=== PATIENT | female | born 1965 | race Caucasian/White ===

== ENCOUNTER → 2017-11-13 12:08 | Outpatient (CLI) | payer OTHER, SELFPAY ==
[2017-11-13 14:41] LABS: Absolute Lymphocyte Count 2.98 X10^3/ul (0.83-4.51); Absolute Neutrophil Count 5.4 X10^3/uL (2.0-7.7); Basophil# 0.02 X10^3/uL; Basophil% 0.2 % (0-1); Eosinophil# 0.13 X10^3/uL; Eosinophils% 1.4 % (0-5); Hematocrit 43.1 % (37-47); Hemoglobin 14.2 g/dl (12.0-15.0); Lymphocyte # 2.98 X10^3/ul (4.0); Lymphocyte % 32.5 % (19-41); Mean Corp Hgb Conc 32.9 g/gl (32-36); Mean Corpuscular Hgb 31.2 pg (27.0-32.0); Mean Corpuscular Volume 94.7 fL (81-99); Mean Platelet Vol. 11.5 fl (6.2-12.0); Monocyte# 0.61 X10^3/uL; Monocyte% 6.7 % (0-10); POSITIVE COUNT NO; POSITIVE DIFFERENTIAL NO; POSITIVE MORPHOLOGY NO; Platelet Count 377 K/mm3 (150-450); RBC Distribution Width CV 14.5 % (11.6-14.6); RBC Distribution Width SD 49.1 fl (35.1-43.9); Red Blood Count 4.55 M/mm3 (4.2-5.4); White Blood Count 9.2 K/mm3 (4.4-11.0)
[2017-11-13 15:06] LABS: ALB/GLOB Ratio 1.2 RATIO (0.9-2.4); AST(SGOT) 18 U/L (15-37); Alanine Aminotransfer ALT/SGPT 23 U/L (13-56); Albumin, Serum 4.3 g/dL (3.2-5.0); Alkaline Phosphatase 81 U/L (45-117); Anion Gap 7 (5-15); BUN 19 mg/dL (7-18); BUN/Creat Ratio 20.7 RATIO (10-20); Calcium,Total 9.4 mg/dL (8.5-10.1); Chloride 102 mmol/L (98-107); Creatinine, Serum 0.92 mg/dL (0.55-1.02); EST Glomerular Filtration Rate 68 mL/min (>60); Est Glom Filt Rate - Afr Amer 82 mL/min (>60); Ferritin 41 ng/mL (8-252); Globulin 3.5 g/dL (2.2-4.2); Glucose 90 mg/dL (74-106); Iron 61 ug/dL (50-170); Iron Binding Capacity,Total 389 ug/dL (250-450); PERCENT IRON SATURATION 15.7 % (15.0-55.0); Potassium 4.3 mmol/L (3.5-5.1); Protein, Total 7.8 g/dL (6.4-8.2); Sodium Level 137 mmol/L (136-145); Thyroid Stim Hormone (TSH) 2.88 uIU/mL (0.358-3.74)
== END ==
PROVIDERS: Family Provider Family Medicine; PCP Family Medicine; Visit Provider Family Medicine
DX: R20.2 Paresthesia of skin (principal)
CPT/HCPCS: 36415; 80053; 82728; 83540; 83550; 84443; 85025

== ENCOUNTER → 2017-11-21 14:27 | Outpatient (CLI) | payer OTHER, SELFPAY ==
[2017-11-21 15:12] LABS: Absolute Lymphocyte Count 3.32 X10^3/ul (0.83-4.51); Absolute Neutrophil Count 9.2 X10^3/uL (2.0-7.7); Basophil# 0.02 X10^3/uL; Basophil% 0.1 % (0-1); Eosinophil# 0.17 X10^3/uL; Eosinophils% 1.2 % (0-5); Hematocrit 39.2 % (37-47); Hemoglobin 12.8 g/dl (12.0-15.0); Lymphocyte # 3.32 X10^3/ul (4.0); Lymphocyte % 23.7 % (19-41); Mean Corp Hgb Conc 32.7 g/gl (32-36); Mean Corpuscular Hgb 31.1 pg (27.0-32.0); Mean Corpuscular Volume 95.4 fL (81-99); Mean Platelet Vol. 11.3 fl (6.2-12.0); Monocyte# 1.22 X10^3/uL; Monocyte% 8.7 % (0-10); Neutrophil # 9.22 X10^3/uL (2.7-7.7); Neutrophil % 66.1 % (47-70); Platelet Count 362 K/mm3 (150-450); RBC Distribution Width CV 14.7 % (11.6-14.6); RBC Distribution Width SD 49.3 fl (35.1-43.9); Red Blood Count 4.11 M/mm3 (4.2-5.4)
[2017-11-21 15:13] LABS: POSITIVE COUNT NO; POSITIVE DIFFERENTIAL NO; POSITIVE MORPHOLOGY NO
[2017-11-21 15:37] LABS: Erythrocyte Sedimentation Rate 11 mm/hr (0-30)
== END ==
PROVIDERS: Family Provider Family Medicine; PCP Family Medicine; Visit Provider Physician Assistant
DX: Z96.652 Presence of left artificial knee joint (principal)
CPT/HCPCS: 36415; 85025; 85652; 86140

== ENCOUNTER → 2017-11-22 14:19 | Outpatient (CLI) | payer OTHER, SELFPAY ==
[2017-11-22 15:11] LABS: AUTO B FLUID DILUENT BKGD CT WBC <0.1 RBC <0.01 (W<.1,R<.01); Source / Synovial Fluid LEFT KNEE
[2017-11-22 15:12] LABS: Appearance /Synovial Fluid Cloudy (CLEAR); Color / Synovial Fluid Red (Pale Yellow); RBC /Synovial Fluid 0.107 10^6/uL (0); Synovial Fld Mononuclear WBC # 3.254 10^3/ul; Synovial Fld Mononuclear WBC % 10.1 %; Synovial Fld Polynuclear WBC # 29.104 10^3/ul; Synovial Fld Polynuclear WBC % 89.9 %; Viscosity / Synovial Fluid Sl. Viscous (HIGH)
[2017-11-22 18:54] LABS: Body Fluid QC Type(s) BF2Q,BF3Q; Lymph 5 %; Monocyte /Synovial Fluid 14 %; Neutrophil 81 % (0-25)
[2017-11-25 10:19] LABS: Pathologist Comment Reviewed
== END ==
PROVIDERS: Family Provider Family Medicine; PCP Family Medicine; Visit Provider Physician Assistant
DX: Z96.652 Presence of left artificial knee joint (principal)
CPT/HCPCS: 87015; 87070; 87075; 87101; 87116; 87205; 87206; 89050; 89051

== ENCOUNTER 2017-11-22 20:56 | Inpatient (IN) | payer OTHER, SELFPAY ==
[2017-11-22 18:40] VITALS: BMI 25.2
[2017-11-22 18:54] VITALS: BP 138/86; PULSE 108; RESP 16; TEMP 37.1; O2SAT 97
--- NOTE | 2017-11-22 19:13 | PCM.CONS.B ---
- Consult Date of Consult: 11/22/17 - Reason for Consult CC: Left knee pain s/p TKR 07/25/15 HxCC:This 51y/o female underwent a tkr approximately two years ago. Was doing well until Saturday when she was exercising and developed acute pain and swelling in her knee. She denies F/C/N or V. She was seen in the office on 11/21 and lab was drawn. Her ESR was wnl at 11 but ESR was elevated and she had a slight elevation in her WBC count. She was afebrile. She was seen in clinic today and the knee was aspirated of about 30 cc of straw colored fluid which was sent for Gram stain, C&S which are still pending. After discussion with Dr. Portillo who is our total joint specialist at [facility], the patient was admitted for an I&D with poly exchange tomorrow. At the time of my evaluation, the patient is comfortable and non-toxic appearing. She reports left knee pain. Denies fevers or chills. ROS, Past Surgical and Medical history as well as her family history, medications and allergies were all reviewed. PHYSICAL EXAM A&o x 3 in NAD. She appears comfortable and non-toxic. Left knee reveals a well healed incision without erythema. She has a 2+ effusion with mild warmth. ROM is 0 - 100 with moderate pain throughout. No instability was appreciated. X- Rays from the office reveal a well seated, cemented TKR with no evidence of loosening or free air in the joint. Neurovascularly she is intact. Impression: Painful and swollen TKR > 2 years post surgery Plan: To OR tomorrow for I&D and polyethylene exchange. Will do tissue cultures x 3 to further assess for infection. Consult infectious disease for further instructions regarding antibiotics.
--- NOTE | 2017-11-22 21:51 | PCM.HP.STD ---
Problem List (1) Pain and swelling of left knee Status: Acute History of Present Illness Date of Admission: 11/22/17 Chief Complaint: Left knee pain and swelling The patient is a 51 year old F who was directly admitted to [place] [id number] at the request of orthopedic surgery who saw the patient in their office on Saturday of this week with complaints of left knee pain and swelling. At that time, labs were obtained, patient's white blood cell count was elevated at 14,000, her sed rate was 11. Patient return to the office yesterday and had an arthrocentesis performed on her left knee, the results today showed large numbers of white blood cells and the patient was directly admitted for further treatment. Patient will undergo surgery tomorrow on the left knee with I&D and polyethylene exchange. At the request of orthopedic surgery, patient will not be placed on antibiotics for now, labs have been ordered and are pending tonight. Past Medical History Past Medical History (Chronic Problems): Chronic Problems Hypertension (Chronic) Atypical depressive disorder (Chronic) Tobacco dependence (Chronic) Allergies chlorhexidine Allergy (Verified 01/25/17 11:05) Itching venom-honey bee [bee venom (honey bee)] Allergy (Verified 01/25/17 11:05) Anaphylaxis Home Medications: Ambulatory Orders Medication Instructions Recorded Nebivolol HCl [Bystolic (Beta 20 mg PO DAILY 06/01/14 Braxton)] Vilazodone Hydrochloride [Viibryd] 20 mg PO DAILY 06/01/14 Ergocalciferol [Vitamin D] 2,000 units PO DAILY 06/23/15 Magnesium Oxide [Mag-Ox 400] 350 mg PO DAILY 06/23/15 Acetaminophen [Tylenol Extra 2 tab PO BID PRN 11/22/17 Strength] Celecoxib [Celebrex] 200 mg PO BID 11/22/17 Lorazepam [Ativan] 1 mg PO DAILY PRN PRN 11/22/17 Surgical History: - - Multiple left knee arthroscopic surgeries due to an injury as a teenager, total left knee replacement Psychiatric History: Anxiety 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 Lives: Spouse/ Significant Other Smoking Status: Current every day smoker Tobacco Use: Cigarettes Alcohol: None Drugs: None - *Family History Sibling History Items: - - due to cardiomyopathy Maternal History Items: Heart Disease, - - CAD; PCI Paternal History Items: Dementia Review of Systems Constitutional: Denies: Anorexia, Chills, Fever, Night Sweats, Malaise, Weakness, Weight Change, Fatigue Eyes: Denies: Blurred vision, Cataracts, Conjunctivae Inflammation, Double vision, Drainage HEENT: Denies: Difficulty Hearing, Difficulty Swallowing, Dysphasia, Ear Pain, Eye Pain, Head Aches, Hearing Changes, Nasal bleeding, Nasal Congestion Cardiovascular: Denies: Chest Pain, Claudication, Chest Pressure, Chest Tightness, Edema, Heaviness, Orthopnea, Palpitations Respiratory: Denies: Cough, Hemoptysis, Pleuritic Pain, Shortness of Breath, Shortness of breath at rest, Shortness of breath upon exertion, Sputum production Gastrointestinal: Denies: Abdominal Pain, Constipation, Diarrhea, Hematemesis, Hematochezia, Nausea, Melena, Vomiting Genitourinary: Denies: Dysuria, Frequency, Hematuria, Hesitancy, Incontinence, Nocturia, Urgency Gynecological: Denies: Breast symptoms Musculoskeletal: Reports: Joint Pain - Left knee, Joint swelling - Left knee. Denies: Joint stiffness Skin: Denies: Dryness, Jaundice, Pruritis, Rash, Wounds Neurological: Denies: Blurred vision, Double vision, Change in Speech, Slurred speech, Difficulty swallowing, Focal weakness, Headaches, Incoordination, Numbness, Tingling Psychiatric: Reports: Anxiety. Denies: Depression, Homicidal Ideations, Suicidal Ideations Endocrine: Denies: Change in Body Habitus, Heat/ Cold Intolerance, Polydipsia, Polyuria Hematologic/ Lymphatic: Denies: Adenopathy, Anemia, Easy Bruising, Easy Bleeding, Petechiae, Purpura VTE Information - Inpt Only VTE Present on Admission: No VTE Mechan Device Prophylaxis: SCD's VTE Pharm Prophylaxis ordered?: No Reason prophylaxis not ordered:: Treatment Not Indicated - SCD's are used Patient Problems: Active and Suspected Problems Pain and swelling of left knee (Acute) - Physical Exam General: Alert, Oriented x3, Cooperative, No apparent distress, Well developed, Well nourished HEENT: Atraumatic, PERRLA, EOMI, Normocephalic Neck: Supple, No JVD, Negative Carotid Bruits, No Nuchal Rigidity, Trachea Midline, Thyroid Normal Size and Texture Lungs: Clear to auscultation, Normal air movement, No rhonchi, No wheeze, No rales Cardiovascular: Regular rate, Regular Rhythm, Normal S1, Normal S2, No murmurs, No Ectopic Activity, PMI Normal, No rub noted, No Gallop Abdomen: Bowel Sounds Present, Soft, Non Tender, Non-Distended, No hernias noted Extremities: No clubbing, No cyanosis, Capillary Refill Less than 3 Seconds, Edema - There is mild edema noted around the left knee area Skin: No rashes, No breakdown Musculoskeletal: Tenderness - Left knee is tender to palpation Neurological: Cranial nerves II-XII grossly intact, Neuro grossly intact, Sensory exam intact to light touch and pain, Coordination normal Psych/Mental Status: Normal Affect, Appropriate, Alert and oriented to time, place, person, mood and affect Vital Signs Temp Pulse Resp BP Pulse Ox 98.7 F 108 H 16 138/86 H 97 11/22/17 18:54 11/22/17 18:54 11/22/17 18:54 11/22/17 18:54 11/22/17 18:54 Oxygen Delivery Method Room Air Weight: 73 kg Body Mass Index (BMI) 25.2 Assessment/Plan Active and Suspected Problems Pain and swelling of left knee (Acute) #1 suspected left knee joint infection-again patient was admitted, she will undergo surgery tomorrow, antibiotic coverage per infectious diseases based on culture results #2 anxiety-patient will remain on her home medications #3 hypertension-patient will remain on her home medication Patient appears stable for surgery at this time, I feel she is at a low risk for complications, labs were ordered Code Visit Inpatient E&M: 05716 Init Hosp L3
--- NOTE | 2017-11-22 22:01 | HP.PCM_ITS ---
Problem List (1) Pain and swelling of left knee Status: Acute History of Present Illness Date of Admission: 11/22/17 Chief Complaint: Left knee pain and swelling The patient is a 51 year old F who was directly admitted to [place] [id number] at the request of orthopedic surgery who saw the patient in their office on Saturday of this week with complaints of left knee pain and swelling. At that time, labs were obtained, patient's white blood cell count was elevated at 14,000, her sed rate was 11. Patient return to the office yesterday and had an arthrocentesis performed on her left knee, the results today showed large numbers of white blood cells and the patient was directly admitted for further treatment. Patient will undergo surgery tomorrow on the left knee with I&D and polyethylene exchange. At the request of orthopedic surgery, patient will not be placed on antibiotics for now, labs have been ordered and are pending tonight. Past Medical History Past Medical History (Chronic Problems): Chronic Problems Hypertension (Chronic) Atypical depressive disorder (Chronic) Tobacco dependence (Chronic) Allergies chlorhexidine Allergy (Verified 01/25/17 11:05) Itching venom-honey bee [bee venom (honey bee)] Allergy (Verified 01/25/17 11:05) Anaphylaxis Home Medications: Ambulatory Orders Medication Instructions Recorded Nebivolol HCl [Bystolic (Beta 20 mg PO DAILY 06/01/14 Braxton)] Vilazodone Hydrochloride [Viibryd] 20 mg PO DAILY 06/01/14 Ergocalciferol [Vitamin D] 2,000 units PO DAILY 06/23/15 Magnesium Oxide [Mag-Ox 400] 350 mg PO DAILY 06/23/15 Acetaminophen [Tylenol Extra 2 tab PO BID PRN 11/22/17 Strength] Celecoxib [Celebrex] 200 mg PO BID 11/22/17 Lorazepam [Ativan] 1 mg PO DAILY PRN PRN 11/22/17 Surgical History: - - Multiple left knee arthroscopic surgeries due to an injury as a teenager, total left knee replacement Psychiatric History: Anxiety 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 Lives: Spouse/ Significant Other Smoking Status: Current every day smoker Tobacco Use: Cigarettes Alcohol: None Drugs: None - *Family History Sibling History Items: - - due to cardiomyopathy Maternal History Items: Heart Disease, - - CAD; PCI Paternal History Items: Dementia Review of Systems Constitutional: Denies: Anorexia, Chills, Fever, Night Sweats, Malaise, Weakness , Weight Change, Fatigue Eyes: Denies: Blurred vision, Cataracts, Conjunctivae Inflammation, Double vision, Drainage HEENT: Denies: Difficulty Hearing, Difficulty Swallowing, Dysphasia, Ear Pain, Eye Pain, Head Aches, Hearing Changes, Nasal bleeding, Nasal Congestion Cardiovascular: Denies: Chest Pain, Claudication, Chest Pressure, Chest Tightness, Edema, Heaviness, Orthopnea, Palpitations Respiratory: Denies: Cough, Hemoptysis, Pleuritic Pain, Shortness of Breath, Shortness of breath at rest, Shortness of breath upon exertion, Sputum production Gastrointestinal: Denies: Abdominal Pain, Constipation, Diarrhea, Hematemesis, Hematochezia, Nausea, Melena, Vomiting Genitourinary: Denies: Dysuria, Frequency, Hematuria, Hesitancy, Incontinence, Nocturia, Urgency Gynecological: Denies: Breast symptoms Musculoskeletal: Reports: Joint Pain - Left knee, Joint swelling - Left knee. Denies: Joint stiffness Skin: Denies: Dryness, Jaundice, Pruritis, Rash, Wounds Neurological: Denies: Blurred vision, Double vision, Change in Speech, Slurred speech, Difficulty swallowing, Focal weakness, Headaches, Incoordination, Numbness, Tingling Psychiatric: Reports: Anxiety. Denies: Depression, Homicidal Ideations, Suicidal Ideations Endocrine: Denies: Change in Body Habitus, Heat/ Cold Intolerance, Polydipsia, Polyuria Hematologic/ Lymphatic: Denies: Adenopathy, Anemia, Easy Bruising, Easy Bleeding , Petechiae, Purpura VTE Information - Inpt Only VTE Present on Admission: No VTE Mechan Device Prophylaxis: SCD's VTE Pharm Prophylaxis ordered?: No Reason prophylaxis not ordered:: Treatment Not Indicated - SCD's are used Patient Problems: Active and Suspected Problems Pain and swelling of left knee (Acute) - Physical Exam General: Alert, Oriented x3, Cooperative, No apparent distress, Well developed, Well nourished HEENT: Atraumatic, PERRLA, EOMI, Normocephalic Neck: Supple, No JVD, Negative Carotid Bruits, No Nuchal Rigidity, Trachea Midline, Thyroid Normal Size and Texture Lungs: Clear to auscultation, Normal air movement, No rhonchi, No wheeze, No rales Cardiovascular: Regular rate, Regular Rhythm, Normal S1, Normal S2, No murmurs, No Ectopic Activity, PMI Normal, No rub noted, No Gallop Abdomen: Bowel Sounds Present, Soft, Non Tender, Non-Distended, No hernias noted Extremities: No clubbing, No cyanosis, Capillary Refill Less than 3 Seconds, Edema - There is mild edema noted around the left knee area Skin: No rashes, No breakdown Musculoskeletal: Tenderness - Left knee is tender to palpation Neurological: Cranial nerves II-XII grossly intact, Neuro grossly intact, Sensory exam intact to light touch and pain, Coordination normal Psych/Mental Status: Normal Affect, Appropriate, Alert and oriented to time, place, person, mood and affect Vital Signs Temp Pulse Resp BP Pulse Ox 98.7 F 108 H 16 138/86 H 97 11/22/17 18:54 11/22/17 18:54 11/22/17 18:54 11/22/17 18:54 11/22/17 18:54 Oxygen Delivery Method Room Air Weight: 73 kg Body Mass Index (BMI) 25.2 Assessment/Plan Active and Suspected Problems Pain and swelling of left knee (Acute) #1 suspected left knee joint infection-again patient was admitted, she will undergo surgery tomorrow, antibiotic coverage per infectious diseases based on culture results #2 anxiety-patient will remain on her home medications #3 hypertension-patient will remain on her home medication Patient appears stable for surgery at this time, I feel she is at a low risk for complications, labs were ordered Code Visit Inpatient E&M: 27321 Init Hosp L3
[2017-11-22 22:46] LABS: ALB/GLOB Ratio 1.1 RATIO (0.9-2.4); AST(SGOT) 22 U/L (15-37); Alanine Aminotransfer ALT/SGPT 27 U/L (13-56); Albumin, Serum 3.7 g/dL (3.2-5.0); Alkaline Phosphatase 74 U/L (45-117); Anion Gap 6 (5-15); BUN 17 mg/dL (7-18); BUN/Creat Ratio 16.7 RATIO (10-20); Calcium,Total 8.6 mg/dL (8.5-10.1); Chloride 109 mmol/L (98-107); Creatinine, Serum 1.02 mg/dL (0.55-1.02); EST Glomerular Filtration Rate 60 mL/min (>60); Est Glom Filt Rate - Afr Amer 73 mL/min (>60); Estimated Creatinine Clearance 62.03 ml/min; Globulin 3.4 g/dL (2.2-4.2); Glucose 96 mg/dL (74-106); Potassium 4.2 mmol/L (3.5-5.1); Protein, Total 7.1 g/dL (6.4-8.2); Sodium Level 142 mmol/L (136-145)
[2017-11-22] MEDS: LORazepam 1 MG Tablet PO (22:48)
[2017-11-22] MEDS: Celecoxib 200 MG Capsule PO (22:48)
--- NOTE | 2017-11-22 22:50 | NURSING ---
pt oringial requested blood pressure medication. medication just came to floor. pt no longer wants to take it due to late hour.
[2017-11-22 22:51] VITALS: BP 146/97; PULSE 102; RESP 20; TEMP 36.8; O2SAT 100
--- NOTE | 2017-11-22 22:52 | NURSING ---
pt very anxious about surgery scheduled for tomorrow. This RN answered questions and attempted to help ease stress. pt requested only 1mg of Ativan at this time. will continue to monitor.
[2017-11-22 22:53] LABS: Absolute Lymphocyte Count 3.18 X10^3/ul (0.83-4.51); Absolute Neutrophil Count 9.9 X10^3/uL (2.0-7.7); Basophil# 0.02 X10^3/uL; Basophil% 0.1 % (0-1); Eosinophil# 0.24 X10^3/uL; Eosinophils% 1.7 % (0-5); Hematocrit 39.3 % (37-47); Hemoglobin 12.8 g/dl (12.0-15.0); Lymphocyte # 3.18 X10^3/ul (4.0); Lymphocyte % 22.1 % (19-41); Mean Corp Hgb Conc 32.6 g/gl (32-36); Mean Corpuscular Hgb 31.1 pg (27.0-32.0); Mean Corpuscular Volume 95.4 fL (81-99); Mean Platelet Vol. 11.1 fl (6.2-12.0); Monocyte# 1.01 X10^3/uL; Neutrophil # 9.93 X10^3/uL (2.7-7.7); Neutrophil % 68.9 % (47-70); POSITIVE COUNT NO; POSITIVE DIFFERENTIAL NO; POSITIVE MORPHOLOGY NO; Platelet Count 337 K/mm3 (150-450); RBC Distribution Width CV 14.5 % (11.6-14.6); RBC Distribution Width SD 48.4 fl (35.1-43.9); Red Blood Count 4.12 M/mm3 (4.2-5.4); White Blood Count 14.4 K/mm3 (4.4-11.0)
[2017-11-23] VITALS (12 sets, daily range): BP systolic 98–129; BP diastolic 62–100; PULSE 82–105; RESP 16–18; TEMP 36.7–37; O2SAT 93–98; BMI 25.2
--- NOTE | 2017-11-23 05:00 | EKG12_ITS ---
Test Reason : AM EKG Blood Pressure : / mmHG Vent. Rate : 091 BPM Atrial Rate : 091 BPM P-R Int : 128 ms QRS Dur : 084 ms QT Int : 362 ms P-R-T Axes : 050 043 -04 degrees QTc Int : 445 ms Normal sinus rhythm Nonspecific T wave abnormality Abnormal ECG Confirmed by ROSA CADENA, SHELIA ([id number]), managing editor PEPE JOYCE ([id number] on 12/05/2017 1:59:09 PM Referred By: KRISTY Confirmed By:SHELIA LEE MD
[2017-11-23] MEDS: 0.9% NaCl Peripheral Flush Adult/Peds IV (06:45)
[2017-11-23] MEDS: LORazepam 2 MG/ML Syringe 0.5 MG IV (06:45)
--- NOTE | 2017-11-23 07:09 | NURSING ---
gave report to Lauren in OR. pt being transported to surgery.
--- NOTE | 2017-11-23 08:48 | PCM.IMDPSTOP ---
Immediate Post-Op Note Date of Procedure: 11/23/17 Primary Surgeon/Physician: Rudy Beard facs teacher: Ankit Riuz facs teacher: Rosie Hoffmann Pre-Operative Diagnosis: Painful left TKR possible infection Post-Operative Diagnosis: same Surgery/Procedure Performed:: I&D with poly exchange left Description of Surgical Findings:: see op note Estimated Blood Loss: 25cc Specimen's removed: cultures ASA Class: ASA2 Mod Systematic Disease - Admit VTE Documentation VTE Present on Admission: No VTE Mechan Device Prophylaxis: SCD's, Thigh High DAX Hose VTE Pharm Prophylaxis ordered?: Yes
--- NOTE | 2017-11-23 08:53 | OP.PN_ITS ---
Immediate Post-Op Note Date of Procedure: 11/23/17 Primary Surgeon/Physician: Rudy Beard flexo press operator: Ankit Ruiz flexo press operator: Rosie Hoffmann Pre-Operative Diagnosis: Painful left TKR possible infection Post-Operative Diagnosis: same Surgery/Procedure Performed:: I&D with poly exchange left Description of Surgical Findings:: see op note Estimated Blood Loss: 25cc Specimen's removed: cultures ASA Class: ASA2 Mod Systematic Disease - Admit VTE Documentation VTE Present on Admission: No VTE Mechan Device Prophylaxis: SCD's, Thigh High DAX Hose VTE Pharm Prophylaxis ordered?: Yes
--- NOTE | 2017-11-23 09:24 | CASEMGMT ---
CHART REVIEW: JAQUELIN Strata: 1 ADM Dx: Knee Infection Last [facility] ADM: 07/25/15 METLAKATLA: The patient is a 51 year old F who was directly admitted to [place] [address] at the request of orthopedic surgery who saw the patient in their office on Saturday of this week with complaints of left knee pain and swelling. At that time, labs were obtained, patient's white blood cell count was elevated at 14,000, her sed rate was 11. Patient returned to the office yesterday and had an arthrocentesis performed on her left knee, the results today showed large numbers of white blood cells and the patient was directly admitted for further treatment. Patient underwent sx 11/23/17, on the left knee with I&D and polyethylene exchange. Transition Planning/Care Coordination: TBD by hospital course. KRYSTAL CM will continue to follow for any anticipated home-going needs. Disposition Plan: Anticipate home; needs TBD TCARLA Budny, RN-BC, CCM
[2017-11-23] MEDS: Ketorolac 15 MG/ML Vial IV (09:42)
[2017-11-23] MEDS: Scopolamine 1mg/72hr Patch 1 PATCH TD (09:46)
[2017-11-23 09:54] LABS: Hematocrit 39.7 % (37-47); Hemoglobin 12.6 g/dl (12.0-15.0); Mean Corp Hgb Conc 31.7 g/gl (32-36); Mean Corpuscular Hgb 30.7 pg (27.0-32.0); Mean Corpuscular Volume 96.8 fL (81-99); Mean Platelet Vol. 10.6 fl (6.2-12.0); Platelet Count 276 K/mm3 (150-450); RBC Distribution Width CV 14.6 % (11.6-14.6); RBC Distribution Width SD 51.8 fl (35.1-43.9); Scan Indicated on CBC? Y/N NO; White Blood Count 10.7 K/mm3 (4.4-11.0)
[2017-11-23 10:08] LABS: Anion Gap 6 (5-15); BUN 13 mg/dL (7-18); BUN/Creat Ratio 16.1 RATIO (10-20); Chloride 113 mmol/L (98-107); Creatinine, Serum 0.81 mg/dL (0.55-1.02); EST Glomerular Filtration Rate 78 mL/min (>60); Est Glom Filt Rate - Afr Amer 95 mL/min (>60); Estimated Creatinine Clearance 78.11 ml/min; Glucose 92 mg/dL (74-106); Potassium 4.8 mmol/L (3.5-5.1); Sodium Level 144 mmol/L (136-145)
[2017-11-23] MEDS: Nebivolol HCl 10 MG Tablet 20 MG PO (11:10)
[2017-11-23] MEDS: Celecoxib 200 MG Capsule PO ×2 (11:10→21:02)
[2017-11-23] MEDS: VILAZODONE HYDROCHLORIDE 20 MG TABLET PO (11:11)
[2017-11-23] MEDS: Acetaminophen 500 MG Tablet 1000 MG PO ×2 (11:11→21:01)
--- NOTE | 2017-11-23 11:18 | PCM.RX.CS ---
Consult Pharmacy has been consulted to manage selected antiobiotic: Vancomycin Type of Consult: New start Suspected Infection: Skin/Soft tissue Labs: Sodium 144 mmol/L (136-145) 11/23/17 09:47 Potassium 4.8 mmol/L (3.5-5.1) 11/23/17 09:47 Chloride 113 mmol/L (98-107) H 11/23/17 09:47 Carbon Dioxide 25.0 mmol/L (21.0-32.0) 11/23/17 09:47 Anion Gap 6 (5-15) 11/23/17 09:47 BUN 13 mg/dL (7-18) 11/23/17 09:47 Creatinine 0.81 mg/dL (0.55-1.02) 11/23/17 09:47 Est GFR (MDRD) Af Amer 95 mL/min (>60) 11/23/17 09:47 Est GFR (MDRD) Non-Af 78 mL/min (>60) 11/23/17 09:47 BUN/Creatinine Ratio 16.1 RATIO (10-20) 11/23/17 09:47 Glucose 92 mg/dL (74-106) 11/23/17 09:47 Weight used for dosin kg Estimated Creatinine Clearance: 78 mL/min Goal Trough: 10-15 mcg/mL Pharmacy Plan for Drug Dosing: Patient received vancomycin 1000mg IV x1 initially prior to surgery, recommend to continue 1000mg IV q12h hr. Check trough prior to 4th dose. Pharmacy Service will continue to monitor and adjust dosing as required. Follow-Up Labs: Trough Vancomycin - 11/25/17 @ 1000
[2017-11-23] MEDS: Gabapentin 300 MG Capsule PO ×2 (12:27→18:07)
[2017-11-23] MEDS: Cefazolin 1 GM/50 ML BAG IV ×2 (13:25→21:02)
[2017-11-23] MEDS: oxyCODONE 5 MG Tablet PO ×3 (13:25→22:14)
--- NOTE | 2017-11-23 17:08 | PN_ITS ---
Patient Problems: Active and Suspected Problems Pain and swelling of left knee (Acute) Subjective: Patient was seen and examined today, she went to surgery today for an I&D of her left knee with polyethylene exchange. Patient has no specific complaints at this time - Physical Exam General: Alert, Oriented x3, Cooperative, No apparent distress, Well developed, Well nourished HEENT: Atraumatic, PERRLA, EOMI, Normocephalic Oral: Moist Mucosa Neck: Supple, No JVD, Trachea Midline, Thyroid Normal Size and Texture Lungs: Clear to auscultation, Normal air movement, No rhonchi, No wheeze, No rales Cardiovascular: Regular rate, Regular Rhythm, Normal S1, Normal S2, No murmurs, No Ectopic Activity, PMI Normal, No rub noted, No Gallop Abdomen: Bowel Sounds Present, Soft, Non Tender, Non-Distended, No hernias noted Extremities: No cyanosis, Capillary Refill Less than 3 Seconds Skin: No rashes, No breakdown Neurological: Cranial nerves II-XII grossly intact, Neuro grossly intact, Muscle tone normal, Sensory exam intact to light touch and pain Psych/Mental Status: Normal Affect, Appropriate, Alert and oriented to time, place, person, mood and affect Vital Signs Temp Pulse Resp BP Pulse Ox 98.5 F 90 18 116/70 95 11/23/17 14:45 11/23/17 14:45 11/23/17 14:45 11/23/17 14:45 11/23/17 14:45 Oxygen Delivery Method Room Air Weight: 73 kg Body Mass Index (BMI) 25.2 Intake and Output for Last 24 Hours 11/21/17 11/22/17 11/23/17 23:59 23:59 23:59 Intake Total 1999 Balance 1999 Microbiology Past 72 Hours 11/23/17 Unknown Gram Stain - Final Tissue - Knee 11/23/17 Unknown Gram Stain - Final Tissue - Knee 11/23/17 Unknown Gram Stain - Final Incision/Surgical Site Laboratory Tests Past 24 Hrs 11/22/17 11/22/17 11/23/17 22:12 22:12 09:47 WBC 14.4 H 10.7 RBC 4.12 L 4.10 L Hgb 12.8 12.6 Hct 39.3 39.7 MCV 95.4 96.8 MCH 31.1 30.7 MCHC 32.6 31.7 L RDW 14.5 14.6 RDW Differential 48.4 H 51.8 H Plt Count 337 276 MPV 11.1 10.6 Immature Gran % (Auto) 0.200 Neut % (Auto) 68.9 Lymph % (Auto) 22.1 [place] % (Auto) 7.0 Eos % (Auto) 1.7 Baso % (Auto) 0.1 Absolute Neuts (auto) 9.9 H Absolute Lymphs (auto) 3.18 Total Counted Not Reportable Sodium 142 Potassium 4.2 Chloride 109 H Carbon Dioxide 27.0 Anion Gap 6 BUN 17 Creatinine 1.02 Estim Creat Clear Calc 62.03 Est GFR (MDRD) Af Amer 73 Est GFR (MDRD) Non-Af 60 BUN/Creatinine Ratio 16.7 Glucose 96 Calcium 8.6 Total Bilirubin 0.20 AST 22 ALT 27 Alkaline Phosphatase 74 Total Protein 7.1 Albumin 3.7 Globulin 3.4 Albumin/Globulin Ratio 1.1 11/23/17 09:47 WBC RBC Hgb Hct MCV MCH MCHC RDW RDW Differential Plt Count MPV Immature Gran % (Auto) Neut % (Auto) Lymph % (Auto) [place] % (Auto) Eos % (Auto) Baso % (Auto) Absolute Neuts (auto) Absolute Lymphs (auto) Total Counted Sodium 144 Potassium 4.8 Chloride 113 H Carbon Dioxide 25.0 Anion Gap 6 BUN 13 Creatinine 0.81 Estim Creat Clear Calc 78.11 Est GFR (MDRD) Af Amer 95 Est GFR (MDRD) Non-Af 78 BUN/Creatinine Ratio 16.1 Glucose 92 Calcium 8.0 L Total Bilirubin AST ALT Alkaline Phosphatase Total Protein Albumin Globulin Albumin/Globulin Ratio Medical Necessity - Tobacco Use Smoking Status: Current every day smoker Tobacco Use: Cigarettes Assessment/Plan Active and Suspected Problems Pain and swelling of left knee (Acute) #1 suspected left knee joint infection-day #1 vancomycin and Ancef, await culture results, preliminary synovial fluid culture shows no growth so far, Gram stain on her left knee tibial membrane showed no white blood cells or organisms. #2 anxiety-patient will remain on her home medications #3 hypertension-patient will remain on her home medication Code Visit Inpatient E&M: 18094 Subs Hosp L2
[2017-11-24] VITALS (7 sets, daily range): BP systolic 84–109; BP diastolic 52–67; PULSE 64–84; RESP 16–18; TEMP 36.4–37.2; O2SAT 94–97
[2017-11-24] MEDS: 0.9% NaCl Peripheral Flush Adult/Peds IV (05:17)
[2017-11-24] MEDS: Enoxaparin 40 MG/0.4 ML Syringe SC (05:17)
[2017-11-24] MEDS: Acetaminophen 500 MG Tablet 1000 MG PO ×3 (05:17→21:09)
[2017-11-24] MEDS: Cefazolin 1 GM/50 ML BAG IV ×3 (05:17→21:09)
[2017-11-24] MEDS: oxyCODONE 5 MG Tablet PO ×5 (05:18→19:44)
[2017-11-24 06:50] LABS: Hemoglobin 10.9 g/dl (12.0-15.0); Mean Corp Hgb Conc 32.1 g/gl (32-36); Mean Corpuscular Hgb 31.4 pg (27.0-32.0); Platelet Count 302 K/mm3 (150-450); RBC Distribution Width CV 14.5 % (11.6-14.6); RBC Distribution Width SD 50.5 fl (35.1-43.9); Red Blood Count 3.47 M/mm3 (4.2-5.4); White Blood Count 7.2 K/mm3 (4.4-11.0)
[2017-11-24 06:51] LABS: Scan Indicated on CBC? Y/N NO
[2017-11-24 07:11] LABS: Anion Gap 6 (5-15); BUN 11 mg/dL (7-18); BUN/Creat Ratio 10.7 RATIO (10-20); Calcium,Total 8.2 mg/dL (8.5-10.1); Chloride 109 mmol/L (98-107); Creatinine, Serum 1.03 mg/dL (0.55-1.02); EST Glomerular Filtration Rate 59 mL/min (>60); Est Glom Filt Rate - Afr Amer 72 mL/min (>60); Estimated Creatinine Clearance 61.43 ml/min; Glucose 97 mg/dL (74-106); Potassium 4.1 mmol/L (3.5-5.1); Sodium Level 143 mmol/L (136-145)
--- NOTE | 2017-11-24 07:22 | PCM.PROGNOTE ---
Patient Problems: Active and Suspected Problems Pain and swelling of left knee (Acute) Subjective: Patient seen and examined today, other than left knee pain, she has no complaints. Patient remains afebrile, white blood cell count remains normal at 7.2, hemoglobin slightly lower at 10.9, creatinine slightly higher at 1.03. Ancef and vancomycin continues day #2 - Physical Exam General: Alert, Oriented x3, Cooperative, No apparent distress, Well developed HEENT: Atraumatic, PERRLA, EOMI, Normocephalic Oral: Moist Mucosa Neck: Supple, No Nuchal Rigidity, Trachea Midline Lungs: Clear to auscultation, Normal air movement, No rhonchi, No wheeze, No rales Cardiovascular: Regular rate, Regular Rhythm, Normal S1, Normal S2, No murmurs, No Ectopic Activity Abdomen: Bowel Sounds Present, Soft, Non Tender, Non-Distended, No hernias noted Extremities: No clubbing, No cyanosis, Capillary Refill Less than 3 Seconds Skin: No rashes Neurological: Cranial nerves II-XII grossly intact, Neuro grossly intact, Muscle tone normal, Sensory exam intact to light touch and pain, Coordination normal Psych/Mental Status: Normal Affect, Appropriate, Alert and oriented to time, place, person, mood and affect Vital Signs Temp Pulse Resp BP Pulse Ox 97.6 F L 76 16 104/62 97 11/24/17 05:15 11/24/17 05:15 11/24/17 05:15 11/24/17 05:15 11/24/17 05:15 Oxygen Delivery Method Room Air Weight: 73 kg Body Mass Index (BMI) 25.2 Intake and Output for Last 24 Hours 11/22/17 11/23/17 11/24/17 23:59 23:59 23:59 Intake Total 2974 / 2974 1039 / 1039 Output Total 1300 / 1300 700 / 700 Balance 1674 / 1674 339 / 339 Microbiology Past 72 Hours 11/23/17 Unknown Gram Stain - Final Tissue - Knee 11/23/17 Unknown Gram Stain - Final Tissue - Knee 11/23/17 Unknown Gram Stain - Final Incision/Surgical Site Laboratory Tests Past 24 Hrs 11/23/17 11/23/17 11/24/17 09:47 09:47 06:24 WBC 10.7 7.2 RBC 4.10 L 3.47 L Hgb 12.6 10.9 L Hct 39.7 34.0 L MCV 96.8 98.0 MCH 30.7 31.4 MCHC 31.7 L 32.1 RDW 14.6 14.5 RDW Differential 51.8 H 50.5 H Plt Count 276 302 MPV 10.6 11.0 Sodium 144 Potassium 4.8 Chloride 113 H Carbon Dioxide 25.0 Anion Gap 6 BUN 13 Creatinine 0.81 Estim Creat Clear Calc 78.11 Est GFR (MDRD) Af Amer 95 Est GFR (MDRD) Non-Af 78 BUN/Creatinine Ratio 16.1 Glucose 92 Calcium 8.0 L //18 06:24 WBC RBC Hgb Hct MCV MCH MCHC RDW RDW Differential Plt Count MPV Sodium 143 Potassium 4.1 Chloride 109 H Carbon Dioxide 28.0 Anion Gap 6 BUN 11 Creatinine 1.03 H Estim Creat Clear Calc 61.43 Est GFR (MDRD) Af Amer 72 Est GFR (MDRD) Non-Af 59 L BUN/Creatinine Ratio 10.7 Glucose 97 Calcium 8.2 L Medical Necessity - Tobacco Use Smoking Status: Current every day smoker Tobacco Use: Cigarettes Assessment/Plan Active and Suspected Problems Pain and swelling of left knee (Acute) #1 suspected left knee joint infection-day #2 vancomycin and Ancef, await culture results, preliminary synovial fluid culture shows no growth so far, Gram stain on her left knee tibial membrane showed no white blood cells or organisms. Infectious diseases will see the patient tomorrow #2 anxiety-patient will remain on her home medications #3 hypertension-patient will remain on her home medication #4 postop day #2 incision and drainage left knee with polyethylene exchange-PT and OT will continue, patient will be going home rather than to rehab facility most likely Code Visit Inpatient E&M: 45930 Subs Hosp L2
[2017-11-24] MEDS: Celecoxib 200 MG Capsule PO ×2 (08:08→21:09)
[2017-11-24] MEDS: Gabapentin 300 MG Capsule PO ×3 (08:08→17:00)
--- NOTE | 2017-11-24 10:55 | OP.PCM_ITS ---
Operative Report Date of Procedure: 11/23/17 Surgeon: Kisha Web Methods Developer: Dr. Ruiz Second Chemical Detection Expert: GILBERT Hoskins Anestesia: General/LMA Dr. Rios EBL: 25cc Specimen: Cultures OPERATION: Irrigation and Debridement with Polyethylene exchange Left Knee PROCEDURE: With appropriate informed consent, the patient was taken to the operating suite. General/LMA anesthesia was administered. The well leg was well padded and the operative extremity was fit with a tourniguet and prepped and draped sterilely. Timeout was taken and the left leg was elevated for two minutes then the tourniguet was applied at 250 mm of mercury. The patients previous TKR incision was then utilized to gain access to the knee via a medial capsulotomy. Approximately 40cc of serosanguinous fluid was encountered and cultured. Subsequently debridement of the joint was undertaken with ronguers and sharp dissection. Deep tissue cultures were sent x 3. The poly was then removed and further debridement was carried out. Subsequently the joint was irrigated under low pressure with a total of 9000cc of sterile fluid. Thereafter a new 9mm size 3 polyethylene was snapped [address] and the wound was closed with #1 Vicryl on the capsule,#0 Vicryl subq and #0 Prolene in a vertical mattress fashion on the skin. A sterile, silver impregnated dressing was then placed. Dr. Ruiz provided a vital role in the procedure including positioning, retraction of soft tissues and input throughout the entire case. The patient was then extubated and sent to the PACU in stable and satisfactory condition.
--- NOTE | 2017-11-24 10:55 | PCM.PN.ORT ---
Patient Problems: Active and Suspected Problems Pain and swelling of left knee (Acute) Subjective: Pt. doing well. Pain controlled. - Physical Exam General: Alert, Oriented x3, No apparent distress HEENT: PERRLA, EOMI Oral: Moist Mucosa Neck: Supple Abdomen: Bowel Sounds Present, Soft Extremities: No clubbing, No cyanosis, No Calf Tenderness Skin: Incision - stable Neurological: Motor Exam 5/5 strength throughout Vital Signs Temp Pulse Resp BP Pulse Ox 98.1 F 84 18 84/52 L 94 11/24/17 08:27 11/24/17 08:27 11/24/17 08:27 11/24/17 08:27 11/24/17 08:27 Oxygen Delivery Method Room Air Weight: 160 lb 14.999 oz Body Mass Index (BMI) 25.2 Intake and Output for Last 24 Hours 11/22/17 11/23/17 11/24/17 23:59 23:59 23:59 Intake Total 2974 / 2974 1039 / 1039 Output Total 1300 / 1300 700 / 700 Balance 1674 / 1674 339 / 339 Microbiology Past 72 Hours 11/23/17 Unknown Gram Stain - Final Tissue - Knee 11/23/17 Unknown Gram Stain - Final Tissue - Knee 11/23/17 Unknown Gram Stain - Final Incision/Surgical Site Laboratory Tests Past 24 Hrs 11/24/17 11/24/17 06:24 06:24 WBC 7.2 RBC 3.47 L Hgb 10.9 L Hct 34.0 L MCV 98.0 MCH 31.4 MCHC 32.1 RDW 14.5 RDW Differential 50.5 H Plt Count 302 MPV 11.0 Sodium 143 Potassium 4.1 Chloride 109 H Carbon Dioxide 28.0 Anion Gap 6 BUN 11 Creatinine 1.03 H Estim Creat Clear Calc 61.43 Est GFR (MDRD) Af Amer 72 Est GFR (MDRD) Non-Af 59 L BUN/Creatinine Ratio 10.7 Glucose 97 Calcium 8.2 L Medical Necessity - Tobacco Use Smoking Status: Current every day smoker Tobacco Use: Cigarettes Assessment/Plan Active and Suspected Problems Pain and swelling of left knee (Acute) s/p I&D with poly exchange left knee Infectious disease consult pending, anticipate discharge tomorrow after ID consult. Patient may need PICC line depending on duration of antibiotic reccomended by ID.
[2017-11-24] MEDS: VILAZODONE HYDROCHLORIDE 20 MG TABLET PO (12:58)
[2017-11-24] MEDS: LORazepam 1 MG Tablet PO (22:03)
[2017-11-25 03:59] VITALS: BP 114/73; PULSE 72; RESP 16; TEMP 36.9; O2SAT 96
[2017-11-25] MEDS: oxyCODONE 5 MG Tablet PO ×4 (04:00→22:06)
[2017-11-25] MEDS: Cefazolin 1 GM/50 ML BAG IV (05:33)
[2017-11-25] MEDS: Enoxaparin 40 MG/0.4 ML Syringe SC (05:33)
[2017-11-25] MEDS: Acetaminophen 500 MG Tablet 1000 MG PO ×4 (05:34→22:08)
[2017-11-25 07:41] VITALS: BP 107/64; PULSE 60; RESP 18; TEMP 37; O2SAT 93
[2017-11-25] MEDS: Gabapentin 300 MG Capsule PO ×3 (07:44→17:34)
[2017-11-25 09:52] VITALS: BP 105/64; PULSE 74
[2017-11-25] MEDS: Nebivolol HCl 10 MG Tablet 20 MG PO (09:53)
[2017-11-25] MEDS: VILAZODONE HYDROCHLORIDE 20 MG TABLET PO (09:54)
[2017-11-25] MEDS: Celecoxib 200 MG Capsule PO (09:54)
--- NOTE | 2017-11-25 10:35 | NURSING ---
called Sheryl from [facility]. provided information requested for PICC line placement.
--- NOTE | 2017-11-25 11:41 | PCM.HP.ID ---
Problem List (1) Pain and swelling of left knee Status: Acute Reason for Consult: PJI Consulted by: Dr. Beard History of Present Illness: The patient is a 51 year old F with L TKA about 1.5-2 years ago, no complications post-op, no h/o MRSA infection who presented 11/22 with 3 days of progressive L knee pain, swelling, redness. Sx started after exercising at home 11/19. Had felt more tired for the past week or two. No trauma to knee. Became severely painful, worse with movement. Had some chills. Got aspiration done 11/22 which showed heavy wbc. No abx given, taken to OR 11/23 for debridement and poly exchanged. Started on vanc/cefazolin. Knee still sore but overall better. Full ROS performed and neg except as noted above. - Medical History Past Medical History (Chronic Problems): Chronic Problems Hypertension (Chronic) Atypical depressive disorder (Chronic) Tobacco dependence (Chronic) Allergies/Adverse Reactions: Allergies chlorhexidine Allergy (Verified 01/25/17 11:05) Itching venom-honey bee [bee venom (honey bee)] Allergy (Verified 01/25/17 11:05) Anaphylaxis Home Medications: Ambulatory Orders Medication Instructions Recorded Nebivolol HCl [Bystolic (Beta 20 mg PO DAILY 06/01/14 Braxton)] Vilazodone Hydrochloride [Viibryd] 20 mg PO DAILY 06/01/14 Ergocalciferol [Vitamin D] 2,000 units PO DAILY 06/23/15 Magnesium Oxide [Mag-Ox 400] 350 mg PO DAILY 06/23/15 Acetaminophen [Tylenol Extra 2 tab PO BID PRN 11/22/17 Strength] Celecoxib [Celebrex] 200 mg PO BID 11/22/17 Lorazepam [Ativan] 1 mg PO DAILY PRN PRN 11/22/17 - Social History Tobacco Use: cigarettes Vital Signs Temp Pulse Resp BP Pulse Ox 98.6 F 74 18 105/64 93 11/25/17 07:41 11/25/17 09:52 11/25/17 07:41 11/25/17 09:52 11/25/17 07:41 Oxygen Delivery Method Room Air Weight: 73 kg Body Mass Index (BMI) 25.2 Microbiology Past 72 Hours 11/23/17 Unknown Gram Stain - Final Tissue - Knee Wound Culture - Preliminary Anaerobic Culture - Preliminary No growth in 48 hours. 04/14/18 Unknown Gram Stain - Final Tissue - Knee Wound Culture - Preliminary Anaerobic Culture - Preliminary No growth in 48 hours. 11/23/17 Unknown Gram Stain - Final Incision/Surgical Site Wound Culture - Preliminary Anaerobic Culture - Preliminary No growth in 48 hours. Laboratory Tests Past 24 Hrs 11/25/17 09:25 Vancomycin Trough 14.0 - Other Studies Radiology: [] reviewed Other Studies: [] Route of nutrition/ use of supplements: [] Nutritional Intake: [] IV Site: [] Nolan Catheter: [] - Physical Exam General: Alert, Oriented x3, Cooperative, No apparent distress HEENT: Atraumatic, PERRLA, EOMI Neck: Supple, No Nodes Lungs: Clear to auscultation, Normal air movement Cardiovascular: Regular rate, Regular Rhythm, No murmurs Abdomen: Bowel Sounds Present, Soft, Non Tender, Non-Distended Extremities: No edema Skin: Incision - L knee wrapped IV Site: Peripheral, without redness Neurological: Cranial nerves II-XII grossly intact - Assessment/Plan Antibiotics: [] Assessment/Plan: [] Active and Suspected Problems Pain and swelling of left knee (Acute) L knee PJI s/p I&D and poly exchange 11/23/[address] Beard - cxs neg so far. Spoke with micro lab and requested aspirate and surg cxs be held for 14 days. Will order picc and plan on 6 week course of iv vanc/ceftriaxone for empiric coverage. If cxs come back with something, will adjust therapy. Stop date planned for 01/04/18 and then long course of po abx. Weekly bmp, cbc, vanc trough, and ESR while on iv abx. ID follow-up with me in 2-3 weeks. Thank you, will follow, d/w primary team and counseling case manager. Rx written for labs and abx.
--- NOTE | 2017-11-25 12:29 | CASEMGMT ---
Intro role of CM to patient and her family (,sister). No preference re: infusion company and home health provider as long as they are [facility]. Sister is RN and is willing and able to learn/give IV antibiotics @ home. -2 IV antibiotics for Home: IV Vancomycin 1000/2200 and Ceftriaxone 2 gm IV Q 24 hours- to start today. -per MMO website, [facility] is [facility]. Referral faxed w/clinical informatin and request for Home Health to be set up. Bhargavi SCHOFIELDN RN ACM
--- NOTE | 2017-11-25 13:07 | PCM.RX.CS ---
Consult Pharmacy has been consulted to manage selected antiobiotic: Vancomycin Type of Consult: Follow-up Suspected Infection: Skin/Soft tissue Prior Doses of Antibiotics Received/Current Regimen: VANCOMYCIN 1000MG Q12HRS: 11/24/17 @1029, 2203 AND 11/25/17 @0954 Labs: Sodium 143 mmol/L (136-145) 11/24/17 06:24 Potassium 4.1 mmol/L (3.5-5.1) 11/24/17 06:24 Chloride 109 mmol/L (98-107) H 11/24/17 06:24 Carbon Dioxide 28.0 mmol/L (21.0-32.0) 11/24/17 06:24 Anion Gap 6 (5-15) 11/24/17 06:24 BUN 11 mg/dL (7-18) 11/24/17 06:24 Creatinine 1.03 mg/dL (0.55-1.02) H 11/24/17 06:24 Est GFR (MDRD) Af Amer 72 mL/min (>60) 11/24/17 06:24 Est GFR (MDRD) Non-Af 59 mL/min (>60) L 11/24/17 06:24 BUN/Creatinine Ratio 10.7 RATIO (10-20) 11/24/17 06:24 Glucose 97 mg/dL (74-106) 11/24/17 06:24 Vancomycin Trough 14.0 ug/mL (5.0-15.0) 11/25/17 09:25 Microbiology: Microbiology 11/23/17 Unknown Tissue - Knee Gram Stain - Final 11/23/17 Unknown Tissue - Knee Wound Culture - Preliminary 11/23/17 Unknown Tissue - Knee Anaerobic Culture - Preliminary No growth in 48 hours. 11/23/17 Unknown Tissue - Knee Gram Stain - Final 11/23/17 Unknown Tissue - Knee Wound Culture - Preliminary 11/23/17 Unknown Tissue - Knee Anaerobic Culture - Preliminary No growth in 48 hours. 11/23/17 Unknown Incision/Surgical Site Gram Stain - Final 11/23/17 Unknown Incision/Surgical Site Wound Culture - Preliminary 11/23/17 Unknown Incision/Surgical Site Anaerobic Culture - Preliminary No growth in 48 hours. Weight used for dosin kg Estimated Creatinine Clearance: 61ML/MIN Goal Trough: 10-15 mcg/mL Pharmacy Plan for Drug Dosing: Pharmacy Service will continue to monitor and adjust dosing as required. The patient had a trough drawn which resulted in a value of 14 (drawn ~11.5hrs from last dose given). This is adequate based on a target trough of 10-15. Per ID, the patient is to get 6 weeks of antibiotics for empiric treatment. Will continue current dose of vancomycin, no additional trough to be drawn at this time. Pharmacy will re-draw a trough when appropriate, or if a significant change in renal function occurs. Will continue to monitor daily. PLAN/ RECOMMENDATION 1. Continue vancomycin 1g IV Q12hrs 2. No additional trough ordered at this time 3. Pharmacy will continue to monitor patient
--- NOTE | 2017-11-25 13:34 | PN_ITS ---
Patient Problems: Active and Suspected Problems Pain and swelling of left knee (Acute) Subjective: Patient was seen and examined. No new complaints. Feels improved. She has been exercising with therapy, knee swelling and pain has gone down with the cooling mat. Objective: Physical Exam General: Alert, Oriented x3, Cooperative, No apparent distress, Well developed HEENT: Atraumatic, PERRLA, EOMI, Normocephalic Oral: Moist Mucosa Neck: Supple, No Nuchal Rigidity, Trachea Midline Lungs: Clear to auscultation, Normal air movement, No rhonchi, No wheeze, No rales Cardiovascular: Regular rate, Regular Rhythm, Normal S1, Normal S2, No murmurs, No Ectopic Activity Abdomen: Bowel Sounds Present, Soft, Non Tender, Non-Distended, No hernias noted Extremities: No bilateral leg edema, left anterior knee dressing intact, slight swelling of the left knee, with slight differential warmth but no erythema. Skin: No rashes Neurological: Cranial nerves II-XII grossly intact, Neuro grossly intact, Muscle tone normal, Sensory exam intact to light touch and pain, Coordination normal Psych/Mental Status: Normal Affect, Appropriate, Alert and oriented to time, place, person, mood and affect Vitals/I&O's: Vital Signs Temp Pulse Resp BP Pulse Ox 98.6 F 74 18 105/64 93 11/25/17 07:41 11/25/17 09:52 11/25/17 07:41 11/25/17 09:52 11/25/17 07:41 Oxygen Delivery Method Room Air Weight: 73 kg Body Mass Index (BMI) 25.2 Intake and Output for Last 24 Hours 11/23/17 11/24/17 11/25/17 23:59 23:59 23:59 Intake Total 2974 / 2974 4436 / 4436 1973 / 1973 Output Total 1300 / 1300 2600 / 2600 1000 / 1000 Balance 1674 / 1674 1836 / 1836 974 / 974 Microbiology Past 72 Hours 11/23/17 Unknown Tissue - Knee Gram Stain - Final 11/23/17 Unknown Tissue - Knee Wound Culture - Preliminary 11/23/17 Unknown Tissue - Knee Anaerobic Culture - Preliminary No growth in 48 hours. 11/23/17 Unknown Tissue - Knee Gram Stain - Final 11/23/17 Unknown Tissue - Knee Wound Culture - Preliminary 11/23/17 Unknown Tissue - Knee Anaerobic Culture - Preliminary No growth in 48 hours. 11/23/17 Unknown Incision/Surgical Site Gram Stain - Final 11/23/17 Unknown Incision/Surgical Site Wound Culture - Preliminary 11/23/17 Unknown Incision/Surgical Site Anaerobic Culture - Preliminary No growth in 48 hours. Laboratory Results 11/25/17 09:25: Vancomycin Trough 14.0 Current Medications Acetaminophen (Tylenol) 1,000 mg PO Q8H PRN PRN PRN Reason: PAIN Last Admin: 11/25/17 07:44 Dose: 1,000 mg Acetaminophen (Tylenol) 1,000 mg PO Q8 [facility] Last Admin: 11/25/17 13:29 Dose: 1,000 mg Celecoxib (Celebrex) 200 mg PO BID [facility] Last Admin: 11/25/17 09:54 Dose: 200 mg Enoxaparin Sodium (Lovenox) 40 mg SC DAILY@0600 [facility] Last Admin: 11/25/17 05:33 Dose: 40 mg Gabapentin (Neurontin) 300 mg PO TIDCM [facility] Last Admin: 11/25/17 12:26 Dose: 300 mg Hydromorphone HCl (Dilaudid Iv) 1 mg IV Q2H PRN PRN PRN Reason: SEVERE PAIN (6-10/10) Vancomycin HCl (Vancomycin) 1,000 mg in 200 mls @ 200 mls/hr IV Q12H [facility] Last Admin: 11/25/17 09:54 Dose: 200 mls/hr Ceftriaxone Sodium 2 gm/ (Sodium Chloride) 50 mls @ 100 mls/hr IV Q24 [facility] Last Admin: 11/25/17 13:29 Dose: 100 mls/hr Ketorolac Tromethamine (Toradol) 15 mg IV Q6H PRN PRN PRN Reason: MILD-MOD PAIN (1-5/10) Last Admin: 11/23/17 09:42 Dose: 15 mg Lorazepam (Ativan) 1 - 2 mg PO QHS PRN PRN PRN Reason: SLEEP Last Admin: 11/24/17 22:03 Dose: 1 mg Nebivolol (Bystolic) 20 mg PO DAILY [facility] Last Admin: 11/25/17 09:53 Dose: 20 mg Ondansetron HCl (Zofran) 4 mg IV Q8H PRN PRN PRN Reason: NAUSEA Oxycodone HCl (Oxyir) 5 - 10 mg PO Q4H PRN PRN PRN Reason: MOD-SEVERE PAIN (4-1010) Last Admin: 11/25/17 09:53 Dose: 10 mg Promethazine HCl (Phenergan) 12.5 mg IM Q6H PRN PRN; Protocol PRN Reason: NAUSEA/VOMITING Sodium Chloride () 5 - 30 ml IV UD PRN PRN Reason: SALINE FLUSH Last Admin: 11/24/17 05:17 Dose: 10 ml Vilazodone HCl (Viibryd) 20 mg PO DAILY [facility] Last Admin: 11/25/17 09:54 Dose: 20 mg Medical Necessity - Tobacco Use Smoking Status: Current every day smoker Tobacco Use: Cigarettes Assessment/Plan Active and Suspected Problems Pain and swelling of left knee (Acute) 51-year-old female with past medical history of left total knee replacement, comes in with left knee pain and diagnosed with suspected left knee joint infection, status post surgery for I&D and polyethylene exchange. 1. Postop day 3, status post left knee irrigation and debridement with polyethylene exchange, for suspected left knee septic arthritis, pain is controlled, on IV vancomycin tries him, ID consulted, recommended continuation of antibiotics, patient is getting a PICC line and discharged with IV antibiotics. No fevers are seen, leukocytosis resolved. Pain control by orthopedic team, on celecoxib, would not recommend use of celecoxib with enoxaparin as patient is at risk for bleeding. 2. Anemia, likely postop, likely also related to IV fluids, stable vitals, will DC IV fluids, labs in a.m. 3. Elevation in creatinine related to dehydration versus medication side effect , (vancomycin), been on IV fluids, repeat labs in a.m. 4. Anxiety, on Vilazodone 5. Hypertension, controlled, on nebivolol 6. DVT PPx-Lovenox SC Code Visit Inpatient E&M: 10749 Subs Hosp L2
--- NOTE | 2017-11-25 14:32 | PCM.PN.ORT ---
Patient Problems: Active and Suspected Problems Pain and swelling of left knee (Acute) Subjective: Patient reports knee is much better today. - Physical Exam General: Alert, Oriented x3, No apparent distress Extremities: No clubbing, No cyanosis, Capillary Refill Less than 3 Seconds, No Calf Tenderness Skin: Incision - stable without erythema Neurological: Motor Exam 5/5 strength throughout, Sensory exam intact to light touch and pain Vital Signs Temp Pulse Resp BP Pulse Ox 98.6 F 74 18 105/64 93 11/25/17 07:41 11/25/17 09:52 11/25/17 07:41 11/25/17 09:52 11/25/17 07:41 Oxygen Delivery Method Room Air Weight: 160 lb 14.999 oz Body Mass Index (BMI) 25.2 Intake and Output for Last 24 Hours 11/23/17 11/24/17 11/25/17 23:59 23:59 23:59 Intake Total 2974 / 2974 4436 / 4436 1974 / 1974 Output Total 1300 / 1300 2600 / 2600 1000 / 1000 Balance 1674 / 1674 1836 / 1836 974 / 974 Microbiology Past 72 Hours 11/23/17 Unknown Gram Stain - Final Tissue - Knee Wound Culture - Preliminary Anaerobic Culture - Preliminary No growth in 48 hours. 11/23/17 Unknown Gram Stain - Final Tissue - Knee Wound Culture - Preliminary Anaerobic Culture - Preliminary No growth in 48 hours. 11/23/17 Unknown Gram Stain - Final Incision/Surgical Site Wound Culture - Preliminary Anaerobic Culture - Preliminary No growth in 48 hours. Laboratory Tests Past 24 Hrs 11/25/17 09:25 Vancomycin Trough 14.0 Medical Necessity - Tobacco Use Smoking Status: Current every day smoker Tobacco Use: Cigarettes Assessment/Plan Active and Suspected Problems Pain and swelling of left knee (Acute) s/ I&D with poly exchange left knee Appreciate ID input PICC line and IV atbx for 6 weeks Will d/c tomorrow with close follow up in clinic
[2017-11-25 15:17] VITALS: BP 102/65; PULSE 66; RESP 18; TEMP 36.4; O2SAT 94
--- NOTE | 2017-11-25 16:12 | CASEMGMT ---
Call received from Jeanette @ [facility] ph: [phone]. Per pt's insurance, she has $80 to meet deductible for year and $395 to meet out of pocket expenses. Cost of IV antibiotics and supplies will be paid @ 95% until OOP is met. Home care is being arranged for start of care tomorrow evening for pm IV Vanc dose. Sister will be available to learn. (Pt will need to receive am IV Vanc and Ceftriaxone dose tomorrow @ [facility] prior to dc). 's cell # (correct on demographic) given to I to contact re: delivery tomorrow. -Above update given to pt and her . update to [facility] nurse given. Bhargavi SCHOFIELDN RN ACM
[2017-11-25 22:00] VITALS: BP 111/68; PULSE 70; RESP 16; TEMP 37; O2SAT 96
[2017-11-26 02:00] VITALS: BP 116/64; PULSE 64; RESP 18; TEMP 36.9; O2SAT 97
[2017-11-26] MEDS: oxyCODONE 5 MG Tablet PO ×2 (06:44→11:49)
[2017-11-26] MEDS: Enoxaparin 40 MG/0.4 ML Syringe SC (06:45)
[2017-11-26] MEDS: Acetaminophen 500 MG Tablet 1000 MG PO (06:45)
--- NOTE | 2017-11-26 07:21 | PCM.PN.ORT ---
Patient Problems: Active and Suspected Problems Pain and swelling of left knee (Acute) Subjective: Patient sitting up in bed, pain well-managed. Patient states she is ready to be discharged home. Denies chest pain, shortness of breath, calf pain, or nausea vomiting. No complaints. Objective: Upon entering the room I found a pleasant healthy, nontoxic-appearing patient. Patient was no obvious respiratory distress alert oriented answering questions appropriately. Dressing was clean dry intact. Vital signs labs within normal limits. Patient is afebrile neurovascular is intact. Negative signs of symptoms of DVT. - Physical Exam General: Alert, Oriented x3, Cooperative HEENT: PERRLA Oral: Moist Mucosa Neurological: Cranial nerves II-XII grossly intact Psych/Mental Status: Normal Affect, Alert and oriented to time, place, person, mood and affect Vital Signs Temp Pulse Resp BP Pulse Ox 98.4 F 64 18 116/64 97 11/26/17 02:00 11/26/17 02:00 11/26/17 02:00 11/26/17 02:00 11/26/17 02:00 Oxygen Delivery Method Room Air Weight: 73 kg Body Mass Index (BMI) 25.2 Intake and Output for Last 24 Hours 11/24/17 11/25/17 11/26/17 23:59 23:59 23:59 Intake Total 4436 / 4436 2663 / 2663 1458 / 1458 Output Total 2600 / 2600 1800 / 1800 Balance 1836 / 1836 863 / 863 1458 / 1458 Microbiology Past 72 Hours 11/23/17 Unknown Gram Stain - Final Tissue - Knee Wound Culture - Preliminary Anaerobic Culture - Preliminary No growth in 48 hours. 11/23/17 Unknown Gram Stain - Final Tissue - Knee Wound Culture - Preliminary Anaerobic Culture - Preliminary No growth in 48 hours. 11/23/17 Unknown Gram Stain - Final Incision/Surgical Site Wound Culture - Preliminary Anaerobic Culture - Preliminary No growth in 48 hours. Laboratory Tests Past 24 Hrs 11/25/17 09:25 Vancomycin Trough 14.0 Medical Necessity - Tobacco Use Smoking Status: Current every day smoker Tobacco Use: Cigarettes Assessment/Plan Active and Suspected Problems Pain and swelling of left knee (Acute)
--- NOTE | 2017-11-26 07:30 | PCM.DC.TKR ---
Discharge Diet: No Restrictions Discharge Activity: May Not Drive, May Shower, Use Walker May shower in (days): 2 Ice area for (Minutes): 20 - each hour while awake. Weight Bearing Status: Weight bearing as tolerated Elevate: Operative Extremity Additional Activity Instructions:: Wear elastic stockings for 2 weeks after your surgery. Call your doctor if your incision/area has: Continuous Slow Oozing, Sudden Increased Bleeding, Increased Pain/ Swelling, Increased Redness, Foul Smelling Discharge Call your doctor if you observe: Fever of 101 or Higher, Coldness, Increased Pain - in extremity, Numbness or Tingling, Change in Color, Calf discomfort, Uncontrolled pain Change Dressing in (Days):: 0 - and daily as needed. Remove Dressing in (days):: 9 Cleanse incision/area with: Soap & Water Allergies/Adverse Reactions: Allergies chlorhexidine Allergy (Verified 01/25/17 11:05) Itching venom-honey bee [bee venom (honey bee)] Allergy (Verified 01/25/17 11:05) Anaphylaxis Medications to take at Discharge Nebivolol HCl [Bystolic (Beta Braxton)] 20 mg PO DAILY 06/01/14 Vilazodone Hydrochloride [Viibryd] 20 mg PO DAILY 06/01/14 Ergocalciferol [Vitamin D] 2,000 units PO DAILY 06/23/15 Magnesium Oxide [Mag-Ox 400] 350 mg PO DAILY 06/23/15 Acetaminophen [Tylenol Extra Strength] 2 tab PO BID PRN 11/22/17 Celecoxib [Celebrex] 200 mg PO BID 11/22/17 Lorazepam [Ativan] 1 mg PO DAILY PRN PRN 11/22/17 Acetaminophen [Tylenol] 1,000 mg PO Q8 #90 tab 11/26/17 Oxycodone [Oxyir] 5 - 10 mg PO Q6H PRN PRN 7 Days #60 tab 11/26/17 The following prescriptions were given: Oxycodone [Oxyir] 5 - 10 mg PO Q6H PRN PRN 7 Days #60 tab PRN Reason: Mod-Severe Pain (4-10/10) Acetaminophen [Tylenol] 1,000 mg PO Q8 #90 tab Primary Care Physician: Christiano Rhoades MD [Primary Care Provider] - Please Follow Up With: Rudy Beard DO When: as scheduled
[2017-11-26 09:03] VITALS: BP 114/68; PULSE 69; RESP 18; TEMP 37.1; O2SAT 96
[2017-11-26] MEDS: Gabapentin 300 MG Capsule PO ×2 (09:13→11:50)
[2017-11-26] MEDS: VILAZODONE HYDROCHLORIDE 20 MG TABLET PO (09:13)
[2017-11-26] MEDS: Nebivolol HCl 10 MG Tablet 20 MG PO (09:14)
--- NOTE | 2017-11-26 09:23 | PCM.PN.HOSP ---
Subjective: Patient was seen and examined. No new complaints. No fever or chills. Ambulating well. Left knee is much better. Objective: Physical Exam General: Alert, Oriented x3, Cooperative, No apparent distress, Well developed HEENT: Atraumatic, PERRLA, EOMI, Normocephalic Oral: Moist Mucosa Neck: Supple, No Nuchal Rigidity, Trachea Midline Lungs: Clear to auscultation, Normal air movement, No rhonchi, No wheeze, No rales Cardiovascular: Regular rate, Regular Rhythm, Normal S1, Normal S2, No murmurs, No Ectopic Activity Abdomen: Bowel Sounds Present, Soft, Non Tender, Non-Distended, No hernias noted Extremities: No bilateral leg edema, left anterior knee dressing intact, slight swelling of the left knee, with slight differential warmth but no erythema. Skin: No rashes Neurological: Cranial nerves II-XII grossly intact, Neuro grossly intact, Muscle tone normal, Sensory exam intact to light touch and pain, Coordination normal Psych/Mental Status: Normal Affect, Appropriate, Alert and oriented to time, place, person, mood and affect Vitals/I&O's: Vital Signs Temp Pulse Resp BP Pulse Ox 98.8 F 69 18 114/68 96 11/26/17 09:03 11/26/17 09:03 11/26/17 09:03 11/26/17 09:03 11/26/17 09:03 Oxygen Delivery Method Room Air Weight: 73 kg Body Mass Index (BMI) 25.2 Intake and Output for Last 24 Hours 11/24/17 11/25/17 11/26/17 23:59 23:59 23:59 Intake Total 4436 / 4436 2663 / 2663 1458 / 1458 Output Total 2600 / 2600 1800 / 1800 Balance 1836 / 1836 863 / 863 1458 / 1458 Microbiology Past 72 Hours 11/23/17 Unknown Tissue - Knee Gram Stain - Final 11/23/17 Unknown Tissue - Knee Wound Culture - Preliminary 11/23/17 Unknown Tissue - Knee Anaerobic Culture - Preliminary No growth in 48 hours. 11/23/17 Unknown Tissue - Knee Gram Stain - Final 11/23/17 Unknown Tissue - Knee Wound Culture - Preliminary 11/23/17 Unknown Tissue - Knee Anaerobic Culture - Preliminary No growth in 48 hours. 11/23/17 Unknown Incision/Surgical Site Gram Stain - Final 11/23/17 Unknown Incision/Surgical Site Wound Culture - Preliminary 11/23/17 Unknown Incision/Surgical Site Anaerobic Culture - Preliminary No growth in 48 hours. Laboratory Results 11/25/17 09:25: Vancomycin Trough 14.0 Current Medications Acetaminophen (Tylenol) 1,000 mg PO Q8 [facility] Last Admin: 11/26/17 06:45 Dose: 1,000 mg Enoxaparin Sodium (Lovenox) 40 mg SC DAILY@0600 [facility] Last Admin: 11/26/17 06:45 Dose: 40 mg Gabapentin (Neurontin) 300 mg PO TIDCM [facility] Last Admin: 11/26/17 09:13 Dose: 300 mg Hydromorphone HCl (Dilaudid Iv) 1 mg IV Q2H PRN PRN PRN Reason: SEVERE PAIN (6-1010) Vancomycin HCl (Vancomycin) 1,000 mg in 200 mls @ 200 mls/hr IV Q12H [facility] Last Admin: 11/25/17 21:56 Dose: 200 mls/hr Ceftriaxone Sodium 2 gm/ (Sodium Chloride) 50 mls @ 100 mls/hr IV Q24 [facility] Last Admin: 11/26/17 09:14 Dose: 100 mls/hr Ketorolac Tromethamine (Toradol) 15 mg IV Q6H PRN PRN PRN Reason: MILD-MOD PAIN (1-510) Last Admin: 11/23/17 09:42 Dose: 15 mg Nebivolol (Bystolic) 20 mg PO DAILY [facility] Last Admin: 11/26/17 09:14 Dose: 20 mg Ondansetron HCl (Zofran) 4 mg IV Q8H PRN PRN PRN Reason: NAUSEA Oxycodone HCl (Oxyir) 5 - 10 mg PO Q4H PRN PRN PRN Reason: MOD-SEVERE PAIN (4-10/10) Last Admin: 11/26/17 06:44 Dose: 5 mg Promethazine HCl (Phenergan) 12.5 mg IM Q6H PRN PRN; Protocol PRN Reason: NAUSEA/VOMITING Sodium Chloride () 5 - 30 ml IV UD PRN PRN Reason: SALINE FLUSH Last Admin: 11/24/17 05:17 Dose: 10 ml Vilazodone HCl (Viibryd) 20 mg PO DAILY [facility] Last Admin: 11/26/17 09:13 Dose: 20 mg Medical Necessity - Tobacco Use Smoking Status: Current every day smoker Tobacco Use: Cigarettes Assessment/Plan 51-year-old female with past medical history of left total knee replacement, comes in with left knee pain and diagnosed with suspected left knee joint infection, status post surgery for I&D and polyethylene exchange. 1. Postop day 4, status post left knee irrigation and debridement with polyethylene exchange, for suspected left knee septic arthritis, pain is controlled, on IV vancomycin and ceftriaxone, ID consulted, s/p PICC line. 2. Anemia, likely postop, stable 3. Elevation in creatinine related to dehydration versus medication side effect, (vancomycin), creatinine is back to normal 4. Anxiety, on Vilazodone 5. Hypertension, controlled, on nebivolol 6. Chronic nicotine smoker, advised to quit 7. DVT PPx-Lovenox SC
--- NOTE | 2017-11-26 10:59 | CASEMGMT ---
KRYSTAL MITCHELL called to [facility]- Home Health is set up through [facility]. Start of care will be this evening for Vancomycin. Nurse to arrive between 7-8 pm. Notified that todays dose of Ceftriaxone and am dose of Vancomycin are completed. PICC line information, DC instructions and DC summary faxed to Carolny @ . -Pt//sister updated on above. Plan is for dc today and they will be home for delivery and start of care this evening. Bhargavi AGUIRRE RN ACM
--- NOTE | 2017-11-26 11:03 | PCM.DC ---
- Discharge Diagnoses Current Active Problems: Current Active and Chronic Problems Pain and swelling of left knee (Acute) Reason(s) for Visit for Discharge Instructions: Left knee pain You will use the following diet at home:: Regular Your food should be the consistency of: Regular Your liquids should be the consistency of: Regular/Thin Discharge Activity: May Not Drive, May Shower, Use Walker May shower in (days): 2 Ice area for (Minutes): 20 - each hour while awake. Weight Bearing Status: Weight bearing as tolerated Keep extremity elevated above heart level: Operative Extremity Additional Activity Instructions:: Wear elastic stockings for 2 weeks after your surgery. Call your doctor if your incision/area has: Continuous Slow Oozing, Sudden Increased Bleeding, Increased Pain/ Swelling, Increased Redness, Foul Smelling Discharge Call your doctor if you observe: Fever of 101 or Higher, Coldness, Increased Pain - in extremity, Numbness or Tingling, Change in Color, Calf discomfort, Uncontrolled pain Change Dressing in (Days):: 0 - and daily as needed. Remove Dressing in (days):: 9 Cleanse incision/area with: Soap & Water Allergies/Adverse Reactions: Allergies chlorhexidine Allergy (Verified 01/25/17 11:05) Itching venom-honey bee [bee venom (honey bee)] Allergy (Verified 01/25/17 11:05) Anaphylaxis Medications to take at Discharge Nebivolol HCl [Bystolic (Beta Braxton)] 20 mg PO DAILY 06/01/14 Vilazodone Hydrochloride [Viibryd] 20 mg PO DAILY 06/01/14 Ergocalciferol [Vitamin D] 2,000 units PO DAILY 06/23/15 Magnesium Oxide [Mag-Ox 400] 350 mg PO DAILY 06/23/15 Acetaminophen [Tylenol Extra Strength] 2 tab PO BID PRN 11/22/17 Celecoxib [Celebrex] 200 mg PO BID 11/22/17 Lorazepam [Ativan] 1 mg PO DAILY PRN PRN 11/22/17 Acetaminophen [Tylenol] 1,000 mg PO Q8 #90 tab 11/26/17 Lactobacillus Acidophilus [Acidophilus] 1 ea PO TID #90 cap 11/26/17 Oxycodone [Oxyir] 5 - 10 mg PO Q6H PRN PRN 7 Days #60 tab 11/26/17 The following prescriptions were given: Oxycodone [Oxyir] 5 - 10 mg PO Q6H PRN PRN 7 Days #60 tab PRN Reason: Mod-Severe Pain (4-05/21) Acetaminophen [Tylenol] 1,000 mg PO Q8 #90 tab Lactobacillus Acidophilus [Acidophilus] 1 ea PO TID #90 cap Primary Care Physician: Christiano Rhoades MD [Primary Care Provider] - Please follow up with your Primary Care Physician in: within 2 weeks Please Follow Up With: Rudy Beard DO When: as scheduled Please Follow Up With: Richard Tavares MD When: within 2 weeks and lab work as prescribed Proposed Discharge Date: 11/26/17
--- NOTE | 2017-11-26 11:06 | DS.PCM_ITS ---
Discharge Date and Diagnosis Date of Admission: 11/22/17 Date of Discharge: 11/26/17 - Primary Discharge Diagnosis Active and Suspected Problems Pain and swelling of left knee (Acute) - Secondary Discharge Diagnosis Chronic Problems Hypertension (Chronic) Atypical depressive disorder (Chronic) Tobacco dependence (Chronic) Hospital Course and Treatment Orthopedic surgery ID Operations: - - left knee incision, drainage and irrigation with polyethylene exchange. Procedures: None Summary of Care Provided: 51-year-old female with past medical history of left total knee replacement, comes in with left knee pain and diagnosed with suspected left knee joint infection. She underwent a left knee I & D with a polyethylene exchange. Preliminary knee aspirate cultures were negative. She was continued on IV vancomycin and ceftriaxone. Infectious disease was consulted, recommended IV antibiotics for 6 weeks - until 12/25/17 and subsequent oral antibiotics. Patient received a PICC line and was discharged with [facility]. Discharge Diet: No Restrictions Discharge Activity: May Not Drive, May Shower, Use Walker May shower in (days): 2 Ice area for (Minutes): 20 - each hour while awake. Weight Bearing Status: Weight bearing as tolerated Keep extremity elevated above heart level: Operative Extremity Additional Activity Instructions:: Wear elastic stockings for 2 weeks after your surgery. Call your doctor if your incision/area has: Continuous Slow Oozing, Sudden Increased Bleeding, Increased Pain/ Swelling, Increased Redness, Foul Smelling Discharge Call your doctor if you observe: Fever of 101 or Higher, Coldness, Increased Pain - in extremity, Numbness or Tingling, Change in Color, Calf discomfort, Uncontrolled pain Change Dressing in (Days):: 0 - and daily as needed. Remove Dressing in (days):: 9 Cleanse incision/area with: Soap & Water Home Medications: Medications to take at Discharge Nebivolol HCl [Bystolic (Beta Braxton)] 20 mg PO DAILY 06/01/14 Vilazodone Hydrochloride [Viibryd] 20 mg PO DAILY 06/01/14 Ergocalciferol [Vitamin D] 2,000 units PO DAILY 06/23/15 Magnesium Oxide [Mag-Ox 400] 350 mg PO DAILY 06/23/15 Acetaminophen [Tylenol Extra Strength] 2 tab PO BID PRN 11/22/17 Celecoxib [Celebrex] 200 mg PO BID 11/22/17 Lorazepam [Ativan] 1 mg PO DAILY PRN PRN 11/22/17 Acetaminophen [Tylenol] 1,000 mg PO Q8 #90 tab 11/26/17 Ceftriaxone 2 gm IV Q24 vial 11/26/17 Lactobacillus Acidophilus [Acidophilus] 1 ea PO TID #90 cap 11/26/17 Oxycodone [Oxyir] 5 - 10 mg PO Q6H PRN PRN 7 Days #60 tab 11/26/17 Vancomycin 1,000 mg IV Q12H bag 11/26/17 Following Prescrptions Were Given to Patient: Oxycodone [Oxyir] 5 - 10 mg PO Q6H PRN PRN 7 Days #60 tab PRN Reason: Mod-Severe Pain (-05/21) Acetaminophen [Tylenol] 1,000 mg PO Q8 #90 tab Lactobacillus Acidophilus [Acidophilus] 1 ea PO TID #90 cap Primary Care Physician: Christiano Rhoades MD [Primary Care Provider] - Please follow up with your Primary Care Physician in: within 2 weeks Please Follow Up With: Rudy Beard DO When: as scheduled Please Follow Up With: Richard Tavares MD When: within 2 weeks and lab work as prescribed Disposition: Home with Home Health Minutes spent on discharge:: 25 Patient Condition:: Stable Medical Necessity - Tobacco Use Smoking Status: Current every day smoker Tobacco Use: Cigarettes Meaningful Use Info Meaningful Use Diagnoses (Choose all that apply): None applicable Code Visit Inpatient E&M: 67444 Disch Hosp
[2017-11-26 11:11] LABS: Anion Gap 7 (5-15); BUN 10 mg/dL (7-18); BUN/Creat Ratio 11.6 RATIO (10-20); Calcium,Total 8.5 mg/dL (8.5-10.1); Chloride 106 mmol/L (98-107); Creatinine, Serum 0.86 mg/dL (0.55-1.02); EST Glomerular Filtration Rate 73 mL/min (>60); Est Glom Filt Rate - Afr Amer 88 mL/min (>60); Estimated Creatinine Clearance 73.57 ml/min; Glucose 115 mg/dL (74-106); Potassium 4.3 mmol/L (3.5-5.1); Sodium Level 143 mmol/L (136-145)
--- NOTE | 2017-11-26 11:13 | PCM.PN.ID ---
Patient Problems: Active and Suspected Problems Pain and swelling of left knee (Acute) Subjective: Tolerating abx well, no issues with picc. No fever, knee feeling better. - Physical Exam General: Alert, Cooperative, No apparent distress Lungs: Clear to auscultation, Normal air movement Cardiovascular: Regular rate, Regular Rhythm Abdomen: Soft, Non Tender, Non-Distended Extremities: No edema Skin: Incision - doing well on L knee Vital Signs Temp Pulse Resp BP Pulse Ox 98.8 F 69 18 114/68 96 11/26/17 09:03 11/26/17 09:03 11/26/17 09:03 11/26/17 09:03 11/26/17 09:03 Oxygen Delivery Method Room Air Weight: 73 kg Body Mass Index (BMI) 25.2 Intake and Output for Last 24 Hours 11/24/17 11/25/17 11/26/17 23:59 23:59 23:59 Intake Total 4436 / 4436 2663 / 2663 1458 / 1458 Output Total 2600 / 2600 1800 / 1800 Balance 1836 / 1836 863 / 863 1458 / 1458 Microbiology Past 72 Hours 11/23/17 Unknown Gram Stain - Final Tissue - Knee Wound Culture - Preliminary Anaerobic Culture - Preliminary No growth in 48 hours. 11/23/17 Unknown Gram Stain - Final Tissue - Knee Wound Culture - Preliminary Anaerobic Culture - Preliminary No growth in 48 hours. 11/23/17 Unknown Gram Stain - Final Incision/Surgical Site Wound Culture - Preliminary Anaerobic Culture - Preliminary No growth in 48 hours. Laboratory Tests Past 24 Hrs 11/26/17 10:35 Sodium 143 Potassium 4.3 Chloride 106 Carbon Dioxide 30.0 Anion Gap 7 BUN 10 Creatinine 0.86 Estim Creat Clear Calc 73.57 Est GFR (MDRD) Af Amer 88 Est GFR (MDRD) Non-Af 73 BUN/Creatinine Ratio 11.6 Glucose 115 H Calcium 8.5 Medical Necessity - Tobacco Use Smoking Status: Current every day smoker Tobacco Use: Cigarettes Route of nutrition/ use of supplements: [] Nutritional Intake: [] IV Site: [] Nolan Catheter: [] - Assessment/Plan Antibiotics: [] Assessment/Plan: [] Active and Suspected Problems Pain and swelling of left knee (Acute) L knee PJI s/p I&D and poly exchange 11/23/[address] Beard - cxs neg so far. Spoke with micro lab and requested aspirate and surg cxs be held for [address], plan on 6 week course of iv vanc/ceftriaxone for empiric coverage. If cxs come back with something, will adjust therapy. Stop date planned for 01/04/18 and then long course of po abx. Weekly bmp, cbc, vanc trough, and ESR while on iv abx. ID follow-up with me in 2-3 weeks. will follow. Rx written for labs and abx.
[2017-11-26 12:00] VITALS: BP 114/68; PULSE 69; RESP 18; TEMP 37.1; O2SAT 96
== END 2017-11-26 12:14 | disposition home or self-care (01) | DRG 467 ==
LOC: SDC 11-23 02:06
PROVIDERS: Orthopaedic Surgery; Admitting Provider Internal Medicine; Family Provider Family Medicine; PCP Family Medicine; Visit Provider Internal Medicine
PROC: (CPT 27447; principal; 2017-11-23 07:05)
DX: T84.54XA Infection and inflammatory reaction due to internal left knee prosthesis, initial encounter (principal); M00.9 Pyogenic arthritis, unspecified; D62 Acute posthemorrhagic anemia; I10 Essential (primary) hypertension; F32.9 Major depressive disorder, single episode, unspecified; F41.9 Anxiety disorder, unspecified; Z79.899 Other long term (current) drug therapy; F17.210 Nicotine dependence, cigarettes, uncomplicated; Z96.652 Presence of left artificial knee joint; R94.4 Abnormal results of kidney function studies
CPT/HCPCS: 36415; 36569; 80048; 80053; 80202; 85025; 85027; 87015; 87070; 87075; 87102; 87116; 87205; 87206; 93005; 97110; 97116; 97162; 97166; 97530; A4216; J0696; J2405

== ENCOUNTER 2017-12-11 14:49 | Emergency (ER) | payer OTHER, SELFPAY ==
[2017-12-11 14:51] VITALS: BP 118/73; PULSE 95; RESP 16; TEMP 38.7; O2SAT 97; BMI 25.2
--- NOTE | 2017-12-11 15:24 | EKG12_ITS ---
Test Reason : FEVER Blood Pressure : / mmHG Vent. Rate : 087 BPM Atrial Rate : 087 BPM P-R Int : 122 ms QRS Dur : 080 ms QT Int : 360 ms P-R-T Axes : 048 039 012 degrees QTc Int : 433 ms Normal sinus rhythm Nonspecific T wave abnormality Abnormal ECG Confirmed by NERY CADENA, ELIZABETH ([id number]), make up editor PEPE JOYCE ([id number]) on 12/13/2017 3:40:08 PM Referred By: MITCHELL Confirmed By:ELIZABETH GABRIEL MD
--- NOTE | 2017-12-11 15:25 | RAD_ITS ---
STUDY: X-RAY - LEFT KNEE REASON FOR EXAM: Female, 52 years old. Fever. Body aches since Saturday. On IV antibiotics via PICC line for knee infection. History of 6 surgeries on the left knee. TECHNIQUE: 4 view(s) of the knee. COMPARISON: Left knee, January 28, 2010. FINDINGS: There is been interval total knee arthroplasty. The prosthetic components are intact and articulate normally with each other. There is no loosening from the underlying bone. There is no evidence of fracture. Again seen is a screw transfixing the proximal diametaphysis of the tibia. Normal proximal tibiofibular articulation. Soft tissues appear grossly unremarkable. There is no knee effusion. RAD/Knee 4 or More Views IMPRESSION: Status post TKA when compared to prior study. There is no evidence of acute fracture or destructive osseous pathology. Electronically Signed: Grzegorz Johnson DO at 16:07 EDT Tel [phone], Service support ,
--- NOTE | 2017-12-11 15:28 | ED.DCSUM_ITS ---
- ER Visit Summary Date of Service: 12/11/17 Chief Complaint: Fever History of Present Illness: The patient is a 52 F presenting with fever. Patient had a temperature up to 102 at home. She is currently on IV antibiotics for recent knee infection. She had a left total knee replacement July [address] Beard. On November 20 she began having pain in her left knee. She had blood work and synovial fluid checked at that time. Her knee was found to be infected. She was started on IV antibiotics. She had surgery on November 23 to wash out her knee. She has been on IV vancomycin and ceftriaxone. She is followed by infectious disease, Dr. Tavares. Yesterday her vancomycin was increased from 1 g to 1200 mg twice daily due to low trough level. She was seen by Dr. Beard earlier today and he felt her knee was well- healing. She has no knee pain. She complains of fever, body aches. She denies cough. She had mild bilateral ear pain. Denies other complaints. She took Tylenol just prior to arrival. Physical Examination: Vitals are stable. Temperature 101.6. Alert no acute distress. HEENT exam is unremarkable. TMs normal bilaterally. Pharynx is normal. Neck is supple. No meningismus Lungs are clear and equal bilaterally. Heart is regular rate and rhythm. Abdomen is soft nontender nondistended. No rebound or guarding. Extremities are left knee incision clean dry intact. Active full range of motion. No erythema or warmth. Right upper extremity PICC with no surrounding erythema. Skin is warm and dry. No rash No focal neurologic deficit. Remainder of exam is unremarkable. Emergency Department Course and Treatment: Patient was given IV fluids. CBC normal except for hemoglobin of 10.9 which is stable from previous. Chemistries unremarkable. Urinalysis unremarkable. Lactic acid is normal. Influenza negative. Blood cultures were sent. Chest x-ray and left knee x-ray show no acute process. Her repeat temperature is 98.5. She remained hemodynamically stable in the emergency department. Discussed with Dr. Ruiz covering for Dr. Beard and Dr. Tavares. Patient will continue the vancomycin and Rocephin at home. She will await her blood culture results. She will follow-up with Dr. Tavares. She is advised to return to ED for any worsening complaints. Disposition: Discharge home Impression: Febrile illness This note was generated with Dragon dictation software. It may contain incorrect words, spelling, and punctuation that were not noted in review of the chart prior to signing ED Disposition - Plan for ED Patient: Chief Complaint: Fever Referrals: Christiano Rhoades MD [Primary Care Provider] -
--- NOTE | 2017-12-11 15:35 | RAD_ITS ---
STUDY: X-RAY CHEST REASON FOR EXAM: Female, 52 years old. Fever. Body aches since Saturday. On IV antibiotics via PICC line at home. TECHNIQUE: Single AP portable view of the chest. COMPARISON: November 12, 2016. FINDINGS: The lungs are well expanded. There is a stable calcified granuloma in the right upper lobe. There is no new mass or infiltrate. There is no demonstrated pleural abnormality. Normal size heart. Normal mediastinum and nevaeh. Normal visualized pulmonary arteries. Normal visualized aortic arch and descending thoracic aorta. No visualized osseous changes. There is no demonstrated abnormality of the visualized soft tissue structures of the upper abdomen. RAD/Chest 1 View (Portable) IMPRESSION: No acute cardiopulmonary disease or interval change. Electronically Signed: Grzegorz Johnson DO at 16:09 EDT Tel [phone], Service support ,
[2017-12-11 16:11] LABS: Bacteria 0 SEEN /hpf (None Seen); Mucous, Urine 0 SEEN /hpf (<or=2+); Red Blood Cells-Urine 0 SEEN /hpf (0-5); White Blood Cells 0 SEEN /hpf (0-5)
[2017-12-11 16:26] LABS: Color, Urine Yellow (Yellow); Glucose, Dipstick Normal (Normal); Ketone-Dipstick Negative (Negative); Leukocyte Esterase-Dipstick Negative /ul (Negative); Nitrite-Dipstick Negative (Negative); Occult Blood-Urine 50 /ul (Negative); Protein-Dipstick Negative (Negative); Urine Bilirubin Dipstick Negative (Negative); Urine Clarity Clear (Clear); Urine Urobilinogen Normal (Normal)
[2017-12-11 16:28] LABS: Absolute Lymphocyte Count 1.27 X10^3/ul (0.83-4.51); Absolute Neutrophil Count 7.1 X10^3/uL (2.0-7.7); Basophil# 0.03 X10^3/uL; Basophil% 0.3 % (0-1); Eosinophil# 0.32 X10^3/uL; Eosinophils% 3.4 % (0-5); Hematocrit 33.5 % (37-47); Hemoglobin 10.9 g/dl (12.0-15.0); Lymphocyte # 1.27 X10^3/ul (4.0); Lymphocyte % 13.6 % (19-41); Mean Corp Hgb Conc 32.5 g/gl (32-36); Mean Corpuscular Volume 92.3 fL (81-99); Mean Platelet Vol. 10.4 fl (6.2-12.0); Monocyte# 0.62 X10^3/uL; Monocyte% 6.6 % (0-10); Neutrophil # 7.09 X10^3/uL (2.7-7.7); Platelet Count 389 K/mm3 (150-450); RBC Distribution Width CV 14.5 % (11.6-14.6); RBC Distribution Width SD 48.9 fl (35.1-43.9); Red Blood Count 3.63 M/mm3 (4.2-5.4); White Blood Count 9.3 K/mm3 (4.4-11.0)
[2017-12-11 16:29] LABS: POSITIVE COUNT NO; POSITIVE DIFFERENTIAL NO; POSITIVE MORPHOLOGY NO
[2017-12-11 16:35] VITALS: BP 100/68; PULSE 80; RESP 18
[2017-12-11 16:43] LABS: AST(SGOT) 40 U/L (15-37); Alanine Aminotransfer ALT/SGPT 54 U/L (13-56); Albumin, Serum 3.4 g/dL (3.2-5.0); Alkaline Phosphatase 89 U/L (45-117); Anion Gap 7 (5-15); BUN 10 mg/dL (7-18); BUN/Creat Ratio 10.2 RATIO (10-20); Calcium,Total 8.6 mg/dL (8.5-10.1); Chloride 103 mmol/L (98-107); Creatinine, Serum 0.98 mg/dL (0.55-1.02); EST Glomerular Filtration Rate 63 mL/min (>60); Est Glom Filt Rate - Afr Amer 76 mL/min (>60); Estimated Creatinine Clearance 63.82 ml/min; Globulin 3.4 g/dL (2.2-4.2); Glucose 80 mg/dL (74-106); Potassium 4.3 mmol/L (3.5-5.1); Protein, Total 6.8 g/dL (6.4-8.2); Sodium Level 138 mmol/L (136-145)
[2017-12-11 16:46] LABS: Lactic Acid 0.7 mmol/L (0.4-2.0)
[2017-12-11 16:56] LABS: Squamous Epithelial Cells - UA 0-5 SEEN /hpf (5-10)
--- NOTE | 2017-12-11 17:10 | NURSING ---
PAGED DR LAKHANI FOR DR MEDRANO
[2017-12-11 17:30] VITALS: BP 101/75; PULSE 80; RESP 18
[2017-12-11 17:35] VITALS: TEMP 36.9
--- NOTE | 2017-12-11 17:40 | ED.DEP ---
ED Disposition - Plan for ED Patient: Chief Complaint: Fever Instructions: ED Fever Unconf Cause Referrals: Christiano Rhoades MD [Primary Care Provider] - Richard Tavares MD [STAFF PHYSICIAN] -
[2017-12-11 17:55] VITALS: BP 110/73; PULSE 83; RESP 18
== END 2017-12-11 17:57 | disposition home or self-care (01) ==
PROVIDERS: Emergency Provider Emergency Medicine; Family Provider Family Medicine; PCP Family Medicine
DX: R50.9 Fever, unspecified (principal); I10 Essential (primary) hypertension; Z96.652 Presence of left artificial knee joint; Z72.0 Tobacco use; Z79.2 Long term (current) use of antibiotics; Z79.82 Long term (current) use of aspirin; Z79.899 Other long term (current) drug therapy; Z79.891 Long term (current) use of opiate analgesic
CPT/HCPCS: 36415; 71045; 73564; 80053; 81001; 83605; 85025; 87040; 87804; 93005; 96360; 99284; J7030; J7040; A4216

== ENCOUNTER → 2017-12-16 20:42 | Outpatient (CLI) | payer OTHER, SELFPAY ==
[2017-12-16 21:29] LABS: Absolute Lymphocyte Count 1.32 X10^3/ul (0.83-4.51); Basophil# 0.05 X10^3/uL; Basophil% 0.7 % (0-1); Eosinophil# 0.77 X10^3/uL; Eosinophils% 11.1 % (0-5); Hematocrit 34.7 % (37-47); Hemoglobin 11.2 g/dl (12.0-15.0); Lymphocyte # 1.32 X10^3/ul (4.0); Lymphocyte % 19.1 % (19-41); Mean Corp Hgb Conc 32.3 g/gl (32-36); Mean Corpuscular Hgb 29.6 pg (27.0-32.0); Mean Corpuscular Volume 91.8 fL (81-99); Mean Platelet Vol. 10.6 fl (6.2-12.0); Monocyte# 0.76 X10^3/uL; Neutrophil # 3.95 X10^3/uL (2.7-7.7); Neutrophil % 57.2 % (47-70); Platelet Count 487 K/mm3 (150-450); RBC Distribution Width CV 14.8 % (11.6-14.6); RBC Distribution Width SD 49.1 fl (35.1-43.9); Red Blood Count 3.78 M/mm3 (4.2-5.4); White Blood Count 6.9 K/mm3 (4.4-11.0)
[2017-12-16 21:32] LABS: POSITIVE COUNT NO; POSITIVE DIFFERENTIAL NO; POSITIVE MORPHOLOGY NO
[2017-12-16 21:45] LABS: Anion Gap 8 (5-15); BUN 12 mg/dL (7-18); BUN/Creat Ratio 15.1 RATIO (10-20); Calcium,Total 9.1 mg/dL (8.5-10.1); Chloride 108 mmol/L (98-107); Creatinine, Serum 0.79 mg/dL (0.55-1.02); EST Glomerular Filtration Rate 80 mL/min (>60); Est Glom Filt Rate - Afr Amer 97 mL/min (>60); Glucose 79 mg/dL (74-106); Potassium 4.2 mmol/L (3.5-5.1); Sodium Level 142 mmol/L (136-145)
[2017-12-16 21:53] LABS: Erythrocyte Sedimentation Rate 30 mm/hr (0-30)
== END ==
PROVIDERS: Visit Provider Internal Medicine Infectious Disease
DX: T84.54XA Infection and inflammatory reaction due to internal left knee prosthesis, initial encounter (principal)
CPT/HCPCS: 80048; 80202; 85025; 85652

== ENCOUNTER 2017-12-20 15:14 | Emergency (ER) | payer OTHER, SELFPAY ==
[2017-12-20 15:16] VITALS: BP 107/73; PULSE 73; RESP 16; TEMP 36.8; O2SAT 97; BMI 24.8
--- NOTE | 2017-12-20 15:30 | VDUE_ITS ---
Reason For Study: RUE pain/erythema - RUE PICC line Right Proximal Right jugular vein is spontaneous, widely patent, phasic, with no intraluminal echogenicity noted. Right subclavian vein is spontaneous, widely patent, phasic, with no intraluminal echogenicity noted. Right Lower Arm Right radial vein is compressible. Right ulnar vein is compressible. Right Arm Right axillary vein is spontaneous, patent, phasic, competent, compressible and demonstrates augmentation. Right brachial vein is compressible. Right cephalic vein is compressible. Right basilic vein is compressible. < Interpretation Summary Deep veins of the right upper extremity are patent and compressible segmentally. There is no evidence of deep vein thrombosis. The superficial veins of the right upper extremity, the basilic and cephalic veins, are patent and compressible. There is no evidence of right upper extremity superficial thrombophlebitis involving the veins imaged. Ordering Physician: Barbara Martinez Referring Physician: Richard Tavares Performed By: Stacey Guillen RVT
[2017-12-20 15:41] VITALS: BP 115/70; PULSE 80; RESP 14; O2SAT 98
--- NOTE | 2017-12-20 16:00 | ED.VISSUMM ---
- ER Visit Summary Date of Service: 12/20/17 Chief Complaint: [] Right arm pain, rule out DVT History of Present Illness: The patient is a 52 F [] presents with right arm pain and slight numbness and a feeling of a cold arm. She has a PICC line in since November 25, 2017. This line was placed 3 weeks ago for a postoperative infection of a left total knee replacement that was done 1.5 years ago. She is currently receiving intravenous vancomycin and Rocephin through the PICC line. She denies swelling of the right upper extremity. Denies fevers. No other complaints at this time. Physical Examination: [] Afebrile, vital signs stable. 52-year-old female no acute distress. Conversational. Examination of the right upper extremity shows no swelling in comparison to the left upper extremity. There is no obvious cellulitis or warmth around the insertion site. The insertion site appears clean without signs of obvious infection. Patient is neurovascularly intact distally with good cap refill. She has good motor function to the distal right upper extremity. Test Results: [] Right upper extremity Doppler ultrasound is negative for DVT. Emergency Department Course and Treatment: [] Patient reports her infectious disease doctor encouraged her to present to the emergency department for evaluation to rule out DVT. This study was done and negative. She was reassured and encouraged to follow-up with her primary care physician. Treatment Plan: [] Follow-up with infectious disease. Disposition: [] Discharge, stable. Impression: [] Right arm pain This note was generated with [employer] dictation software. It may contain incorrect words, spelling, and punctuation that were not noted in review of the chart prior to signing ED Disposition - Plan for ED Patient: Chief Complaint: Other, Pain/Inj Referrals: Christiano Rhoades MD [Primary Care Provider] -
--- NOTE | 2017-12-20 16:02 | ED.DEP ---
ED Disposition - Plan for ED Patient: Disposition: Home or Assisted Living Chief Complaint: Other, Pain/Inj Instructions: ED PICC Line Care Referrals: Christiano Rhoades MD [Primary Care Provider] -
[2017-12-20 16:13] VITALS: BP 110/71; PULSE 80; RESP 14; O2SAT 99
== END 2017-12-20 16:14 | disposition home or self-care (01) ==
PROVIDERS: Emergency Provider Emergency Medicine; Family Provider Family Medicine; PCP Family Medicine
DX: M79.601 Pain in right arm (principal); E66.9 Obesity, unspecified; Z79.2 Long term (current) use of antibiotics; Z72.0 Tobacco use
CPT/HCPCS: 93971; 99282

== ENCOUNTER → 2017-12-23 21:14 | Outpatient (CLI) | payer OTHER, SELFPAY ==
[2017-12-23 21:28] LABS: Absolute Lymphocyte Count 1.92 X10^3/ul (0.83-4.51); Absolute Neutrophil Count 3.9 X10^3/uL (2.0-7.7); Basophil# 0.09 X10^3/uL; Basophil% 1.1 % (0-1); Eosinophil# 1.33 X10^3/uL; Eosinophils% 15.7 % (0-5); Hematocrit 36.6 % (37-47); Hemoglobin 11.7 g/dl (12.0-15.0); Lymphocyte # 1.92 X10^3/ul (4.0); Lymphocyte % 22.7 % (19-41); Mean Corpuscular Hgb 29.5 pg (27.0-32.0); Mean Corpuscular Volume 92.4 fL (81-99); Mean Platelet Vol. 10.7 fl (6.2-12.0); Monocyte# 1.15 X10^3/uL; Monocyte% 13.6 % (0-10); Neutrophil # 3.91 X10^3/uL (2.7-7.7); Neutrophil % 46.2 % (47-70); POSITIVE COUNT NO; POSITIVE DIFFERENTIAL NO; POSITIVE MORPHOLOGY NO; Platelet Count 385 K/mm3 (150-450); RBC Distribution Width CV 15.1 % (11.6-14.6); RBC Distribution Width SD 51.4 fl (35.1-43.9); Red Blood Count 3.96 M/mm3 (4.2-5.4); White Blood Count 8.5 K/mm3 (4.4-11.0)
[2017-12-23 21:29] LABS: Anion Gap 7 (5-15); BUN 15 mg/dL (7-18); BUN/Creat Ratio 16.9 RATIO (10-20); Calcium,Total 9.2 mg/dL (8.5-10.1); Chloride 107 mmol/L (98-107); Creatinine, Serum 0.89 mg/dL (0.55-1.02); EST Glomerular Filtration Rate 70 mL/min (>60); Est Glom Filt Rate - Afr Amer 85 mL/min (>60); Glucose 94 mg/dL (74-106); Potassium 4.5 mmol/L (3.5-5.1); Sodium Level 141 mmol/L (136-145)
[2017-12-23 21:31] LABS: Vancomycin, Trough Level 13.2 ug/mL (5.0-15.0)
[2017-12-23 21:35] LABS: Erythrocyte Sedimentation Rate 16 mm/hr (0-30)
== END ==
PROVIDERS: Visit Provider Internal Medicine Infectious Disease
DX: T84.53XA Infection and inflammatory reaction due to internal right knee prosthesis, initial encounter (principal)
CPT/HCPCS: 80048; 80202; 85025; 85652

== ENCOUNTER 2017-12-27 19:50 | Inpatient (IN) | payer OTHER, SELFPAY ==
[2017-12-27 19:51] VITALS: BP 147/114; PULSE 127; RESP 16; TEMP 37.2; O2SAT 99; BMI 25.5
--- NOTE | 2017-12-27 19:56 | EKG12_ITS ---
Test Reason : Blood Pressure : / mmHG Vent. Rate : 129 BPM Atrial Rate : 170 BPM P-R Int : 000 ms QRS Dur : 084 ms QT Int : 288 ms P-R-T Axes : 000 049 258 degrees QTc Int : 421 ms Atrial fibrillation Nonspecific ST and T wave abnormality Abnormal ECG Confirmed by ROSA CADENA, SHELIA ([id number]), loan expeditor PEPE JOYCE ([id number]) on 01/08/2018 3:19:20 PM Referred By: Ernesto Bob Confirmed By:SHELIA LEE MD
--- NOTE | 2017-12-27 20:00 | CT_ITS ---
STUDY: CT BRAIN WITHOUT CONTRAST REASON FOR EXAM: Female, 52 years old. Fell and struck head on cement RADIATION DOSAGE (If Supplied By Facility): CTDIvol = ( 44.99 ) mGy, DLP = ( 765.18 ) mGycm TECHNIQUE: Transaxial CT imaging of the brain was performed without administration of intravenous contrast material. Individualized dose optimization techniques were used for this CT. COMPARISON: None. . Loss of consciousness FINDINGS: No evidence for shift of midline structures, mass effect or compression of ventricles noted. No acute intra-articular extra-axial hemorrhage is seen. No abnormal intracranial fluid collections identified. No discrete mass in the posterior fossa. The basal cisterns are patent. Ventricular system appears unremarkable. Extensive opacification of the ethmoid vessels mucosal thickening. Pneumatization of the right anterior clinoid process No fractures of the calvarium. Asymmetric pneumatization of the left petrous apex which is a normal variant IMPRESSION: No evidence for acute intracranial hemorrhage, mass effect or acute large territory infarcts. Electronically Signed: Roel Walden, at 20:23 EDT Tel , Service support , CT/Brain/Head without Contrast
--- NOTE | 2017-12-27 20:01 | EKG12_ITS ---
Test Reason : Blood Pressure : / mmHG Vent. Rate : 135 BPM Atrial Rate : 156 BPM P-R Int : 000 ms QRS Dur : 084 ms QT Int : 270 ms P-R-T Axes : 000 041 248 degrees QTc Int : 405 ms Atrial fibrillation Nonspecific ST and T wave abnormality Abnormal ECG Confirmed by ROSA CADENA, SHELIA ([id number]), video effects editor PEPE JOYCE ([id number]) on 12/31/2017 2:22:21 PM Referred By: Ernesto Bob Confirmed By:SHELIA LEE MD
--- NOTE | 2017-12-27 20:05 | ED.VISSUMM ---
- ER Visit Summary Date of Service: 12/27/17 Chief Complaint: Hypotension and syncope History of Present Illness: The patient is a 52 F who states she felt lightheaded. She checked her blood pressure and the monitor read systolic of 64. She passed out. She awoke on the floor. She states there was emesis on the floor. She is pleasant complain of headache. Last tetanus is unknown. She denies any double vision, blurred vision or loss of vision. She denies neck pain. She denies paresthesia, anesthesia motor is prior to the injury, time of the injury or presently. She denies any chest pain or palpitations. She denies shortness of breath or difficulty breathing. She does combine of nausea and had an episode of vomiting. She denies any back pain. She is on no anticoagulants. She has a past medical history of hypokalemia with nonspecific ST-T wave changes. 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 Physical Examination: Patient is tearful. Blood pressure is 147/114 with a heart rate 127. Monitor reveals atrial fibrillation with a rate of 130+. There is a scalp laceration over the occiput. Pupils equal round reactive. Extra muscles are intact. There is no septal deviation hematoma. No TMJ tenderness. No evidence of malocclusion. There is no midline cervical spine tenderness. Trach is midline. Heart is rapid and regular. Lungs are clear to auscultation. Abdomen soft nontender. There is no pain the patient the pelvis. GCS is 15. Patient is alert and oriented ?3. Motor is 5/5. Sensation is intact. DTRs are symmetric without clonus or Babinski. Cranial nerves II through XII are intact. Finger to nose to finger was performed adequately. Test Results: She reveals atrial fibrillation with a ventricular rate of [address]-T wave changes. CT of the head reviewed by me and interpreted by radiologist as negative. CBC is normal. Electro panel is unremarkable with slight elevation glucose of 109. Troponin less than 0.015. TSH is elevated 4.5. Single view x-ray of the pelvis reveals no evidence of fracture of the pelvis or hip. There is no arthritic changes noted. Emergency Department Course and Treatment: A CT of the head was obtained to evaluate for intracranial bleed especially since patient will require anticoagulation. 12-lead EKG was obtained to evaluate for ischemia. TSH to evaluate for hyperthyroidism. Appropriate baseline blood work was obtained as well and included CBC, BMP and troponin. Since patient is now complaining of hip pain she was reexamined. There is pain palpation over the left initial tuberosity. There is no pain the patient over the greater trochanteric region. There is no pain with logrolling the left lower extremity. There is a 1.9 cm scalp laceration. The wound was cleansed with Betadine since she is allergic to chlorhexidine. The wound was irrigated after local anesthesia was instilled. 3 maribel were placed with good cosmesis and hemostasis. Patient was administered 10 mg of Cardizem IV push and placed on a Cardizem drip for rate control. If there is no evidence of intracranial bleed will administer 1 mg/kg the Lovenox. She will require admission to the hospital. The patient and family have been made aware. Treatment Plan: Admission for further testing and observation Disposition: Admit PCU Impression: 1. A. fib with RVR new onset 2. Reported hypotension 3. Syncopal episode 4. Elevated TSH in [place] to hypothyroidism 5. History of hypertension 6. History of depression This note was generated with [employer] dictation software. It may contain incorrect words, spelling, and punctuation that were not noted in review of the chart prior to signing ED Disposition - Plan for ED Patient: Chief Complaint: Fall Referrals: Christiano Rhoades MD [Primary Care Provider] -
[2017-12-27] MEDS: Diphth,Pertuss(Acell),Tet Vac 0.5 ML Vial IM (20:17)
[2017-12-27] MEDS: 0.9% Normal Saline 1,000 ML 150 ML IV (20:17)
[2017-12-27] MEDS: dilTIAZem 25 MG/5 ML Vial 10 MG IV BOLUS (20:24)
[2017-12-27 20:42] LABS: Absolute Lymphocyte Count 2.03 X10^3/ul (0.83-4.51); Absolute Neutrophil Count 6.2 X10^3/uL (2.0-7.7); Basophil# 0.09 X10^3/uL; Basophil% 0.8 % (0-1); Eosinophil# 1.09 X10^3/uL; Eosinophils% 10.3 % (0-5); Hematocrit 38.6 % (37-47); Hemoglobin 12.6 g/dl (12.0-15.0); Lymphocyte # 2.03 X10^3/ul (4.0); Lymphocyte % 19.2 % (19-41); Mean Corp Hgb Conc 32.6 g/gl (32-36); Mean Corpuscular Hgb 29.9 pg (27.0-32.0); Mean Corpuscular Volume 91.5 fL (81-99); Mean Platelet Vol. 10.8 fl (6.2-12.0); Monocyte# 1.21 X10^3/uL; Monocyte% 11.4 % (0-10); Neutrophil # 6.15 X10^3/uL (2.7-7.7); Platelet Count 356 K/mm3 (150-450); RBC Distribution Width SD 50.3 fl (35.1-43.9); Red Blood Count 4.22 M/mm3 (4.2-5.4); White Blood Count 10.6 K/mm3 (4.4-11.0)
[2017-12-27 20:46] LABS: POSITIVE COUNT NO; POSITIVE DIFFERENTIAL NO; POSITIVE MORPHOLOGY NO
[2017-12-27 20:51] VITALS: BP 105/82; PULSE 115; RESP 14
[2017-12-27 20:55] LABS: Anion Gap 10 (5-15); BUN 15 mg/dL (7-18); Calcium,Total 8.8 mg/dL (8.5-10.1); Chloride 105 mmol/L (98-107); EST Glomerular Filtration Rate 61 mL/min (>60); Est Glom Filt Rate - Afr Amer 74 mL/min (>60); Estimated Creatinine Clearance 62.54 ml/min; Glucose 109 mg/dL (74-106); Sodium Level 140 mmol/L (136-145); Thyroid Stim Hormone (TSH) 4.51 uIU/mL (0.358-3.74)
[2017-12-27 21:07] VITALS: BP 98/73; PULSE 107; RESP 15; O2SAT 98
--- NOTE | 2017-12-27 21:10 | RAD_ITS ---
STUDY: X-RAY - PELVIS REASON FOR EXAM: Female, 52 years old. Trauma TECHNIQUE: One view of the pelvis was obtained. COMPARISON: None. FINDINGS: The bony pelvic ring appears intact. Mild degenerative changes in the sacroiliac joints as well as the lower lumbar spine. The superior and inferior pubic rami within normal limits. The femoral necks are within normal limits. Metallic densities are noted overlying the pelvis possibly on skin surface which can be correlated with direct inspection. IMPRESSION: No evidence for acute fractures Electronically Signed: Roel Walden, at 21:30 EDT Tel , Service support , RAD/Pelvis 1 or 2 Views
[2017-12-27] MEDS: Enoxaparin 80 MG/0.8 ML Syringe 70 MG SC (21:11)
[2017-12-27 21:44] VITALS: BP 97/54; PULSE 85; RESP 14; O2SAT 98
[2017-12-27] MEDS: HYDROcodone Bitartrate/Apap 5/325 Tablet PO (21:57)
--- NOTE | 2017-12-27 23:13 | EKG12_ITS ---
Test Reason : Blood Pressure : / mmHG Vent. Rate : 098 BPM Atrial Rate : 098 BPM P-R Int : 126 ms QRS Dur : 084 ms QT Int : 350 ms P-R-T Axes : 052 040 106 degrees QTc Int : 446 ms Normal sinus rhythm Nonspecific T wave abnormality Abnormal ECG Confirmed by ROSA CADENA, SHELIA ([id number]), science editor PEPE JOYCE ([id number]) on 12/31/2017 2:44:22 PM Referred By: Ernesto Bob Confirmed By:SHELIA LEE MD
--- NOTE | 2017-12-27 23:24 | HP.PCM_ITS ---
Problem List (1) Hypokalemia Status: Acute (2) Nonspecific ST-T wave electrocardiographic changes Status: Acute (3) Pain and swelling of left knee Status: Acute (4) Syncope Status: Acute (5) Atypical depressive disorder Status: Chronic (6) Hypertension Status: Chronic (7) New onset a-fib Status: Acute (8) Hypotension Status: Acute History of Present Illness Date of Admission: 12/27/17 Chief Complaint: New onset Afib with RVR The patient is a 52 year old female w/ h/o chronic pain on high dose narcotic, HTN, infected prosthetic knee, and depression admitted for new onset afib with RVR. Pt felt weak this afternoon and light-headed. She went inside the house and checked her SBP which read 64. She lost consciousness for a few minutes but when she woke up, she was aware of her surrounding. She went out to get her and lost consciousness again. She also vomited. She has no other symptoms. Nothing made her generalized weakness better or worse. The second time when she passed out, she hit her head on the ground. She was brought into the ED for further workup. Past Medical History Past Medical History (Chronic Problems): Chronic Problems Hypertension (Chronic) Atypical depressive disorder (Chronic) Tobacco dependence (Chronic) Allergies chlorhexidine Allergy (Verified 12/20/17 15:19) Itching venom-honey bee [bee venom (honey bee)] Allergy (Verified 12/20/17 15:19) Anaphylaxis Home Medications: Ambulatory Orders Medication Instructions Recorded Nebivolol HCl [Bystolic (Beta 20 mg PO DAILY 06/01/14 [place])] Vilazodone Hydrochloride [Viibryd] 20 mg PO DAILY 06/01/14 Ergocalciferol [Vitamin D] 2,000 units PO DAILY 06/23/15 Magnesium Oxide [Mag-Ox 400] 350 mg PO DAILY 06/23/15 Acetaminophen [Tylenol Extra 2 tab PO BID PRN 11/22/17 Strength] Celecoxib [Celebrex] 200 mg PO BID 11/22/17 Lorazepam [Ativan] 1 mg PO DAILY PRN PRN 11/22/17 Acetaminophen [Tylenol] 1,000 mg PO Q8 #90 tab 11/26/17 Ceftriaxone 2 gm IV Q24 vial 11/26/17 Lactobacillus Acidophilus 1 ea PO TID #90 cap 11/26/17 [Acidophilus] Oxycodone [Oxyir] 5 - 10 mg PO Q6H PRN PRN 7 Days 11/26/17 #60 tab Aspirin [Aspirin EC] 325 mg PO DAILY 12/11/17 Gabapentin [Neurontin] 300 mg PO TID 12/11/17 Vancomycin 1,200 mg IV Q12H 12/11/17 Surgical History: - - Multiple left knee arthroscopic surgeries due to an injury as a teenager, total left knee replacement Psychiatric History: Anxiety [employer]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 Denies: Chills, Fever, Weight Change HEENT: Denies: Head Aches, Sinus Congestion, Sinus Drainage Cardiovascular: Denies: Chest Pain, Palpitations Respiratory: Denies: Cough, Shortness of breath at rest, Sputum production Gastrointestinal: Denies: Abdominal Pain, Nausea, Vomiting Genitourinary: Denies: Dysuria Musculoskeletal: Denies: Joint Pain, Joint Tenderness Skin: Denies: Rash, Wounds Neurological: Denies: Numbness, Tingling, Focal weakness Psychiatric: Denies: Anxiety, Depression, Homicidal Ideations, Suicidal Ideations Hematologic/ Lymphatic: Denies: Easy Bruising, Easy Bleeding VTE Information - Inpt Only VTE Present on Admission: No VTE Mechan Device Prophylaxis: SCD's VTE Pharm Prophylaxis ordered?: No Patient Problems: Active and Suspected Problems New onset a-fib (Acute) Hypotension (Acute) - Physical Exam General: Alert, Oriented x3, Cooperative HEENT: Atraumatic, PERRLA, EOMI, Normocephalic Neck: Supple, No JVD, Negative Carotid Bruits Lungs: Clear to auscultation, Normal air movement Cardiovascular: Regular rate, No murmurs Abdomen: Bowel Sounds Present, Soft, Non Tender Extremities: No edema, Capillary Refill Less than 3 Seconds Skin: No rashes, No breakdown Musculoskeletal: No Tenderness to Palpation of Joints or Extremities Neurological: Cranial nerves II-XII grossly intact Psych/Mental Status: Normal Affect, Appropriate Vital Signs Temp Pulse Resp BP Pulse Ox 98.9 F 116 H 14 114/84 H 98 12/27/17 19:51 12/27/17 21:44 12/27/17 21:44 12/27/17 21:44 12/27/17 21:44 Oxygen Delivery Method Room Air Weight: 74.1 kg Body Mass Index (BMI) 25.5 Laboratory Tests Past 24 Hrs 12/27/17 12/27/17 20:01 20:01 WBC 10.6 RBC 4.22 Hgb 12.6 Hct 38.6 MCV 91.5 MCH 29.9 MCHC 32.6 RDW 15.0 H RDW Differential 50.3 H Plt Count 356 MPV 10.8 Immature Gran % (Auto) 0.300 Neut % (Auto) 58.0 Lymph % (Auto) 19.2 Marshall % (Auto) 11.4 H Eos % (Auto) 10.3 H Baso % (Auto) 0.8 Absolute Neuts (auto) 6.2 Absolute Lymphs (auto) 2.03 Total Counted Not Reportable Sodium 140 Potassium 4.0 Chloride 105 Carbon Dioxide 25.0 Anion Gap 10 BUN 15 Creatinine 1.00 Estim Creat Clear Calc 62.54 Est GFR (MDRD) Af Amer 74 Est GFR (MDRD) Non-Af 61 BUN/Creatinine Ratio 15.0 Glucose 109 H Calcium 8.8 Troponin I < 0.015 TSH 4.51 H Assessment/Plan Active and Suspected Problems New onset a-fib (Acute) Hypotension (Acute) 52 year old female w/ h/o chronic pain on high dose narcotic, HTN, infected prosthetic knee, and depression admitted for new onset afib with RVR. 1) Afib with RVR: New onset. Converted with cardizem. Most likely triggered by hypotension secondary to high dose narcotic and meds. Trops negative. Will get ECHO in AM. Will consult cards. 2) Syncope: Most likely secondary to hypotension. CT head negative. Doubt this is neurologic cause. Supportive care. 3) Septic knee: Resume vancomycin and ceftriaxone. Avoid narcotic if possible. Will give Tylenol for pain. 4) Hypotension: Hydration. Avoid narcotic. Supportive care.
[2017-12-27 23:28] VITALS: BP 97/54; PULSE 85; RESP 18
[2017-12-28] VITALS (15 sets, daily range): BP systolic 84–124; BP diastolic 57–74; PULSE 78–98; RESP 16–18; TEMP 36.7–37.7; O2SAT 95–98; BMI 24.5; BMI 25.6
[2017-12-28] MEDS: 0.9% NaCl Peripheral Flush Adult/Peds IV ×2 (04:36→04:56)
[2017-12-28] MEDS: Acetaminophen 500 MG Tablet 1000 MG PO ×2 (04:54→15:27)
[2017-12-28 05:12] LABS: ALB/GLOB Ratio 1.1 RATIO (0.9-2.4); AST(SGOT) 24 U/L (15-37); Alanine Aminotransfer ALT/SGPT 43 U/L (13-56); Albumin, Serum 3.2 g/dL (3.2-5.0); Alkaline Phosphatase 99 U/L (45-117); Anion Gap 7 (5-15); BUN 13 mg/dL (7-18); BUN/Creat Ratio 15.6 RATIO (10-20); Calcium,Total 7.8 mg/dL (8.5-10.1); Chloride 110 mmol/L (98-107); Cholesterol 180 mg/dL (200); Creatinine, Serum 0.83 mg/dL (0.55-1.02); EST Glomerular Filtration Rate 76 mL/min (>60); Est Glom Filt Rate - Afr Amer 92 mL/min (>60); Estimated Creatinine Clearance 75.35 ml/min; Globulin 2.9 g/dL (2.2-4.2); Glucose 108 mg/dL (74-106); High Density Lipoprotein 30 mg/dL; Potassium 4.1 mmol/L (3.5-5.1); Protein, Total 6.1 g/dL (6.4-8.2); Sodium Level 143 mmol/L (136-145); Triglycerides 307 mg/dL; Very Low Density Lipoprotein 61 mg/dL (5-40)
[2017-12-28 05:20] LABS: BNP,B-Type NATRIURETIC PEPTIDE 50.2 pg/mL (0-100)
[2017-12-28 05:42] LABS: Amphetamine Urine VISTA NEGATIVE (<1000 ng/mL); Barbiturate Urine VISTA NEGATIVE (< 200 ng/mL); Benzodiazepine Urine VISTA NEGATIVE (< 200 ng/mL); Cocaine Urine VISTA NEGATIVE (< 300 ng/mL); Ecstacy Urine VISTA NEGATIVE (< 500 ng/mL); Methadone Urine VISTA NEGATIVE (< 300 ng/mL); PCP Urine VISTA NEGATIVE (< 25 ng/mL); THC Urine VISTA NEGATIVE (< 50 ng/mL); Vista UDS pH Range 6
--- NOTE | 2017-12-28 05:55 | ECHOD_ITS ---
Version 2 Reason For Study: Afib-flutter Procedure This was a 2D Doppler, Color Flow transthoracic echocardiogram. The exam was of adequate technical quality. Exam performed portable in patient room. Left Ventricle Normal LV size. Left ventricular systolic function is normal. The estimated ejection fraction is 65 %. No evidence for diastolic dysfunction. No regional wall motion abnormalities noted. Right Ventricle Normal RV size. Normal systolic function. Atria Normal left atrium. Normal right atrium. Normal atrial septum. Mitral Valve There is no mitral annular calcification. Normal mitral valve. Trivial mitral valve insufficiency. Tricuspid Valve Normal tricuspid valve. Trivial tricuspid valve insufficiency. Right ventricular systolic pressure estimated to be 24 mmHg. Aortic Valve Trisinus/trileaflet aortic valve. Normal aortic valve. Pulmonic Valve The pulmonic valve is not well visualized. Trivial pulmonic valve insufficiency. Great Vessels Normal sized aortic root. Pericardium/Pleural No pericardial effusion. MMode/2D Measurements & Calculations LVIDd: 4.4 cm IVSd: 0.98 cm Ao root diam: 3.1 cm LVIDs: 2.8 cm LVPWd: 1.2 cm LA dimension: 3.9 cm RVDd: 3.2 cm FS: 36.5 % LAV(MOD-bp): 54.6 ml LA A4 area: 17.5 cm2 RA A4 area: 14.5 cm2 LAV(MOD-bp) Indexed: 30.2 ml/m2 LAV(MOD-sp2): 55.0 ml LAV(MOD-sp4): 50.9 ml Time Measurements MV dec time: 0.22 sec Doppler Measurements & Calculations MV E max ham: 80.8 cm/sec Lat Peak E' Ham: 8.6 cm/sec Med Peak E' Ham: 15.1 cm/sec MV A max ham: 58.5 cm/sec E/E' lat: 9.3 E/E' med: 5.4 MV E/A: 1.4 MV V2 max: 103.0 cm/sec MV P1/2t max ham: 104.0 cm/sec Ao V2 max: 162.8 cm/sec MV max P.2 mmHg MV P1/2t: 58.5 msec Ao max P.6 mmHg MV V2 mean: 52.7 cm/sec MV dec slope: 520.6 cm/sec2 Ao V2 mean: 102.6 cm/sec MV mean P.3 mmHg MVA(P1/2t): 3.8 cm2 Ao mean P.9 mmHg MV V2 VTI: 22.1 cm Ao V2 VTI: 28.1 cm LV V1 max: 117.2 cm/sec PA V2 max: 75.1 cm/sec TR max ham: 230.6 cm/sec LV V1 max P.5 mmHg TR max P.3 mmHg LV V1 mean P.0 mmHg LV V1 mean: 82.2 cm/sec LV V1 VTI: 24.3 cm Interpretation Summary Left ventricular systolic function is normal. The estimated ejection fraction is 65 %. Trivial mitral valve insufficiency. Trivial tricuspid valve insufficiency. Trivial pulmonic valve insufficiency. Right ventricular systolic pressure estimated to be 24 mmHg. No evidence for diastolic dysfunction. Ordering Physician: Ernesto Bob Referring Physician: Richard Tavares Performed By: Yamil Chavez RCS
[2017-12-28] MEDS: 0.9% Normal Saline 1,000 ML 150 ML IV ×3 (05:57→20:09)
[2017-12-28] MEDS: Gabapentin 300 MG Capsule PO ×3 (07:55→16:06)
[2017-12-28] MEDS: VILAZODONE HYDROCHLORIDE 20 MG TABLET PO (07:55)
[2017-12-28] MEDS: Aspirin E.C. 325 MG Tablet PO (07:56)
[2017-12-28] MEDS: Celecoxib 200 MG Capsule PO ×2 (07:56→21:28)
--- NOTE | 2017-12-28 13:25 | CON.PCM_ITS ---
Problem List (1) Syncope Status: Acute (2) New onset a-fib Status: Acute (3) Hypotension Status: Acute (4) Hypertension Status: Acute Qualifiers: Hypertension type: essential hypertension Qualified Code(s): I10 - Essential (primary) hypertension Reason for Consult Date of Consultation: 12/28/17 History of Present Illness: The patient is a 52 year old white female who has a past medical history which has included syncope, hypokalemia, and hypertension with her previous syncopal event thought being related to a combination of factors including underlying positional/orthostatic changes superimposed upon medication changes superimposed upon hypokalemia who now presents for evaluation of syncope and atrial fibrillation with rapid ventricular response with hypotension superimposed upon hypokalemia, a history of hypertension, and an ongoing left knee orthopedic surgery/infectious disease related concern with long-term IV antibiotics via a right upper extremity PICC line. The patient states since her previous cardiovascular evaluation in May 2014 she had done well with no other cardiovascular issues or concerns. She has been undergoing evaluation care over the last month for concerns of a left knee orthopedic surgery/ infectious disease related concern requiring long-term IV antibiotics via right upper extremity PICC line. She states she has had waxing and waning low-grade fevers. She has had evaluation with blood cultures which have been negative. She has not been taking oral intake as well as usual especially with respect to solids. She states she is trying to keep up with her fluids. She notes yesterday she did not feel as well. She was outside and went inside. She was checking her blood pressure and noted her systolic pressure was between 60 and 70 mmHg. She states she got back up to go back outside and someone her when she subsequently fell and lost consciousness. This resulted in a head laceration. She was subsequently brought to the emergency department for further evaluation and care. She was noted to at that time to be in atrial fibrillation with rapid ventricular response. She was subsequently placed on IV diltiazem. She has subsequently been noted to return to sinus rhythm. She has denied any chest discomfort or difficulty breathing. She states she has felt occasional palpitations but has not been convinced she has felt a rapid rate or rhythm. She has not had any orthopnea or PND or peripheral pitting edema. She has not had any recurrent syncopal events since her previous one of 2013. She has undergone cardiac enzyme evaluation. Her cardiac enzymes have been negative. Her cardiac rhythm at the present time appears to be remaining sinus rhythm. Graft she had a previous stress echocardiogram performed on 2013. That was considered a [id number] echocardiogram. At that time she exercised for 9 minutes on the Mike protocol achieving 86% predicted maximal heart rate with a peak blood pressure 178/70 mmHg and a peak metabolic equivalent of 13 metabolic equivalents. Her resting LV wall motion was normal with an LVEF of 55% with her stress LV wall motion being hyperkinetic with an LVEF of 70%. She had no obvious cardiac dysrhythmias during that time. Past Medical History Allergies/Adverse Reactions: Allergies chlorhexidine Allergy (Verified 12/28/17 00:17) Itching venom-honey bee [bee venom (honey bee)] Allergy (Verified 12/28/17 00:17) Anaphylaxis Home Medications: Ambulatory Orders Medication Instructions Recorded Nebivolol HCl [Bystolic (Beta 20 mg PO DAILY 06/01/14 Braxton)] Vilazodone Hydrochloride [Viibryd] 20 mg PO DAILY 06/01/14 Ergocalciferol [Vitamin D] 2,000 units PO DAILY 06/23/15 Magnesium Oxide [Mag-Ox 400] 350 mg PO DAILY 06/23/15 Acetaminophen [Tylenol Extra 2 tab PO BID PRN 11/22/17 Strength] Celecoxib [Celebrex] 200 mg PO BID 11/22/17 Lorazepam [Ativan] 1 mg PO DAILY PRN PRN 11/22/17 Acetaminophen [Tylenol] 1,000 mg PO Q8 #90 tab 11/26/17 Ceftriaxone 2 gm IV Q24 vial 11/26/17 Lactobacillus Acidophilus 1 ea PO TID #90 cap 11/26/17 [Acidophilus] Oxycodone [Oxyir] 5 - 10 mg PO Q6H PRN PRN 7 Days 11/26/17 #60 tab Aspirin [Aspirin EC] 325 mg PO DAILY 12/11/17 Gabapentin [Neurontin] 300 mg PO TID 12/11/17 Vancomycin 1,200 mg IV Q12H 12/11/17 Past Medical History (Chronic Problems): Chronic Problems Hypertension (Chronic) Atypical depressive disorder (Chronic) Tobacco dependence (Chronic) Surgical History: - - Multiple left knee arthroscopic surgeries due to an injury as a teenager, total left knee replacement Psychiatric History: Anxiety [employer] History: No pertinent [employer] history - *Family History Paternal History Items: Dementia Sibling History Items: - - due to cardiomyopathy Maternal History Items: Heart Disease, - - CAD; PCI Lives: Spouse/ Significant Other Smoking Status: Current every day smoker Tobacco Use: Non-smoker Alcohol: None Drugs: None Review of Systems - Review of Systems General: Reports: Fever, Decreased Appetite. Denies: Fatigue, Night Sweats Cardiovascular: Reports: Palpitations, Syncope. Denies: Chest Discomfort, Shortness of Breath, Orthopnea, PND, Peripheral Edema, Lightheadedness, Dizziness, Near Syncope Respiratory: Denies: Cough, Sputum Production, Hemoptysis Gastrointestinal: Denies: Hematemesis, Hematochezia, Melena Genitourinary: Denies: Dysuria, Hematuria Skin: Denies: Rash Subjectve: This is a 52-year-old white female who appears to be resting comfortably at the moment in no acute distress. Objective: Vital Signs Temp Pulse Resp BP Pulse Ox 98.0 F 83 18 100/57 L 96 12/28/17 09:27 12/28/17 11:09 12/28/17 09:27 12/28/17 09:27 12/28/17 09:27 Oxygen Delivery Method Room Air Weight: 156 lb 4.924 oz Body Mass Index (BMI) 24.5 Orthostatic Vital Signs Start: 12/28/17 00:20 Freq: q24h Status: Active Protocol: Activity Type Activity Date Activity User E-Sign Co-Sign Detail Recorded Client Recorded Date Recorded By Document 12/28/17 00:20 [facility] [id number] 12/28/17 00:41 Ziyad 12/28/17 00:20 Orthostatic Vitals Standing -Blood Pressure (90/60-120/80 mm Hg) 84/72 L -Extremity Use Left Arm -Pulse Rate (60-100 beats/min) 98 Sitting -Blood Pressure (90/60-120/80 mm Hg) 89/69 L -Extremity Use Left Arm -Pulse Rate (60-100 beats/min) 87 Lying -Blood Pressure (90/60-120/80 mm Hg) 94/63 -Extremity Use Left Arm -Pulse Rate (60-100 beats/min) 86 Intake and Output for Last 24 Hours 12/26/17 12/27/17 12/28/17 23:59 23:59 23:59 Intake Total 2471 / 2471 Balance 2471 / 2471 General: Awake, Alert, Oriented x 3, Cooperative, No Acute Distress Neck: No JVD Lungs: Clear to auscultation Cardiovascular: Regular Rhythm, Normal S1, Normal S2 Vascular: No Carotid Bruits Abdomen: Bowel Sounds Present, Soft, Non Tender Extremities: No edema 12/28/17 01:25: Troponin I < 0.015 12/28/17 03:49: Sodium 143, Potassium 4.1, Chloride 110 H, Carbon Dioxide 26.0, Anion Gap 7, BUN 13, Creatinine 0.83, Est GFR (MDRD) Af Amer 92, Est GFR (MDRD) Non-Af 76, BUN/Creatinine Ratio 15.6, Glucose 108 H, Calcium 7.8 L, Total Bilirubin 0.20, Triglycerides 307 H, Cholesterol 180, LDL Cholesterol 89, VLDL Cholesterol 61 H, HDL Cholesterol 30 L 12/28/17 04:19: B-Natriuretic Peptide 50.2 12/28/17 04:19: Troponin I < 0.015 12/28/17 06:50: Troponin I < 0.015 Rhythm: Sinus rhythm ECHO: Pending Stress Test: As noted above CXR: From : Preliminary evaluation: No acute cardiopulmonary disease process: PICC line tip appearing in the area of the SVC.: Please see official report Assessment/Plan 1. Syncope The etiology of the patient's syncope may be multifactorial. There is concerns about possible decreased oral intake that may be contributing to orthostatic changes. There is the concern of her atrial fibrillation with rapid ventricular response superimposed upon this which may be contributing to decreased diastolic filling time and subsequent decreased blood pressure. At the present time there is been no other acute issues found from a cardiac standpoint to explain her event. She is pending further evaluation with a transthoracic echocardiogram. She does have an underlying infectious disease issue. She has been treated with long-term IV antibiotics. She is still undergoing evaluation care by orthopedic surgery and infectious disease. It is unclear as to whether this is contributing to her process other than potentially her concerns of decreased appetite and subsequent decreased oral intake. 2. Atrial fibrillation with rapid ventricular response The etiology of the patient's atrial dysrhythmia may be multifactorial. There may be a combination of age, her underlying infectious disease related issue, etc. She is being evaluated for other cardiovascular issues as well. Her cardiac enzymes have been negative. Her previous stress echocardiogram is as noted above. An echocardiogram is pending to evaluate for any obvious structural or functional issues may be contributing to this. In the interim she was treated with rate control therapy. She is now in sinus rhythm. Her medications will be adjusted. 3. Hypotension The patient was hypotensive. Again the etiology may be a combination of decreased oral intake with orthostatic changes, medication induced with her antihypertensive therapy, as well as her atrial dysrhythmia with rapid ventricular response. At the present time her blood pressure is being followed. Her IV fluid status is being adjusted. Her oral antihypertensive therapy is being adjusted. Her cardiovascular status is being reviewed. 4. Hypertension The patient states she usually checks her blood pressure at home prior to taking her oral antihypertensive therapy. She had just the dose of her oral anticoagulant therapy based on her blood pressure response. However she states she has not done that recently and she did take her full Bystolic 20 mg yesterday on top of her concern of not feeling well with decreased oral intake, etc. This may have been a contributing factor to her lower than usual blood pressure. 5. Infectious disease The patient has undergone evaluation care as noted above. Thus far the concern is that her ongoing infectious disease issue is related to her left knee. However she will need to be watched, if she has progressive symptoms or objective concerning findings as to whether or not there may be any cardiovascular involvement such as infectious endocarditis. If there is concern of such that she may need further cardiovascular evaluation with transesophageal echocardiogram. Comment: The above was discussed with the patient, her spouse, her sister, and Dr. Shin of the [facility] emergency department staff. This note was generated with [employer] dictation software. It may contain incorrect words, spelling, and punctuation that were not noted in checking the note before signing.
[2017-12-28 13:57] LABS: Vancomycin, Trough Level 14.2 ug/mL (5.0-15.0)
--- NOTE | 2017-12-28 14:33 | PCM.RX.CS ---
Consult Pharmacy has been consulted to manage selected antiobiotic: Vancomycin Type of Consult: New start Suspected Infection: Other Prior Doses of Antibiotics Received/Current Regimen: HOME MEDICATION: VANCOMYCIN 1200MG IV Q12HRS INPATIENT: VANCOMYCIN 1250MG X1 11/28 @0145 Labs: Sodium 143 mmol/L (136-145) 12/28/17 03:49 Potassium 4.1 mmol/L (3.5-5.1) 12/28/17 03:49 Chloride 110 mmol/L (98-107) H 12/28/17 03:49 Carbon Dioxide 26.0 mmol/L (21.0-32.0) 12/28/17 03:49 Anion Gap 7 (5-15) 12/28/17 03:49 BUN 13 mg/dL (7-18) 12/28/17 03:49 Creatinine 0.83 mg/dL (0.55-1.02) 12/28/17 03:49 Est GFR (MDRD) Af Amer 92 mL/min (>60) 12/28/17 03:49 Est GFR (MDRD) Non-Af 76 mL/min (>60) 12/28/17 03:49 BUN/Creatinine Ratio 15.6 RATIO (10-20) 12/28/17 03:49 Glucose 108 mg/dL (74-106) H 12/28/17 03:49 Vancomycin Trough 14.2 ug/mL (5.0-15.0) 12/28/17 13:15 Weight used for dosin.9 kg Estimated Creatinine Clearance: 57ML/MIN Goal Trough: 10-15 mcg/mL Pharmacy Plan for Drug Dosing: Pharmacy Service will continue to monitor and adjust dosing as required. Per medRec, patient was on 1200mg IV Q12hrs of vancomycin prior to admission. got 1x dose of 1250mg IV when admitted, random trough level was 14.2 (11.5hrs from last dose administered. Will continue 1250mg IV Q12hrs and get a trough prior to the 4th dose of scheduled regimen to reassess, since we are increasing the total daily dose slightly. PLAN/RECOMMENDATIONS 1. Vancomycin 1250mg IV Q12hrs 2. Trough scheduled 12/30 @ 0230, prior to 4th dose 3. Will continue to monitor patient daily
--- NOTE | 2017-12-28 14:49 | RAD_ITS ---
STUDY: X-RAY - LEFT KNEE REASON FOR EXAM: Female, 52 years old. Fall. Pain. TECHNIQUE: 3 view(s) of the knee. COMPARISON: 12/11/2017. FINDINGS: There are stable postsurgical changes from a left knee arthroplasty with intact hardware and satisfactory alignment. There is no evidence of fracture or dislocation. There are no significant degenerative changes. There are no radiodense foreign bodies. RAD/Knee 3 Views IMPRESSION: Stable postsurgical changes from left knee arthroplasty with intact hardware and satisfactory alignment. No fracture or dislocation. Electronically Signed: Alexis Munguia, at 15:42 EDT Tel , Service support ,
--- NOTE | 2017-12-28 14:50 | PCM.PN.HOSP ---
Patient Problems: Active and Suspected Problems New onset a-fib (Acute) Hypotension (Acute) Subjective: The patient was admitted yesterday after she had a fall and syncope. PPatient having lightheaded and dizzy yesterday afternoon and she had 2 times syncope first 1 was brief for a few minutes second time she passed out and fell and hit her head. atient fell backward and hit her head and her laceration for which she had maribel. She also had multiple left knee surgeries about 5-6 times and had infection of the knee joint for which she was placed on IV antibiotics. Her orthopedic surgeon is Dr. Beard. She is able to walk on the left knee. Right now she complains of pain 3/10 but she has concerned she might have fallen on the knee which she does not remember. Vitals/I&O's: Vital Signs Temp Pulse Resp BP Pulse Ox 98.0 F 83 18 100/57 L 96 12/28/17 09:27 12/28/17 11:09 12/28/17 09:27 12/28/17 09:27 12/28/17 09:27 Oxygen Delivery Method Room Air Weight: 156 lb 4.924 oz Body Mass Index (BMI) 24.5 Orthostatic Vital Signs Start: 12/28/17 00:20 Freq: q24h Status: Active Protocol: Activity Type Activity Date Activity User E-Sign Co-Sign Detail Recorded Client Recorded Date Recorded By Document 12/28/17 00:20 [facility] [id number] 12/28/17 00:41 [facility] 12/28/17 00:20 Orthostatic Vitals Standing -Blood Pressure (90/60-120/80) 84/72 L -Extremity Use Left Arm -Pulse Rate (60-100) 98 Sitting -Blood Pressure (90/60-120/80) 89/69 L -Extremity Use Left Arm -Pulse Rate (60-100) 87 Lying -Blood Pressure (90/60-120/80) 94/63 -Extremity Use Left Arm -Pulse Rate (60-100) 86 Intake and Output for Last 24 Hours 12/26/17 12/27/17 12/28/17 23:59 23:59 23:59 Intake Total 2471 / 2471 Balance 2471 / 2471 General: Alert, Oriented x3, Cooperative HEENT: Atraumatic, PERRLA, EOMI, Normocephalic Neck: Supple, No JVD, Negative Carotid Bruits Lungs: Clear to auscultation, Diminished - Lung bases Cardiovascular: Regular rate, Regular Rhythm, Normal S1, Normal S2, No murmurs Abdomen: Bowel Sounds Present, Soft, Non Tender, Non-Distended Extremities: No edema, Capillary Refill Less than 3 Seconds Skin: No rashes, No breakdown Musculoskeletal: No Tenderness to Palpation of Joints or Extremities, Arthritic Changes, - - Left knee status post TKR and remote surgical scar Neurological: Cranial nerves II-XII grossly intact, Neuro grossly intact Psych/Mental Status: Normal Affect, Appropriate Laboratory Results 12/28/17 01:25: Troponin I < 0.015 12/28/17 03:49: Sodium 143, Potassium 4.1, Chloride 110 H, Carbon Dioxide 26.0, Anion Gap 7, BUN 13, Creatinine 0.83, Estim Creat Clear Calc 75.35, Est GFR (MDRD) Af Amer 92, Est GFR (MDRD) Non-Af 76, BUN/Creatinine Ratio 15.6, Glucose 108 H, Calcium 7.8 L, Total Bilirubin 0.20, AST 24, ALT 43, Alkaline Phosphatase 99, Total Protein 6.1 L, Albumin 3.2, Globulin 2.9, Albumin/Globulin Ratio 1.1, Triglycerides 307 H, Cholesterol 180, LDL Cholesterol 89, VLDL Cholesterol 61 H, HDL Cholesterol 30 L 12/28/17 04:19: B-Natriuretic Peptide 50.2 12/28/17 04:19: Troponin I < 0.015 12/28/17 04:55: Urine Opiates Screen POSITIVE H, Urine Methadone Screen NEGATIVE, Ur Barbiturates Screen NEGATIVE, Ur Phencyclidine Scrn NEGATIVE, Ur Amphetamines Screen NEGATIVE, U Methamphetamin-MDMA NEGATIVE, U Benzodiazepines Scrn NEGATIVE, Urine Cocaine Screen NEGATIVE, U Cannabinoids Screen NEGATIVE, Ur Drug Screen Comment 12/28/17 06:50: Troponin I < 0.015 12/28/17 13:15: Vancomycin Trough 14.2 Current Medications Acetaminophen (Tylenol) 1,000 mg PO Q8H PRN PRN PRN Reason: PAIN Last Admin: 12/28/17 04:54 Dose: 1,000 mg Aspirin (Ecotrin) 325 mg PO DAILYCM OC Last Admin: 12/28/17 07:56 Dose: 325 mg Celecoxib (Celebrex) 200 mg PO BID [facility] Last Admin: 12/28/17 07:56 Dose: 200 mg Cholecalciferol (Vitamin D) 2,000 unit PO DAILY [facility] Last Admin: 12/28/17 07:55 Dose: 2,000 unit Gabapentin (Neurontin) 300 mg PO TIDCM [facility] Last Admin: 12/28/17 12:53 Dose: 300 mg Heparin Sodium (Porcine) () 0 units IV UD PRN PRN Reason: Protocol Sodium Chloride () 1,000 mls @ 150 mls/hr IV .[id number] [facility] Last Admin: 12/28/17 12:58 Dose: 150 mls/hr Heparin Sodium/Dextrose () 25,000 units in 250 mls @ 11 mls/hr IV .[id number] [facility]; As Directed PRN Reason: Protocol Last Admin: 12/28/17 01:01 Dose: Not Given Sodium Chloride () 250 mls @ 15 mls/hr IV .[id number] PRN PRN Reason: SALINE FLUSH Ceftriaxone Sodium 2 gm/ (Sodium Chloride) 50 mls @ 100 mls/hr IV Q24H [facility] Last Admin: 12/28/17 07:44 Dose: 100 mls/hr Vancomycin HCl 1,250 mg/ (Sodium Chloride) 275 mls @ 183.333 mls/hr IV Q12H [facility] Lactobacillus Acidophilus (Acidophilus) 1 tablet PO TID [facility] Last Admin: 12/28/17 13:40 Dose: 1 tablet Lorazepam (Ativan) 1 mg PO DAILY PRN PRN PRN Reason: ANXIETY Magnesium Oxide (Mag-Ox 400) 400 mg PO DAILY [facility] Last Admin: 12/28/17 10:13 Dose: Not Given Nebivolol (Bystolic) 5 mg PO DAILY [facility] Last Admin: 12/28/17 14:06 Dose: 5 mg Sodium Chloride () 5 - 30 ml IV UD PRN PRN Reason: SALINE FLUSH Last Admin: 12/28/17 04:56 Dose: 10 ml Vilazodone HCl (Viibryd) 20 mg PO DAILY [facility] Last Admin: 12/28/17 07:55 Dose: 20 mg Medical Necessity - Tobacco Use Smoking Status: Current every day smoker Tobacco Use: Non-smoker Assessment/Plan Active and Suspected Problems New onset a-fib (Acute) Hypotension (Acute) 52 year old female w/ h/o chronic pain on high dose narcotic, HTN, infected prosthetic knee, and depression admitted for 2 times syncope with fall and head laceration status post staple repair ED and new onset afib with RVR. 1) Afib with RVR: New onset. She was converted last night to normal sinus rhythm with Cardizem Most likely triggered by hypotension secondary to high dose narcotic and meds. Trops negative. Patient seen by body piercer Dr. Rolon. Discussed with Dr. Rolon. 2D echo reviewed. EF 55%. No evidence of diastolic dysfunction or regional wall motion abnormalities. Normal RV size and systolic function. Normal atria with septum. Normal mitral valve with trivial MR. Normal tricuspid valve with trivial TR, RVSP 24 mmHg. Normal aortic valve. 2) Syncope, probably multifactorial secondary to A. fib with RVR, decreased oral intake with possible orthostatic hypotension: CT head negative. Doubt this is neurologic cause. Supportive care. 3) recent left septic knee: Resume vancomycin and ceftriaxone. Avoid narcotic if possible. Will give Tylenol for pain. Left knee x-ray ordered. 4) Hypotension: Hydration. Avoid narcotic. Blood pressure still on the lower side. Supportive care. Code Visit Inpatient E&M: [id number] [facility] L3
--- NOTE | 2017-12-28 14:58 | PN_ITS ---
Patient Problems: Active and Suspected Problems New onset a-fib (Acute) Hypotension (Acute) Subjective: The patient was admitted yesterday after she had a fall and syncope. PPatient having lightheaded and dizzy yesterday afternoon and she had 2 times syncope first 1 was brief for a few minutes second time she passed out and fell and hit her head. atient fell backward and hit her head and her laceration for which she had maribel. She also had multiple left knee surgeries about 5-6 times and had infection of the knee joint for which she was placed on IV antibiotics. Her orthopedic surgeon is Dr. Beard. She is able to walk on the left knee. Right now she complains of pain 3/10 but she has concerned she might have fallen on the knee which she does not remember. Vitals/I&O's: Vital Signs Temp Pulse Resp BP Pulse Ox 98.0 F 83 18 100/57 L 96 12/28/17 09:27 12/28/17 11:09 12/28/17 09:27 12/28/17 09:27 12/28/17 09:27 Oxygen Delivery Method Room Air Weight: 156 lb 4.924 oz Body Mass Index (BMI) 24.5 Orthostatic Vital Signs Start: 12/28/17 00:20 Freq: q24h Status: Active Protocol: Activity Type Activity Date Activity User E-Sign Co-Sign Detail Recorded Client Recorded Date Recorded By Document 12/28/17 00:20 [facility] [id number] 12/28/17 00:41 [facility] 12/28/17 00:20 Orthostatic Vitals Standing -Blood Pressure (90/60-120/80) 84/72 L -Extremity Use Left Arm -Pulse Rate (60-100) 98 Sitting -Blood Pressure (90/60-120/80) 89/69 L -Extremity Use Left Arm -Pulse Rate (60-100) 87 Lying -Blood Pressure (90/60-120/80) 94/63 -Extremity Use Left Arm -Pulse Rate (60-100) 86 Intake and Output for Last 24 Hours 12/26/17 12/27/17 12/28/17 23:59 23:59 23:59 Intake Total 2471 / 2471 Balance 2471 / 2471 General: Alert, Oriented x3, Cooperative HEENT: Atraumatic, PERRLA, EOMI, Normocephalic Neck: Supple, No JVD, Negative Carotid Bruits Lungs: Clear to auscultation, Diminished - Lung bases Cardiovascular: Regular rate, Regular Rhythm, Normal S1, Normal S2, No murmurs Abdomen: Bowel Sounds Present, Soft, Non Tender, Non-Distended Extremities: No edema, Capillary Refill Less than 3 Seconds Skin: No rashes, No breakdown Musculoskeletal: No Tenderness to Palpation of Joints or Extremities, Arthritic Changes, - - Left knee status post TKR and remote surgical scar Neurological: Cranial nerves II-XII grossly intact, Neuro grossly intact Psych/Mental Status: Normal Affect, Appropriate Laboratory Results 12/28/17 01:25: Troponin I < 0.015 12/28/17 03:49: Sodium 143, Potassium 4.1, Chloride 110 H, Carbon Dioxide 26.0, Anion Gap 7, BUN 13, Creatinine 0.83, Estim Creat Clear Calc 75.35, Est GFR ( MDRD) Af Amer 92, Est GFR (MDRD) Non-Af 76, BUN/Creatinine Ratio 15.6, Glucose 108 H, Calcium 7.8 L, Total Bilirubin 0.20, AST 24, ALT 43, Alkaline Phosphatase 99, Total Protein 6.1 L, Albumin 3.2, Globulin 2.9, Albumin/ Globulin Ratio 1.1, Triglycerides 307 H, Cholesterol 180, LDL Cholesterol 89, VLDL Cholesterol 61 H, HDL Cholesterol 30 L 12/28/17 04:19: B-Natriuretic Peptide 50.2 12/28/17 04:19: Troponin I < 0.015 12/28/17 04:55: Urine Opiates Screen POSITIVE H, Urine Methadone Screen NEGATIVE , Ur Barbiturates Screen NEGATIVE, Ur Phencyclidine Scrn NEGATIVE, Ur Amphetamines Screen NEGATIVE, U Methamphetamin-MDMA NEGATIVE, U Benzodiazepines Scrn NEGATIVE, Urine Cocaine Screen NEGATIVE, U Cannabinoids Screen NEGATIVE, Ur Drug Screen Comment 12/28/17 06:50: Troponin I < 0.015 12/28/17 13:15: Vancomycin Trough 14.2 Current Medications Acetaminophen (Tylenol) 1,000 mg PO Q8H PRN PRN PRN Reason: PAIN Last Admin: 12/28/17 04:54 Dose: 1,000 mg Aspirin (Ecotrin) 325 mg PO DAILYCM [facility] Last Admin: 12/28/17 07:56 Dose: 325 mg Celecoxib (Celebrex) 200 mg PO BID [facility] Last Admin: 12/28/17 07:56 Dose: 200 mg Cholecalciferol (Vitamin D) 2,000 unit PO DAILY [facility] Last Admin: 12/28/17 07:55 Dose: 2,000 unit Gabapentin (Neurontin) 300 mg PO TIDCM [facility] Last Admin: 12/28/17 12:53 Dose: 300 mg Heparin Sodium (Porcine) () 0 units IV UD PRN PRN Reason: Protocol Sodium Chloride () 1,000 mls @ 150 mls/hr IV .[id number] [facility] Last Admin: 12/28/17 12:58 Dose: 150 mls/hr Heparin Sodium/Dextrose () 25,000 units in 250 mls @ 11 mls/hr IV .[id number] [facility] ; As Directed PRN Reason: Protocol Last Admin: 12/28/17 01:01 Dose: Not Given Sodium Chloride () 250 mls @ 15 mls/hr IV .[id number] PRN PRN Reason: SALINE FLUSH Ceftriaxone Sodium 2 gm/ (Sodium Chloride) 50 mls @ 100 mls/hr IV Q24H [facility] Last Admin: 12/28/17 07:44 Dose: 100 mls/hr Vancomycin HCl 1,250 mg/ (Sodium Chloride) 275 mls @ 183.333 mls/hr IV Q12H [facility] Lactobacillus Acidophilus (Acidophilus) 1 tablet PO TID [facility] Last Admin: 12/28/17 13:40 Dose: 1 tablet Lorazepam (Ativan) 1 mg PO DAILY PRN PRN PRN Reason: ANXIETY Magnesium Oxide (Mag-Ox 400) 400 mg PO DAILY [facility] Last Admin: 12/28/17 10:13 Dose: Not Given Nebivolol (Bystolic) 5 mg PO DAILY [facility] Last Admin: 12/28/17 14:06 Dose: 5 mg Sodium Chloride () 5 - 30 ml IV UD PRN PRN Reason: SALINE FLUSH Last Admin: 12/28/17 04:56 Dose: 10 ml Vilazodone HCl (Viibryd) 20 mg PO DAILY [facility] Last Admin: 12/28/17 07:55 Dose: 20 mg Medical Necessity - Tobacco Use Smoking Status: Current every day smoker Tobacco Use: Non-smoker Assessment/Plan Active and Suspected Problems New onset a-fib (Acute) Hypotension (Acute) 52 year old female w/ h/o chronic pain on high dose narcotic, HTN, infected prosthetic knee, and depression admitted for 2 times syncope with fall and head laceration status post staple repair ED and new onset afib with RVR. 1) Afib with RVR: New onset. She was converted last night to normal sinus rhythm with Cardizem Most likely triggered by hypotension secondary to high dose narcotic and meds. Trops negative. Patient seen by advanced analytics associate Dr. Rolon. Discussed with Dr. Rolon. 2D echo reviewed. EF 55%. No evidence of diastolic dysfunction or regional wall motion abnormalities. Normal RV size and systolic function. Normal atria with septum. Normal mitral valve with trivial MR. Normal tricuspid valve with trivial TR, RVSP 24 mmHg. Normal aortic valve. 2) Syncope, probably multifactorial secondary to A. fib with RVR, decreased oral intake with possible orthostatic hypotension: CT head negative. Doubt this is neurologic cause. Supportive care. 3) recent left septic knee: Resume vancomycin and ceftriaxone. Avoid narcotic if possible. Will give Tylenol for pain. Left knee x-ray ordered. 4) Hypotension: Hydration. Avoid narcotic. Blood pressure still on the lower side. Supportive care. Code Visit Inpatient E&M: [id number] [facility] L3
--- NOTE | 2017-12-28 15:13 | CASEMGMT ---
KRYSTAL MITCHELL Face to Face with patient for initial transition planning/care coordination assessment. RN PAULA introduced self and role at [facility]. Patient lying in bed, alert and oriented, and sister at bedside. Patient willing to participate in assessment and is able to answer all questions appropriately. Care providers, pharmacy, and demographics verified. See link attached. Patient wishes to discharge home with resumption of HHC through [facility]. Patient states she has no further needs or concerns at this time. CM to follow for discharge planning needs that may arise. Disposition Plan: Patient to discharge home with resumption of HHC, family support, and follow-up plans in place.
[2017-12-29] VITALS (12 sets, daily range): BP systolic 121–138; BP diastolic 71–83; PULSE 72–91; RESP 15–18; TEMP 36.6–37.2; O2SAT 96–97
[2017-12-29] MEDS: 0.9% Normal Saline 1,000 ML 150 ML IV ×3 (02:41→19:04)
[2017-12-29] MEDS: Acetaminophen 500 MG Tablet 1000 MG PO ×2 (03:01→21:50)
--- NOTE | 2017-12-29 05:55 | EKG12_ITS ---
Test Reason : AM EKG Blood Pressure : / mmHG Vent. Rate : 077 BPM Atrial Rate : 077 BPM P-R Int : 140 ms QRS Dur : 082 ms QT Int : 360 ms P-R-T Axes : 056 052 029 degrees QTc Int : 407 ms Normal sinus rhythm Normal ECG When compared with ECG of 27-DEC-2017 19:58, MANUAL COMPARISON REQUIRED, DATA IS UNCONFIRMED Confirmed by NERY CADENA, ELIZABETH ([id number]), technical editor PEPE JOYCE ([id number]) on 12/31/2017 3:23:11 PM Referred By: Ernesto Bob Confirmed By:ELIZABETH GABRIEL MD
[2017-12-29] MEDS: Gabapentin 300 MG Capsule PO ×3 (08:26→16:48)
[2017-12-29] MEDS: Celecoxib 200 MG Capsule PO ×2 (08:26→21:42)
[2017-12-29] MEDS: Aspirin E.C. 325 MG Tablet PO (08:27)
[2017-12-29] MEDS: VILAZODONE HYDROCHLORIDE 20 MG TABLET PO (08:27)
--- NOTE | 2017-12-29 10:43 | NURSING ---
attempted to flush IRON PICC. No blood return noted and unable to flush. Spoke with supercharge repair supervisor and nursing auto mechanic supervisor. Changed to tip while observing sterile process. Still unable to get blood return or flush. Nursing auto mechanic supervisor aware
--- NOTE | 2017-12-29 13:44 | PCM.PN.CARD ---
Subjectve: The patient looks better and states she feels better today. She has been up and ambulating in her room without difficulty. Objective: Vital Signs Temp Pulse Resp BP Pulse Ox 98.1 F 76 16 121/77 H 97 12/29/17 09:17 12/29/17 11:17 12/29/17 09:17 12/29/17 09:17 12/29/17 09:17 Oxygen Delivery Method Room Air Weight: 156 lb 4.924 oz Body Mass Index (BMI) 24.5 Orthostatic Vital Signs Start: 12/28/17 00:20 Freq: 0400 Status: Active Protocol: Activity Type Activity Date Activity User E-Sign Co-Sign Detail Recorded Client Recorded Date Recorded By Document 12/29/17 03:58 KG [id number] 12/29/17 04:05 KG 12/29/17 03:58 Orthostatic Vitals Standing -Blood Pressure (90/60-120/80) 124/81 H -Extremity Use Left Arm -Pulse Rate (60-100) 87 Sitting -Blood Pressure (90/60-120/80) 132/83 H -Extremity Use Left Arm -Pulse Rate (60-100) 83 Lying -Blood Pressure (90/60-120/80) 124/77 H -Extremity Use Left Arm -Pulse Rate (60-100) 91 Intake and Output for Last 24 Hours 12/27/17 12/28/17 12/29/17 23:59 23:59 23:59 Intake Total 3495 / 3495 3941 / 3941 Balance 3495 / 3495 3941 / 3941 General: Awake, Alert, Oriented x 3, Cooperative, No Acute Distress HEENT: - Oral: Moist Mucosa Neck: Supple, Good ROM, No JVD Lungs: Clear to auscultation Cardiovascular: Regular Rhythm, Normal S1, Normal S2 Vascular: No Carotid Bruits Abdomen: Bowel Sounds Present, Soft, Non Tender Extremities: No Cyanosis, No Clubbing, No edema Neurological: No Focal Motor or Sensory Deficit Rhythm: Sinus rhythm Echocardiogram: Please see official report Medical Necessity - Tobacco Use Smoking Status: Current every day smoker Tobacco Use: Non-smoker Assessment/Plan 1. Syncope The etiology of the patient's syncope may be multifactorial. There is concerns about possible decreased oral intake that may be contributing to orthostatic changes. There are also concerns with respect to her self adjustment of her antihypertensive therapy potentially bringing on hypotension. There is the concern of her atrial fibrillation with rapid ventricular response superimposed upon this which may be contributing to decreased diastolic filling time and subsequent decreased blood pressure. She does have an underlying infectious disease issue. She has been treated with long-term IV antibiotics. She is still undergoing evaluation care by orthopedic surgery and infectious disease. It is unclear as to whether this is contributing to her process other than potentially her concerns of decreased appetite and subsequent decreased oral intake. At the present time, status post IV fluids, adjustment of her oral antihypertensive therapy, and regaining sinus rhythm, her blood pressures have improved. She looks and feels better. She has had no recurrent symptoms. 2. Atrial fibrillation with rapid ventricular response The etiology of the patient's atrial dysrhythmia may be multifactorial. There may be a combination of age, her underlying infectious disease related issue, etc. She is being evaluated for other cardiovascular issues as well. Her cardiac enzymes have been negative. Her previous stress echocardiogram is as noted above. Her echocardiogram did not suggest any obvious left ventricular wall motion abnormalities, diminished LV systolic function, or hemodynamically concerning valvular heart disease, etc. The present time she will continue adjustment of her medications with respect to her beta-samaria and rate control. Based upon her fall and head trauma, etc., she is not being immediately placed on anticoagulant therapy. Thus she will be placed on full dose aspirin therapy. If she has recurrent concerns of atrial fibrillation, especially once her head trauma has resolved, then she would need to be considered for anticoagulant therapy. 3. Hypotension The patient was hypotensive. Again the etiology may be a combination of decreased oral intake with orthostatic changes, medication induced with her antihypertensive therapy, as well as her atrial dysrhythmia with rapid ventricular response. As noted above, after adjustment of her IV fluids and medications her blood pressures appear to have improved. 4. Hypertension The patient states she usually checks her blood pressure at home prior to taking her oral antihypertensive therapy. She had just the dose of her oral anticoagulant therapy based on her blood pressure response. However she states she has not done that recently and she did take her full Bystolic 20 mg yesterday on top of her concern of not feeling well with decreased oral intake, etc. This may have been a contributing factor to her lower than usual blood pressure. 5. Infectious disease The patient has undergone evaluation care as noted above. Thus far the concern is that her ongoing infectious disease issue is related to her left knee. However she will need to be watched, if she has progressive symptoms or objective concerning findings as to whether or not there may be any cardiovascular involvement such as infectious endocarditis. If there is concern of such that she may need further cardiovascular evaluation with transesophageal echocardiogram. She was asked to follow-up with infectious disease for further evaluation and care and recommendations. Comment: The above was discussed with the patient, her spouse, her sister, and Dr. Couch. This note was generated with [employer] dictation software. It may contain incorrect words, spelling, and punctuation that were not noted in checking the note before signing.
--- NOTE | 2017-12-29 15:08 | NURSING ---
pt haveing PICC line placed. will get vitals after
--- NOTE | 2017-12-29 15:42 | PCM.PN.HOSP ---
Patient Problems: Active and Suspected Problems New onset a-fib (Acute) Hypotension (Acute) Subjective: Patient right-sided PICC line got occluded and not able to flush. PICC line nurse called. Otherwise, patient does not complain of any cardiac symptoms. Patient remained in sinus rhythm. Left knee x-ray shows intact prosthesis. Vitals/I&O's: Vital Signs Temp Pulse Resp BP Pulse Ox 98.1 F 76 16 121/77 H 97 12/29/17 09:17 12/29/17 11:17 12/29/17 09:17 12/29/17 09:17 12/29/17 09:17 Oxygen Delivery Method Room Air Weight: 156 lb 4.924 oz Body Mass Index (BMI) 24.5 Orthostatic Vital Signs Start: 12/28/17 00:20 Freq: 0400 Status: Active Protocol: Activity Type Activity Date Activity User E-Sign Co-Sign Detail Recorded Client Recorded Date Recorded By Document 12/29/17 03:58 KG [id number] 12/29/17 04:05 KG 12/29/17 03:58 Orthostatic Vitals Standing -Blood Pressure (90/60-120/80) 124/81 H -Extremity Use Left Arm -Pulse Rate (60-100) 87 Sitting -Blood Pressure (90/60-120/80) 132/83 H -Extremity Use Left Arm -Pulse Rate (60-100) 83 Lying -Blood Pressure (90/60-120/80) 124/77 H -Extremity Use Left Arm -Pulse Rate (60-100) 91 Intake and Output for Last 24 Hours 12/27/17 12/28/17 12/29/17 23:59 23:59 23:59 Intake Total 3495 / 3495 3941 / 3941 Balance 3495 / 3495 3941 / 3941 General: Alert, Oriented x3, Cooperative HEENT: Atraumatic, PERRLA, EOMI, Normocephalic Neck: Supple, No JVD, Negative Carotid Bruits Lungs: Clear to auscultation, Normal air movement, No rhonchi, No wheeze, No rales Cardiovascular: Regular rate, Regular Rhythm, Normal S1, Normal S2, No murmurs Abdomen: Bowel Sounds Present, Soft, Non Tender Extremities: Capillary Refill Less than 3 Seconds, Edema Skin: No rashes, No breakdown Musculoskeletal: Arthritic Changes, - - Left knee TKR scar is healthy Neurological: Cranial nerves II-XII grossly intact Psych/Mental Status: Normal Affect, Appropriate Current Medications Acetaminophen (Tylenol) 1,000 mg PO Q8H PRN PRN PRN Reason: PAIN Last Admin: 12/29/17 03:01 Dose: 1,000 mg Aspirin (Ecotrin) 325 mg PO DAILYCM [facility] Last Admin: 12/29/17 08:27 Dose: 325 mg Celecoxib (Celebrex) 200 mg PO BID [facility] Last Admin: 12/29/17 08:26 Dose: 200 mg Cholecalciferol (Vitamin D) 2,000 unit PO DAILY [facility] Last Admin: 12/29/17 08:27 Dose: 2,000 unit Gabapentin (Neurontin) 300 mg PO TIDCM [facility] Last Admin: 12/29/17 11:35 Dose: 300 mg Heparin Sodium (Porcine) () 0 units IV UD PRN PRN Reason: Protocol Sodium Chloride () 1,000 mls @ 150 mls/hr IV .Q6H40M [facility] Last Admin: 12/29/17 11:00 Dose: 150 mls/hr Heparin Sodium/Dextrose () 25,000 units in 250 mls @ 11 mls/hr IV .[id number] [facility]; As Directed PRN Reason: Protocol Last Admin: 12/28/17 01:01 Dose: Not Given Sodium Chloride () 250 mls @ 15 mls/hr IV .[id number] PRN PRN Reason: SALINE FLUSH Ceftriaxone Sodium 2 gm/ (Sodium Chloride) 50 mls @ 100 mls/hr IV Q24H [facility] Last Admin: 12/29/17 06:13 Dose: 100 mls/hr Vancomycin HCl 1,250 mg/ (Sodium Chloride) 275 mls @ 183.333 mls/hr IV Q12H [facility] Last Admin: 12/29/17 14:57 Dose: 183.333 mls/hr Lactobacillus Acidophilus (Acidophilus) 1 tablet PO TID [facility] Last Admin: 12/29/17 14:27 Dose: 1 tablet Lorazepam (Ativan) 1 mg PO DAILY PRN PRN PRN Reason: ANXIETY Magnesium Oxide (Mag-Ox 400) 400 mg PO DAILY [facility] Last Admin: 12/29/17 08:27 Dose: Not Given Nebivolol (Bystolic) 5 mg PO DAILY [facility] Last Admin: 12/29/17 10:04 Dose: 5 mg Sodium Chloride () 5 - 30 ml IV UD PRN PRN Reason: SALINE FLUSH Last Admin: 12/28/17 04:56 Dose: 10 ml Vilazodone HCl (Viibryd) 20 mg PO DAILY [facility] Last Admin: 12/29/17 08:27 Dose: 20 mg Medical Necessity - Tobacco Use Smoking Status: Current every day smoker Tobacco Use: Non-smoker Assessment/Plan Active and Suspected Problems New onset a-fib (Acute) Hypotension (Acute) 52 year old female w/ h/o chronic pain on high dose narcotic, HTN, infected prosthetic knee, and depression admitted for 2 times syncope with fall and head laceration status post staple repair ED and new onset afib with RVR. 1) new onset transient Afib with RVR; probably exacerbated by age; resolved:She was converted last night to normal sinus rhythm with Cardizem Most likely triggered by hypotension secondary to high dose narcotic and meds. Trops negative. Patient seen by university services program associate Dr. Rolon. Discussed with Dr. Rolon. 2D echo reviewed. EF 55%. No evidence of diastolic dysfunction or regional wall motion abnormalities. Normal RV size and systolic function. Normal atria with septum. Normal mitral valve with trivial MR. Normal tricuspid valve with trivial TR, RVSP 24 mmHg. Normal aortic valve. [id number] score is 2; 1 for female sex in another for history of hypertension. Based upon the recent head trauma and transient nature of A. fib which might have infectious etiology based upon recent left knee septic arthritis; it was decided for full dose aspirin 325 mg daily. Follow-up cardiology clinic Dr. Rolon. 2) Syncope, probably multifactorial secondary to A. fib with RVR, decreased oral intake with possible orthostatic hypotension: CT head negative. Doubt this is neurologic cause. Supportive care. 3) recent left septic knee: Resume vancomycin and ceftriaxone. Avoid narcotic if possible. Will give Tylenol for pain. Left knee x-ray ordered. Repeat knee x-ray shows stable left knee prosthesis and satisfactory alignment Continue PT and OT. Occluded right arm PICC line: PICC nurse has been informed. We will reassess the PICC line and probably require another PICC line. 4) Hypotension: Hydration. Avoid narcotic. Blood pressure still on the lower side. Supportive care. If PICC line is fixed, patient can be discharged tomorrow a.m. Clinical Impression(s) from Imaging Studies Knee X-Ray 12/28/17 14:49 IMPRESSION: Stable postsurgical changes from left knee arthroplasty with intact hardware and satisfactory alignment. No fracture or dislocation. Code Visit Inpatient E&M: 30986 [facility] L2
--- NOTE | 2017-12-29 15:49 | PN_ITS ---
Patient Problems: Active and Suspected Problems New onset a-fib (Acute) Hypotension (Acute) Subjective: Patient right-sided PICC line got occluded and not able to flush. PICC line nurse called. Otherwise, patient does not complain of any cardiac symptoms. Patient remained in sinus rhythm. Left knee x-ray shows intact prosthesis. Vitals/I&O's: Vital Signs Temp Pulse Resp BP Pulse Ox 98.1 F 76 16 121/77 H 97 12/29/17 09:17 12/29/17 11:17 12/29/17 09:17 12/29/17 09:17 12/29/17 09:17 Oxygen Delivery Method Room Air Weight: 156 lb 4.924 oz Body Mass Index (BMI) 24.5 Orthostatic Vital Signs Start: 12/28/17 00:20 Freq: 0400 Status: Active Protocol: Activity Type Activity Date Activity User E-Sign Co-Sign Detail Recorded Client Recorded Date Recorded By Document 12/29/17 03:58 KG [id number] 12/29/17 04:05 KG 12/29/17 03:58 Orthostatic Vitals Standing -Blood Pressure (90/60-120/80) 124/81 H -Extremity Use Left Arm -Pulse Rate (60-100) 87 Sitting -Blood Pressure (90/60-120/80) 132/83 H -Extremity Use Left Arm -Pulse Rate (60-100) 83 Lying -Blood Pressure (90/60-120/80) 124/77 H -Extremity Use Left Arm -Pulse Rate (60-100) 91 Intake and Output for Last 24 Hours 12/27/17 12/28/17 12/29/17 23:59 23:59 23:59 Intake Total 3495 / 3495 3941 / 3941 Balance 3495 / 3495 3941 / 3941 General: Alert, Oriented x3, Cooperative HEENT: Atraumatic, PERRLA, EOMI, Normocephalic Neck: Supple, No JVD, Negative Carotid Bruits Lungs: Clear to auscultation, Normal air movement, No rhonchi, No wheeze, No rales Cardiovascular: Regular rate, Regular Rhythm, Normal S1, Normal S2, No murmurs Abdomen: Bowel Sounds Present, Soft, Non Tender Extremities: Capillary Refill Less than 3 Seconds, Edema Skin: No rashes, No breakdown Musculoskeletal: Arthritic Changes, - - Left knee TKR scar is healthy Neurological: Cranial nerves II-XII grossly intact Psych/Mental Status: Normal Affect, Appropriate Current Medications Acetaminophen (Tylenol) 1,000 mg PO Q8H PRN PRN PRN Reason: PAIN Last Admin: 12/29/17 03:01 Dose: 1,000 mg Aspirin (Ecotrin) 325 mg PO DAILYCM [facility] Last Admin: 12/29/17 08:27 Dose: 325 mg Celecoxib (Celebrex) 200 mg PO BID [facility] Last Admin: 12/29/17 08:26 Dose: 200 mg Cholecalciferol (Vitamin D) 2,000 unit PO DAILY [facility] Last Admin: 12/29/17 08:27 Dose: 2,000 unit Gabapentin (Neurontin) 300 mg PO TIDCM [facility] Last Admin: 12/29/17 11:35 Dose: 300 mg Heparin Sodium (Porcine) () 0 units IV UD PRN PRN Reason: Protocol Sodium Chloride () 1,000 mls @ 150 mls/hr IV .[id number] [facility] Last Admin: 12/29/17 11:00 Dose: 150 mls/hr Heparin Sodium/Dextrose () 25,000 units in 250 mls @ 11 mls/hr IV .[id number] [facility] ; As Directed PRN Reason: Protocol Last Admin: 12/28/17 01:01 Dose: Not Given Sodium Chloride () 250 mls @ 15 mls/hr IV .[id number] PRN PRN Reason: SALINE FLUSH Ceftriaxone Sodium 2 gm/ (Sodium Chloride) 50 mls @ 100 mls/hr IV Q24H [facility] Last Admin: 12/29/17 06:13 Dose: 100 mls/hr Vancomycin HCl 1,250 mg/ (Sodium Chloride) 275 mls @ 183.333 mls/hr IV Q12H [facility] Last Admin: 12/29/17 14:57 Dose: 183.333 mls/hr Lactobacillus Acidophilus (Acidophilus) 1 tablet PO TID [facility] Last Admin: 12/29/17 14:27 Dose: 1 tablet Lorazepam (Ativan) 1 mg PO DAILY PRN PRN PRN Reason: ANXIETY Magnesium Oxide (Mag-Ox 400) 400 mg PO DAILY [facility] Last Admin: 12/29/17 08:27 Dose: Not Given Nebivolol (Bystolic) 5 mg PO DAILY [facility] Last Admin: 12/29/17 10:04 Dose: 5 mg Sodium Chloride () 5 - 30 ml IV UD PRN PRN Reason: SALINE FLUSH Last Admin: 12/28/17 04:56 Dose: 10 ml Vilazodone HCl (Viibryd) 20 mg PO DAILY [facility] Last Admin: 12/29/17 08:27 Dose: 20 mg Medical Necessity - Tobacco Use Smoking Status: Current every day smoker Tobacco Use: Non-smoker Assessment/Plan Active and Suspected Problems New onset a-fib (Acute) Hypotension (Acute) 52 year old female w/ h/o chronic pain on high dose narcotic, HTN, infected prosthetic knee, and depression admitted for 2 times syncope with fall and head laceration status post staple repair ED and new onset afib with RVR. 1) new onset transient Afib with RVR; probably exacerbated by age; resolved:She was converted last night to normal sinus rhythm with Cardizem Most likely triggered by hypotension secondary to high dose narcotic and meds. Trops negative. Patient seen by plate furnace operator Dr. Rolon. Discussed with Dr. Rolon. 2D echo reviewed. EF 55%. No evidence of diastolic dysfunction or regional wall motion abnormalities. Normal RV size and systolic function. Normal atria with septum. Normal mitral valve with trivial MR. Normal tricuspid valve with trivial TR, RVSP 24 mmHg. Normal aortic valve. [id number] score is 2; 1 for female sex in another for history of hypertension. Based upon the recent head trauma and transient nature of A. fib which might have infectious etiology based upon recent left knee septic arthritis; it was decided for full dose aspirin 325 mg daily. Follow-up cardiology clinic Dr. Rolon. 2) Syncope, probably multifactorial secondary to A. fib with RVR, decreased oral intake with possible orthostatic hypotension: CT head negative. Doubt this is neurologic cause. Supportive care. 3) recent left septic knee: Resume vancomycin and ceftriaxone. Avoid narcotic if possible. Will give Tylenol for pain. Left knee x-ray ordered. Repeat knee x-ray shows stable left knee prosthesis and satisfactory alignment Continue PT and OT. Occluded right arm PICC line: PICC nurse has been informed. We will reassess the PICC line and probably require another PICC line. 4) Hypotension: Hydration. Avoid narcotic. Blood pressure still on the lower side. Supportive care. If PICC line is fixed, patient can be discharged tomorrow a.m. Clinical Impression(s) from Imaging Studies Knee X-Ray 12/28/17 14:49 IMPRESSION: Stable postsurgical changes from left knee arthroplasty with intact hardware and satisfactory alignment. No fracture or dislocation. Code Visit Inpatient E&M: 32615 Subs Hosp L2
[2017-12-30] VITALS: PULSE 66
[2017-12-30] MEDS: 0.9% Normal Saline 1,000 ML 150 ML IV (01:49)
[2017-12-30 03:00] VITALS: BP 126/73; PULSE 60; PULSE 64; RESP 15; TEMP 36.8; O2SAT 96
[2017-12-30 03:03] LABS: Hemoglobin A1c 5.6 % (4.2-6.3)
[2017-12-30 03:07] LABS: Vancomycin, Trough Level 15.3 ug/mL (5.0-15.0)
--- NOTE | 2017-12-30 03:22 | PCM.RX.CS ---
Consult Pharmacy has been consulted to manage selected antiobiotic: Vancomycin Type of Consult: Follow-up Suspected Infection: Skin/Soft tissue Prior Doses of Antibiotics Received/Current Regimen: Medications Vancomycin HCl 1,250 mg/ (Sodium Chloride) 275 mls @ 183.333 mls/hr IV Q12H [facility] Last Admin: 12/30/17 03:08 Dose: 183.333 mls/hr Labs: Sodium 143 mmol/L (136-145) 12/28/17 03:49 Potassium 4.1 mmol/L (3.5-5.1) 12/28/17 03:49 Chloride 110 mmol/L (98-107) H 12/28/17 03:49 Carbon Dioxide 26.0 mmol/L (21.0-32.0) 12/28/17 03:49 Anion Gap 7 (5-15) 12/28/17 03:49 BUN 13 mg/dL (7-18) 12/28/17 03:49 Creatinine 0.83 mg/dL (0.55-1.02) 12/28/17 03:49 Est GFR (MDRD) Af Amer 92 mL/min (>60) 12/28/17 03:49 Est GFR (MDRD) Non-Af 76 mL/min (>60) 12/28/17 03:49 BUN/Creatinine Ratio 15.6 RATIO (10-20) 12/28/17 03:49 Glucose 108 mg/dL (74-106) H 12/28/17 03:49 Vancomycin Trough 15.3 ug/mL (5.0-15.0) H 12/30/17 02:35 Weight used for dosin.9 kg Estimated Creatinine Clearance: 75 Goal Trough: 10-15 mcg/mL Pharmacy Plan for Drug Dosing: Continue vancomycin dose at 1250mg IV q12h Pharmacy Service will continue to monitor and adjust dosing as required. Follow-Up Labs: Trough Vancomycin Labs to be done on [date and time ordered]: 01/02/18 @1430
[2017-12-30 06:23] VITALS: BP 107/76; BP 113/69; BP 114/72; PULSE 60; PULSE 65; PULSE 67
[2017-12-30 07:25] VITALS: PULSE 63
[2017-12-30] MEDS: Gabapentin 300 MG Capsule PO (08:00)
[2017-12-30] MEDS: Aspirin E.C. 325 MG Tablet PO (08:00)
[2017-12-30] MEDS: Celecoxib 200 MG Capsule PO (08:01)
[2017-12-30] MEDS: VILAZODONE HYDROCHLORIDE 20 MG TABLET PO (08:01)
[2017-12-30 08:11] VITALS: BP 122/68; PULSE 65; RESP 18; TEMP 36.9; O2SAT 100
--- NOTE | 2017-12-30 10:36 | NURSING ---
THIS RN CHANGED PICC LINE DRESSING. USING STERILE TECHNIQUE. APPLIED PICC LINE STAT LOCK AND TEGADERM CHG DRESSING. CHANGED CAP W/ STERILE PROCEDURE. GREAT BLOOD RETURN, THEN FLUSHED W/ 10 ML NS IN PULSATING FLOW. CLAMPED LOCK. PT TOLERATED WELL.
--- NOTE | 2017-12-30 10:48 | PCM.DC ---
- Discharge Diagnoses Current Active Problems: Current Active and Chronic Problems New onset a-fib (Acute) Hypotension (Acute) You will use the following diet at home:: No restrictions Discharge Activity: Return to Normal Activity, May not drive while taking narcotic pain medications. Allergies/Adverse Reactions: Allergies chlorhexidine Allergy (Verified 12/28/17 00:17) Itching venom-honey bee [bee venom (honey bee)] Allergy (Verified 12/28/17 00:17) Anaphylaxis Medications to take at Discharge Nebivolol HCl [Bystolic (Beta Braxton)] 20 mg PO DAILY 06/01/14 Vilazodone Hydrochloride [Viibryd] 20 mg PO DAILY 06/01/14 Ergocalciferol [Vitamin D] 2,000 units PO DAILY 06/23/15 Magnesium Oxide [Mag-Ox 400] 350 mg PO DAILY 06/23/15 Acetaminophen [Tylenol Extra Strength] 2 tab PO BID PRN 11/22/17 Celecoxib [Celebrex] 200 mg PO BID 11/22/17 Lorazepam [Ativan] 1 mg PO DAILY PRN PRN 11/22/17 Acetaminophen [Tylenol] 1,000 mg PO Q8 #90 tab 11/26/17 Ceftriaxone 2 gm IV Q24 vial 11/26/17 Lactobacillus Acidophilus [Acidophilus] 1 ea PO TID #90 cap 11/26/17 Oxycodone [Oxyir] 5 - 10 mg PO Q6H PRN PRN 7 Days #60 tab 11/26/17 Aspirin [Aspirin EC] 325 mg PO DAILY 12/11/17 Gabapentin [Neurontin] 300 mg PO TID 12/11/17 Vancomycin 1,200 mg IV Q12H 12/11/17 Primary Care Physician: Christiano Rhoades MD [Primary Care Provider] - Please follow up with your Primary Care Physician in: IN 3-5 DAYS Proposed Discharge Date: 12/30/17
--- NOTE | 2017-12-30 10:51 | PCM.DC.SUM ---
Discharge Date and Diagnosis Date of Admission: 12/27/17 Date of Discharge: 12/30/17 - Primary Discharge Diagnosis Active and Suspected Problems New onset a-fib (Acute) Hypotension (Acute) - Secondary Discharge Diagnosis Chronic Problems Pain and swelling of left knee (Chronic) Abnormal ECG (Chronic) Nonspecific ST-T wave electrocardiographic changes (Chronic) Hypertension (Chronic) Atypical depressive disorder (Chronic) Tobacco dependence (Chronic) Hospital Course and Treatment Imaging Results: Impressions Knee X-Ray 12/28/17 14:49 IMPRESSION: Stable postsurgical changes from left knee arthroplasty with intact hardware and satisfactory alignment. No fracture or dislocation. Electronically Signed: Alexis uMnguia, at 15:42 EDT Tel , Service support , Laboratory Results 12/30/17 12/30/17 Range/Units 02:35 02:35 Hemoglobin A1c 5.6 (4.2-6.3) % Vancomycin Trough 15.3 H (5.0-15.0) ug/mL Operations: None Summary of Care Provided: Patient is a 52-year-old lady with history of infected prosthetic knee currently on antibiotic therapy with vancomycin and Rocephin presented following a syncopal episode sustaining a head laceration for which she had amribel placed in the ED was also found to have A. fib with RVR 1. New onset A. fib with RVR resolved underwent a 2D echo which demonstrated EF of 55% patient was seen by Dr. Rolon who recommended discharging patient on full dose aspirin 2. Syncopal episode suspected to be secondary to orthostatic hypotension. Resolved with IV hydration 3. Infected prosthetic left knee patient is on vancomycin and Rocephin consultation was placed to infectious disease 4. Hypotension attributed to patient's narcotic use discontinued on admission Discharge Activity: Return to Normal Activity, May not drive while taking narcotic pain medications. Home Medications: Medications to take at Discharge Nebivolol HCl [Bystolic (Beta Braxton)] 20 mg PO DAILY 06/01/14 Vilazodone Hydrochloride [Viibryd] 20 mg PO DAILY 06/01/14 Ergocalciferol [Vitamin D] 2,000 units PO DAILY 06/23/15 Magnesium Oxide [Mag-Ox 400] 350 mg PO DAILY 06/23/15 Acetaminophen [Tylenol Extra Strength] 2 tab PO BID PRN 11/22/17 Celecoxib [Celebrex] 200 mg PO BID 11/22/17 Lorazepam [Ativan] 1 mg PO DAILY PRN PRN 11/22/17 Acetaminophen [Tylenol] 1,000 mg PO Q8 #90 tab 11/26/17 Ceftriaxone 2 gm IV Q24 vial 11/26/17 Lactobacillus Acidophilus [Acidophilus] 1 ea PO TID #90 cap 11/26/17 Oxycodone [Oxyir] 5 - 10 mg PO Q6H PRN PRN 7 Days #60 tab 11/26/17 Aspirin [Aspirin EC] 325 mg PO DAILY 12/11/17 Gabapentin [Neurontin] 300 mg PO TID 12/11/17 Vancomycin 1,200 mg IV Q12H 12/11/17 Primary Care Physician: Christiano Rhoades MD [Primary Care Provider] - Please follow up with your Primary Care Physician in: IN 3-5 DAYS Disposition: Home Minutes spent on discharge:: 35 Patient Condition:: Stable Medical Necessity - Tobacco Use Smoking Status: Current every day smoker Tobacco Use: Non-smoker Meaningful Use Info Meaningful Use Diagnoses (Choose all that apply): None applicable Code Visit Inpatient E&M: 61539 Disch Hosp
[2017-12-30] MEDS: 0.9% NaCl Peripheral Flush Adult/Peds IV (12:04)
[2017-12-30 12:32] VITALS: BP 120/64; PULSE 66; RESP 18; TEMP 36.9; O2SAT 100
--- NOTE | 2017-12-30 14:15 | CASEMGMT ---
Jem SEGOVIA had placed call to [facility] to do resumption of care and notify them of pt discharge and per outreach representative at [facility], they need a whole new order at this time. Call to pt and she states that she has been doing infusions on her own and that her sister is going to come help. Pt states that she just spoke with her [facility] RN and and she states that he didn't mention anything about needing a new order. Pt states antibx will be finished this Saturday and she states she has enough doses to finish and states no concerns with finishing out the doses at home. Pt states that Dr. Tavares did also give her a script for po antibx for after saturday. D/C summary/instructions, resumption order and facesheet faxed to [facility] at this time. Jeff RICE CM
--- NOTE | 2017-12-30 15:31 | CASEMGMT ---
JULIETTE called [facility] to let them know that patient was discharged so they can resume services. JULIETTE was told by Margarette in intake that they will need a new order for the IV medications. JULIETTE then spoke with RN Quita MITCHELL who called patient and found out she had everything needed already. Order to resume, H&P, and d/c instructions faxed to [facility]. Dotty OREILLY MSW
== END 2017-12-30 12:50 | disposition home or self-care (01) | DRG 309 ==
LOC: ED 20:30 → PCU 23:25
PROVIDERS: Internal Medicine; Admitting Provider Internal Medicine; Emergency Provider Emergency Medicine; Family Provider Family Medicine; PCP Family Medicine; Visit Provider Internal Medicine
DX: I48.91 Unspecified atrial fibrillation (principal); T84.54XA Infection and inflammatory reaction due to internal left knee prosthesis, initial encounter; I95.1 Orthostatic hypotension; S01.01XA Laceration without foreign body of scalp, initial encounter; W18.30XA Fall on same level, unspecified, initial encounter; Y93.89 Activity, other specified; Y92.009 Unspecified place in unspecified non-institutional (private) residence as the place of occurrence of the external cause; Y99.8 Other external cause status; I10 Essential (primary) hypertension; F32.9 Major depressive disorder, single episode, unspecified; E87.6 Hypokalemia; E86.0 Dehydration; F17.200 Nicotine dependence, unspecified, uncomplicated; Z96.652 Presence of left artificial knee joint; Z79.2 Long term (current) use of antibiotics; Z79.891 Long term (current) use of opiate analgesic; Z79.82 Long term (current) use of aspirin; Z79.899 Other long term (current) drug therapy
CPT/HCPCS: 36415; 36569; 36592; 70450; 72170; 73562; 80048; 80053; 80061; 80202; 80307; 83036; 83880; 84443; 84484; 85025; 90715; 93005; 93306; 99284; 99406; J7030; J7050; A4216; J0696; J3490

== ENCOUNTER → 2018-02-03 17:05 | Outpatient (CLI) | payer OTHER, SELFPAY ==
[2018-02-03 17:44] LABS: Hematocrit 40.5 % (37-47); Hemoglobin 12.8 g/dl (12.0-15.0); Mean Corp Hgb Conc 31.6 g/gl (32-36); Mean Corpuscular Hgb 29.2 pg (27.0-32.0); Mean Corpuscular Volume 92.3 fL (81-99); Mean Platelet Vol. 10.9 fl (6.2-12.0); Platelet Count 357 K/mm3 (150-450); RBC Distribution Width CV 15.3 % (11.6-14.6); RBC Distribution Width SD 51.7 fl (35.1-43.9); Red Blood Count 4.39 M/mm3 (4.2-5.4); White Blood Count 9.2 K/mm3 (4.4-11.0)
[2018-02-03 17:50] LABS: Scan Indicated on CBC? Y/N NO
[2018-02-03 18:04] LABS: Erythrocyte Sedimentation Rate 10 mm/hr (0-30)
[2018-02-03 18:10] LABS: Anion Gap 7 (5-15); BUN 14 mg/dL (7-18); Calcium,Total 9.2 mg/dL (8.5-10.1); Chloride 105 mmol/L (98-107); Creatinine, Serum 1.08 mg/dL (0.55-1.02); EST Glomerular Filtration Rate 56 mL/min (>60); Est Glom Filt Rate - Afr Amer 68 mL/min (>60); Glucose 74 mg/dL (74-106); Potassium 4.4 mmol/L (3.5-5.1); Sodium Level 138 mmol/L (136-145)
== END ==
PROVIDERS: Family Provider Family Medicine; PCP Family Medicine; Visit Provider Internal Medicine Infectious Disease
DX: T84.54XD Infection and inflammatory reaction due to internal left knee prosthesis, subsequent encounter (principal)
CPT/HCPCS: 36415; 80048; 85027; 85652

== ENCOUNTER → 2018-03-10 16:50 | Outpatient (CLI) | payer OTHER, SELFPAY ==
--- NOTE | 2018-03-10 17:12 | RAD_ITS ---
STUDY: X-RAY - MANDIBLE (COMPLETE) REASON FOR EXAM: Female, 52 years old. LEFT LATERAL TOOTH PAIN TECHNIQUE: 5 view(s) of the mandible were obtained. COMPARISON: None. FINDINGS: Normal mandible. Normal visualized right temporomandibular joint. Normal visualized left temporomandibular joint. The remaining visualized osseous structures are normal. The soft tissue structures are unremarkable. RAD/Mandible Min 4 Views IMPRESSION: Normal x-ray examination of the mandible. Electronically Signed: Jaylon Burris MD at 7:47 EDT Tel , Service support ,
== END ==
PROVIDERS: Family Provider Family Medicine; PCP Family Medicine; Visit Provider Family Medicine
DX: R68.84 Jaw pain (principal)
CPT/HCPCS: 70110

== ENCOUNTER → 2018-04-07 11:46 | Outpatient (CLI) | payer OTHER, SELFPAY ==
[2018-04-07 13:58] LABS: Erythrocyte Sedimentation Rate 10 mm/hr (0-30)
[2018-04-07 14:01] LABS: Absolute Lymphocyte Count 2.53 X10^3/ul (0.83-4.51); Absolute Neutrophil Count 4.2 X10^3/uL (2.0-7.7); Basophil# 0.01 X10^3/uL; Basophil% 0.1 % (0-1); Eosinophil# 0.12 X10^3/uL; Eosinophils% 1.6 % (0-5); Hemoglobin 13.4 g/dl (12.0-15.0); Lymphocyte # 2.53 X10^3/ul (4.0); Lymphocyte % 34.3 % (19-41); Mean Corp Hgb Conc 33.5 g/gl (32-36); Mean Corpuscular Hgb 30.7 pg (27.0-32.0); Mean Corpuscular Volume 91.5 fL (81-99); Mean Platelet Vol. 11.7 fl (6.2-12.0); Monocyte# 0.52 X10^3/uL; Neutrophil # 4.19 X10^3/uL (2.7-7.7); Neutrophil % 56.9 % (47-70); POSITIVE COUNT NO; POSITIVE DIFFERENTIAL NO; POSITIVE MORPHOLOGY NO; Platelet Count 335 K/mm3 (150-450); RBC Distribution Width SD 52.3 fl (35.1-43.9); Red Blood Count 4.37 M/mm3 (4.2-5.4); White Blood Count 7.4 K/mm3 (4.4-11.0)
[2018-04-07 14:20] LABS: ALB/GLOB Ratio 1.2 RATIO (0.9-2.4); AST(SGOT) 15 U/L (15-37); Alanine Aminotransfer ALT/SGPT 21 U/L (13-56); Albumin, Serum 3.9 g/dL (3.2-5.0); Alkaline Phosphatase 75 U/L (45-117); Anion Gap 12 (5-15); BUN 15 mg/dL (7-18); BUN/Creat Ratio 16.3 RATIO (10-20); CRP < 2.90 mg/L (0.0-3.0); Calcium,Total 9.2 mg/dL (8.5-10.1); Chloride 106 mmol/L (98-107); Creatinine, Serum 0.92 mg/dL (0.55-1.02); EST Glomerular Filtration Rate 67 mL/min (>60); Est Glom Filt Rate - Afr Amer 82 mL/min (>60); Ferritin 17 ng/mL (8-252); Globulin 3.3 g/dL (2.2-4.2); Glucose 91 mg/dL (74-106); Potassium 4.3 mmol/L (3.5-5.1); Protein, Total 7.2 g/dL (6.4-8.2); Sodium Level 142 mmol/L (136-145); T4 Free Direct 1.01 ng/dL (0.76-1.46); Thyroid Stim Hormone (TSH) 1.05 uIU/mL (0.358-3.74); Uric Acid 4.2 mg/dL (2.6-6.0)
[2018-04-07 14:38] LABS: Vitamin B12 387 pg/mL (211-911)
[2018-04-09 08:21] LABS: ANTINUCLEAR ANTIBODIES DIRECT Negative (Negative)
== END ==
PROVIDERS: Family Provider Family Medicine; PCP Family Medicine; Visit Provider Family Medicine
DX: T84.59XS Infection and inflammatory reaction due to other internal joint prosthesis, sequela (principal); R53.83 Other fatigue
CPT/HCPCS: 36415; 80053; 82607; 82728; 82746; 83970; 84439; 84443; 84550; 85025; 85652; 86038; 86140

== ENCOUNTER → 2018-07-31 10:49 | Outpatient (CLI) | payer OTHER, SELFPAY ==
[2018-07-30 14:34] VITALS: BMI 24.9
== END ==
PROVIDERS: Family Provider Family Medicine; PCP Family Medicine; Referring Provider Nurse Practitioner Family; Visit Provider Nurse Practitioner Family
DX: R00.2 Palpitations (principal)
CPT/HCPCS: 93225; 93226

== ENCOUNTER → 2018-12-18 16:44 | Outpatient (CLI) | payer OTHER, SELFPAY ==
[2018-07-30 14:34] VITALS: BMI 24.9
[2018-12-18 18:08] LABS: Absolute Neutrophil Count 4.5 X10^3/uL (2.0-7.7); Basophil# 0.02 X10^3/uL; Basophil% 0.2 % (0-1); Eosinophil# 0.28 X10^3/uL; Eosinophils% 2.9 % (0-5); Hematocrit 41.4 % (37-47); Hemoglobin 13.5 g/dl (12.0-15.0); Lymphocyte % 41.2 % (19-41); Mean Corp Hgb Conc 32.6 g/gl (32-36); Mean Corpuscular Hgb 30.3 pg (27.0-32.0); Mean Corpuscular Volume 92.8 fL (81-99); Mean Platelet Vol. 11.3 fl (6.2-12.0); Monocyte# 0.84 X10^3/uL; Monocyte% 8.7 % (0-10); Neutrophil # 4.54 X10^3/uL (2.7-7.7); Neutrophil % 46.8 % (47-70); Platelet Count 394 K/mm3 (150-450); RBC Distribution Width CV 14.8 % (11.6-14.6); RBC Distribution Width SD 48.7 fl (35.1-43.9); Red Blood Count 4.46 M/mm3 (4.2-5.4); White Blood Count 9.7 K/mm3 (4.4-11.0)
[2018-12-18 18:11] LABS: POSITIVE COUNT NO; POSITIVE DIFFERENTIAL NO; POSITIVE MORPHOLOGY NO
[2018-12-18 18:51] LABS: ALB/GLOB Ratio 1.5 RATIO (0.9-2.4); AST(SGOT) 14 U/L (15-37); Alanine Aminotransfer ALT/SGPT 17 U/L (13-56); Albumin, Serum 4.3 g/dL (3.2-5.0); Alkaline Phosphatase 102 U/L (45-117); Anion Gap 5 (5-15); BUN 17 mg/dL (7-18); CRP 3.78 mg/L (0.0-3.0); Calcium,Total 9.5 mg/dL (8.5-10.1); Chloride 103 mmol/L (98-107); Creatinine, Serum 0.85 mg/dL (0.55-1.02); EST Glomerular Filtration Rate 74 mL/min (>60); Est Glom Filt Rate - Afr Amer 90 mL/min (>60); Globulin 2.9 g/dL (2.2-4.2); Glucose 72 mg/dL (74-106); Potassium 4.6 mmol/L (3.5-5.1); Protein, Total 7.2 g/dL (6.4-8.2); Sodium Level 137 mmol/L (136-145); Thyroid Stim Hormone (TSH) 1.65 uIU/mL (0.358-3.74)
[2018-12-23 10:42] LABS: ANTINUCLEAR ANTIBODIES DIRECT Negative (Negative)
== END ==
PROVIDERS: Family Provider Family Medicine; PCP Family Medicine; Referring Provider Family Medicine; Visit Provider Family Medicine
DX: F33.1 Major depressive disorder, recurrent, moderate (principal); L50.9 Urticaria, unspecified
CPT/HCPCS: 36415; 80053; 84443; 85025; 86038; 86140

== ENCOUNTER → 2019-01-12 | Outpatient (CLI) | payer OTHER, SELFPAY ==
[2018-07-30 14:34] VITALS: BMI 24.9
--- NOTE | 2019-01-12 16:28 | RAD_ITS ---
HISTORY: PATIENT TWISTED HER LEFT ANKLE 2 WEEKS AGO. PAIN AND SWELLING STILL IN LEFT LATERAL MALLELUS WITH TINGLING IN LEFT ANKLE POSTERIORLY. COMPARISON: None FINDINGS: # of images incl. paperwork: 4 XR Ankle Min 3 Views : No fracture or osseous abnormality. The ankle mortise is intact. Soft tissue swelling is not seen. RAD/Ankle min 3 Views IMPRESSION: Normal left ankle. at 0314 Reported and signed by: David Polo MD Electronically Signed: David Polo MD at 3:13 EDT Tel , Service support ,
== END | disposition home or self-care (01) ==
LOC: MTRAD 16:26
PROVIDERS: Family Provider Family Medicine; PCP Family Medicine; Referring Provider Family Medicine; Visit Provider Family Medicine
DX: S93.409A Sprain of unspecified ligament of unspecified ankle, initial encounter (principal)
CPT/HCPCS: 73610

== ENCOUNTER 2019-03-16 07:21 | Emergency (ER) | payer OTHER, SELFPAY ==
[2019-01-28 16:13] VITALS: BMI 24.9
[2019-03-16 07:22] VITALS: BP 134/83; PULSE 98; RESP 19; TEMP 36.6; O2SAT 97; BMI 25.0
--- NOTE | 2019-03-16 07:35 | RAD_ITS ---
STUDY: X-RAY - RIGHT WRIST REASON FOR EXAM: Female, 53 years old. Swelling and pain of the right wrist status post fall. TECHNIQUE: 3 view(s) of the wrist were obtained. COMPARISON: None. FINDINGS: Alignment is anatomic. There is no acute fracture lucency or cortical step-off. There is no periostitis or periosteal reaction. There is no plain film evident soft tissue mass. There is mild, multifocal osteoarthritis. Mineralization otherwise appears unremarkable for age. RAD/Wrist min 3 Views IMPRESSION: There is no plain film evident acute osseous abnormality. Mild multifocal osteoarthritis. Electronically Signed: Best Gambino MD at 7:59 EDT , Service support ,
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
[2019-03-16 08:42] VITALS: BP 128/69; PULSE 72; RESP 15; O2SAT 98
== END 2019-03-16 08:44 | disposition home or self-care (01) ==
PROVIDERS: Emergency Provider Emergency Medicine; Family Provider Family Medicine; PCP Family Medicine
DX: S63.501A Unspecified sprain of right wrist, initial encounter (principal); I10 Essential (primary) hypertension; Z72.0 Tobacco use; W01.0XXA Fall on same level from slipping, tripping and stumbling without subsequent striking against object, initial encounter; Y93.01 Activity, walking, marching and hiking; Y92.89 Other specified places as the place of occurrence of the external cause; Y99.8 Other external cause status
CPT/HCPCS: 73110; 99283

== ENCOUNTER → 2020-07-14 14:51 | Outpatient (CLI) | payer OTHER, SELFPAY ==
[2019-09-23 14:17] VITALS: BMI 25.2
== END ==
PROVIDERS: PCP Family Medicine; Visit Provider Family Medicine
DX: R09.89 Other specified symptoms and signs involving the circulatory and respiratory systems (principal)
CPT/HCPCS: 87635; U0003

== ENCOUNTER → 2020-07-18 | Outpatient (CLI) | payer OTHER, SELFPAY ==
[2019-09-23 14:17] VITALS: BMI 25.2
== END | disposition home or self-care (01) ==
PROVIDERS: PCP Family Medicine; Referring Provider Family Medicine; Visit Provider Family Medicine
DX: Z20.828 Contact with and (suspected) exposure to other viral communicable diseases (principal)
CPT/HCPCS: 87635; U0003

== ENCOUNTER → 2020-12-12 06:15 | Outpatient (CLI) | payer OTHER, SELFPAY ==
[2020-09-12 15:39] VITALS: BMI 25.7
[2020-12-12 07:31] LABS: Absolute Neutrophil Count 5.4 X10^3/uL (2.0-7.7); Basophil# 0.02 X10^3/uL; Basophil% 0.2 % (0-1); Eosinophil# 0.22 X10^3/uL; Eosinophils% 2.4 % (0-5); Hematocrit 44.9 % (37-47); Hemoglobin 14.4 g/dL (12.0-15.0); Lymphocyte % 30.4 % (19-41); Mean Corp Hgb Conc 32.1 g/dL (32-36); Mean Corpuscular Hgb 30.8 pg (27.0-32.0); Mean Corpuscular Volume 96.1 fL (81-99); Monocyte# 0.74 X10^3/uL; NRBC Flagged by Analyzer 0 % (0-5); Neutrophil # 5.36 X10^3/uL (2.7-7.7); Neutrophil % 58.3 % (47-70); Platelet Count 424 K/mm3 (150-450); RBC Distribution Width CV 14.3 % (11.6-14.6); RBC Distribution Width SD 50.1 fl (35.1-43.9); Red Blood Count 4.67 M/mm3 (4.2-5.4); White Blood Count 9.2 K/mm3 (4.4-11.0)
[2020-12-12 07:50] LABS: Hemoglobin A1c 5.8 % (3.8-5.6)
[2020-12-12 07:51] LABS: Microalbumin,Random Urine 27.6 mg/L (NO RANGE EST.); Microalbumin:Creatinine Ratio 12.6 mg/g CRE (<30 mg/g CRE)
[2020-12-12 08:13] LABS: ALB/GLOB Ratio 1.1 RATIO (0.9-2.4); AST(SGOT) 14 U/L (15-37); Alanine Aminotransfer ALT/SGPT 23 U/L (13-56); Albumin, Serum 4.1 g/dL (3.2-5.0); Alkaline Phosphatase 87 U/L (45-117); Anion Gap 8 (5-15); BUN 18 mg/dL (7-18); Bilirubin, Direct 0.11 mg/dL (0.00-0.30); Calcium,Total 9.5 mg/dL (8.5-10.1); Chloride 103 mmol/L (98-107); Cholesterol 233 mg/dL (200); EST Glomerular Filtration Rate 61 mL/min (>60); Est Glom Filt Rate - Afr Amer 74 mL/min (>60); Globulin 3.8 g/dL (2.2-4.2); Glucose 110 mg/dL (74-106); High Density Lipoprotein 71 mg/dL; Potassium 4.3 mmol/L (3.5-5.1); Protein, Total 7.9 g/dL (6.4-8.2); Sodium Level 137 mmol/L (136-145); Thyroid Stim Hormone (TSH) 4.14 uIU/mL (0.358-3.74); Triglycerides 106 mg/dL; Very Low Density Lipoprotein 21 mg/dL (5-40)
== END ==
PROVIDERS: PCP Family Medicine; Referring Provider Internal Medicine Cardiovascular Disease; Visit Provider Internal Medicine Cardiovascular Disease
DX: I10 Essential (primary) hypertension (principal); M79.89 Other specified soft tissue disorders
CPT/HCPCS: 36415; 80053; 80061; 82043; 82248; 82570; 83036; 84443; 85025

== ENCOUNTER → 2020-12-20 14:10 | Outpatient (CLI) | payer OTHER, SELFPAY ==
[2020-09-12 15:39] VITALS: BMI 25.7
[2020-12-20 18:11] LABS: Absolute Lymphocyte Count 3.21 X10^3/uL (0.83-4.51); Absolute Neutrophil Count 4.8 X10^3/uL (2.0-7.7); Basophil# 0.04 X10^3/uL; Basophil% 0.4 % (0-1); Eosinophil# 0.36 X10^3/uL; Eosinophils% 3.9 % (0-5); Hematocrit 41.3 % (37-47); Lymphocyte # 3.21 X10^3/ul (0.83-4.51); Mean Corp Hgb Conc 31.5 g/dL (32-36); Mean Corpuscular Volume 95.4 fL (81-99); Mean Platelet Vol. 11.4 fl (6.2-12.0); Monocyte# 0.73 X10^3/uL; NRBC Flagged by Analyzer 0 % (0-5); Neutrophil % 52.5 % (47-70); Platelet Count 436 K/mm3 (150-450); RBC Distribution Width CV 14.3 % (11.6-14.6); RBC Distribution Width SD 49.9 fl (35.1-43.9); Red Blood Count 4.33 M/mm3 (4.2-5.4); White Blood Count 9.2 K/mm3 (4.4-11.0)
[2020-12-20 18:35] LABS: ALB/GLOB Ratio 1.1 RATIO (0.9-2.4); AST(SGOT) 13 U/L (15-37); Alanine Aminotransfer ALT/SGPT 22 U/L (13-56); Albumin, Serum 3.9 g/dL (3.2-5.0); Alkaline Phosphatase 76 U/L (45-117); Anion Gap 5 (5-15); BUN 16 mg/dL (7-18); BUN/Creat Ratio 16.6 RATIO (10-20); CRP < 2.90 mg/L (0.0-3.0); Calcium,Total 9.2 mg/dL (8.5-10.1); Chloride 109 mmol/L (98-107); Creatinine, Serum 0.96 mg/dL (0.55-1.02); EST Glomerular Filtration Rate 63 mL/min (>60); Est Glom Filt Rate - Afr Amer 77 mL/min (>60); Globulin 3.4 g/dL (2.2-4.2); Glucose 82 mg/dL (74-106); Lipase 115 U/L (73-393); Potassium 3.9 mmol/L (3.5-5.1); Protein, Total 7.3 g/dL (6.4-8.2); Sodium Level 142 mmol/L (136-145)
== END ==
PROVIDERS: PCP Family Medicine; Referring Provider Family Medicine; Visit Provider Family Medicine
DX: R10.11 Right upper quadrant pain (principal)
CPT/HCPCS: 36415; 80053; 83690; 85025; 86140

== ENCOUNTER → 2020-12-22 09:19 | Outpatient (CLI) | payer OTHER, SELFPAY ==
[2020-09-12 15:39] VITALS: BMI 25.7
--- NOTE | 2020-12-22 09:23 | US_ITS ---
STUDY: ABDOMINAL ULTRASOUND - RIGHT UPPER QUADRANT REASON FOR VISIT: Female, 55 years old post-prandial RUQ pain and RUQ pain on exam TECHNIQUE: Ultrasound evaluation of the right upper quadrant was performed with real-time and static gonsales-scale imaging. TECHNICAL QUALITY: Adequate. COMPARISON: None. FINDINGS: Liver: The liver measures 13.8 cm. There is normal echogenicity of the liver. The bile ducts are within normal limits. There is hepatic color flow. The direction of portal flow is hepatopetal. There is no demonstrated mass lesion. Gallbladder: Normal distended gallbladder. The gallbladder wall measures 2 mm. There is a negative sonographic Alex''s sign. There is no pericholecystic fluid. There are no gallstones. Common Bile Duct (C.B.D.): The common bile duct measures 4 mm. Pancreas: Normal size of the head, body and tail of the pancreas. There is normal echogenicity of the pancreas. There is no demonstrated pancreatic mass or cyst. Right Kidney: Normal size of the right kidney. The right kidney measures 10.8 cm x 4.7 cm x 4.7 cm. Normal renal cortex. The right cortex measures 1.6 cm. There is no demonstrated renal mass or cyst. There is no right hydronephrosis. US/Abdomen Limited IMPRESSION: Normal right upper quadrant ultrasound examination. Electronically Signed: Hermes Howell MD at 10:29 EDT , Service support ,
== END ==
PROVIDERS: PCP Family Medicine; Referring Provider Family Medicine; Visit Provider Family Medicine
DX: R10.11 Right upper quadrant pain (principal)
CPT/HCPCS: 76705

== ENCOUNTER → 2021-04-25 | Outpatient (CLI) | payer OTHER, SELFPAY | END | disposition home or self-care (01) | LOC: LABSPEC 14:21 | PROVIDERS: PCP Family Medicine; Referring Provider Family Medicine; Visit Provider Registered Nurse | DX: Z20.822 Contact with and (suspected) exposure to COVID-19 (principal) | CPT/HCPCS: 87635; U0005; U0003 ==

== ENCOUNTER → 2021-08-07 | Outpatient (CLI) | payer OTHER, SELFPAY | END | disposition home or self-care (01) | PROVIDERS: PCP Family Medicine; Visit Provider Nurse Practitioner Family | DX: U07.1 COVID-19 (principal) | CPT/HCPCS: 87635; U0005; U0003 ==

== ENCOUNTER 2021-09-13 14:56 | Outpatient (CLI) | payer OTHER, SELFPAY ==
[2021-09-13 16:19] LABS: AST(SGOT) 13 U/L (15-37); Alanine Aminotransfer ALT/SGPT 19 U/L (13-56); Albumin, Serum 3.6 g/dL (3.2-5.0); Alkaline Phosphatase 75 U/L (45-117); Bilirubin, Direct 0.06 mg/dL (0.00-0.30); Cholesterol 198 mg/dL (200); Globulin 3.4 g/dL (2.2-4.2); High Density Lipoprotein 61 mg/dL; Triglycerides 143 mg/dL; Very Low Density Lipoprotein 29 mg/dL (5-40)
== END 2021-09-13 23:59 | disposition short-term general hospital (02) ==
LOC: LAB 14:57
PROVIDERS: PCP Family Medicine; Visit Provider Physician Assistant Medical
DX: E78.00 Pure hypercholesterolemia, unspecified (principal); I48.0 Paroxysmal atrial fibrillation; E03.9 Hypothyroidism, unspecified
CPT/HCPCS: 36415; 80061; 80076; 84443

== ENCOUNTER → 2022-01-22 | Outpatient (CLI) | payer OTHER, SELFPAY ==
--- NOTE | 2022-01-22 11:51 | BI_ITS ---
MAMMOGRAPHY - BILATERAL SCREENING REASON FOR EXAM: Female, 56 years old. Routine annual screening examination. PERTINENT HISTORY: Non-contributory. Occasional bilateral breast tenderness. TECHNIQUE: Digital bilateral breast jumana (3D mammographic acquisition) in the CC and MLO projections. 2-D mediolateral oblique (MLO) and craniocaudad (CC) views of both breasts were obtained. CAD: Full Field Digital Mammography with Computer Added Detection was performed. COMPARISON: Comparison is made with prior study dated 12/31/2016. FINDINGS: Breast Composition: The breasts are extremely dense, which lowers the sensitivity of mammography. There are no dominant masses or suspicious calcifications. Stable small benign appearing bilateral axillary lymph. No other significant abnormalities are identified. There has been no significant change since the prior study. BI/SCRN MAMM (CAD)W/JUMANA BILAT IMPRESSION: Stable bilateral screening mammogram. Yearly follow-up mammogram recommended. (A) ASSESSMENT CATEGORY: BIRADS Category 2: Benign. A letter regarding these results will be sent to the patient by the facility within 30 days. Approximately 10% of breast cancers are not detected by mammography. A normal mammogram should not delay biopsy of a clinically suspicious abnormality. [id number] Electronically Signed: Hermes Howell MD at 12:35 EDT ,
== END | disposition home or self-care (01) ==
LOC: OPBI 11:47
PROVIDERS: PCP Family Medicine; Referring Provider Family Medicine; Visit Provider Family Medicine
DX: Z12.31 Encounter for screening mammogram for malignant neoplasm of breast (principal)
CPT/HCPCS: 77063; 77067

== ENCOUNTER → 2022-02-27 | Outpatient (CLI) | payer OTHER, SELFPAY ==
--- NOTE | 2022-02-27 16:48 | CT_ITS ---
STUDY: LOW DOSE CT LUNG CANCER SCREENING REASON FOR EXAM: Female, 56 years old. TOBACCO USE. Patient smokes 1 pack per day for 42 years. RADIATION DOSAGE (If Supplied By Facility): CTDIvol = ( 3.02 ) mGy, DLP = ( 94.04 ) mGycm TECHNIQUE: No contrast was administered. Low dose technique was utilized (average mAS-38 and kVp 120). 1.25 mm axial source images with a slice interval of 1.25-mm were reconstructed in lung windows. 2.5 mm axial source images with a slice interval of 2.5-mm were reconstructed in lung windows. 5.0 mm axial source images with a slice interval of 5.0-mm were reconstructed in soft tissue windows. COMPARISON: None. NODULES: There is a 4.8 mm calcified granuloma in the lateral aspect of the right upper lobe as seen on axial image #88. Emphysema: Mild increased markings at the right lung base as well as in the anterior medial aspect of the right middle lobe suggestive of scarring. Endobronchial lesion: None Aorta: Mild atherosclerotic plaque calcification of the aortic arch. CORONARY ARTERIES: Coronary artery calcification is seen. Heart: Unremarkable Pulmonary artery: Unremarkable Mediastinal nodes: Calcified subcarinal lymph nodes as well as the right hilar lymph nodes. Other chest and abdominal findings: CT/Low Dose CT Lung Screening IMPRESSION: Lung-RADS category 2 - Continue annual screening with LDCT in 12 months. IMPORTANT NOTES FOR USE: ACR Lung-RADS Version 1.1 Assessment Categories Release Date: 2018 Category: Coded 0-4 bases on nodule(s) with highest degree of suspicion. Negative screen is defined as categories 1 and 2; a positive screen is defined as categories 3 and 4. Category 3 and 4A nodules that are unchanged on interval CT should be coded as category 2, and individuals returned to screening in 12 months. Category 4X: Category 3 or 4 nodules with additional imaging findings that increase the suspicion of lung cancer, such as spiculation, GGN that doubles in size in 1 year, enlarged lymph notes, etc. Category Modifiers: S (significant finding unrelated to lung cancer) Electronically Signed: Hermes Howell MD at 10:50 EDT ,
== END | disposition home or self-care (01) ==
PROVIDERS: PCP Family Medicine; Referring Provider Family Medicine; Visit Provider Family Medicine
DX: F17.200 Nicotine dependence, unspecified, uncomplicated (principal)
CPT/HCPCS: 71271

== ENCOUNTER 2022-03-16 06:46 | Day surgery (SDC) | payer OTHER, SELFPAY ==
[2022-03-16] VITALS (7 sets, daily range): BP systolic 106–133; BP diastolic 77–89; PULSE 74–89; RESP 16–18; TEMP 36.4–36.9; O2SAT 97–100; BMI 24.9
--- NOTE | 2022-03-16 06:54 | PCM.HP.BLA ---
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 Required: No Is patient in pain?: No Allergies chlorhexidine Allergy (Verified 01/29/22 14:38) Itchingvenom-honey bee [bee venom (honey bee)] Allergy (Verified 01/29/22 14:38) Anaphylaxiscodeine Adverse Reaction (Severe, Verified 01/29/22 14:38) Unknown Medications aspirin 325 mg tablet,delayed release 325 mg PO DAILY 12/11/17 [History Confirmed 01/29/22] B-complex with vitamin C 1 cap PO DAILY 07/30/18 [History Confirmed 01/29/22] cholecalciferol (vitamin D3) 25 mcg (1,000 unit) capsule 1,000 unit PO DAILY 07/30/18 [History Confirmed 01/29/22] coenzyme Q10 100 mg capsule (Co Q-10) 100 mg PO DAILY 07/30/18 [History Confirmed 01/29/22] lorazepam 1 mg tablet 1 mg PO DAILY PRN PRN Anxiety 07/30/18 [History Confirmed 01/29/22] clonidine HCl 0.1 mg tablet 0.1 mg PO QHS 01/28/19 [History Confirmed 01/29/22] epinephrine 0.3 mg/0.3 mL injection, auto-injector (EpiPen) 0.3 mg IM Q10-15M PRN 01/28/19 [History Confirmed 01/29/22] valacyclovir 500 mg tablet (Valtrex) 500 mg PO BID PRN 01/28/19 [History Confirmed 01/29/22] bupropion HCl 150 mg tablet,12 hr sustained-release 150 mg PO DAILY 09/23/19 [History Confirmed 01/29/22] magnesium 200 mg tablet 200 mg PO DAILY 09/23/19 [History Confirmed 01/29/22] nebivolol 5 mg tablet (Bystolic) 5 mg PO QDAY #90 tabs 12/01/21 [Rx Confirmed 01/29/22] PFSH Medical History?(Updated 01/29/22 @ 05:[address] Richard Guerrero MD) Abnormal ECG Atypical depressive disorder Essential hypertension Hypokalemia Hypotension New onset a-fib Nonspecific ST-T wave electrocardiographic changes Pain and swelling of left knee Pure hypercholesterolemia Syncope Tobacco dependence Surgical History?(Updated 01/29/22 @ 14:29 by Ana Luisa Mathur) H/O: knee surgery History of tonsillectomy Family History? Mother?? CAD (coronary artery disease)Sister?? Cardiomyopathy Social History? Smoking Status:? Heavy Smoker (>10/day) Tobacco: How many years used:? 35 second hand exposure:? No alcohol intake:? never caffeine:? Yes Type: coffee Number of servings: 4 HPI HPI HPI: XU LOPEZ, is a 56 F who presents to the office today for surgical consultation regarding a colonoscopy.? The patient is referred by Dr. Christiano Rhoades and a written copy my surgical consult recommendations will return to him.? I have assisted the patient previously 2017 performed a colonoscopy with a polypectomy and my recommendations at that point were for a 3-year follow-up.She is a good feeling wellness.? No abdominal pain.? No bright red blood per rectum or melena.? She does have a history of atrial fibrillation that occurred while she was battling a knee infection related to a knee replacement.? For that Dr. Hakeem Rolon placed her on a 325 mg aspirin daily.? She has not sensed any recurrences.? She was to get a low intensity CT scan of the chest for screening due to her long-term cigarette use.? She states that that has not yet been scheduled. ROS General General: Yes weight change and fatigue; No appetite, colon cancer, breast cancer or weakness HEENT HEENT: No difficulty swallowing, eye injury, eye surgery, swollen glands or hoarseness Endo Endocrine: No thyroid disease, diabetes mellitus, thyroid cancer, Hair loss, heat intolerance or cold intolerance Skin Skin: No rash or changing moles Breast Breast: No left breast lump, right breast lump, nipple discharge, breast pain, abnormal mammogram, abnormal US or breast enlargement Musc Musculoskeletal: Yes arthritis; No back problems, rheumatoid arthritis, gout or joint pain Cardio Cardiovascular: Yes high blood pressure; No murmur, pacemaker, heart disease, atrial fibrillation, heart attack, heart stent, palpitations, shortness of breat with exertion or chest pain Psych Psychiatric: No depression, anxiety or hearing voices Resp Respiratory: No shortness of breath, No sleep apnea, No cough, No COPD, No asthma, No emphysema and No wheezing Gastro Gastrointestinal: No abdominal pain, No nausea or vomiting, No diarrhea, Yes constipation, No blood in stool, No acid reflux, No hemorrhoids, No ulcers, No gallbladder problem and No black,tarry stools Thomas Hematologic: Yes blood thinners, No blood disorders, No bleeding, No anemia and No blood clots Neuro Neurologic: No system reviewed and no additional complaints, except as documented, No as per HPI, No abnormal gait, No abnormal hearing, No abnormal movements, No abnormal speech, No behavioral changes, No burning sensations, No confusion, No convulsions, No disequilibrium, No dizziness, No localized weakness, No frequent falls, No headache(s), No lack of coordination, No loss of vision, No memory loss, No numbness, No other visual disturbances, No radicular pain, No restless legs, No sensory deficit, No syncope, No tingling, No tremor(s), No weakness and No other Exam Const General: cooperative, comfortable and no acute distress Nutritional Appearance: average body habitus [facility] Head: normal to inspection Eyes General: appearance normal, both eyes and all related structures Chest Other: Increased AP diameter Resp Effort & Inspection: normal respiratory effort Auscultation: clear to auscultation bilaterally Cardio Rate: regular rate Rhythm: regular rhythm GI Palpation: soft and no hepatosplenomegaly Auscultation: normal bowel sounds Musc Cervical Spine: normal cervical lordosis Skin General: no rashes or lesions noted Neuro General: patient alert, patient awake and patient oriented x3 Extrem General: no calf tenderness Psych Appearance: grossly normal Assessment and Plan Assessment and Plan (1) Personal history of colonic polyps: ?Status:?Acute ?Plan: 56-year-old female who 2017 and had a colonoscopy with removal of the colon polyp January 2017.? Now it is of additional note that she was referred December 2020 because have postprandial right upper quadrant abdominal pain.? She never showed for that appointment.? She was having nausea and right upper quadrant pain.? Fatty food intolerance.? She had a gallbladder ultrasound done December 22, 2020.? The gallbladder was felt to be normal.? No pericholecystic fluid no gallstones.? The common bile duct was 4 mm.? She is not currently complaining of any symptoms. I recommended the patient a colonoscopy with possible biopsy or polypectomy as indicated.? We will have her hold her 325 mg aspirin 3 days preprocedure.? She has been encouraged to attempt to cease her tobacco use.? She has had an opportunity to ask and have questions answered.? We will schedule procedure at her discretion.? She will recontact Dr. Christiano Rhoades regarding the low intensity CT scan. I appreciate the opportunity of assisting with her surgical care Copy: Dr. Christiano Guerrero M.D., F.A.C.S. I have re-examined the patient. There are no clinical changes since date of exam. Richard Guerrero M.D., F.A.C.S.
[2022-03-16] MEDS: Lactated Ringers 1,000 ML 15 ML IV (07:09)
--- NOTE | 2022-03-16 08:26 | OP.COLON_ITS ---
Patient Name: Reyna Lim Procedure Date: 03/16/2022 7:59 AM Date of : 1965 Age: 56 Procedure: Colonoscopy Indications: High risk colon cancer surveillance: Personal history of colonic polyps Providers: Richard Guerrero MD Medicines: See the Anesthesia note for documentation of the administered medications Patient Profile: Last Colonoscopy: January 2017. Complications: No immediate complications. Procedure: Pre-Anesthesia Assessment: - Prior to the procedure, a History and Physical was performed, and patient medications and allergies were reviewed. The patient's tolerance of previous anesthesia was also reviewed. The risks and benefits of the procedure and the sedation options and risks were discussed with the patient. All questions were answered, and informed consent was obtained. Prior Anticoagulants: The patient has taken no previous anticoagulant or antiplatelet agents. ASA Grade Assessment: II - A patient with mild systemic disease. After reviewing the risks and benefits, the patient was deemed in satisfactory condition to undergo the procedure. After I obtained informed consent, the scope was passed under direct vision. Throughout the procedure, the patient's blood pressure, pulse, and oxygen saturations were monitored continuously. The Colonoscope was introduced through the anus and advanced to the cecum, identified by appendiceal orifice and ileocecal valve. The colonoscopy was performed without difficulty. The patient tolerated the procedure well. The quality of the bowel preparation was good. The ileocecal valve and the appendiceal orifice were photographed. Scope In: 8:05:05 AM Scope Withdrawal Time 0 hours 7 minutes 29 seconds Scope Out: 8:22:01 AM Total Procedure Duration Time 0 hours 16 minutes 56 seconds Findings: Hemorrhoids were found on perianal exam. Multiple diverticula were found in the sigmoid colon and descending colon. The left colon was moderately tortuous. The exam was otherwise without abnormality. Impression: - Hemorrhoids found on perianal exam. - Diverticulosis in the sigmoid colon and in the descending colon. - Tortuous colon. - The examination was otherwise normal. - No specimens collected. Recommendation: - Discharge patient to home. - Resume previous diet. - Continue present medications. - Repeat colonoscopy in 5 years for surveillance. Procedure Code(s): --- Professional --- 72070, Colonoscopy, flexible; diagnostic, including collection of specimen(s) by brushing or washing, when performed (separate procedure) Diagnosis Code(s): --- Professional --- Z86.010, Personal history of colonic polyps K64.9, Unspecified hemorrhoids K57.30, Diverticulosis of large intestine without perforation or abscess without bleeding Q43.8, Other specified congenital malformations of intestine CPT copyright 2017 [employer]. All rights reserved. The codes documented in this report are preliminary and upon psychology assistant review may be revised to meet current compliance requirements. Richard Guerrero MD 03/16/2022 8:26:31 AM This report has been signed electronically. Number of Addenda: 0 Note Initiated On: 03/16/2022 7:59 AM
--- NOTE | 2022-03-16 08:27 | OP.CCLET_ITS ---
03/16/2022 Christiano Rhoades [address] [place] [address] Re : Colonoscopy procedure for Reyna Lim Dear Dr. Rhoades This procedure was performed on Wednesday, March 16, 2022. My impressions and recommendations are as follows: Impressions : - Hemorrhoids found on perianal exam. - Diverticulosis in the sigmoid colon and in the descending colon. - Tortuous colon. - The examination was otherwise normal. - No specimens collected. Recommendations : - Discharge patient to home. - Resume previous diet. - Continue present medications. - Repeat colonoscopy in 5 years for surveillance. My findings are described in the full procedure note, which is enclosed. If I can be of further assistance, please feel free to contact me at Doctor phone number(s): Work: . Sincerely, Richard Guerrero MD 03/16/2022 8:26:31 AM This report has been signed electronically.
== END 2022-03-16 09:11 | disposition home or self-care (01) ==
LOC: EN 06:46 → AC 06:48
PROVIDERS: PCP Family Medicine; Referring Provider Family Medicine; Visit Provider Surgery
PROC: 0DJD8ZZ Inspection of Lower Intestinal Tract, Via Natural or Artificial Opening Endoscopic (ICD-10-PCS; CPT 45378; principal; 2022-03-16 07:40)
DX: Z12.11 Encounter for screening for malignant neoplasm of colon (principal); Q43.8 Other specified congenital malformations of intestine; K57.30 Diverticulosis of large intestine without perforation or abscess without bleeding; K64.9 Unspecified hemorrhoids; F17.200 Nicotine dependence, unspecified, uncomplicated; F41.9 Anxiety disorder, unspecified; F32.A Depression, unspecified; Z86.010 Personal history of colon polyps; Z79.82 Long term (current) use of aspirin; Z79.899 Other long term (current) drug therapy
CPT/HCPCS: 45378; J7120

== ENCOUNTER → 2022-03-30 | Outpatient (CLI) | payer OTHER, SELFPAY ==
[2022-03-30 10:34] LABS: ALB/GLOB Ratio 1.1 RATIO (0.9-2.4); AST(SGOT) 17 U/L (15-37); Alanine Aminotransfer ALT/SGPT 30 U/L (13-56); Albumin, Serum 3.9 g/dL (3.2-5.0); Alkaline Phosphatase 69 U/L (45-117); Anion Gap 6 (5-15); BUN 23 mg/dL (7-18); BUN/Creat Ratio 23.6 RATIO (10-20); Calcium,Total 9.1 mg/dL (8.5-10.1); Chloride 110 mmol/L (98-107); Cholesterol 212 mg/dL (200); Creatinine, Serum 0.98 mg/dL (0.55-1.02); EST Glomerular Filtration Rate 62 mL/min (>60); Est Glom Filt Rate - Afr Amer 75 mL/min (>60); Globulin 3.6 g/dL (2.2-4.2); Glucose 106 mg/dL (74-106); High Density Lipoprotein 51 mg/dL; Potassium 4.6 mmol/L (3.5-5.1); Protein, Total 7.5 g/dL (6.4-8.2); Sodium Level 140 mmol/L (136-145); Triglycerides 122 mg/dL; Very Low Density Lipoprotein 24 mg/dL (5-40)
== END | disposition home or self-care (01) ==
LOC: MTLAB 07:02
PROVIDERS: PCP Family Medicine; Referring Provider Family Medicine; Visit Provider Family Medicine
DX: I10 Essential (primary) hypertension (principal)
CPT/HCPCS: 36415; 80053; 80061

== ENCOUNTER → 2022-06-07 | Outpatient (CLI) | payer OTHER, SELFPAY ==
[2022-06-07 12:29] LABS: ALB/GLOB Ratio 1.3 RATIO (0.9-2.4); AST(SGOT) 15 U/L (15-37); Alanine Aminotransfer ALT/SGPT 28 U/L (13-56); Albumin, Serum 4.2 g/dL (3.2-5.0); Alkaline Phosphatase 80 U/L (45-117); Anion Gap 6 (5-15); BUN 18 mg/dL (7-18); Calcium,Total 9.8 mg/dL (8.5-10.1); Chloride 107 mmol/L (98-107); EST Glomerular Filtration Rate 68 mL/min (>60); Est Glom Filt Rate - Afr Amer 83 mL/min (>60); Globulin 3.2 g/dL (2.2-4.2); Glucose 98 mg/dL (74-106); Potassium 4.7 mmol/L (3.5-5.1); Protein, Total 7.4 g/dL (6.4-8.2); Sodium Level 137 mmol/L (136-145)
== END | disposition home or self-care (01) ==
LOC: MFPLAB 09:46
PROVIDERS: PCP Family Medicine; Referring Provider Family Medicine; Visit Provider Family Medicine
DX: M65.331 Trigger finger, right middle finger (principal)
CPT/HCPCS: 36415; 80053; 83036

== ENCOUNTER 2022-06-21 14:30 | Outpatient (RCR) | payer OTHER, SELFPAY ==
--- NOTE | 2022-05-30 11:53 | HP.OTEVAL ---
Patient's Visit Information XU LOPEZ is a 56 year old F, referred to Occupational Therapy by Dr. Christiano Rhoades MD, with a diagnosis of right trigger finger. Date of Evaluation: 05/29/22 Occupational Therapist: Kathy Ulrich, OTR/Vic, CHT - Subjective This 56 year old female was seen for OT eval with dx of trigger finger-. pt states her right MF started locking on her and when she releases she can not use her right hand. pt states this issue limits her IND. with daily occupations and does get painful. pt would like to know what she can do to limit the finger from triggering. - ADLs Miscellaneous: Write, Use computer keyboard - Pain right hand 3 Pain Intensity Range: 4 - ROM ROM Comments: pt demo with positive trigger of right MF. all other ROM is WNL - Strength Dermatology Nurse: right 40# left 65# Lateral Pinch: right 10 left 8# Tripod Pinch: right 8# left 8# Strength Comments: pt demo with weakness of right dominate hand due to painful grasp. - Sensation Sensation Comments: denies - Quick DASH-Disab of Arm,Shoulder& Hand Quick DASH Score: 45.0000 - Goals Goal:ROM equal to unaffected hand: Yes Comment: without noted triggering Goal:Dermatology Nurse/Pinch strength at least 75% of unaffected hand: Yes Goal:No pain with affected hand use: Yes Goal:Full use of affected hand in daily activities including: Yes Other Goal: pt will report a decrease of D3 triggering by 75* in 2 weeks. - Rehabilitation General Assessment: pt demo with positive trigger finger and this limits pts ind, with ADLs and IADls. pt would benefit from skilled OT services 1-2x week for 4 weeks to decrease triggering and ed. pt on use of bracing/splint as needed . Pt demo understanding and agree to POC. Rehabilitation Potential: Good - Anticipated Interventions A/AAROM/PROM, Strengthening, Triggerpoint Release, Orthoses, Joint Protection/Energy Conservation, Ergonomic Education, Fine Motor Coord/Eh, Education re assistive Equipment, Home Program - Visit Plan Frequency: 1-2x /Week Duration: 4 Weeks TEXT: Thank you for the opportunity to evaluate your patient. For Medicare and Medicare HMO plans, please review the plan of care and approve it. It will need to be FAXED BACK to us at [phone] for Medicare purposes. Please let me know if there are questions or concerns regarding this plan of care. Physician Signature: Date:
--- NOTE | 2022-07-25 15:19 | HP.OTDCSUM ---
It has been my pleasure to treat XU LOPEZ under orders from Dr. Christiano Rhoades MD, for the diagnosis of right trigger finger for a total of 5 visit(s). Please see the following information for a summary of their discharge status. % Improvement: 90 Objective/Function: Inward Toll Operator. R- 65#, L- 75#. Lateral grasp. R- 19#, L-21#. Tripod grasp. R-16# L- 19# Patient Goals: Regain Strength, Decrease Pain, Improve Fine Motor Skills, Be More Independent in ADLS Goal:ROM equal to unaffected hand: Yes Goal:Inward Toll Operator/Pinch strength at least 75% of unaffected hand: Yes Goal:No pain with affected hand use: Yes Goal:Full use of affected hand in daily activities including: Yes Other Goal: pt will report a decrease of D3 triggering by 75* in 2 weeks. Plan: D/C Discharge Comments: pt was not demo with trigging and is d/c with HEP. If there are questions or concerns regarding this patient's occupational therapy, please fell free to call me at [phone]. Thank you for the referral of this patient. Sincerely, Kathy Ulrich, OTR/L, CHT
== END 2022-06-21 19:00 | disposition home or self-care (01) ==
LOC: OT 14:30
PROVIDERS: PCP Family Medicine; Referring Provider Family Medicine; Visit Provider Family Medicine
DX: M65.331 Trigger finger, right middle finger (principal)
CPT/HCPCS: 97035; 97110; 97140; 97166; 97530

== ENCOUNTER → 2023-07-01 | Outpatient (CLI) | payer OTHER, SELFPAY ==
--- NOTE | 2023-07-01 12:16 | BI_ITS ---
MAMMOGRAPHY - BILATERAL SCREENING REASON FOR EXAM: Female, 57 years old. Routine annual screening examination. PERTINENT HISTORY: Non-contributory. Bilateral breast tenderness. TECHNIQUE: Digital bilateral breast jumana (3D mammographic acquisition) in the CC and MLO projections. 2-D mediolateral oblique (MLO) and craniocaudad (CC) views of both breasts were obtained. CAD: Full Field Digital Mammography with Computer Added Detection was performed. COMPARISON: Comparison is made with prior study dated January 22, 2022 and December 31, 2016. FINDINGS: Breast Composition: The breasts are extremely dense, which lowers the sensitivity of mammography. There are no dominant masses or suspicious calcifications. Benign appearing bilateral axillary lymph nodes. No other significant abnormalities are identified. There has been no significant change since the prior study. BI/SCRN MAMM (CAD)W/JUMANA BILAT IMPRESSION: Stable bilateral screening mammogram. Yearly follow-up mammogram recommended. (A) ASSESSMENT CATEGORY: BIRADS Category 2: Benign. A letter regarding these results will be sent to the patient by the facility within 30 days. Approximately 10% of breast cancers are not detected by mammography. A normal mammogram should not delay biopsy of a clinically suspicious abnormality. [id number] Electronically Signed: Hermes Howell MD at 9:42 EST ,
== END | disposition home or self-care (01) ==
LOC: OPBI 12:15
PROVIDERS: PCP Family Medicine; Referring Provider Family Medicine; Visit Provider Family Medicine
DX: Z12.31 Encounter for screening mammogram for malignant neoplasm of breast (principal)
CPT/HCPCS: 77063; 77067

== ENCOUNTER → 2023-08-19 | Outpatient (CLI) | payer OTHER, SELFPAY ==
[2023-08-19 16:56] LABS: Bacteria 0 SEEN /hpf (None Seen); Mucous, Urine 0 SEEN /hpf (<or=2+); Red Blood Cells-Urine 0 SEEN /hpf (0-5); White Blood Cells 0 SEEN /hpf (0-5)
[2023-08-19 17:40] LABS: Absolute Lymphocyte Count 4.35 X10^3/uL (0.83-4.51); Absolute Neutrophil Count 7.2 X10^3/uL (2.0-7.7); Basophil# 0.04 X10^3/uL; Basophil% 0.3 % (0-1); Eosinophil# 0.26 X10^3/uL; Hematocrit 41.9 % (37-47); Hemoglobin 13.3 g/dL (12.0-15.0); Lymphocyte # 4.35 X10^3/ul (0.83-4.51); Lymphocyte % 33.7 % (19-41); Mean Corp Hgb Conc 31.7 g/dL (32-36); Mean Corpuscular Hgb 30.1 pg (27.0-32.0); Mean Corpuscular Volume 94.8 fL (81-99); Mean Platelet Vol. 10.7 fl (6.2-12.0); Monocyte# 1.04 X10^3/uL; NRBC Flagged by Analyzer 0 % (0-5); Neutrophil # 7.16 X10^3/uL (2.7-7.7); Neutrophil % 55.5 % (47-70); Platelet Count 461 K/mm3 (150-450); RBC Distribution Width CV 14.4 % (11.6-14.6); RBC Distribution Width SD 49.9 fl (35.1-43.9); Red Blood Count 4.42 M/mm3 (4.2-5.4); White Blood Count 12.9 K/mm3 (4.4-11.0)
--- OUTSIDE RECORDS SUMMARY | 2023-08-19 17:42 | XMS RPT_ITS | CCD ---
Author Name Unknown Address [address] [place] [address] Organization [facility] Care Team Providers Care Heater Helper Name Role Phone Jf CADENA, Jose Marx Primary Care Provider [phone] JOSE RHOADES Primary Care Unavailable ZAY, OKSANA Referring Unavailable ZAY, OKSANA Referring Unavailable JOSE RHOADES UCHE Primary Care Unavailable AN AGUAYO Attending Unavailable JF JOSE UCHE Primary Care Unavailable ZAY, OKSANA Attending Unavailable JOSE RHOADES UC[facility] Primary Care Unavailable VANNESA REEDER Referring Unavailable JF JOSE UCHE Primary Care Unavailable JF JOSE UCHE Primary Care Unavailable Allergies Allergy Classification Reported Allergen(s) Allergy Type Date of Onset Reaction(s) Facility (7 sources) Codeine; Translations: [CODEINE] Drug Allergy 8 [facility] Work Phone: (7 sources) Bees; Translations: [BEES] Propensity to adverse reactions 1 Anaphylaxis [facility] Work Phone: (2 sources) Chlorhexidine; Translations: [CHLORHEXIDINE] Drug Allergy 7 Itching, Other: See Comments [facility] Medications Current Medications Medication Drug Class(es) Dates Sig (Normalized) Sig (Original) doxycycline hyclate 100 mg oral tablet (1 source) Tetracycline-clas s Drug Start: 11-17-2022 End: 11-24-2022 take 1 tablet by mouth twice daily doxycycline (VIBRA-TABS) 100 mg tablet Take 1 tablet by mouth twice daily for 7 days. 14 tablet 0 11/17/2022 11/24/2022 Active Completed/Discontinued Medications Medication Drug Class(es) Dates Sig (Normalized) Sig (Original) [id number] 200 actuat albuterol 0.09 mg/actuat metered dose inhaler (1 source) beta2-Adrenergic Agonist Start: 11-17-2022 take 2 puff(s) by inhalation every six hours as needed albuterol HFA (PROAIR HFA) 90 mcg/actuation inhaler Inhale 2 Puffs as instructed every 6 hours as needed. 1 Each 0 11/17/2022 Active Problems Active Problems Problem Classification Problem Date Documented Date Episodic/Chronic Immunizations and screening for infectious disease (1 source) Patient encounter status; Translations: [Encounter for screening for human papillomavirus (HPV)] Episodic Other female genital disorders (6 sources) Abnormal uterine bleeding; Translations: [Other specified abnormal uterine and vaginal bleeding] Onset: 12-17-2012 12-17-2012 Chronic Other screening for suspected conditions (not mental disorders or infectious disease) (1 source) Cancer cervix screening status; Translations: [Encounter for screening for malignant neoplasm of cervix] Episodic Other upper respiratory infections (1 source) Chronic sinusitis; Translations: [Chronic sinusitis, unspecified] Chronic Unclassified (1 source) Acute cough; Translations: [Acute cough] Onset: 11-24-2022 Past or Other Problems Problem Classification Problem Date Documented Da te Episodic/Chronic Abdominal pain (4 sources) Pain in female pelvis; Translations: [Pelvic and perineal pain] Onset: 06-04-2022 Episodic Results Test Name Value Interpretation Reference Range Facil ity Vital Signs Date Time Vital Sign Value Performing Clinician Tata arriaga 11-17-2022 13:47-0400 Body temperature 98.8 [degF] Charo Funez PA-C Work Phone: [facility] 11-17-2022 13:47-0400 Body weight 72.85 kg Charo GRIJALVA-Rosas Work Phone: [facility] 11-17-2022 13:47-0400 Diastolic blood pressure 90 mm[Hg] Charo GRIJALVA-Rosas Work Phone: [facility] 11-17-2022 13:47-0400 Heart rate 90 /min Charo GRIJALVA-Rosas Work Phone: [facility] 11-17-2022 13:47-0400 Respiratory rate 18 /min Charo Funez PA-C Work Phone: [facility] 11-17-2022 13:47-0400 SaO2% (BldA) [Mass fraction] 97 % Charo Funez PA-C Work Phone: [facility] 11-17-2022 13:47-0400 Systolic blood pressure 136 mm[Hg] Charo Funez PA-C Work Phone: [facility] Encounters Encounter Date Encounter Type Care Provider Facility Start: 11-24-2022 End: 11-24-2022 ambulatory [facility] Facility:[facility] Start: 11-17-2022 End: 11-17-2022 ambulatory [facility] Facility:[facility] Start: 11-17-2022 End: 11-17-2022 Patient encounter procedure Charo Funez PA-C Work Phone: [facility] Procedures Date Procedure Procedure Detail Performing Clinician Start: 06-04-2022 Us pelvic nonobstetr ic real-time image complete [facility] MACHINE DEBURRER.FISHERMAN HELPER Work Phone: Start: 06-01-2022 Urnls dip stick/tabl et rgnt auto w/o microscopy [facility] MACHINE DEBURRER.FISHERMAN HELPER Work Phone: Start: 02-01-2017 Colonoscopy [facility] MACHINE DEBURRER.FISHERMAN HELPER Work Phone: Start: 12-17-2012 Mammography [facility] MACHINE DEBURRER.FISHERMAN HELPER Work Phone: Plan of Treatment Date Care Activity Detail Author Start: 06-01-2027 HPV TESTING HPV TESTING [facility] Start: 06-01-2027 PAP TESTING PAP TESTING [facility] Start: 04-12-2023 Influenza vaccination INFLUENZ A (Season Ended) [facility] Start: 08-12-2022 DEPRESSION ASSESSMENT DEPRESSION ASS ESSMENT [facility] Start: 06-01-2022 End: 06-01-2023 PELVIC US WHI PELVIC US WHI Anc Imaging Routine Pelvic pain in female Expected: 06/01/2022, Expires: 06/01/2023 [facility] Work Phone: Payers Date Payer Category Payer Private Health Insurance [id number] 2019 Private Health Insurance [id number] Social History Date Type Detail Facility Start: 12-16-2020 End: 11-17-2022 Tobacco smoking status NHIS Smokes tobacco daily [facility] Work Phone: History of tobacco use Cigarette Smoker C [facility] Work Phone: Start: 12-16-2020 End: 11-17-2022 Cigarettes smoked current (pack per day) - Reported 0.8 [facility] Start: 12-16-2020 End: 11-17-2022 Tobacco use and exposure Smokeless tobacco non-user [facility] Work Phone: Start: 09-03-2021 End: 11-17-2022 Alcohol intake Current drinker of alcohol (finding) [facility] Start: 02-01-2017 Alcohol Comment weekly [facility] Start: 1965 Sex Assigned At Not on file C [facility] Start: 05-22-2022 End: 06-01-2022 Exposure to SARS-CoV-2 (event) Not sure [facility] Clinical Notes 06-01-2022 to 11-24-2022 Charo Funez PA-C - 11/17/2022 2:03 PM EDTTelephone Encounter - Carmina Juarez RN - 06/05/2022 12:29 PM EDTTelephone Encounter - Carmina Juarez RN - 06/05/2022 9:26 AM EDT Note Date & Type Note Facility 11-24-2022 Note HNO ID: [id number] Author: RT Rachel(R) Service: ? Author Type: Technologist Type: Progress Notes Filed: 11/24/2022 11:58 AM Note Text: Radiology Service Progress Note PATIENT NAME: Reyna Lim DATE OF SERVICE: November 24, 2022 TIME: 11:53 AM PATIENT IDENTITY VERIFICATION COMPLETED USING TWO (2) IDENTIFIERS: Name and Date of confirmed by patient verbally. FALL SCREENING: Has the patient had 2 falls in the last year or 1 fall with injury or currently using an Ambulatory Assistive Device (Walker, Cane, Wheelchair, Crutches, etc.)? No PATIENT GENDER DATA: Female. status: : No status: NO. PATIENT RELEVANT IMPLANT DATA REVIEWED: Not Applicable RADIOLOGY DEPARTMENT: General X-ray: Exam(s) Completed: Chest X-Ray PERIPHERAL IV DATA: Not applicable SIGNED BY: RT Rachel(R) November 24, 2022 11:53 AM [facility] 11-24-2022 Note HNO ID: [id number] Author: Vannesa Reeder APRN.FISHERMAN HELPER Service: ? Author Type: Nurse Practitioner Type: Progress Notes Filed: 11/24/2022 12:38 PM Note Text: Subjective HPI Nontoxic-appearing female presents urgent care chief complaint cough chest congestion sinus pressure. Duration of symptoms 2 weeks. Associated symptoms listed above. Patient was seen here 1 week ago placed on doxycycline Tessalon Perles prednisone and Mucinex. Took medication as prescribed still feeling poorly. Has not used any other OTC meds. Denies any significant pain currently. States cough is most bothersome symptom. No known sick contacts. COVID home 19 test earlier last week. Denies any fever body aches chills chest pain shortness of breath pleuritic pain hemoptysis nausea vomiting abdominal pain change in bowel or bladder habits. Past medical history prescription medication use and allergies reviewed. .Patient presents with: Cough: Chest congestion, chills, fatigue, ear pain, sinus pain, KASPER x2 weeks PAST MEDICAL HISTORY Diagnosis Date Chronic fatigue syndrome Snoring Unspecified essential hypertension PAST SURGICAL HISTORY Procedure Laterality Date ARTHROSCOPY KNEE DIAGNOSTIC W/WO SYNOVIAL BX SPX 04/30/2010 Arthroscopy, knee, left knee ARTHRP KNE CONDYLEANDPLATU MEDIALANDLAT COMPARTMENTS Left 07/2015 COLONOSCOPY 1999 PAST SURGICAL HISTORY OF left knee SKIN BX, 1 LESION Right 01/09/2017 TONSILLECTOMY PRIMARY/SECONDARY AGE 10/> ALLERGIES Bees, Chlorhexidine, and Codeine MEDICATIONS albuterol HFA (PROAIR HFA) 90 mcg/actuation inhaler Inhale 2 Puffs as instructed every 6 hours as needed. doxycycline (VIBRA-TABS) 100 mg tablet Take 1 tablet by mouth twice daily for 7 days. mecobalamin, vitamin B12, (B12 ACTIVE) 1,000 mcg chew Take by mouth. buPROPion SR (ZYBAN SR; WELLBUTRIN SR) 150 mg 12 hr tablet Take 150 mg by mouth twice daily. cloNIDine HCl (CATAPRES) 0.1 mg tablet TAKE 1 TABLET BY MOUTH PRIOR TO BEDTIME LORazepam (ATIVAN) 1 mg tablet Take 1 mg by mouth every 8 hours as needed. valACYclovir (VALTREX) 500 mg tablet Take 500 mg by mouth twice daily. aspirin, enteric coated (ASPIRIN, ENTERIC COATED) 325 mg EC tablet Take 325 mg by mouth once daily. coenzyme Q10 (COENZYME Q-10) 100 mg cap capsule Take 100 mg by mouth twice daily. Cholecalciferol, Vitamin D3, 25 mcg (1,000 unit) cap Take 1,000 Units by mouth once daily. Magnesium Gluconate powd 1 teaspoonful once daily. mixes in 3-4 oz of water nebivolol (BYSTOLIC) 20 mg tab Take by mouth once daily. EPINEPHrine 0.3 mg/0.3 mL INTRAMUSC. PnIj as necessary benzonatate (TESSALON PERLES) 100 mg capsule Take 2 capsules by mouth three times daily as needed. cyclobenzaprine (FLEXERIL) 10 mg tablet Take 1 tablet by mouth three times daily as needed for muscle spasm. (Patient not taking: Reported on 11/17/2022) FAMILY HISTORY Problem Relation Age of Onset Diabetes Mother Hypertension Mother Alzheimer's Disease Mother Heart Father other (Dementia) Father 91 other (Cardiomyopathy) Sister other (Myeloma) Sister Social History Tobacco Use Smoking status: Every Day Packs/day: 0.75 Years: 17.00 Pack years: 12.75 Types: Cigarettes Smokeless tobacco: Never Substance Use Topics Alcohol use: Yes Alcohol/week: 2.5 - 5.0 standard drinks Types: 1 - 2 Cans of Beer (12oz) per week Comment: weekly Drug use: No BP 142/90 Pulse 92 Temp 36.7 ?C (98.1 ?F) Resp 20 Wt 73.1 kg (161 lb 3.2 oz) LMP 11/20/2015 SpO2 98% BMI 26.42 kg/m? Review of Systems Constitutional: Positive for malaise/fatigue. Negative for chills and fever. HENT: Positive for congestion and sinus pain. Negative for ear discharge, ear pain and sore throat. Eyes: Negative for blurred vision, pain, discharge and redness. Respiratory: Positive for cough and sputum production. Negative for hemoptysis, shortness of breath, wheezing and stridor. Cardiovascular: Negative for chest pain. Gastrointestinal: Negative for abdominal pain, diarrhea, nausea and vomiting. Musculoskeletal: Positive for myalgias. Skin: Negative for itching and rash. Neurological: Negative for dizziness and headaches. Objective Physical Exam Constitutional: General: She is not in acute distress. Appearance: She is not diaphoretic. HENT: Head: Normocephalic. Mouth/Throat: Mouth: Mucous membranes are moist. Pharynx: Oropharynx is clear. No oropharyngeal exudate or posterior oropharyngeal erythema. Eyes: Conjunctiva/sclera: Conjunctivae normal. Pupils: Pupils are equal, round, and reactive to light. Cardiovascular: Rate and Rhythm: Normal rate and regular rhythm. Heart sounds: Normal heart sounds. Pulmonary: Effort: Pulmonary effort is normal. No tachypnea, accessory muscle usage or respiratory distress. Breath sounds: No stridor. Wheezing and rhonchi present. No rales. Abdominal: Palpations: Abdomen is soft. Tenderness: T (more content not included)... [facility] 11-17-2022 Note HNO ID: [id number] Author: Charo Funez PA-C Service: ? Author Type: Physician Tuber Machine Operator Type: Progress Notes Filed: 11/17/2022 2:07 PM Note Text: This note was created using Ryanriter. Subjective Reyna Lim is a 56 year old female. HPI Patient presents with chest congestion and cough over the past 10 days. She feels wheezy. The first 2 days she did have a fever. She took 2 home COVID test which were negative. She has tried multiple qdju-pdh-jileitk medications without relief. She is a smoker. Denies history of asthma or COPD. No diarrhea or vomiting. She has had some postnasal drip and sinus pressure. Her ears feel plugged. Review of Systems Constitutional: Positive for chills, fatigue and fever. HENT: Positive for congestion, ear pain, rhinorrhea, sinus pressure and sinus pain. Respiratory: Positive for cough, shortness of breath and wheezing. Cardiovascular: Negative. Gastrointestinal: Negative. Genitourinary: Negative. Musculoskeletal: Positive for myalgias. All other systems reviewed and are negative. PAST MEDICAL HISTORY Diagnosis Date Chronic fatigue syndrome Snoring Unspecified essential hypertension Current Outpatient Medications Medication Sig Dispense Refill mecobalamin, vitamin B12, (B12 ACTIVE) 1,000 mcg chew Take by mouth. buPROPion SR (ZYBAN SR; WELLBUTRIN SR) 150 mg 12 hr tablet Take 150 mg by mouth twice daily. cloNIDine HCl (CATAPRES) 0.1 mg tablet TAKE 1 TABLET BY MOUTH PRIOR TO BEDTIME LORazepam (ATIVAN) 1 mg tablet Take 1 mg by mouth every 8 hours as needed. valACYclovir (VALTREX) 500 mg tablet Take 500 mg by mouth twice daily. aspirin, enteric coated (ASPIRIN, ENTERIC COATED) 325 mg EC tablet Take 325 mg by mouth once daily. coenzyme Q10 (COENZYME Q-10) 100 mg cap capsule Take 100 mg by mouth twice daily. Cholecalciferol, Vitamin D3, 25 mcg (1,000 unit) cap Take 1,000 Units by mouth once daily. Magnesium Gluconate powd 1 teaspoonful once daily. mixes in 3-4 oz of water nebivolol (BYSTOLIC) 20 mg tab Take by mouth once daily. EPINEPHrine 0.3 mg/0.3 mL INTRAMUSC. PnIj as necessary 0 predniSONE (DELTASONE) 20 mg tablet Take 2 tablets by mouth once daily for 5 days. 10 tablet 0 benzonatate (TESSALON PERLES) 100 mg capsule Take 2 capsules by mouth three times daily as needed. 30 capsule 0 albuterol HFA (PROAIR HFA) 90 mcg/actuation inhaler Inhale 2 Puffs as instructed every 6 hours as needed. 1 Each 0 doxycycline (VIBRA-TABS) 100 mg tablet Take 1 tablet by mouth twice daily for 7 days. 14 tablet 0 cyclobenzaprine (FLEXERIL) 10 mg tablet Take 1 tablet by mouth three times daily as needed for muscle spasm. (Patient not taking: Reported on 11/17/2022) 12 tablet 0 No current facility-administered medications for this visit. PAST SURGICAL HISTORY Procedure Laterality Date ARTHROSCOPY KNEE DIAGNOSTIC W/WO SYNOVIAL BX SPX 04/30/2010 Arthroscopy, knee, left knee ARTHRP KNE CONDYLEANDPLATU MEDIALANDLAT COMPARTMENTS Left 07/2015 COLONOSCOPY 1999 PAST SURGICAL HISTORY OF left knee SKIN BX, 1 LESION Right 01/09/2017 TONSILLECTOMY PRIMARY/SECONDARY AGE 10/> FAMILY HISTORY Problem Relation Age of Onset Diabetes Mother Hypertension Mother Alzheimer's Disease Mother Heart Father other (Dementia) Father 91 other (Cardiomyopathy) Sister other (Myeloma) Sister Social History Tobacco Use Smoking status: Every Day Packs/day: 0.75 Years: 17.00 Pack years: 12.75 Types: Cigarettes Smokeless tobacco: Never Substance Use Topics Alcohol use: Yes Alcohol/week: 2.5 - 5.0 standard drinks Types: 1 - 2 Cans of Beer (12oz) per week Comment: weekly Drug use: No Objective BP 136/90 Pulse 90 Temp 37.1 ?C (98.8 ?F) (Tympanic) Resp 18 Wt 72.8 kg (160 lb 9.6 oz) LMP 11/20/2015 SpO2 97% BMI 26.32 kg/m? Physical Exam Vitals reviewed. Constitutional: Appearance: Normal appearance. HENT: Head: Normocephalic and atraumatic. Right Ear: Tympanic membrane, ear canal and external ear normal. Left Ear: Tympanic membrane, ear canal and external ear normal. Nose: Congestion present. Right Sinus: Frontal sinus tenderness present. Left Sinus: Frontal sinus tenderness present. Mouth/Throat: Mouth: Mucous membranes are moist. Pharynx: Oropharynx is clear. Cardiovascular: Rate and Rhythm: Normal rate and regular rhythm. Heart sounds: Normal heart sounds. Pulmonary: Effort: Pulmonary effort is normal. Breath sounds: Wheezing and rhonchi present. No rales. Chest: Chest wall: No tenderness. Musculoskeletal: Cervical back: Neck supple. Lymphadenopathy: Cervical: No cervical adenopathy. Skin: General: Skin is warm and dry. Neurological: Mental Status: She is alert. Assessment and Plan ASSESSMENT/PLAN: 1. Sinobronchitis - ICD9: 473.9, 490, ICD10: J32.9, J40 - Will begin treatment with Doxycycline, prednisone, tessalon, albuterol. May also use expectorant otc. - Suppor (more content not included)... [facility] 11-17-2022 History of Presen t illness Narrative This note was created using NoteWriter. Subjective Reyna Lim is a 56 year old female. HPI Patient presents with chest congestion and cough over the past 10 days. She feels wheezy. The first 2 days she did have a fever. She took 2 home COVID test which were negative. She has tried multiple kwcy-kgt-gshnnrv medications without relief. She is a smoker. Denies history of asthma or COPD. No diarrhea or vomiting. She has had some postnasal drip and sinus pressure. Her ears feel plugged. Review of Systems Constitutional: Positive for chills, fatigue and fever. HENT: Positive for congestion, ear pain, rhinorrhea, sinus pressure and sinus pain. Respiratory: Positive for cough, shortness of breath and wheezing. Cardiovascular: Negative. Gastrointestinal: Negative. Genitourinary: Negative. Musculoskeletal: Positive for myalgias. All other systems reviewed and are negative. PAST MEDICAL HISTORY Diagnosis Date Chronic fatigue syndrome Snoring Unspecified essential hypertension Current Outpatient Medications Medication Sig Dispense Refill mecobalamin, vitamin B12, (B12 ACTIVE) 1,000 mcg chew Take by mouth. buPROPion SR (ZYBAN SR; WELLBUTRIN SR) 150 mg 12 hr tablet Take 150 mg by mouth twice daily. cloNIDine HCl (CATAPRES) 0.1 mg tablet TAKE 1 TABLET BY MOUTH PRIOR TO BEDTIME LORazepam (ATIVAN) 1 mg tablet Take 1 mg by mouth every 8 hours as needed. valACYclovir (VALTREX) 500 mg tablet Take 500 mg by mouth twice daily. aspirin, enteric coated (ASPIRIN, ENTERIC COATED) 325 mg EC tablet Take 325 mg by mouth once daily. coenzyme Q10 (COENZYME Q-10) 100 mg cap capsule Take 100 mg by mouth twice daily. Cholecalciferol, Vitamin D3, 25 mcg (1,000 unit) cap Take 1,000 Units by mouth once daily. Magnesium Gluconate powd 1 teaspoonful once daily. mixes in 3-4 oz of water nebivolol (BYSTOLIC) 20 mg tab Take by mouth once daily. EPINEPHrine 0.3 mg/0.3 mL INTRAMUSC. PnIj as necessary 0 predniSONE (DELTASONE) 20 mg tablet Take 2 tablets by mouth once daily for 5 days. 10 tablet 0 benzonatate (TESSALON PERLES) 100 mg capsule Take 2 capsules by mouth three times daily as needed. 30 capsule 0 albuterol HFA (PROAIR HFA) 90 mcg/actuation inhaler Inhale 2 Puffs as instructed every 6 hours as needed. 1 Each 0 doxycycline (VIBRA-TABS) 100 mg tablet Take 1 tablet by mouth twice daily for 7 days. 14 tablet 0 cyclobenzaprine (FLEXERIL) 10 mg tablet Take 1 tablet by mouth three times daily as needed for muscle spasm. (Patient not taking: Reported on 11/17/2022) 12 tablet 0 No current facility-administered medications for this visit. PAST SURGICAL HISTORY Procedure Laterality Date ARTHROSCOPY KNEE DIAGNOSTIC W/WO SYNOVIAL BX SPX 04/30/2010 Arthroscopy, knee, left knee ARTHRP KNE CONDYLE&PLATU MEDIAL&LAT COMPARTMENTS Left 07/2015 COLONOSCOPY 1999 PAST SURGICAL HISTORY OF left knee SKIN BX, 1 LESION Right 01/09/2017 TONSILLECTOMY PRIMARY/SECONDARY AGE 10/> FAMILY HISTORY Problem Relation Age of Onset Diabetes Mother Hypertension Mother Alzheimer's Disease Mother Heart Father other (Dementia) Father 91 other (Cardiomyopathy) Sister other (Myeloma) Sister Social History Tobacco Use Smoking status: Every Day Packs/day: 0.75 Years: 17.00 Pack years: 12.75 Types: Cigarettes Smokeless tobacco: Never Substance Use Topics Alcohol use: Yes Alcohol/week: 2.5 - 5.0 standard drinks Types: 1 - 2 Cans of Beer (12oz) per week Comment: weekly Drug use: No Objective BP 136/90 Pulse 90 Temp 37.1 C (98.8 F) (Tympanic) Resp 18 Wt 72.8 kg (160 lb 9.6 oz) LMP 11/20/2015 SpO2 97% BMI 26.32 kg/m Physical Exam Vitals reviewed. Constitutional: Appearance: Normal appearance. HENT: Head: Normocephalic and atraumatic. Right Ear: Tympanic membrane, ear canal and external ear normal. Left Ear: Tympanic membrane, ear canal and external ear normal. Nose: Congestion present. Right Sinus: Frontal sinus tenderness present. Left Sinus: Frontal sinus tenderness present. Mouth/Throat: Mouth: Mucous membranes are moist. Pharynx: Oropharynx is clear. Cardiovascular: Rate and Rhythm: Normal rate and regular rhythm. Heart sounds: Normal heart sounds. Pulmonary: Effort: Pulmonary effort is normal. Breath sounds: Wheezing and rhonchi present. No rales. Chest: Chest wall: No tenderness. Musculoskeletal: Cervical back: Neck supple. Lymphadenopathy: Cervical: No cervical adenopathy. Skin: General: Skin is warm and dry. Neurological: Mental Status: She is alert. Assessment and Plan ASSESSMENT/PLAN: 1. Sinobronchitis - ICD9: 473.9, 490, ICD10: J32.9, J40 - Will begin treatment with Doxycycline, prednisone, tessalon, albuterol. May also use expectorant otc. - Supportive care with plenty of fluids, rest, and analgesia prn. - Follow up in 3-5 days if symptoms persist or worsen. Charo Funez PA-C documented in this encounter [facility] 06-05-2022 Miscellaneous Notes Patient notified of results, verbalizes understanding of instructions. Carmina Juarez RN Left message to call office. Carmina Juarez RN Please let the pt know that her US show 3 small fibroids, these are not the cause of her pain. Her ovaries were not visualized probable due shrinking from menopause. I would recommend that she follow up with her PCP for further evaluation. Oksana Glasgow APRN.OBED documented in this encounter [facility] 06-04-2022 Miscellaneous Notes Patient notified. Nati Pa RN The following approved medication requests have been transmitted electronically. Requested Prescriptions Signed Prescriptions Disp Refills metroNIDAZOLE (FLAGYL) 500 mg tablet 14 tablet 0 Sig: Take 1 tablet by mouth twice daily for 7 days. Authorizing Provider: OKSANA GLASGOW [facility] [id number] [place] [address] Left message for patient to call office. Nati Pa RN BV positive. To treat with Flagyl 500mg PO BID for 7 days. 1) No alcohol during treatment and for 24 hours after last dose. 2) No intercourse during treatment. 3) Probiotic by mouth once daily for 30 days or as needed. Oksana Glasgow APRN.CNP documented in this encounter [facility] 06-01-2022 Note HNO ID: [id number] Author: Oksana Glasgow APRN.CNP Service: ? Author Type: Nurse Practitioner Type: Progress Notes Filed: 06/01/2022 3:05 PM Note Text: Reyna Lim is a 56 year old female who presents for problem visit pelvic pain/pressure for 1-2 week(s). HPI: Patient complains of pelvic pain/pressure that started about 1 to 2 weeks ago and has become worse. Patient denies any bladder issues, abdominal issues, fever or chills. Not sexually active due to pain with intercourse. OB History T0 L0 SAB0 IAB0 Ectopic0 Multiple0 Live Births0 [employer] History LMP: 11/20/2015, Postmenopausal Age at Menarche: Age at First : Age at Menopause: [employer] History Comments: Sexual Activity: Yes; Male Contraception: Vasectomy PAST MEDICAL HISTORY Diagnosis Date Chronic fatigue syndrome Snoring Unspecified essential hypertension PAST SURGICAL HISTORY Procedure Laterality Date ARTHROSCOPY KNEE DIAGNOSTIC W/WO SYNOVIAL BX SPX 04/30/2010 Arthroscopy, knee, left knee ARTHRP KNE CONDYLEANDPLATU MEDIALANDLAT COMPARTMENTS Left 07/2015 COLONOSCOPY 1999 PAST SURGICAL HISTORY OF left knee SKIN BX, 1 LESION Right 01/09/2017 TONSILLECTOMY PRIMARY/SECONDARY AGE 10/> FAMILY HISTORY Problem Relation Age of Onset Diabetes Mother Hypertension Mother Alzheimer's Disease Mother Heart Father other (Dementia) Father 91 other (Cardiomyopathy) Sister other (Myeloma) Sister Social History Tobacco Use Smoking status: Every Day Packs/day: 0.75 Years: 17.00 Pack years: 12.75 Types: Cigarettes Smokeless tobacco: Never Substance Use Topics Alcohol use: Yes Alcohol/week: 2.5 - 5.0 standard drinks Types: 1 - 2 Cans of Beer (12oz) per week Comment: weekly Drug use: No Current Outpatient Medications Medication Sig cyclobenzaprine (FLEXERIL) 10 mg tablet Take 1 tablet by mouth three times daily as needed for muscle spasm. mecobalamin, vitamin B12, (B12 ACTIVE) 1,000 mcg chew Take by mouth. buPROPion SR (WELLBUTRIN SR) 150 mg 12 hr tablet Take 150 mg by mouth twice daily. cloNIDine HCl (CATAPRES) 0.1 mg tablet TAKE 1 TABLET BY MOUTH PRIOR TO BEDTIME LORazepam (ATIVAN) 1 mg tablet Take 1 mg by mouth every 8 hours as needed. valACYclovir (VALTREX) 500 mg tablet Take 500 mg by mouth twice daily. aspirin, enteric coated (ASPIRIN, ENTERIC COATED) 325 mg EC tablet Take 325 mg by mouth once daily. coenzyme Q10 (CO Q-10) 100 mg cap capsule Take 100 mg by mouth twice daily. Cholecalciferol, Vitamin D3, (VITAMIN D) 1,000 unit cap Take 1,000 Units by mouth once daily. Magnesium Gluconate powd 1 teaspoonful once daily. mixes in 3-4 oz of water nebivolol (BYSTOLIC) 20 mg tab Take by mouth once daily. vilazodone (VIIBRYD) 20 mg Take 10 mg by mouth daily with breakfast. (Patient not taking: Reported on 12/16/2020 ) EPINEPHrine 0.3 mg/0.3 mL INTRAMUSC. PnIj as necessary No current facility-administered medications for this visit. Allergies As of Date: 06/01/2022 Allergen Noted Reaction BEES 08/24/2010 Anaphylaxis CODEINE 02/26/2008 Fully Assessed 09/03/2021 REVIEW OF SYSTEMS Expanded ROS: N/A Allergies and current medication updated:Yes EXAM: LMP 11/20/2015 GENERAL: pleasant, female in no apparent distress HEENT: Normocephalic, atraumatic, and no lesions CHEST: Normal inspiratory effort ABDOMEN: soft, no masses, and Mild tenderness in LLQ, suprapubic area PELVIC: external genitalia normal, normal Bartholin's glands, urethra, Hornsby's glands, no vulvar lesions, no cervical lesions, good vaginal support, physiologic discharge present, normal appearing perineal body and perianal region BIMANUAL: uterus normal size, shape and consistency, no adnexal masses, and Mild tenderness NEURO: alert and oriented x3,exam grossly non-focal ASSESSMENT/PLAN: 1. Pelvic pain in female - ICD9: 625.9, ICD10: R10.2 - PELVIC US [facility] - EMANI / TRICHOMONAS AMPLIFICATION - BACTERIAL VAGINOSIS AMPLIFICATION - PAP DONE TODAY - NAPROXEN BID Oksana Glasgow, DAE Medical Decision Making: Problems: Moderate: New problem with uncertain prognosis Data: Unique test(s) ordered: 3+ Risk: Low: Low risk from testing/treatment Moderate: Drug management Medical Decision Making Level: 4 - Moderate [facility] 06-01-2022 History of Presen t illness Narrative Reyna Lim is a 56 year old female who presents for problem visit pelvic pain/pressure for 1-2 week(s). HPI: Patient complains of pelvic pain/pressure that started about 1 to 2 weeks ago and has become worse. Patient denies any bladder issues, abdominal issues, fever or chills. Not sexually active due to pain with intercourse. OB History T0 L0 SAB0 IAB0 Ectopic0 Multiple0 Live Births0 [employer] History LMP: 11/20/2015, Postmenopausal Age at Menarche: Age at First : Age at Menopause: [employer] History Comments: Sexual Activity: Yes; Male Contraception: Vasectomy PAST MEDICAL HISTORY Diagnosis Date Chronic fatigue syndrome Snoring Unspecified essential hypertension PAST SURGICAL HISTORY Procedure Laterality Date ARTHROSCOPY KNEE DIAGNOSTIC W/WO SYNOVIAL BX SPX 04/30/2010 Arthroscopy, knee, left knee ARTHRP KNE CONDYLE&PLATU MEDIAL&LAT COMPARTMENTS Left 07/2015 COLONOSCOPY 1999 PAST SURGICAL HISTORY OF left knee SKIN BX, 1 LESION Right 01/09/2017 TONSILLECTOMY PRIMARY/SECONDARY AGE 10/> FAMILY HISTORY Problem Relation Age of Onset Diabetes Mother Hypertension Mother Alzheimer's Disease Mother Heart Father other (Dementia) Father 91 other (Cardiomyopathy) Sister other (Myeloma) Sister Social History Tobacco Use Smoking status: Every Day Packs/day: 0.75 Years: 17.00 Pack years: 12.75 Types: Cigarettes Smokeless tobacco: Never Substance Use Topics Alcohol use: Yes Alcohol/week: 2.5 - 5.0 standard drinks Types: 1 - 2 Cans of Beer (12oz) per week Comment: weekly Drug use: No Current Outpatient Medications Medication Sig cyclobenzaprine (FLEXERIL) 10 mg tablet Take 1 tablet by mouth three times daily as needed for muscle spasm. mecobalamin, vitamin B12, (B12 ACTIVE) 1,000 mcg chew Take by mouth. buPROPion SR (WELLBUTRIN SR) 150 mg 12 hr tablet Take 150 mg by mouth twice daily. cloNIDine HCl (CATAPRES) 0.1 mg tablet TAKE 1 TABLET BY MOUTH PRIOR TO BEDTIME LORazepam (ATIVAN) 1 mg tablet Take 1 mg by mouth every 8 hours as needed. valACYclovir (VALTREX) 500 mg tablet Take 500 mg by mouth twice daily. aspirin, enteric coated (ASPIRIN, ENTERIC COATED) 325 mg EC tablet Take 325 mg by mouth once daily. coenzyme Q10 (CO Q-10) 100 mg cap capsule Take 100 mg by mouth twice daily. Cholecalciferol, Vitamin D3, (VITAMIN D) 1,000 unit cap Take 1,000 Units by mouth once daily. Magnesium Gluconate powd 1 teaspoonful once daily. mixes in 3-4 oz of water nebivolol (BYSTOLIC) 20 mg tab Take by mouth once daily. vilazodone (VIIBRYD) 20 mg Take 10 mg by mouth daily with breakfast. (Patient not taking: Reported on 12/16/2020 ) EPINEPHrine 0.3 mg/0.3 mL INTRAMUSC. PnIj as necessary No current facility-administered medications for this visit. Allergies As of Date: 06/01/2022 Allergen Noted Reaction BEES 08/24/2010 Anaphylaxis CODEINE 02/26/2008 Fully Assessed 09/03/2021 REVIEW OF SYSTEMS Expanded ROS: N/A Allergies and current medication updated:Yes EXAM: LMP 11/20/2015 GENERAL: pleasant, female in no apparent distress HEENT: Normocephalic, atraumatic, and no lesions CHEST: Normal inspiratory effort ABDOMEN: soft, no masses, and Mild tenderness in LLQ, suprapubic area PELVIC: external genitalia normal, normal Bartholin's glands, urethra, Hornsby's glands, no vulvar lesions, no cervical lesions, good vaginal support, physiologic discharge present, normal appearing perineal body and perianal region BIMANUAL: uterus normal size, shape and consistency, no adnexal masses, and Mild tenderness NEURO: alert and oriented x3,exam grossly non-focal ASSESSMENT/PLAN: 1. Pelvic pain in female - ICD9: 625.9, ICD10: R10.2 - PELVIC US [facility] - EMANI / TRICHOMONAS AMPLIFICATION - BACTERIAL VAGINOSIS AMPLIFICATION - PAP DONE TODAY - NAPROXEN BID Oksana Glasgow APRN.CNP Medical Decision Making: Problems: Moderate: New problem with uncertain prognosis Data: Unique test(s) ordered: 3+ Risk: Low: Low risk from testing/treatment Moderate: Drug management Medical Decision Making Level: 4 - Moderate documented in this encounter [facility] Diagnosis Pelvic pain in female- Primary Unspecified symptom associated with female genital organs [facility] Diagnosis Pelvic pain in female Unspecified symptom associated with female genital organs [facility] Diagnosis Sinobronchitis- Primary Unspecified sinusitis (chronic) documented in this encounter [facility] for referral (narrative)* Diagnostic Procedure Only (Routine) - Authorized Specialty Diagnoses / Procedures Referred By Contac t Referred To Contact [facility] Diagnoses Pelvic pain in female Procedures PELVIC US I US PELVIC NONOBSTETRIC REAL-TIME IMAGE COMPLETE Oksana Glasgow APRN.CNP [address] [place] [address] [facility] [place] [address] Referral ID Status Reason Start Date Expiration Date Visits Requested Visits Authorized [id number] Authorized Auto-Generat ed Referral 2 06/01/2023 1 1 [facility] for visit Narrative* Diagnostic Procedure Only (Routine) - Closed Specialty Diagnoses / Procedures Referred By Contac t Referred To Contact [facility] Diagnoses Pelvic pain in female Procedures PELVIC US I US PELVIC NONOBSTETRIC REAL-TIME IMAGE COMPLETE Oksana Glasgow APRN.CNP [address] [place] [address] [facility] [place] [address] Referral ID Status Reason Start Date Expiration Date V isits Requested Visits Authorized [id number] Closed Auto-Generate d Referral 06/01/2022 06/01/2023 1 1 [facility] Summary Purpose Family History No Family History Records Found Advance Directives No Advanced Directives Records Found Additional Source Comments Source Comments (unrecognize d section and content) In the event this informatio n is protected by the Federal Confidentiality of Alcohol and Drug Abuse Patient Records regulations: The Federal rules restrict any use of the information to criminally investigate or prosecute any alcohol or drug abuse patient.[facility] the event this information is protected by the Federal Confidentiality of Alcohol and Drug Abuse Patient Records regulations: The Federal rules restrict any use of the information to criminally investigate or prosecute any alcohol or drug abuse patient.[facility] the event this information is protected by the Federal Confidentiality of Alcohol and Drug Abuse Patient Records regulations: The Federal rules restrict any use of the information to criminally investigate or prosecute any alcohol or drug abuse patient.[facility] the event this information is protected by the Federal Confidentiality of Alcohol and Drug Abuse Patient Records regulations: The Federal rules restrict any use of the information to criminally investigate or prosecute any alcohol or drug abuse patient.[facility] the event this information is protected by the Federal Confidentiality of Alcohol and Drug Abuse Patient Records regulations: The Federal rules restrict any use of the information to criminally investigate or prosecute any alcohol or drug abuse patient.[facility] the event this information is protected by the Federal Confidentiality of Alcohol and Drug Abuse Patient Records regulations: The Federal rules restrict any use of the information to criminally investigate or prosecute any alcohol or drug abuse patient.[facility] Reason for Visit (unrecogniz ed section and content) Reason Comments Results Reason Comments Pelvic Pain Reason Comments Chest Congestion Pt reported chest co ngestion, bilateral ear decreased hearing, x1 wk. 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 Helper Relationship Specialty Start Date End Date Jose Rhoades MD PCP - General Family Medicine 12/04/12 Heater Helper Relationship Specialty Start Date End Date Jose Rhoades MD PCP - General Family Medicine 12/04/12 Heater Helper Relationship Specialty Start Date End Date Jose Rhoades MD PCP - General Family Medicine 12/04/12 Heater Helper Relationship Specialty Start Date End Date Jose Rhoades MD PCP - General Family Medicine 12/04/12 Heater Helper Relationship Specialty Start Date End Date Jose Rhoades MD PCP - General Family Medicine 12/04/12 INFORMATION SOURCE (unrecogn ized section and content) FOR RECORDS PERTAINING TO PATIENTS WHO ARE OR HAVE BEEN ENROLLED IN A CHEMICAL DEPENDENCY/SUBSTANCEABUSE PROGRAM, SOME INFORMATION MAY BE OMITTED. This clinical summary was aggregated from multiple sources. Caution should be exercised in using it in the provision of clinical care. This summary normalizes information from multiple sources, and as a consequence, information in this document may materially change the coding, format and clinical context of patient data. In addition, data may be omitted in some cases. CLINICAL DECISIONS SHOULD BE BASED ON THE PRIMARY CLINICAL RECORDS. [facility]. provides no warranty or guarantee of the accuracy or completeness of information in this document.
[2023-08-19 17:50] LABS: Color, Urine Yellow (Yellow); Glucose, Dipstick Normal (Normal); Ketone-Dipstick Negative (Negative); Leukocyte Esterase-Dipstick Negative /ul (Negative); Nitrite-Dipstick Negative (Negative); Occult Blood-Urine 150 /ul (Negative); Protein-Dipstick Negative (Negative); Specific Gravity, Urine 1.015 (1.002-1.030); Urine Bilirubin Dipstick Negative (Negative); Urine Clarity Clear (Clear); Urine Urobilinogen Normal (Normal)
[2023-08-19 18:03] LABS: Erythrocyte Sedimentation Rate 22 mm/hr (0-30)
[2023-08-19 18:08] LABS: ALB/GLOB Ratio 1.1 RATIO (0.9-2.4); AST(SGOT) 12 U/L (15-37); Alanine Aminotransfer ALT/SGPT 19 U/L (13-56); Albumin, Serum 3.9 g/dL (3.2-5.0); Alkaline Phosphatase 79 U/L (45-117); Anion Gap 6 (5-15); BUN 17 mg/dL (7-18); BUN/Creat Ratio 15.2 RATIO (10-20); Calcium,Total 9.2 mg/dL (8.5-10.1); Chloride 107 mmol/L (98-107); Creatinine, Serum 1.12 mg/dL (0.55-1.02); EST Glomerular Filtration Rate 53 mL/min (>60); Est Glom Filt Rate - Afr Amer 64 mL/min (>60); Globulin 3.4 g/dL (2.2-4.2); Glucose 90 mg/dL (74-106); Lipase 34 U/L (13-75); Potassium 4.1 mmol/L (3.5-5.1); Protein, Total 7.3 g/dL (6.4-8.2); Sodium Level 139 mmol/L (136-145)
[2023-08-19 18:11] LABS: Squamous Epithelial Cells - UA 0-5 SEEN /hpf (5-10)
== END | disposition home or self-care (01) ==
LOC: MFPLAB 16:55
PROVIDERS: PCP Family Medicine; Visit Provider Family Medicine
DX: R10.12 Left upper quadrant pain (principal)
CPT/HCPCS: 36415; 80053; 81001; 82043; 82570; 83690; 85025; 85652

== ENCOUNTER 2023-08-21 05:20 | Emergency (ER) | payer OTHER, SELFPAY ==
[2023-08-21 05:22] VITALS: BP 142/115; PULSE 94; RESP 16; TEMP 37.1; O2SAT 97; BMI 24.6
[2023-08-21 05:31] VITALS: BP 160/89
--- NOTE | 2023-08-21 05:48 | EDS_ITS ---
HPI History of Present Illness Chief Complaint: Hypertension Informant: patient Narrative Narrative: Patient woke up this morning and felt some fluttering palpitations in her chest that are gone now, she felt a little lightheaded. She has had a couple of prior episodes of atrial fibrillation, and so she was concerned. She was trying to check her pulse but was having trouble finding it so she used her blood pressure machine, and her blood pressure was 140s/100s. These numbers are what made her concerned come in. She feels better now. No recent illness. No chest pain, dyspnea, near syncope but feeling a little lightheaded when the palpitations were present. She has seen cardiology for the atrial fibrillation in the past, and deemed low enough risk to just take aspirin and avoid anticoagulants at this time. [facility] Medical History Abnormal ECG Alcohol use Anxiety Arthritis Atypical depressive disorder Cardiology follow-up encounter Depression Essential hypertension Heartburn High cholesterol Hypertension Hypokalemia Hypotension Loss of consciousness New onset a-fib Nonspecific ST-T wave electrocardiographic changes Pain and swelling of left knee Pure hypercholesterolemia Smoker Syncope Tobacco dependence Wears glasses Home Medications aspirin 325 mg tablet,delayed release 325 mg PO DAILY 12/11/17 [History Last Taken Unknown] cholecalciferol (vitamin D3) 25 mcg (1,000 unit) capsule 1,000 unit PO DAILY 07/30/18 [History Last Taken Unknown] coenzyme Q10 100 mg capsule (Co Q-10) 100 mg PO DAILY 07/30/18 [History Last Taken Unknown] lorazepam 1 mg tablet 1 mg PO DAILY PRN PRN Anxiety 07/30/18 [History Last Taken Unknown] clonidine HCl 0.1 mg tablet 0.1 mg PO QHS 01/28/19 [History Last Taken Unknown] epinephrine 0.3 mg/0.3 mL injection, auto-injector (EpiPen) 0.3 mg IM Q10-15M PRN Allergy Symptoms 01/28/19 [History Last Taken Unknown] valacyclovir 500 mg tablet (Valtrex) 500 mg PO BID PRN Cold Sores 01/28/19 [History Last Taken Unknown] magnesium 200 mg tablet 200 mg PO TID 09/23/19 [History Last Taken Unknown] albuterol sulfate 90 mcg/actuation aerosol inhaler 2 puff inhalation Q4H PRN shortness of breath or wheezing 08/21/23 [History Last Taken Unknown] ammonium lactate 12 % topical cream 1 applic topical BID PRN lesions 08/21/23 [History Last Taken Unknown] ascorbic acid (vitamin C) 1,000 mg tablet,extended release (C Complex) 1,000 mg PO DAILY 08/21/23 [History Last Taken Unknown] baclofen 10 mg tablet 15 mg PO Q8H PRN muscle spasm 08/21/23 [History Last Taken Unknown] cyanocobalamin (vitamin B-12) 1,000 mcg tablet (Vitamin B-12) 1,000 mcg PO DAILY 08/21/23 [History Last Taken Unknown] fluoxetine 20 mg capsule 20 mg PO DAILY 08/21/23 [History Last Taken Unknown] fluticasone fur. 100 mcg-umeclid 62.5 mcg-vilant 25 mcg inhalat.powder (Trelegy Ellipta) 1 inh inhalation DAILY 08/21/23 [History Last Taken Unknown] nebivolol 5 mg tablet (Bystolic) 10 mg PO QDAY 08/21/23 [History Last Taken Unknown] pantoprazole 40 mg tablet,delayed release 40 mg PO DAILY 08/21/23 [History Last Taken Unknown] Allergy/AdvReac Type Severity Reaction Status Date / Time chlorhexidine Allergy Itching Verified 08/21/23 05:21 venom-honey bee Allergy Anaphylaxis Verified 08/21/23 05:21 [bee venom (honey bee)] codeine AdvReac Severe Unknown Verified 08/21/23 05:21 Family History Mother CAD (coronary artery disease) Sister Cardiomyopathy Surgical History H/O: knee surgery History of tonsillectomy Social History Smoking Status: Current every day smoker tobacco type: cigarettes Tobacco: How many years used: 35 second hand exposure: No alcohol intake: never caffeine: Yes Type: coffee Number of servings: 4 ROS ROS ED Constitutional Constitutional ED: Denies chills or fever(s) Eyes Eyes: Denies change in vision or diplopia ENT ENT ED: Denies rhinorrhea or sore throat Cardiovascular Cardiovascular: Reports lightheadedness and palpitations; Denies chest pain Respiratory/Chest Respiratory/Chest: Denies cough or dyspnea Gastrointestinal Gastrointestinal: Denies abdominal pain, diarrhea, nausea or vomiting Genitourinary Genitourinary ED: Denies dysuria or hematuria Musculoskeletal Musculoskeletal: Denies back pain or neck pain Integumentary Denies abscess or rash Neurologic Neurologic: Denies headache(s), paresthesias or weakness Psychiatric Psychiatric: Denies anxiety or suicidal thoughts EXAM Physical Exam Const Vital Signs: 08/21/23 05:22 08/21/23 05:29 08/21/23 05:31 Temperature 98.7 F Temperature Source Oral Pulse Rate 94 Respiratory Rate 16 Respiratory Effort Normal Respiratory Pattern Normal Blood Pressure 142/115 H 160/89 H Blood Pressure Mean 124 112 Pulse Ox 97 Oxygen Delivery Method Room Air Positive well nourished and well developed General Appearance ED: well developed and NAD HEENT Reports moist mucous membranes normocephalic and atraumatic Eyes PERRL and EOMs intact bilaterally Neck full ROM and supple Resp normal respiratory effort and clear to auscultation bilaterally Cardio regular rate, regular rhythm and no murmurs GI non-tender and non-distended Auscultation: normoactive bowel sounds Palpation: soft Back/Spine no CVA tenderness General Back: other FROM Extremity normal to inspection General Extremety ED: Negative for edema, pulses abnormal or tenderness General Extremity: Negative for edema or pulses abnormal Neuro oriented x3, CN's II-XII intact bilaterally and no sensory deficits noted Sensorium / Orientation: awake and alert Motor Exam: strength 5/5 throughout Skin no rashes or lesions noted and no wounds MDM MDM MDM Narrative Medical decision making narrative: Patient's blood pressure was measured here several times over half an hour or so. 142/115, 160/84, 153/102. No symptoms with any of this at this time. Patient has had no changes in her medications lately, she has not missed any, it currently is almost 6 AM she has not yet taken her a.m. Bystolic. On the monitor she is in sinus rhythm. Furthermore she was having some left flank pain last week, it comes and goes and is not a major issue right now, she saw her doctor for it and had some labs done this was 2 days ago, and I reviewed those labs. Her renal function looks fine, she had a mild leukocytosis, microscopic hematuria, normal liver enzymes and a normal lipase. Given all of this I do not think we need to check her renal function emergently again now, I do not need an EKG since I can see that her rhythm is clearly in sinus, and I reassured her we do not need to emergently treat these blood pressure numbers. It certainly is possible that she had an episode of A-fib earlier, she is no longer in it, and she could just be a little hypertensive because of the adrenaline from all of this. I recommend taking her a.m. usual blood pressure medication dosing, and rechecking her blood pressure later in the day, she wants know she can go to work and I am okay with that. She takes clonidine 0.1 mg every night, she was advised that if she needs to she can take additional doses of this up to 3 times daily if needed if her blood pressure is 150/170 or higher systolic. She is comfortable with that plan. She is already planning on following up with her doctor. Rhythm Strip Rhythm Strip: Sinus Rhythm Rate: 92 Ectopy: None Discharge Plan Triage Chief Complaint: Hypertension ED Provider: Ted Cortes Dx/Rx/DC Orders Clinical Impression: Palpitations, Accelerated hypertension Instructions: ED Hypertension, Established Prescriptions: No Action cholecalciferol (vitamin D3) 1,000 unit capsule 1,000 unit capsule 1,000 unit PO DAILY coenzyme Q10 [Co Q-10] 100 mg capsule 100 mg PO DAILY valacyclovir [Valtrex] 500 mg tablet 500 mg PO BID PRN (Reason: Cold Sores) epinephrine [EpiPen] 0.3 mg/0.3 mL auto-injector 0.3 mg IM Q10-15M PRN (Reason: Allergy Symptoms) clonidine HCl 0.1 mg tablet 0.1 mg PO QHS magnesium 200 mg tablet 200 mg PO TID lorazepam 1 mg tablet 1 mg PO DAILY PRN PRN (Reason: Anxiety) aspirin 325 MG tablet,delayed release (DR/EC) 325 mg PO DAILY fluoxetine 20 mg capsule 20 mg PO DAILY Patient Comments: TAKE 1 CAPSULE BY MOUTH EVERY DAY baclofen 10 mg tablet 15 mg PO Q8H PRN (Reason: muscle spasm) Patient Comments: take ONE-HALF to 1 tablet every EIGHT hours as needed for pain] pantoprazole 40 mg tablet,delayed release (DR/EC) 40 mg PO DAILY Patient Comments: TAKE 1 TABLET BY MOUTH EVERY DAY C Complex 1,000 mg tablet extended release 1,000 mg PO DAILY cyanocobalamin (vitamin B-12) [Vitamin B-12] 1,000 mcg tablet 1,000 mcg PO DAILY ammonium lactate 12 % cream 1 applic topical BID PRN (Reason: lesions) Trelegy Ellipta 100-62.5-25 mcg blister with device 1 inh inhalation DAILY albuterol sulfate 90 mcg/actuation HFA aerosol inhaler 2 puff INHALATION Q4H PRN (Reason: shortness of breath or wheezing) Patient Comments: Inhale 2 Puffs as instructed every 6 hours as needed. nebivolol [Bystolic] 5 mg tablet 10 mg PO QDAY Primary Care Provider: Christiano Rhoades Referrals: Christiano Rhoades MD [Primary Care Provider] - Keep Nilda appointment (for follow up) Activity Restrictions/Additional Instructions: Take your usual a.m. blood pressure medication as soon as you are able, and recheck your blood pressure later this morning or early afternoon. If you are at or above 150 for the top number, it is reasonable to take one of your clonidine 0.1 mg tablets in addition to the nightly dose you will take. Disposition Disposition: Home, Self Care
[2023-08-21 06:11] VITALS: BP 146/95; PULSE 76; RESP 16; O2SAT 95
--- OUTSIDE RECORDS SUMMARY | 2023-08-21 06:22 | XMS RPT_ITS | CCD ---
Author Name Unknown Address [address] [place] [address] Organization [facility] Care Team Providers Care Axminster Weaver Name Role Phone Jf CADENA, Jose Marx Primary Care Provider JOSE RHOADES Primary Care Unavailable AZY, OKSANA Referring Unavailable ZAY, OKSANA Referring Unavailable COLE RHOADESIC UCHE Primary Care Unavailable AN AGUAYO Attending Unavailable JF JOSE UCHE Primary Care Unavailable ZAY, OKSANA Attending Unavailable JOSE RHOADES UCHE Primary Care Unavailable VANNESA REEDER Referring Unavailable JF JOSE UCHE Primary Care Unavailable JF JOSE UCHE Primary Care Unavailable Allergies Allergy Classification Reported Allergen(s) Allergy Type Date of Onset Reaction(s) Facility (7 sources) Codeine; Translations: [CODEINE] Drug Allergy 8 [facility] Work Phone: (7 sources) Bees; Translations: [BEES] Propensity to adverse reactions 1 Anaphylaxis [facility] Work Phone: (2 sources) Chlorhexidine; Translations: [CHLORHEXIDINE] Drug Allergy 7 Itching, Other: See Comments [facility] Medications Current Medications Medication Drug [...] Drug Class(es) Dates Sig (Normalized) Sig (Original) [id number] 200 actuat albuterol 0.09 mg/actuat metered dose [...] 98.8 [degF] Charo Funez PA-C Work Phone: [facility] 11-17-2022 13:47-0400 Body weight 72.85 kg Charo GRIJALVA-Rosas Work Phone: [facility] 11-17-2022 13:47-0400 Diastolic blood pressure 90 mm[Hg] Charo GRIJALVA-Rosas Work Phone: [facility] 11-17-2022 13:47-0400 Heart rate 90 /min Charo GRIJALVA-Rosas Work Phone: [facility] 11-17-2022 13:47-0400 Respiratory rate 18 /min Charo Funez PA-C Work Phone: [facility] 11-17-2022 13:47-0400 SaO2% (BldA) [Mass fraction] 97 % Charo Funez PA-C Work Phone: [facility] 11-17-2022 13:47-0400 Systolic blood pressure 136 mm[Hg] Charo Funez PA-C Work Phone: [facility] Encounters Encounter Date Encounter Type Care Provider Facility Start: 11-24-2022 End: 11-24-2022 ambulatory [facility] Facility:[facility] Start: 11-17-2022 End: 11-17-2022 ambulatory [facility] Facility:[facility] Start: 11-17-2022 End: 11-17-2022 Patient encounter procedure Charo Funez PA-C Work Phone: [facility] Procedures Date Procedure Procedure Detail Performing Clinician Start: 06-04-2022 Us pelvic nonobstetr ic real-time image complete [facility] WASH PLANT OPERATOR.GRAPHIC DESIGN MANAGER Work Phone: Start: 06-01-2022 Urnls dip stick/tabl et rgnt auto w/o microscopy [facility] WASH PLANT OPERATOR.GRAPHIC DESIGN MANAGER Work Phone: Start: 02-01-2017 Colonoscopy [facility] WASH PLANT OPERATOR.GRAPHIC DESIGN MANAGER Work Phone: Start: 12-17-2012 Mammography [facility] WASH PLANT OPERATOR.GRAPHIC DESIGN MANAGER Work Phone: Plan of Treatment Date Care Activity Detail Author Start: 06-01-2027 HPV TESTING HPV TESTING [facility] Start: 06-01-2027 PAP TESTING PAP TESTING [facility] Start: 04-12-2023 Influenza vaccination INFLUENZ A (Season Ended) [facility] Start: 08-12-2022 DEPRESSION ASSESSMENT DEPRESSION ASS ESSMENT [facility] Start: 06-01-2022 End: 06-01-2023 PELVIC US WHI PELVIC US WHI Anc Imaging Routine Pelvic pain in female Expected: 06/01/2022, Expires: 06/01/2023 [facility] Work Phone: Payers Date Payer Category Payer Private Health Insurance [id number] 2019 Private Health Insurance [id number] Social History Date Type Detail Facility Start: 12-16-2020 End: 11-17-2022 Tobacco smoking status NHIS Smokes tobacco daily [facility] Work Phone: History of tobacco use Cigarette Smoker [facility] Work Phone: Start: 12-16-2020 End: 11-17-2022 Cigarettes smoked current (pack per day) - Reported 0.8 [facility] Start: 12-16-2020 End: 11-17-2022 Tobacco use and exposure Smokeless tobacco non-user [facility] Work Phone: Start: 09-03-2021 End: 11-17-2022 Alcohol intake Current drinker of alcohol (finding) [facility] Start: 02-01-2017 Alcohol Comment weekly [facility] Start: 1965 Sex Assigned At Not on file [facility] Start: 05-22-2022 End: 06-01-2022 Exposure to SARS-CoV-2 (event) Not sure [facility] Clinical Notes 06-01-2022 to 11-24-2022 Charo Funez PA-C - 11/17/2022 2:03 PM EDTTelephone Encounter - Carmina Juarez RN - 06/05/2022 12:29 PM EDTTelephone Encounter - Carmina Juarez RN - 06/05/2022 9:26 AM EDT Note Date & Type Note Facility 11-24-2022 Note HNO ID: [id number] Author: RT Rachel(R) Service: ? Author Type: [...] RT Rachel(R) November 24, 2022 11:53 AM [facility] 11-24-2022 Note HNO ID: [id number] Author: Vannesa Reeder APRN.GRAPHIC DESIGN MANAGER Service: ? Author Type: Nurse Practitioner Type: [...] soft. Tenderness: T (more content not included)... [facility] 11-17-2022 Note HNO ID: [id number] Author: Charo Funez PA-C Service: ? Author Type: Physician Stitch Bonder Machine Operator Helper Type: Progress Notes Filed: 11/17/2022 2:07 PM Note Text: This note was created using Greycorkriter. Subjective Reyna Lim is a 56 year old female. HPI Patient presents with chest congestion and cough over the past 10 days. She feels wheezy. The first 2 days she did have a fever. She took 2 home COVID test which were negative. She has tried multiple kakk-aue-qqxshpi medications without relief. She is a smoker. [...] otc. - Suppor (more content not included)... [facility] 11-17-2022 History of Presen t illness Narrative This note was created using NoteWriter. Subjective Reyna Lim is a 56 year old female. HPI Patient presents with chest congestion and cough over the past 10 days. She feels wheezy. The first 2 days she did have a fever. She took 2 home COVID test which were negative. She has tried multiple muzk-ogf-qqhqaqo medications without relief. She is a smoker. [...] Charo Funez PA-C documented in this encounter [facility] 06-05-2022 Miscellaneous Notes Patient notified [...] Oksana Glasgow APRN.OBED documented in this encounter [facility] 06-04-2022 Miscellaneous Notes Patient notified. Nati Pa RN The following approved medication requests have been transmitted electronically. Requested Prescriptions Signed Prescriptions Disp Refills metroNIDAZOLE (FLAGYL) 500 mg tablet 14 tablet 0 Sig: Take 1 tablet by mouth twice daily for 7 days. Authorizing Provider: OKSANA GLASGOW [facility] [address] [place] [address] Left message for patient to call office. Nati Pa RN BV positive. To treat with Flagyl 500mg PO BID for 7 days. 1) No alcohol during treatment and for 24 hours after last dose. 2) No intercourse during treatment. 3) Probiotic by mouth once daily for 30 days or as needed. Oksana Glasgow APRN.CNP documented in this encounter [facility] 06-01-2022 Note HNO ID: [id number] Author: Oksana Glasgow APRN.CNP Service: ? Author Type: Nurse Practitioner Type: Progress Notes Filed: 06/01/2022 3:05 PM Note Text: Renya Lim is a 56 year old female who presents for problem visit pelvic pain/pressure for 1-2 week(s). HPI: Patient complains of pelvic pain/pressure that started about 1 to 2 weeks ago and has become worse. Patient denies any bladder issues, abdominal issues, fever or chills. Not sexually active due to pain with intercourse. OB History T0 L0 SAB0 IAB0 Ectopic0 Multiple0 Live Births0 Machine Plate Stacker History LMP: 11/20/2015, Postmenopausal Age at Menarche: Age at First : Age at Menopause: Machine Plate Stacker History Comments: Sexual Activity: Yes; Male Contraception: [...] external genitalia normal, normal Bartholin's glands, urethra, Bushong's glands, no vulvar lesions, no cervical lesions, [...] Medical Decision Making Level: 4 - Moderate [facility] 06-01-2022 History of Presen t illness [...] L0 SAB0 IAB0 Ectopic0 Multiple0 Live Births0 Machine Plate Stacker History LMP: 11/20/2015, Postmenopausal Age at Menarche: Age at First : Age at Menopause: Machine Plate Stacker History Comments: Sexual Activity: Yes; Male Contraception: [...] external genitalia normal, normal Bartholin's glands, urethra, Bushong's glands, no vulvar lesions, no cervical lesions, good vaginal support, physiologic discharge present, normal appearing perineal body and perianal region BIMANUAL: uterus normal size, shape and consistency, no adnexal masses, and Mild tenderness NEURO: alert and oriented x3,exam grossly non-focal ASSESSMENT/PLAN: 1. Pelvic pain in female - ICD9: 625.9, ICD10: R10.2 - PELVIC US [facility]I / TRICHOMONAS AMPLIFICATION - BACTERIAL VAGINOSIS AMPLIFICATION - PAP DONE TODAY - NAPROXEN BID Oksana Glasgow APRN.CNP Medical Decision Making: Problems: Moderate: New problem with uncertain prognosis Data: Unique test(s) ordered: 3+ Risk: Low: Low risk from testing/treatment Moderate: Drug management Medical Decision Making Level: 4 - Moderate documented in this encounter [facility] Pelvic pain in female- Primary Unspecified symptom associated with female genital organs [facility] Diagnosis Pelvic pain in female Unspecified symptom associated with female genital organs [facility] Diagnosis Sinobronchitis- Primary Unspecified sinusitis (chronic) documented in this encounter [facility] for referral (narrative)* Diagnostic Procedure Only (Routine) - Authorized Specialty Diagnoses / Procedures Referred By Contac t Referred To Contact [facility] Diagnoses Pelvic pain in female Procedures PELVIC US I US PELVIC NONOBSTETRIC REAL-TIME IMAGE COMPLETE Oksana Glasgow APRN.CNP [address] [place] [address] [facility] [place] [address] Referral ID Status Reason Start Date Expiration Date Visits Requested Visits Authorized [id number] Authorized Auto-Generat ed Referral 2 06/01/2023 1 1 [facility] for visit Narrative* Diagnostic Procedure Only (Routine) - Closed Specialty Diagnoses / Procedures Referred By Contac t Referred To Contact [facility] Diagnoses Pelvic pain in female Procedures PELVIC US I US PELVIC NONOBSTETRIC REAL-TIME IMAGE COMPLETE Oksana Glasgow APRN.CNP [address] [place] [address] [facility] [place] [address] Referral ID Status Reason Start Date Expiration Date V isits Requested Visits Authorized [id number] Closed Auto-Generate d Referral 06/01/2022 06/01/2023 1 1 [facility] Summary Purpose Family History No [...] or prosecute any alcohol or drug abuse patient.[facility] the event this information is protected by the Federal Confidentiality of Alcohol and Drug Abuse Patient Records regulations: The Federal rules restrict any use of the information to criminally investigate or prosecute any alcohol or drug abuse patient.[facility] the event this information is protected by the Federal Confidentiality of Alcohol and Drug Abuse Patient Records regulations: The Federal rules restrict any use of the information to criminally investigate or prosecute any alcohol or drug abuse patient.[facility] the event this information is protected by the Federal Confidentiality of Alcohol and Drug Abuse Patient Records regulations: The Federal rules restrict any use of the information to criminally investigate or prosecute any alcohol or drug abuse patient.[facility] the event this information is protected by the Federal Confidentiality of Alcohol and Drug Abuse Patient Records regulations: The Federal rules restrict any use of the information to criminally investigate or prosecute any alcohol or drug abuse patient.[facility] the event this information is protected by the Federal Confidentiality of Alcohol and Drug Abuse Patient Records regulations: The Federal rules restrict any use of the information to criminally investigate or prosecute any alcohol or drug abuse patient.[facility] Reason for Visit (unrecogniz ed section and content) Reason Comments Results Reason Comments Pelvic Pain Reason Comments Chest Congestion Pt reported chest co ngestion, bilateral ear decreased hearing, x1 wk. Care Teams (unrecognized sec tion and content) Axminster Weaver Relationship Specialty Start Date End Date Jose Rhoades MD PCP - General Family Medicine 12/04/12 Axminster Weaver Relationship Specialty Start Date End Date Jose Rhoades MD PCP - General Family Medicine 12/04/12 Axminster Weaver Relationship Specialty Start Date End Date Jose Rhoades MD PCP - General Family Medicine 12/04/12 Axminster Weaver Relationship Specialty Start Date End Date Jose Rhoades MD PCP - General Family Medicine 12/04/12 Axminster Weaver Relationship Specialty Start Date End Date Jose [...] BE BASED ON THE PRIMARY CLINICAL RECORDS. [employer] [facility]. provides no warranty or guarantee of the accuracy or completeness of information in this document.
== END 2023-08-21 06:11 | disposition home or self-care (01) ==
LOC: ED 06:02
PROVIDERS: Emergency Provider Emergency Medicine; PCP Family Medicine; Visit Provider Emergency Medicine
DX: R00.2 Palpitations (principal); I48.91 Unspecified atrial fibrillation; F17.210 Nicotine dependence, cigarettes, uncomplicated; I10 Essential (primary) hypertension; E78.00 Pure hypercholesterolemia, unspecified; Z79.51 Long term (current) use of inhaled steroids; Z79.899 Other long term (current) drug therapy
CPT/HCPCS: 99282

== ENCOUNTER → 2023-10-03 | Outpatient (CLI) | payer OTHER, SELFPAY ==
--- NOTE | 2023-10-03 | SKIN_PTH ---
PATHOLOGY RESULTS PATIENT: XU LOPEZ LOC: [facility] U#:[id number] AGE/SX: 57/F ROOM: RE10/03/[address]: Dr. Christiano Rhoades MD : 1965 BED: DIS: 10/03/2023 SPEC #: [id number] RECD: 10/04/23 06:55 STATUS: TIEN TIARA #: [id number] HILDA: 10/03/23 00:[address]: Christiano Rhoades DEPT: SURGICAL PATHOLOGY RECD BY: Saniya Mansfield ENTERED: 10/04/23 06:57 SP TYPE: SKIN Tissues: Skin of leg, NOS Procedures: Surgery Specimen Level IV HEADER OPERATION: 4 mm punch biopsy PRE-OP DIAGNOSIS: Left leg growing skin lesion, ? SCC TISSUE SUBMITTED: 4 mm left leg MICROSCOPIC DIAGNOSIS Skin lesion of left leg, punch biopsy: Basal cell carcinoma. AM:brijesh 10/07/2023 MICROSCOPIC DESCRIPTION Slides are reviewed. GROSS DESCRIPTION Received in fixative is one container labeled with the patient's name and designated 4 mm biopsy left leg. The specimen consists of a punch biopsy of mckeon-white skin measuring 0.4 cm in diameter and 0.2 cm in length. The specimen is totally submitted in one cassette. / SJ:rg 10/04/2023 TC:0 CPT: 38053
== END | disposition home or self-care (01) ==
PROVIDERS: PCP Family Medicine; Visit Provider Family Medicine
DX: C44.91 Basal cell carcinoma of skin, unspecified (principal)
CPT/HCPCS: 88305

== ENCOUNTER 2023-11-04 05:59 | Day surgery (SDC) | payer OTHER, SELFPAY ==
[2023-11-04 06:18] VITALS: BP 124/85; PULSE 83; RESP 16; TEMP 36.5; O2SAT 98; BMI 25.2
[2023-11-04] MEDS: Lactated Ringers 1,000 ML 15 ML IV (06:24)
--- NOTE | 2023-11-04 06:37 | DCINST_ITS ---
Discharge Instructions Diet Discharge Diet: Light diet - advance as tolerated Activity Discharge Activity: May Not Shower Weight Bearing Status: Weight bearing as tolerated Dressing / Incision Call your doctor if you observe: Fever of 101 or Higher Additional Dressing/Incision Instructions:: Please try to keep the David wrap dressings as much intact as possible. No excessive pressure on the left leg as possible. You may carefully elevate your left leg on pillows but try to avoid any type of shear force to the graft site. The donor site may have some strikethrough or bleeding. If it is minimal just reinforce the current dressing. For concerns please contact the office. Follow Up Care Please Follow Up With: Richard Guerrero MD When: Please call [phone] for an appointment on Test Results: Test results from this visit will be discussed in further detail at your follow- up appointment, if applicable. Discharge Plan Admission Attending Provider: Richard Guerrero Primary Care Provider: Christiano Rhoades Discharge Orders/Prescriptions Prescriptions: No Action cholecalciferol (vitamin D3) 1,000 unit capsule 1,000 unit capsule 1,000 unit PO DAILY coenzyme Q10 [Co Q-10] 100 mg capsule 100 mg PO DAILY valacyclovir [Valtrex] 500 mg tablet 500 mg PO BID PRN (Reason: Cold Sores) epinephrine [EpiPen] 0.3 mg/0.3 mL auto-injector 0.3 mg IM Q10-15M PRN (Reason: Allergy Symptoms) clonidine HCl 0.1 mg tablet 0.1 mg PO QHS magnesium 200 mg tablet 200 mg PO QHS metoprolol succinate 100 mg capsule,sprinkle,ER 24hr 100 mg PO DAILY lorazepam 1 mg tablet 1 mg PO DAILY PRN PRN (Reason: Anxiety) aspirin 325 MG tablet,delayed release (DR/EC) 325 mg PO DAILY fluoxetine 20 mg capsule 20 mg PO DAILY Patient Comments: TAKE 1 CAPSULE BY MOUTH EVERY DAY pantoprazole 40 mg tablet,delayed release (DR/EC) 40 mg PO DAILY Patient Comments: TAKE 1 TABLET BY MOUTH EVERY DAY C Complex 1,000 mg tablet extended release 1,000 mg PO DAILY cyanocobalamin (vitamin B-12) [Vitamin B-12] 1,000 mcg tablet 1,000 mcg PO DAILY ammonium lactate 12 % cream 1 applic topical BID PRN (Reason: lesions) Trelegy Ellipta 100-62.5-25 mcg blister with device 1 inh inhalation DAILY albuterol sulfate 90 mcg/actuation HFA aerosol inhaler 2 puff INHALATION Q4H PRN (Reason: shortness of breath or wheezing) Patient Comments: Inhale 2 Puffs as instructed every 6 hours as needed. Referrals / Follow Up: Christiano Rhoades MD [Primary Care Provider] - Disposition Disposition (needs filled in before D/C Order can be placed): Home, Self Care
--- NOTE | 2023-11-04 06:37 | HP.PCM_ITS ---
History and Physical Date of Admission: 11/04/23 Visit Reasons: EXCISION OF SKIN CANCER ON LEG Chief Complaint: excision of skin cancer Is patient in pain?: No Allergies chlorhexidine Allergy (Verified 10/29/23 14:01) Itchingvenom-honey bee [bee venom (honey bee)] Allergy (Verified 10/29/23 14:01) Anaphylaxiscodeine Adverse Reaction (Severe, Verified 10/29/23 14:01) Unknown Medications aspirin 325 mg tablet,delayed release 325 mg PO DAILY 12/11/17 [History Confirmed 10/29/23] cholecalciferol (vitamin D3) 25 mcg (1,000 unit) capsule 1,000 unit PO DAILY 07/30/18 [History Confirmed 10/29/23] coenzyme Q10 100 mg capsule (Co Q-10) 100 mg PO DAILY 07/30/18 [History Confir med 10/29/23] lorazepam 1 mg tablet 1 mg PO DAILY PRN PRN Anxiety 07/30/18 [History Confirmed 10/29/23] clonidine HCl 0.1 mg tablet 0.1 mg PO QHS 01/28/19 [History Confirmed 10/29/23] epinephrine 0.3 mg/0.3 mL injection, auto-injector (EpiPen) 0.3 mg IM Q10-15M PRN Allergy Symptoms 01/28/19 [History Confirmed 10/29/23] valacyclovir 500 mg tablet (Valtrex) 500 mg PO BID PRN Cold Sores 01/28/19 [His tory Confirmed 10/29/23] magnesium 200 mg tablet 200 mg PO TID 09/23/19 [History Confirmed 10/29/23] albuterol sulfate 90 mcg/actuation aerosol inhaler 2 puff inhalation Q4H PRN shortness of breath or wheezing 08/21/23 [History Confirmed 10/29/23] ammonium lactate 12 % topical cream 1 applic topical BID PRN lesions 08/21/23 [History Confirmed 10/29/23] ascorbic acid (vitamin C) 1,000 mg tablet,extended release (C Complex) 1,000 mg PO DAILY 08/21/23 [History Confirmed 10/29/23] baclofen 10 mg tablet 15 mg PO Q8H PRN muscle spasm 08/21/23 [History Confirmed 10/29/23] cyanocobalamin (vitamin B-12) 1,000 mcg tablet (Vitamin B-12) 1,000 mcg PO DAILY 08/21/23 [History Confirmed 10/29/23] fluoxetine 20 mg capsule 20 mg PO DAILY 08/21/23 [History Confirmed 10/29/23] fluticasone fur. 100 mcg-umeclid 62.5 mcg-vilant 25 mcg inhalat.powder (Trelegy Ellipta) 1 inh inhalation DAILY 08/21/23 [History Confirmed 10/29/23] pantoprazole 40 mg tablet,delayed release 40 mg PO DAILY 08/21/23 [History Confirmed 10/29/23] metoprolol succinate 100 mg capsule sprinkle, ext. release 24 hr 100 mg PO DAILY 10/29/23 [History Confirmed 10/29/23] PFSH Medical History Abnormal ECG Alcohol use Anxiety Arthritis Atypical depressive disorder Cardiology follow-up encounter Depression Essential hypertension Heartburn High cholesterol Hypertension Hypokalemia Hypotension Loss of consciousness New onset a-fib Nonspecific ST-T wave electrocardiographic changes Pain and swelling of left knee Pure hypercholesterolemia Smoker Syncope Tobacco dependence Wears glasses Surgical History H/O: knee surgery History of tonsillectomy Family History (Updated 10/29/23 @ 13:57 by Jeanna Crews) Mother CAD (coronary artery disease) DiabetesSister Cardiomyopathy Cancer skinFather Cancer Heart disease Social History Smoking Status: Current every day smoker tobacco type: cigarettes Tobacco: How many years used: 35 second hand exposure: No alcohol intake: never caffeine: Yes Type: coffee Number of servings: 4 HPI HPI HPI: 57-year-old female was referred by Dr. Christiano Rhoades for surgical consultation regarding a biopsy-proven basal cell carcinoma of the left lower leg. A written copy my surgical consult and plans of treatment will return to him. The patient states that she thought this area has been present for years and thought it was simply the residual of a insect bite. The recent biopsy somewhat surprised her. She states that her general health is stable. She has had a right total knee replacement. She is on a low-dose aspirin. She is a chronic tobacco user. ROS General General: Yes fatigue; No weight change, appetite, colon cancer, breast cancer or weakness HEENT HEENT: No difficulty swallowing, eye injury, eye surgery, swollen glands or hoarseness Endo Endocrine: No thyroid disease, diabetes mellitus, thyroid cancer, Hair loss, heat intolerance or cold intolerance Skin Skin: Yes changing moles; No rash Musc Musculoskeletal: Yes arthritis; No back problems, rheumatoid arthritis, gout or joint pain Cardio Cardiovascular: Yes high blood pressure; No murmur, pacemaker, heart disease, atrial fibrillation, heart attack, heart stent, palpitations, shortness of breat with exertion or chest pain Psych Psychiatric: Yes depression and anxiety; No hearing voices Resp Respiratory: No shortness of breath, No sleep apnea, No cough, Yes COPD, No asthma, No emphysema and No wheezing Gastro Gastrointestinal: No abdominal pain, No nausea or vomiting, No diarrhea, No constipation, No blood in stool, No acid reflux, No hemorrhoids, No ulcers, No gallbladder problem and No black,tarry stools Thomas Hematologic: No blood thinners, No blood disorders, No bleeding, No anemia and No blood clots Neuro Neurologic: No system reviewed and no additional complaints, except as documented, No as per HPI, No abnormal gait, No abnormal hearing, No abnormal movements, No abnormal speech, No behavioral changes, No burning sensations, No confusion, No convulsions, No disequilibrium, No dizziness, No localized weakness, No frequent falls, No headache(s), No lack of coordination, No loss of vision, No memory loss, No numbness, No other visual disturbances, No radicular pain, No restless legs, No sensory deficit, No syncope, No tingling, No tremor(s), No weakness and No other Exam Const General: cooperative, comfortable and no acute distress Nutritional Appearance: average body habitus [facility] Head: normal to inspection Eyes General: appearance normal, both eyes and all related structures Neck Neck: normal visual inspection Resp Effort & Inspection: normal respiratory effort Auscultation: clear to auscultation bilaterally Cardio Rate: regular rate Rhythm: regular rhythm GI Inspection: normal to inspection Neuro General: patient alert, patient awake and patient oriented x3 Extrem Other: Left posterior calf evidence of previous punch biopsy with small eschar but then there is a diffuse erythematous punctate area with satellite lesions that measures at least 2.6 x 2 cm in diameter. Psych Appearance: grossly normal Office Procedures Procedure Time Out Time Out Informed consent given: Yes Consent signed: Yes Time out checklist: patient, procedure, site marked/identified, positioning of patient, supplies available, allergies confirmed and team agrees on procedure Time out staff in room: Yes Time out verified: Yes Time out date: 10/29/23 Time out time: 14:07 Assessment and Plan Assessment and Plan (1) Skin cancer, basal cell: Status: Acute Plan: 57-year-old female with by report a very prolonged history of a nonresolving skin lesion left posterior calf which is biopsy-proven basal cell. It is a more diffuse area with slight satellite lesions. I do not perceive any means of being able to obtain a primary closure. I propose for her monitored anesthesia care and local anesthetic with a wide elliptical excision of the area. I would anticipate her donor site lateral distal left thigh so that we can position her in a prone position to address both the donor site and the primary excision area. She is aware of technique and benefit and risks complication alternatives. Anticipate a Adaptic and sutured cottonball closure followed by extensive dressings. She has had an opportunity to ask and have questions answered. She is aware that she will require time off of work to maximize the chances of graft take. She is additionally aware that there will be some cosmetic changes at both the donor site and the graft site. She has had an opportunity ask and have questions answered. We will schedule procedure at her discretion. Copy: Dr. Christiano Guerrero M.D., F.A.C.S. I have examined the patient and the H&P has been reviewed. There are no clinical changes since date of exam. Richard Guerrero M.D., F.A.C.S.
[2023-11-04] MEDS: Cefazolin 2 GM in 0.9% Normal Saline (100mL Bag) 100 ML IV (07:27)
--- NOTE | 2023-11-04 07:30 | LES_PTH ---
PATIENT: XU LOPEZ [place] [facility] [id number] AGE/SX: 57/F ROOM: RE11/04/[address]: Dr. Richard Guerrero MD : 1965 BED: DIS: 11/04/2023 SPEC #: [id number] RECD: 11/04/23 11:28 STATUS: TIEN MENJIVAR #: [id number] HILDA: 11/04/23 07:[address]: Richard Guerrero DEPT: SURGICAL PATHOLOGY RECD BY: Era Maher ENTERED: 11/04/23 11:59 SP TYPE: Lesion OTHR DR: Dr. Christiano Rhoades MD Tissues: Skin of leg, NOS Procedures: Surgery Specimen Level IV HEADER OPERATION: Excision left calf lesion with skin graft left thigh donor PRE-OP DIAGNOSIS: Nonresolving skin lesion left posterior calf, proven basal cell TISSUE SUBMITTED: Basal cell skin cancer left posterior calf, long suture lateral, short suture distal/inferior MICROSCOPIC DIAGNOSIS Skin lesion of calf, excision; Basal cell carcinoma, superficial spreading with focal mucosal ulceration, completely excised. Cicatrix and associated with fat necrosis. Focal hyperkeratosis. / 11/05/2023 COMMENT Case has been reviewed in consultation with Dr. Colby who concurs with the above diagnosis. IDC:[facility] MICROSCOPIC DESCRIPTION Slides are reviewed. GROSS DESCRIPTION Received in fixative is one container labeled with the patient's name and designated Basal cell skin cancer left posterior calf. The specimen consists of a piece of long mckeon-white skin measuring 3.0 x 3.5cm and up to 0.6cm in thickness. The specimen is inked as follows: Proximal margin- blue, Distal inferior margin-green, Medial margin-red, and lateral- orange, Deep margin- black. This specimen is serially sectioned and submitted entirely in six cassettes from medial to lateral margin. / 11/04/2023 TC:0 CPT: 54408
[2023-11-04] MEDS: Epinephrine (1 mg/ml) 1 MG/ML VIAL (07:48)
[2023-11-04] MEDS: Lidocaine 0.5% (50 ml) 50 ML Vial (07:48)
[2023-11-04] MEDS: Bupivacaine 0.25% 30 ML Vial (07:48)
--- NOTE | 2023-11-04 08:38 | PCM.OPRPT ---
Report of Operation Date of Procedure: 11/04/23 Pre-Operative Diagnosis: Basal cell skin cancer left posterior calf Post-Operative Diagnosis: Same Surgery/Procedure Performed:: Wide excision left posterior calf basal cell skin cancer 4 x 3 cm excision with split-thickness skin grafting donor site left lateral thigh Description of Surgical Findings:: Timeout informed consent was obtained. 57-year-old female was taken to the operating placed on the table and she was placed prone careful pelvic and shoulder padding was performed. She underwent monitored anesthesia care. Ancef 2 g given intravenously. The left lower extremity was sterilely prepped and draped. 0.5% lidocaine was used as a local anesthetic. 30 cc was used. Then I used 20 cc of 0.5% lidocaine mixed 50-50 with 0.25% Marcaine. Using a dermatome I harvested split-thickness skin from the left lateral thigh. That skin was meshed 1-1/2-1. Epinephrine gauze was placed on the donor site. I then did a wide excision of the basal cell skin cancer left posterior calf with a 4 x 3 cm ellipse. The wound was made hemostatic with electrocautery. A short suture was placed inferiorly on the specimen and long suture laterally. Specimen was placed in formalin. Then placed the skin graft in place and used maribel to secure it. Adaptic was placed followed by moistened cotton balls followed by 4 x 4's ABD soft roll and David wrap. The donor site was treated with extra-large OpSite dressings followed by ABDs and soft roll and David wrap. Sponge and instrument and needle counts were reported to surgically correct. Blood loss was minimal. She tolerated procedure well without apparent complication. She was taken to the recovery room in satisfied condition. Specimens basal cell skin cancer. Drains none. Blood loss minimal. Richard Guerrero M.D., F.A.C.S. Surgeon: Richard Guerrero Type of Anesthesia: Local MAC Anesthesiologist: Arpit Cali
[2023-11-04 08:40] VITALS: BP 124/85; BP 125/78; PULSE 83; RESP 18; TEMP 36.3; O2SAT 97
[2023-11-04 08:45] VITALS: BP 124/85; BP 125/80; PULSE 80; RESP 18; O2SAT 97
[2023-11-04 08:50] VITALS: BP 117/77; BP 124/85; PULSE 74; RESP 18; O2SAT 95
[2023-11-04 08:54] VITALS: BP 120/80; BP 124/85; PULSE 73; RESP 18; TEMP 36.2; O2SAT 95
[2023-11-04 09:23] VITALS: BP 111/78; BP 124/85; PULSE 75; RESP 16; TEMP 36.4; O2SAT 95
== END 2023-11-04 09:51 | disposition home or self-care (01) ==
LOC: SDC 05:59 → AC 06:00
PROVIDERS: PCP Family Medicine; Referring Provider Surgery; Visit Provider Surgery
PROC: (CPT 11604; principal; 2023-11-04 07:15)
DX: C44.719 Basal cell carcinoma of skin of left lower limb, including hip (principal); Z96.651 Presence of right artificial knee joint; I10 Essential (primary) hypertension; F17.210 Nicotine dependence, cigarettes, uncomplicated; E78.00 Pure hypercholesterolemia, unspecified; Z79.82 Long term (current) use of aspirin; Z79.899 Other long term (current) drug therapy; L85.9 Epidermal thickening, unspecified; K21.9 Gastro-esophageal reflux disease without esophagitis; Z79.51 Long term (current) use of inhaled steroids
CPT/HCPCS: 11604; 15100; 00400; 88305; J7120; J2405

== ENCOUNTER → 2023-12-12 | Outpatient (CLI) | payer OTHER, SELFPAY ==
--- NOTE | 2023-12-12 11:10 | VDLE_ITS ---
Reason For Study: LLE Pain RIGHT LEFT CFV is compressible, spontaneous, phasic, GSV is normal. competent and demonstrates normal CFV is compressible, spontaneous, phasic, augmentation. competent, and demonstrates normal Procedure augmentation. This is a venous duplex using B-mode, color FV is compressible, spontaneous, phasic, flow and spectral Doppler. competent and demonstrates normal Exam performed in department. augmentation. The exam was diagnostic. POP V is compressible, spontaneous, phasic, A preliminary report was called and/or faxed competent and demonstrates normal to Jania Wilson / DANN. augmentation. T/P Trunk is compressible. PTV is compressible. LT PerV is compressible. VL/Venous Duplex US, Unilateral Interpretation Summary There is no evidence of left lower extremity deep vein thrombosis. Left great s aphenous vein appears patent and compressible segmentally. Normal flow patterns right common femoral vein Ordering Physician: Jania Wilson Referring Physician: Jania Wilson Performed By: Lencho Krishna RVT
== END | disposition home or self-care (01) ==
LOC: CVS 11:09
PROVIDERS: PCP Family Medicine; Referring Provider Physician Assistant; Visit Provider Physician Assistant
DX: M79.662 Pain in left lower leg (principal); M79.89 Other specified soft tissue disorders
CPT/HCPCS: 93971

== ENCOUNTER → 2024-03-09 | Outpatient (CLI) | payer OTHER, SELFPAY ==
--- NOTE | 2024-03-09 14:53 | ECHOD_ITS ---
Reason For Study: ATRIAL FIBRILLATION Procedure This was a 2D Doppler, Color Flow transthoracic echocardiogram. Exam performed in department. Left Ventricle Normal LV size. Left ventricular systolic function is normal. The left ventricular ejection fraction is 65 %. No regional wall motion abnormalities noted. Right Ventricle Normal RV size. Normal systolic function. Atria Normal left atrium. Normal right atrium. Mitral Valve Normal mitral valve. Tricuspid Valve Normal tricuspid valve. Mild tricuspid valve insufficiency. Pulmonary artery systolic pressure is 24 mmHg. Aortic Valve Trisinus/trileaflet aortic valve. Pulmonic Valve Normal pulmonic valve. Great Vessels Normal aortic root. The pulmonary artery is normal size. Normal inferior vena cava. Pericardium/Pleural No pericardial effusion. MMode/2D Measurements & Calculations LVIDd: 4.4 cm IVSd: 1.2 cm LVOT diam: 2.1 cm LVIDs: 2.6 cm LVPWd: 1.1 cm LVOT area: 3.6 cm2 RVDd: 2.8 cm FS: 41.6 % Ao root diam: 2.8 cm LAV(MOD-bp): 42.8 ml LVAd ap4: 19.1 cm2 LAV(MOD-bp) Indexed: 23.4 ml/m2 LVLd ap4: 6.6 cm LAV(MOD-sp2): 51.1 ml EDV(MOD-sp4): 46.2 ml LAV(MOD-sp4): 32.4 ml EDV(sp4-el): 46.8 ml LVAs ap4: 10.4 cm2 LVLs ap4: 5.7 cm ESV(MOD-sp4): 15.8 ml ESV(sp4-el): 16.1 ml EF(MOD-sp4): 65.8 % EF(sp4-el): 65.5 % LVAd ap2: 18.4 cm2 SV(MOD-sp4): 30.4 ml SV(MOD-sp2): 26.3 ml LVLd ap2: 6.6 cm EDV(MOD-sp2): 42.7 ml EDV(sp2-el): 43.7 ml LVAs ap2: 10.2 cm2 LVLs ap2: 5.7 cm ESV(MOD-sp2): 16.4 ml ESV(sp2-el): 15.4 ml EF(MOD-sp2): 61.7 % SV(sp4-el): 30.7 ml LA dimension(2D): 4.0 cm LA A4 area: 13.6 cm2 RA A4 area: 9.6 cm2 TAPSE: 1.8 cm Time Measurements MV dec time: 0.20 sec Doppler Measurements & Calculations MV E max ham: 81.1 cm/sec Lat Peak E' Ham: 9.4 cm/sec Med Peak E' Ham: 10.7 cm/sec MV A max ham: 84.8 cm/sec E/E' lat: 8.7 E/E' med: 7.6 MV E/A: 0.96 Ao V2 max: 150.1 cm/sec LV V1 max: 108.4 cm/sec MV dec slope: 397.3 cm/sec2 Ao max P.0 mmHg LV V1 max P.7 mmHg Ao V2 mean: 97.9 cm/sec LV V1 mean P.5 mmHg Ao mean P.5 mmHg LV V1 mean: 73.8 cm/sec Ao V2 VTI: 31.9 cm LV V1 VTI: 24.9 cm AV (velocity ratio): 0.78 REMIGIO(I,D): 2.8 cm2 REMIGIO(V,D): 2.6 cm2 SV(LVOT): 89.1 ml PA V2 max: 68.9 cm/sec TR max ham: 227.4 cm/sec PA max PG (full): 0.20 mmHg TR max P.7 mmHg ECHO/Echo Complete Interpretation Summary Normal LV size. Left ventricular systolic function is normal. The left ventricular ejection fraction is 65 %. Pulmonary artery systolic pressure is 24 mmHg. Ordering Physician: Newton Reyna Referring Physician: Christiano Rhoades MD Performed By: Lavern Carter RDCS
== END | disposition home or self-care (01) ==
LOC: CVS 14:52
PROVIDERS: PCP Family Medicine; Referring Provider Nurse Practitioner Family; Visit Provider Nurse Practitioner Family
DX: I48.0 Paroxysmal atrial fibrillation (principal); F17.200 Nicotine dependence, unspecified, uncomplicated
CPT/HCPCS: 93306

== ENCOUNTER → 2024-04-02 | Outpatient (CLI) | payer OTHER, SELFPAY ==
[2024-04-02 17:57] LABS: Anion Gap 6 (5-15); BUN 16 mg/dL (7-18); BUN/Creat Ratio 17.5 RATIO (10-20); Calcium,Total 9.3 mg/dL (8.5-10.1); Chloride 104 mmol/L (98-107); Creatinine, Serum 0.92 mg/dL (0.55-1.02); EST Glomerular Filtration Rate 66 mL/min (>60); Est Glom Filt Rate - Afr Amer 80 mL/min (>60); Glucose 105 mg/dL (74-106); Potassium 4.2 mmol/L (3.5-5.1); Sodium Level 138 mmol/L (136-145)
== END | disposition home or self-care (01) ==
LOC: MTLAB 16:59
PROVIDERS: PCP Family Medicine; Referring Provider Family Medicine; Visit Provider Family Medicine
DX: I10 Essential (primary) hypertension (principal)
CPT/HCPCS: 36415; 80048

== ENCOUNTER 2024-05-31 11:44 | Emergency (ER) | payer OTHER, SELFPAY ==
[2024-05-31 11:44] VITALS: BP 126/104; PULSE 111; RESP 24; TEMP 35.8; O2SAT 98; BMI 24.5
--- NOTE | 2024-05-31 11:45 | RAD_ITS ---
INDICATION: COUGH EXAMINATION/TECHNIQUE: X-RAY - XR Chest 1 View COMPARISON: December 11, 2017 FINDINGS: LINES/DEVICES: None. LUNGS: No new consolidation, edema or effusion. There is a stable calcified nodule within the right midlung, suggestive of a granuloma. No pneumothorax. MEDIASTINUM AND CARDIOVASCULAR STRUCTURES: Cardiac silhouette not enlarged. Central airways and mediastinal contour are unremarkable. BONES AND SOFT TISSUES: Unremarkable. RAD/Chest 1 View IMPRESSION: No radiographic evidence of acute cardiopulmonary disease. Electronically Signed: Angie Restrepo MD at 12:14 EDT ,
[2024-05-31 12:25] VITALS: O2SAT 96
[2024-05-31 13:44] VITALS: BP 151/86; PULSE 94; RESP 12; TEMP 37.2; O2SAT 96
--- NOTE | 2024-05-31 13:46 | EDS_ITS ---
HPI History of Present Illness Chief Complaint: Cough Narrative Narrative: Chief complaint and HPI: Cough. 58-year-old female with history of proximal menstrual atrial fibrillation, COPD presents for evaluation of cough and general malaise. Patient states for the past several days she has had headache, URI symptoms, cough, shortness of breath, fever, body aches. She has not tested herself for COVID. Patient states her symptoms have not improved which is why she presents today. She endorses decreased appetite. Review of systems: See HPI Medications: As listed on the chart Allergies: As listed on the chart PFSH: Per chart Vital signs: As listed on the chart. Reviewed. Physical exam: Gen: A&O x3, NAD Head: Normocephalic, atraumatic Eyes: No sclera icterus, conjunctiva clear ENT: Moist mucous membranes Neck: Trachea midline, No JVD CV: Tachycardic, regular rhythm, no murmurs, no peripheral edema Resp: Lungs coarse bilaterally with positive wheezing GI: Abd soft, non-distended, non-tender, no r/r/g Musc: Full ROM, no deformity Skin: Warm, dry Neuro: Alert, oriented, grossly intact, sensation intact Psych: Cooperative, appropriate mood and affect [facility] Medical History Post-menopausal Migraine headache Gastric reflux COPD (chronic obstructive pulmonary disease) Shortness of breath on exertion Chronic cough Leg cramps History of echocardiogram History of Holter monitoring History of GI bleed Skin cancer, basal cell Wears glasses Anxiety Depression Alcohol use Arthritis High cholesterol Loss of consciousness Smoker Cardiology follow-up encounter Personal history of colonic polyps Pure hypercholesterolemia Essential hypertension Paroxysmal atrial fibrillation Hypotension New onset a-fib Pain and swelling of left knee Abnormal ECG Syncope Hypokalemia Nonspecific ST-T wave electrocardiographic changes Atypical depressive disorder Tobacco dependence Home Medications ?Medication ?Instructions ?Recorded ?Last Taken ?Type aspirin 325 mg tablet,delayed 325 mg PO DAILY 12/11/17 10/29/23 History release cholecalciferol (vitamin D3) 25 1,000 unit PO DAILY 07/30/18 Unknown History mcg (1,000 unit) capsule coenzyme Q10 100 mg capsule (Co 100 mg PO DAILY 07/30/18 Unknown History Q-10) lorazepam 1 mg tablet 1 mg PO DAILY PRN PRN Anxiety 12/19/18 Unknown History clonidine HCl 0.1 mg tablet 0.1 mg PO QHS 01/28/19 Unknown History epinephrine 0.3 mg/0.3 mL 0.3 mg IM Q10-15M PRN Allergy 01/28/19 Unknown History injection, auto-injector (EpiPen) Symptoms magnesium 200 mg tablet 200 mg PO QHS 09/23/19 Unknown History ascorbic acid (vitamin C) 1,000 mg 1,000 mg PO DAILY 08/21/23 Unknown History tablet,extended release (C Complex) cyanocobalamin (vitamin B-12) 1,000 mcg PO DAILY 08/21/23 Unknown History 1,000 mcg tablet (Vitamin B-12) fluoxetine 20 mg capsule 20 mg PO DAILY 08/21/23 Unknown History fluticasone fur. 100 mcg-umeclid 1 inh inhalation DAILY 08/21/23 11/04/23 History 62.5 mcg-vilant 25 mcg inhalat.powder (Trelegy Ellipta) metoprolol succinate 100 mg 100 mg PO DAILY 10/29/23 11/04/23 History capsule sprinkle, ext. release 24 hr albuterol sulfate 90 mcg/actuation 2 puff inhalation Q4H PRN PRN 05/31/24 Unknown Rx aerosol inhaler (Ventolin HFA) Wheezing ##1 prednisone 20 mg tablet 60 mg (3 x 20 mg) PO DAILY 5 days 05/31/24 Unknown Rx #15 TABLETS Allergy/AdvReac Type Severity Reaction Status Date / Time chlorhexidine Allergy Itching Verified 05/31/24 11:46 venom-honey bee (bee venom Allergy Anaphylaxis Verified 05/31/24 11:46 (honey bee)) Family History Mother CAD (coronary artery disease) Diabetes Sister Cardiomyopathy Cancer skin Father Cancer Heart disease Surgical History History of basal cell carcinoma excision History of esophagogastroduodenoscopy (EGD) Hx of colonoscopy H/O: knee surgery History of tonsillectomy Social History (Updated 02/04/24 @ 08:42 by Majo Mendez) Smoking Status: Current every day smoker tobacco type: cigarettes Tobacco: How many years used: 35 second hand exposure: No alcohol intake: never substance use type: does not use caffeine: Yes Type: coffee Number of servings: 4 EXAM Physical Exam Const Vital Signs: 05/31/24 11:44 05/31/24 12:25 05/31/24 13:44 Temperature 96.4 F L 98.9 F Temperature Source Temporal Oral Pulse Rate 111 H 94 Respiratory Rate 24 H 12 Respiratory Effort Normal Respiratory Depth Normal Respiratory Pattern Normal Blood Pressure 126/104 H 151/86 H Blood Pressure Mean 111 107 Pulse Ox 98 96 Oxygen Delivery Method Room Air Room Air Room Air 05/31/24 13:56 05/31/24 15:00 05/31/24 15:30 Temperature 98.9 F Temperature Source Pulse Rate 95 112 H 107 H Respiratory Rate 16 17 16 Respiratory Effort Respiratory Depth Respiratory Pattern Normal Blood Pressure 131/71 H 136/79 H Blood Pressure Mean 91 98 Pulse Ox 97 98 Oxygen Delivery Method Room Air MDM MDM MDM Narrative Medical decision making narrative: 58-year-old female with history of proximal menstrual atrial fibrillation, COPD presents for evaluation of shortness of breath and flulike symptoms. Patient is not on any inhalers or nebulizers at home. On presentation she is tachycardic into the 110s. She is mildly tachypneic. Afebrile. Patient has diffuse expiratory wheezing. Differential diagnosis includes but is not limited to COPD exacerbation, COVID-19 infection, influenza, pneumonia. Low suspicion for ACS or PE. 500 cc NS bolus, Toradol, Solu-Medrol, DuoNebs ordered. EKG and chest x-ray reviewed see below. CBC with mild leukocytosis of 11.1. No anemia. D- dimer unremarkable. BMP unremarkable without BELINDA. Troponin unremarkable. COVID, flu, RSV negative. On reevaluation, patient still has this diffuse expiratory wheezing and is coarse. She is still tachycardic into the 100s. Given that patient does not have nebulizers at home and is still wheezing and coarse, I do recommend admission for COPD exacerbation. After extensive discussion with the patient as well as her , patient states she wants to discharge home. She does not want a be admitted to the hospital. Patient understands the risks of discharging home. She is alert and oriented and able to make her decisions. Patient was educated that if symptoms worsen at home she should return back to the emergency department. She confirmed understanding. Patient will be discharged home with albuterol for wheezing as well as a 5-day course of steroids. She confirmed understanding. Follow-up with primary care physician. EKG: Interpreted by me/EM physician: EKG shows normal sinus rhythm with short ND interval. Nonspecific ST changes. Heart rate 95. Diagnostic: Interpreted by me/EM physician: Chest x-ray without pneumonia, effusion, cardiomegaly, pneumothorax Impression: 1. COPD exacerbation 2. Viral syndrome Lab Data Labs: Laboratory Results - last 24 hr 05/31/24 13:43 WBC 11.1 H RBC 4.47 Hgb 14.0 Hct 41.6 MCV 93.1 MCH 31.3 MCHC 33.7 RDW Std Deviation 47.8 H RDW Coeff of Bette 14.0 Plt Count 381 MPV 10.4 Immature Gran % (Auto) 0.400 Neut % (Auto) 63.1 Lymph % (Auto) 22.8 [place] % (Auto) 11.6 H Eos % (Auto) 1.6 Baso % (Auto) 0.5 Absolute Neuts (auto) 7.0 Absolute Lymphs (auto) 2.53 Nucleated RBC % 0 D-Dimer Quant (PE/DVT) 0.33 Sodium 138 Potassium 4.3 Chloride 106 Carbon Dioxide 26.0 Anion Gap 6 BUN 12 Creatinine 0.87 Estim Creat Clear Calc 66.87 Est GFR (MDRD) Af Amer 85 Est GFR (MDRD) Non-Af 70 BUN/Creatinine Ratio 13.7 Glucose 100 Calcium 9.2 Troponin I High Sens < 3 L Radiography Diagnostic Testing: Clinical Impression(s) from Imaging Studies Chest X-Ray 05/31/24 11:45 IMPRESSION: No radiographic evidence of acute cardiopulmonary disease. Electronically Signed: Angie Restrepo MD at 12:14 EDT , Discharge Plan Triage Chief Complaint: Cough ED Provider: Yamil Chisholm Dx/Rx/DC Orders Clinical Impression: COPD exacerbation Instructions: Discharge Instructions: COPD, ED COPD Flare Prescriptions: New albuterol sulfate [Ventolin HFA] 90 mcg/actuation HFA aerosol inhaler 2 puff inhalation Q4H PRN PRN (Reason: Wheezing) Qty: 1 0RF prednisone 20 mg tablet 60 mg PO DAILY 5 Days Qty: 15 0RF No Action cholecalciferol (vitamin D3) 1,000 unit capsule 1,000 unit PO DAILY coenzyme Q10 [Co Q-10] 100 mg capsule 100 mg PO DAILY epinephrine [EpiPen] 0.3 mg/0.3 mL auto-injector 0.3 mg IM Q10-15M PRN (Reason: Allergy Symptoms) clonidine HCl 0.1 mg tablet 0.1 mg PO QHS magnesium 200 mg tablet 200 mg PO QHS metoprolol succinate 100 mg capsule,sprinkle,ER 24hr 100 mg PO DAILY lorazepam 1 mg tablet 1 mg PO DAILY PRN PRN (Reason: Anxiety) aspirin 325 MG tablet,delayed release (DR/EC) 325 mg PO DAILY fluoxetine 20 mg capsule 20 mg PO DAILY Patient Comments: TAKE 1 CAPSULE BY MOUTH EVERY DAY C Complex 1,000 mg tablet extended release 1,000 mg PO DAILY cyanocobalamin (vitamin B-12) [Vitamin B-12] 1,000 mcg tablet 1,000 mcg PO DAILY Trelegy Ellipta 100-62.5-25 mcg blister with device 1 inh inhalation DAILY Stand Alone Forms: ED Work / School Excuse Primary Care Provider: Christiano Rhoades Referrals: Christiano Rhoades MD [Primary Care Provider] - 3-5 Days Activity Restrictions/Additional Instructions: Return back to the ED if symptoms change or worsen. Follow-up with your primary care physician. Start prednisone tomorrow. Print Language: Hebrew Disposition Disposition: Home, Self Care Discharge Date/Time: 05/31/24 15:46
[2024-05-31] MEDS: Ipratropium/Albuterol Sulfate 3 ML AMPUL.NEB 9 ML INHALATION (13:50)
[2024-05-31 13:56] VITALS: PULSE 95; RESP 16
[2024-05-31] MEDS: Ketorolac 15 MG/ML Vial IV (13:58)
[2024-05-31] MEDS: MethylPREDNISolone 125 MG/2 ML Vial IV (13:58)
[2024-05-31] MEDS: 0.9% Normal Saline (500mL Bag) 500 ML 999 ML IV (13:58)
[2024-05-31 14:06] LABS: Absolute Lymphocyte Count 2.53 X10^3/uL (0.83-4.51); Basophil# 0.05 X10^3/uL; Basophil% 0.5 % (0-1); Eosinophil# 0.18 X10^3/uL; Eosinophils% 1.6 % (0-5); Hematocrit 41.6 % (37-47); Lymphocyte # 2.53 X10^3/ul (0.83-4.51); Lymphocyte % 22.8 % (19-41); Mean Corp Hgb Conc 33.7 g/dL (32-36); Mean Corpuscular Hgb 31.3 pg (27.0-32.0); Mean Corpuscular Volume 93.1 fL (81-99); Mean Platelet Vol. 10.4 fl (6.2-12.0); Monocyte# 1.29 X10^3/uL; Monocyte% 11.6 % (0-10); NRBC Flagged by Analyzer 0 % (0-5); Neutrophil # 7.02 X10^3/uL (2.7-7.7); Neutrophil % 63.1 % (47-70); Platelet Count 381 K/mm3 (150-450); RBC Distribution Width SD 47.8 fl (35.1-43.9); Red Blood Count 4.47 M/mm3 (4.2-5.4); White Blood Count 11.1 K/mm3 (4.4-11.0)
[2024-05-31 14:09] LABS: D-Dimer Quantitative (DVT/PE) 0.33 FEU/ug/m (0.27-0.49)
[2024-05-31 14:20] LABS: Anion Gap 6 (5-15); BUN 12 mg/dL (7-18); BUN/Creat Ratio 13.7 RATIO (10-20); Calcium,Total 9.2 mg/dL (8.5-10.1); Chloride 106 mmol/L (98-107); Creatinine, Serum 0.87 mg/dL (0.55-1.02); EST Glomerular Filtration Rate 70 mL/min (>60); Est Glom Filt Rate - Afr Amer 85 mL/min (>60); Estimated Creatinine Clearance 66.87 ml/min; Glucose 100 mg/dL (74-106); Potassium 4.3 mmol/L (3.5-5.1); Sodium Level 138 mmol/L (136-145); Troponin-I HS < 3 pg/mL (3.0-54.0)
[2024-05-31 15:00] VITALS: BP 131/71; PULSE 112; RESP 17; O2SAT 97
[2024-05-31 15:30] VITALS: BP 136/79; PULSE 107; RESP 16; TEMP 37.2; O2SAT 98
== END 2024-05-31 15:46 | disposition home or self-care (01) ==
PROVIDERS: Emergency Provider Surgery; PCP Family Medicine; Referring Provider Surgery; Visit Provider Surgery
DX: J44.1 Chronic obstructive pulmonary disease with (acute) exacerbation (principal); I48.0 Paroxysmal atrial fibrillation; B34.9 Viral infection, unspecified; F41.9 Anxiety disorder, unspecified; F32.A Depression, unspecified; F17.210 Nicotine dependence, cigarettes, uncomplicated; M19.90 Unspecified osteoarthritis, unspecified site; Z79.82 Long term (current) use of aspirin; Z87.19 Personal history of other diseases of the digestive system; Z85.828 Personal history of other malignant neoplasm of skin; Z79.899 Other long term (current) drug therapy; Z86.0100 Personal history of colon polyps, unspecified
CPT/HCPCS: 71045; 80048; 84484; 85025; 85379; 87631; 93005; 94640; 96361; 96374; 96375; 99284; J7040; A4216

== ENCOUNTER → 2024-06-25 | Outpatient (CLI) | payer OTHER, SELFPAY ==
[2024-06-25 10:57] LABS: ALB/GLOB Ratio 1.1 RATIO (0.9-2.4); AST(SGOT) 24 U/L (15-37); Alanine Aminotransfer ALT/SGPT 33 U/L (13-56); Albumin, Serum 3.8 g/dL (3.2-5.0); Alkaline Phosphatase 77 U/L (45-117); Anion Gap 5 (5-15); BUN 16 mg/dL (7-18); BUN/Creat Ratio 17.4 RATIO (10-20); Calcium,Total 9.1 mg/dL (8.5-10.1); Chloride 106 mmol/L (98-107); Creatinine, Serum 0.92 mg/dL (0.55-1.02); EST Glomerular Filtration Rate 66 mL/min (>60); Est Glom Filt Rate - Afr Amer 80 mL/min (>60); Ferritin 64 ng/mL (8-252); Globulin 3.4 g/dL (2.2-4.2); Glucose 104 mg/dL (74-106); Potassium 4.7 mmol/L (3.5-5.1); Protein, Total 7.2 g/dL (6.4-8.2); Sodium Level 138 mmol/L (136-145)
[2024-06-26 15:09] LABS: PROEL- A/G Ratio 1.3 (0.7-1.7); PROEL- Albumin 3.9 g/dL (2.9-4.4); PROEL- Alpha-1 Globulin 0.2 g/dL (0.0-0.4); PROEL- Alpha-2 Globulin 0.8 g/dL (0.4-1.0); PROEL- Gamma Globulin 0.8 g/dL (0.4-1.8); PROEL- Globulin, Total 2.9 g/dL (2.2-3.9); PROEL- TOTAL PROTEIN 6.8 g/dL (6.0-8.5); PROEL-M-Spike Not Observed g/dL (Not Observed)
== END | disposition home or self-care (01) ==
LOC: MFPLAB 08:49
PROVIDERS: PCP Family Medicine; Referring Provider Family Medicine; Visit Provider Family Medicine
DX: G47.62 Sleep related leg cramps (principal)
CPT/HCPCS: 36415; 80053; 82728; 83735; 84165

== ENCOUNTER → 2024-10-02 | Outpatient (CLI) | payer OTHER, SELFPAY ==
--- NOTE | 2024-10-02 16:48 | CT_ITS ---
PROCEDURE: CT UROGRAM WITHOUT AND WITH CONTRAST REASON FOR EXAM: Asymptomatic microscopic hematuria. TECHNIQUE: CT urogram protocol. Contiguous axial scans of 3.[address] of the kidneys without contrast followed by CT of the abdomen and pelvis with intravenous contrast during parenchymal and excretory phases. Coronal and sagittal reconstructed images were performed. CONTRAST: Isovue-300. 89 mL. COMPARISON: Ultrasound abdomen dated 12/22/2020 FINDINGS: UROGRAPHIC FINDINGS: Kidneys: Normal renal sizes. No urolithiasis. No hydronephrosis. No cysts or solid renal masses. Symmetrical excretion of contrast. Ureters: No suspicious filling defects or strictures. Bilateral extrarenal pelves. Bladder: Normal bladder contour and wall thickness. OTHER FINDINGS: Lung bases: Clear Liver: Unremarkable. Gallbladder: Unremarkable. Spleen: Unremarkable. Pancreas: Unremarkable. Adrenals: Unremarkable. Reproductive organs: Enlarged lobulated body of the uterus with macrocalcifications. Bowel: Diverticulosis. Diverticuli are scattered throughout the colon. No evidence of diverticulitis. Appendix: Normal. Lymph nodes: No suspicious lymph node enlargement. Vasculature: Atherosclerotic calcific disease of the lower abdominal aorta and iliac arteries. Peritoneum / Retroperitoneum: No ascites. No free air. Bones: Multilevel spondylosis and degenerative disc disease. Lower thorax: Unremarkable. Soft tissues: Unremarkable. CT/CT Abd/Pelvis W/WO Contrast IMPRESSION: 1. No signs of obstructive uropathy or renal masses. 2. Calcified uterine fibroids. 3. Colon diverticulosis without diverticulitis. 4. Other nonacute findings detailed above Reading Location: [facility]
== END | disposition home or self-care (01) ==
LOC: CT 16:46
PROVIDERS: PCP Family Medicine; Referring Provider Urology; Visit Provider Urology
DX: R31.21 Asymptomatic microscopic hematuria (principal)
CPT/HCPCS: 74178; Q9967

== ENCOUNTER 2025-03-28 09:26 | Emergency (ER) | payer OTHER, SELFPAY ==
[2025-03-28 09:26] VITALS: BP 149/82; PULSE 74; RESP 18; TEMP 36.2; O2SAT 96; BMI 26.2
--- NOTE | 2025-03-28 09:44 | RAD_ITS ---
PROCEDURE: ANKLE MIN 3 VIEWS 03/28/2025 REASON FOR EXAM: PAIN TECHNIQUE: ANKLE MIN 3 VIEWS Laterality: Right COMPARISON: None FINDINGS: Bones: No acute bony abnormalities. Joints: The mortise joint is aligned. Soft tissues: No soft tissue abnormalities. RAD/Ankle min 3 Views IMPRESSION: No acute bony abnormalities. Reading Location: [id number]
--- OUTSIDE RECORDS SUMMARY | 2025-03-28 10:07 | XMS RPT_ITS | CCD ---
Author Organization [facility] Care Team Providers Care Beam Sealer Name Role Phone Dr. Jose Rhoades Primary Care Provider [phone] Jose Rhoades Referring Provider Dr. Richard Guerrero Attending Provider Dr. Richard Guerrero Other Provider Jose Rhoades MD Primary Care Provider Dr. Jose Rhoades Primary Care Provider Dr. Jose Rhoades Referring Provider Dr. Richard Guerrero Attending Provider Jose Rhoades MD Primary Care Provider Dr. Jose Rhoades Primary Care Provider Dr. Jose Rhoades Referring Provider Dr. Richard Guerrero Attending Provider Dr. Richard Guerrero Referring Provider Dr. Richard Guerrero Other Provider ALIRIO Llanes Attending Provider ALIRIO Llanes Referring Provider Jose Rhoades MD Primary Care Provider [phone] JOSE RHOADES Primary Care Unavailable OKSANA GLASGOW Attending Unavailable JOSE RHOADES Primary Care Unavailable Austin Ríos Referring Unavailable Austin Ríos Attending Unavailable Jose Rhoades Primary Care Unavailable Jose Rhoades Primary Care Unavailable Wilson PA, Jania Attending Unavailable Cebul, Richard D Referring Unavailable Rhoades, Jose Primary Care Unavailable Rhoades, Jose Referring Unavailable Cebul, Richard D Attending Unavailable Rhoades, Jose Primary Care Unavailable Rhoades, Jose Referring Unavailable Roof CHRONOMETER ADJUSTER, Newton H Attending Unavailable Rhoades, Jose Primary Care Unavailable Rhoades, Jose Referring Unavailable Wilson PA, Jania Attending Unavailable Rhoades, Jose Primary Care Unavailable Rhoades, Jose Referring Unavailable Wilson PA, Jania Attending Unavailable Rhoades, Jose Primary Care Unavailable Rhoades, Jose Referring Unavailable Wilson PA, Jania Attending Unavailable Rhoades, Jose Primary Care Unavailable Rhoades, Jose Referring Unavailable Wilson PA, Jania Attending Unavailable Rhoades, Jose Primary Care Unavailable Roof CHRONOMETER ADJUSTER, Newton H Referring Unavailable Roof CHRONOMETER ADJUSTER, Netwon H Attending Unavailable Rhoades, Jose Primary Care Unavailable Cebul, Richard D Attending Unavailable Cebul, Richard D Referring Unavailable Klusty-Delisa, Yamil Referring Unavailabl e Klusty-Delisa, Yamil Attending Unavailabl e Rhoades, Jose Primary Care Unavailable Rhoades, Jose Primary Care Unavailable Steve PA, Jania Attending Unavailable Wilson PA, Jania Referring Unavailable Rhoades, Jose Referring Unavailable Rhoades, Jose Attending Unavailable Rhoades, Jose Primary Care Unavailable Rhoades, Jose Referring Unavailable Rhoades, Jose Attending Unavailable Rhoades, Jose Primary Care Unavailable Rhoades, Jose Primary Care Unavailable Cebul, Richard D Attending Unavailable Cebul, Richard D Consulting Unavailable Cebul, Richard D Referring Unavailable Rhoades, Jose Primary Care Unavailable Calos, [place] Attending Unavailable Rhoades, Jose Primary Care Unavailable Cebul, Richard D Attending Unavailable Wilson PA, Jania Referring Unavailable Rhoades, Jose Primary Care Unavailable Rhoades, Jose Referring Unavailable Wilson PA, Jania Attending Unavailable Allergies Allergy Classification Reported Allergen(s) Allergy Type Date of Onset Reaction(s) Facility (15 sources) Chlorhexidine; Translations: [CHLORHEXIDINE] Drug Allergy 7 Itching, Other: See Comments [facility] (18 sources) Codeine; Translations: [CODEINE] Drug Allergy 8 Unknown [facility] Work Phone: (10 sources) venom-honey bee Allergy to substance 2 Anaphylaxis [facility] (10 sources) Bees; Translations: [BEES] Propensity to adverse reactions 01-13-201 1 Anaphylaxis [facility] Work Phone: (1 source) Chlorhexidine Drug Allergy 4 [facility] Repository (1 source) Codeine Drug Allergy 4 [facility] (1 source) venom-honey bee Drug allergy (disorder) 4 [facility] Repository Medications Current Medications Medication Drug Class(es) Dates Sig (Normalized) Sig (Original) [id number] 200 actuat albuterol 0.09 mg/actuat metered dose inhaler (8 sources) beta2-Adrenergic Agonist Start: 08-21-2023 take 1 puff(s) by inhalation every four hours Albuterol Sulfate Active 2 PUFF INHALATION Q4H August 21, 2023 1:00am Start: 11-17-2022 take 2 puff(s) by in halation every six hours as needed albuterol HFA (PROAIR HFA) 90 mcg/actuation inhaler Inhale 2 Puffs as instructed every 6 hours as needed. 1 Each 11/17/2022 Active Comment on above: Inhale 2 Puffs as in structed every 6 hours as needed. ascorbic acid 1000 mg extended release oral tablet (4 sources) Vitamin C Start: 024 take 1 tablet by mouth once daily Ascorbic Acid (Vitamin C) (C Complex) 1,000 mg tablet extended release Active 1000 MG PO DAILY August 21, 2023 1:00am aspirin 325 mg delayed release oral tablet (19 sources) Platelet Aggregation Inhibitor, Nonsteroidal Anti-inflammatory Drug Start: take 325 mg by mouth once daily Aspirin Active 325 MG PO DAILY December 11, 2017 12:00am Comment on above: Take 325 mg by mouth once daily. cholecalciferol 0.025 mg oral capsule (19 sources) Vitamin D Start: 018 take 1 capsule by mouth once daily cholecalciferol (vitamin D3) 1,000 unit capsule Active 1000 UNIT PO DAILY July 30, 2018 1:00am Comment on above: Take 1,000 Units by mouth once daily. cloNIDine hydrochloride 0.1 mg oral tablet (19 sources) Central alpha-2 Adrenergic Agonist Start: 019 take 1 tablet by mouth at bedtime cloNIDine HCl (CATAPRES) 0.1 mg tablet TAKE 1 TABLET BY MOUTH PRIOR TO BEDTIME 12/05/2020 Active Comment on above: TAKE 1 TABLET BY HATTIE TH PRIOR TO BEDTIME [id number] 0.3 ml EPINEPHrine 1 mg/ml auto-injector (19 sources) alpha-Adrenergic Agonist, beta-Adrenergic Agonist, Catecholamine Start: 019 Epinephrine (Epipen) 0.3 mg/0.3 mL auto-injector Active 0.3 MG IM every 10 to 15 minutes January 28, 2019 12:00am Start: 08-24-2010 EPINEPHrine 0. 3 mg/0.3 mL INTRAMUSC. PnIj as necessary 0 08/24/2010 Active Comment on above: as necessary FLUoxetine 20 mg oral capsule (6 sources) Serotonin Reuptake Inhibitor Start: 08-21-2023 FLUoxetine (PROZAC) 20 mg capsule Take by mouth. 08/21/2023 Active Kucxwrdhyao-Xjhdgizbd-Eb lanter (4 sources) Anticholinergic, Corticosteroid, beta2-Adrenergic Agonist Start: 08-21-2023 Aiexgjxsfbx-Nsxodfazp-L ilanter (Trelegy Ellipta) 100-62.5-25 mcg blister with device Active 1 INH INHALATION DAILY August 21, 2023 1:00am Start: 08-21-2023 Fluticasone-Um eclidin-Vilanter (Trelegy Ellipta) 100-62.5-25 mcg blister with device Active 1 INH INHALATION DAILY August 21, 2023 12:00am ammonium lactate 120 mg/ml topical cream (4 sources) Start: 08-21-2023 Ammonium Lacta te Active 1 APPLIC TOPICAL TWICE A DAY August 21, 2023 1:00am LORazepam 1 mg oral tablet (20 sources) Benzodiazepine Start: 11-22-2017 End: 07-30-2018 take 1 mg by mouth once daily as needed Lorazepam Active 1 MG PO DAILY NEEDED July 30, 2018 3:50pm take 1 tablet by hattie th every eight hours as needed LORazepam (ATIVAN) 1 mg tablet Take 1 mg by mouth every 8 hours as needed. Active Comment on above: Take 1 mg by mouth e very 8 hours as needed. Magnesium (20 sources) Start: 09-23-2019 take 200 mg by mouth at bedtime Magnesium Active 200 MG PO AT BEDTIME September 23, 2019 4:23pm Start: 09-23-2019 take 200 mg by mouth three times daily Magnesium Active 200 MG PO THREE TIMES A DAY September 23, 2019 3:23pm Start: 09-23-2019 take 200 mg by mouth once daily Magnesium Active 200 MG PO DAILY September 23, 2019 3:23pm Start: 09-23-2019 take 200 mg by mouth once daily Magnesium Active 200 MG PO DAILY September 23, 2019 4:23pm Start: 01-28-2019 End: 09-23-2019 take 200 mg by mouth three times daily Magnesium Discontinued 200 MG PO THREE TIMES A DAY January 27, 2019 11:00pm September 23, 2019 3:25pm Start: 01-28-2019 End: 09-23-2019 take 200 mg by mouth three times daily Magnesium Discontinued 200 MG PO THREE TIMES A DAY January 28, 2019 12:00am September 23, 2019 4:25pm Magnesium Gluconate powd (9 sources) Magnesium Glucon ate powd 1 teaspoonful once daily. mixes in 3-4 oz of water Active Magnesium Glucon ate powd 1 teaspoonful once daily. mixes in 3-4 oz of water 0 Active Comment on above: 1 teaspoonful once d aily. mixes in 3-4 oz of water mecobalamin 1 mg chewable tablet (9 sources) mecobalamin, vit figueroa B12, (B12 ACTIVE) 1,000 mcg chew Take by mouth. Active Comment on above: Take by mouth. 24 hr metoprolol succinate 100 mg extended release oral tablet (4 sources) beta-Adrenergic Braxton Start: 04-21-2024 metoprolol succinate ER (TOPROL XL) 100 mg 04/21/2024 Active Start: 10-29-2023 take 100 mg by mouth once charla y Metoprolol Succinate Active 100 MG PO DAILY October 29, 2023 12:00am metroNIDAZOLE 500 mg oral tablet (2 sources) Nitroimidazole Antimicrobial Start: 06-04-2022 End: 06-11-2022 take 1 tablet by mouth twice daily metroNIDAZOLE (FLAGYL) 500 mg tablet Take 1 tablet by mouth twice daily for 7 days. 14 tablet 0 06/04/2022 06/11/2022 Active Comment on above: Take 1 tablet by hattie twice daily for 7 days. naproxen 500 mg oral tablet (4 sources) Nonsteroidal Anti-inflammatory Drug Start: 06-01-2022 End: 06-11-2022 take 1 tablet by mouth twice daily at mealtime for pain naproxen (NAPROSYN) 500 mg tablet Take 1 tablet by mouth twice daily with meals for 10 days. FOR PAIN. TAKE WITH FOOD. 20 tablet 0 06/01/2022 06/11/2022 Active Comment on above: Take 1 tablet by hattie twice daily with meals for 10 days. FOR PAIN. TAKE WITH FOOD. pantoprazole 40 mg delayed release oral tablet (4 sources) Proton Pump Inhibitor Start: 08-21-2023 take 40 mg by mouth once daily Pantoprazole Active 40 MG PO DAILY August 21, 2023 1:00am predniSONE 20 mg oral tablet (1 source) Start: 11-17-2022 End: 11-22-2022 take 2 tablets by mouth once daily predniSONE (DELTASONE) 20 mg tablet Take 2 tablets by mouth once daily for 5 days. 10 tablet 0 11/17/2022 11/22/2022 Active Comment on above: Take 2 tablets by mo [facility] once daily for 5 days. silver sulfADIAZINE 10 mg/ml topical cream (1 source) Sulfonamide Antibacterial Start: 11-19-2023 Silver Sulfadiazine (Silvadene) 1 % cream Active 1 APPLIC TOPICAL TWICE A DAY November 19, 2023 12:00am apply a 1.5 mm thickness ubidecarenone 100 mg oral capsule (19 sources) Start: 07-30-2018 Coenzyme Q10 (Co Q-10) 100 mg capsule Active 100 MG PO DAILY July 30, 2018 1:00am coenzyme Q10 (CO ENZYME Q-10) 100 mg cap capsule Take 100 mg by mouth twice daily. Active Comment on above: Take 100 mg by mouth twice daily. valACYclovir 500 mg oral tablet (19 sources) Herpesvirus Nucleoside Analog DNA Polymerase Inhibitor, Herpes Simplex Virus Nucleoside Analog DNA Polymerase Inhibitor, Herpes Zoster Virus Nucleoside Analog DNA Polymerase Inhibitor Start: 01-29-20 take 1 tablet by mouth twice daily Valacyclovir (Valtrex) 500 mg tablet Active 500 MG PO TWICE A DAY January 28, 2019 12:00am Comment on above: Take 500 mg by mouth twice daily. vitamin b12 1 mg oral tablet (4 sources) Vitamin B12 Start: 08-21-19 take 1 tablet by mouth once daily Cyanocobalamin (Vitamin B-12) (Vitamin B-12) 1,000 mcg tablet Active 1000 MCG PO DAILY August 21, 2023 1:00am Completed/Discontinued Medications Medication Drug Class(es) Dates Sig (Normalized) Sig (Original) acetaminophen 500 mg oral tablet (20 sources) Start: 11-26-2017 End: 07-30-2018 take 1000 mg by mouth every eight hours Acetaminophen Discontinued 1000 MG PO EVERY 8 HOURS 90 November 26, 2017 12:00am July 30, 2018 3:53pm Start: 11-22-2017 End: 07-30-2018 take 2 tablets by mouth twice daily Acetaminophen Discontinued 2 TABLET PO TWICE A DAY November 22, 2017 12:00am July 30, 2018 3:53pm acetaminophen 325 mg / HYDROcodone bitartrate 5 mg oral tablet (12 sources) Opioid Agonist Start: 11-04-2023 End: 12-04-2023 take 1 tablet by mouth every six hours Hydrocodone-Acetaminophen Discontinued 1 TABLET PO EVERY 6 HOURS 6 2 November 04, 2023 December 04, 2023 1:01pm Start: 06-23-2015 End: 07-27-2015 take 1 tablet by mouth every six hours as needed Hydrocodone-Acetaminophen Discontinued 1 TABLET PO EVERY 6 HOURS NEEDED June 23, 2015 1:00am July 27, 2015 11:07am amoxicillin 500 mg oral capsule (2 sources) Penicillin-class Antibacterial Start: 05-27-2024 End: 09-28-2024 amoxicillin (AMOXIL) 500 mg capsule 05/27/2024 09/28/2024 Discontinued B-Complex With Vitamin C (10 sources) Start: 07-30-2018 End: 08-21-2023 take 1 capsule by mouth once daily B-Complex With Vitamin C Discontinued 1 CAP PO DAILY July 30, 2018 1:00am August 21, 2023 6:45am Start: 07-30-2018 End: 08-21-2023 take 1 capsule by mouth once daily B-Complex With Vitamin C Discontinued 1 CAP PO DAILY July 30, 2018 12:00am August 21, 2023 5:45am Start: 07-30-2018 take 1 capsule by mo ut once daily B-Complex With Vitamin C Active 1 CAP PO DAILY July 30, 2018 12:00am Start: 07-30-2018 take 1 capsule by mo uth once daily B-Complex With Vitamin C Active 1 CAP PO DAILY July 30, 2018 1:00am baclofen 10 mg oral tablet (4 sources) gamma-Aminobutyric Acid-ergic Agonist Start: 08-21-2023 End: 10-31-2023 take 15 mg by mouth every eight hours Baclofen Discontinued 15 MG PO Q8H August 21, 2023 1:00am October 31, 2023 3:19pm benzonatate 100 mg oral capsule (4 sources) Non-narcotic Antitussive Start: 11-17-2022 End: 09-28-2024 take 2 capsules by mouth every eight hours as needed benzonatate (TESSALON PERLES) 100 mg capsule Take 2 capsules by mouth three times daily as needed. 30 capsule 11/17/2022 09/28/2024 Discontinued Comment on above: Take 2 capsules by m outh three times daily as needed. 12 hr buPROPion hydrochloride 150 mg extended release oral tablet (19 sources) Aminoketone Start: 09-23-2019 End: 08-21-2023 take 150 mg by mouth once daily Bupropion Hcl Discontinued 150 MG PO DAILY September 23, 2019 1:00am August 21, 2023 6:45am End: 09-28-2024 take 1 tablet by mouth twice daily buPROPion SR (ZYBAN SR; WELLBUTRIN SR) 150 mg 12 hr tablet Take 150 mg by mouth twice daily. 09/28/2024 Discontinued Comment on above: Take 150 mg by mouth twice daily. cefTRIAXone 2000 mg injection (10 sources) Cephalosporin Antibacterial Start: 2017 End: 2017 take 2 g intravenously every twenty-four hours Ceftriaxone Discontinued 2 GM IV EVERY 24 HOURS November 26, 2017 12:00am January 28, 2018 5:08pm celecoxib 200 mg oral capsule (10 sources) Nonsteroidal Anti-inflammatory Drug Start: 2017 End: 2017 take 200 mg by mouth twice daily Celecoxib Discontinued 200 MG PO TWICE A DAY November 22, 2017 12:00am July 30, 2018 3:53pm cyclobenzaprine hydrochloride 10 mg oral tablet (9 sources) Muscle Relaxant Start: 2021 End: 2024 take 1 tablet by mouth three times daily as needed for muscle spasms cyclobenzaprine (FLEXERIL) 10 mg tablet Indications: Strain of neck muscle, initial encounter Take 1 tablet by mouth three times daily as needed for muscle spasm. 12 tablet 09/03/2021 09/28/2024 Discontinued Comment on above: Take 1 tablet by hattie th three times daily as needed for muscle spasm. doxycycline hyclate 100 mg oral tablet (12 sources) Tetracycline-class Drug Start: 2022 End: 2022 take 1 tablet by mouth twice daily doxycycline (VIBRA-TABS) 100 mg tablet Take 1 tablet by mouth twice daily for 7 days. 14 tablet 11/17/2022 11/24/2022 Start: 07-30-2018 End: 01-28-2019 Doxycycline Hyclate Disconti nued PO 180 July 30, 2018 1:00am January 28, 2019 4:17pm Comment on above: Take 1 tablet by hattie th twice daily for 7 days. ergocalciferol 1.25 mg oral capsule (10 sources) Provitamin D2 Compound Start: 06-23-20 End: 07-30-20 take 2000 [IU] by mouth once daily Ergocalciferol (Vitamin D2) Discontinued 2000 UNITS PO DAILY June 23, 2015 1:00am July 30, 2018 3:46pm gabapentin 300 mg oral capsule (10 sources) Anti-epileptic Agent Start: 12-12-19 End: 07-30-20 take 300 mg by mouth three times daily Gabapentin Discontinued 300 MG PO THREE TIMES A DAY December 11, 2017 12:00am July 30, 2018 3:53pm 24 hr isosorbide mononitrate 30 mg extended release oral tablet (10 sources) Nitrate Vasodilator Start: 01-25-20 End: 01-29-20 take 30 mg by mouth once daily Isosorbide Mononitrate Discontinued 30 MG PO daily January 24, 2018 12:00am January 28, 2018 5:08pm Lactobacillus acidophilus (10 sources) Start: 11-27-19 End: 01-29-20 Lactobacillus Acidophilus Discontinued 1 EACH PO THREE TIMES A DAY November 25, 2017 11:00pm January 28, 2019 3:17pm Start: 11-26-2017 End: 01-28-2019 Lactobacillus Acidophilus Di scontinued 1 EACH PO THREE TIMES A DAY November 26, 2017 12:00am January 28, 2019 4:17pm magnesium oxide 400 mg oral tablet (20 sources) Start: 06-23-2015 End: 01-28-2019 take 350 mg by mouth once daily Magnesium Oxide Discontinued 350 MG PO DAILY June 23, 2015 11:08am January 28, 2019 4:15pm Start: 06-03-2014 End: 06-23-2015 take 400 mg by mouth twice daily Magnesium Oxide Discontinued 400 MG PO TWICE A DAY June 03, 2014 12:00am June 23, 2015 11:08am nebivolol 5 mg oral tablet (20 sources) Start: 08-21-2023 End: 10-29-2023 take 2 tablets by mouth once daily Nebivolol (Bystolic) 5 mg tablet Discontinued 10 MG PO daily August 21, 2023 1:00am October 29, 2023 2:05pm Start: 12-30-2017 End: 08-21-2023 take 1 tablet by mouth once daily Nebivolol (Bystolic) 5 mg tablet Discontinued 5 MG PO daily November 29, 2022 3:48pm August 21, 2023 6:45am Start: 06-01-2014 End: 09-28-2024 take 20 mg by mouth once daily Nebivolol Discontinued 20 MG PO DAILY June 01, 2014 12:00am December 30, 2017 5:09pm Comment on above: Take by mouth once d aily. oxyCODONE hydrochloride 5 mg oral tablet (10 sources) Opioid Agonist Start: 11-27-19 End: 07-30-20 18 take 5-10 mg by mouth every six hours as needed Oxycodone Discontinued 5 - 10 MG PO EVERY 6 HOURS NEEDED 60 7 November 26, 2017 7:25am July 30, 2018 3:54pm propranolol hydrochloride 10 mg oral tablet (10 sources) beta-Adrenergic Braxton Start: 07-30-20 End: 01-29-20 take 5 mg by mouth at bedtime Propranolol Discontinued 5 MG PO AT BEDTIME July 30, 2018 1:00am January 28, 2019 4:17pm 200 ml vancomycin 5 mg/ml injection (20 sources) Glycopeptide Antibacterial Start: 11-27-19 End: 01-29-20 18 Vancomycin In Dextrose 5 % Discontinued 1200 MG IV Q12H December 11, 2017 3:43pm January 28, 2018 5:07pm vilazodone hydrochloride 20 mg oral tablet (20 sources) Start: 06-01-20 14 End: 09-23-19 take 1 tablet by mouth once daily Vilazodone (Viibryd) 20 mg tablet Discontinued 40 MG PO daily January 28, 2019 4:15pm September 23, 2019 4:23pm End: 06-01-2022 take 10 mg by mouth once daily at breakfast vilazodone (VIIBRYD) 20 mg Take 10 mg by mouth daily with breakfast. 0 06/01/2022 Discontinued Comment on above: Take 10 mg by mouth daily with breakfast. Problems Active Problems Problem Classification Problem Date Documented Date Episodic/Chronic Abdominal pain (3 sources) Pain in female pelvis; Translations: [Pelvic and perineal pain] Episodic Cardiac dysrhythmias (20 sources) Atrial fibrillation; Translations: [Unspecified atrial fibrillation] Onset: 03-31-2024 01-02-2018 Chronic Cardiac dysrhythmias (4 sources) Palpitations; Translations: [Palpitations] 08-21-2023 Episodic Disorders of lipid metabolism (10 sources) Pure hypercholesterolemia; Translations: [Pure hypercholesterolemia, unspecified] 02-04-2023 Chronic Essential hypertension (5 sources) Malignant hypertension; Translations: [Essential (primary) hypertension] Onset: 04-15-2024 08-21-2023 Chronic Fluid and electrolyte disorders (10 sources) Hypokalemia; Translations: [Hypokalemia] 01-28-2018 Episodic Genitourinary symptoms and ill-defined conditions (2 sources) Blood in urine; Translations: [Hematuria, unspecified] Onset: 10-14-2024 09-28-2024 Episodic Immunizations and screening for infectious disease (1 source) Patient encounter status; Translations: [Encounter for screening for human papillomavirus (HPV)] Episodic Mood disorders (10 sources) Atypical depressive disorder; 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] 01-28-2018 Chronic Other and unspecified benign neoplasm (10 sources) History of polyp of colon; Translations: [Personal history of colonic polyps] 01-29-2022 Episodic Other and unspecified benign neoplasm (3 sources) Personal history of colonic polyps; Translations: [Personal history of colonic polyps] Episodic Other circulatory disease (10 sources) Low blood pressure; Translations: [Hypotension, unspecified] 01-28-2018 Episodic Other connective tissue disease (1 source) Sleep related leg cramps; Translations: [Sleep related leg cramps] Onset: 07-23-2024 Chronic Other connective tissue disease (1 source) Pain of left lower leg; Translations: [Pain in left lower leg] 12-12-2023 Episodic Other female genital disorders (9 sources) Abnormal uterine bleeding; Translations: [Other specified abnormal uterine and vaginal bleeding] Onset: 12-17-2012 12-17-2012 Chronic Other lower respiratory disease (1 source) Cough; Translations: [Acute cough] 11-24-2022 Episodic Other lower respiratory disease (1 source) Dyspnea; Translations: [Shortness of breath] 05-31-2024 Episodic Other non-traumatic joint disorders (10 sources) Pain in left knee; Translations: [Pain and swelling of left knee] 01-28-2018 Episodic Other screening for suspected conditions (not mental disorders or infectious disease) (20 sources) Electrocardiogram abnormal; Translations: [Abnormal electrocardiogram [ECG] [EKG]] Episodic Other upper respiratory infections (1 source) Chronic sinusitis; Translations: [Chronic sinusitis, unspecified] Chronic Substance-related disorders (11 sources) Tobacco dependence syndrome; Translations: [Nicotine dependence, unspecified, uncomplicated] Onset: 02-04-2024 01-28-2018 Chronic Syncope (10 sources) Syncope; Translations: [Syncope and collapse] 09-23-2019 Episodic Unclassified (1 source) Cough, unspecified; Translations: [Cough, unspecified] Onset: 06-23-2024 Past or Other Problems Problem Classification Problem Date Documented Da te Episodic/Chronic Other connective tissue disease (2 sources) Pain in left lower leg; Translations: [Pain in limb] Onset: 12-21-2023 12-12-2023 Episodic Other non-epithelial cancer of skin (11 sources) Malignant basal cell neoplasm of skin; Translations: [Basal cell carcinoma of skin, unspecified] Onset: 10-29-2023 10-29-2023 Episodic Results Test Name Value Interpretation Reference Range Facility CT Abd/Pelvis W/WO Contrasto n 10-02-2024 CT Abd/Pelvis W/WO Contrast [facility] [address] [address] CT Abd/Pelvis W/WO Contrast MR#: [id number] Acct: [id number] Name: REYNA LOPEZ Rep #: [id number] : 1965 F 58 From: Jose Mcbride MD PCP: Dr. Jose Rhoades MD Status: REG CLI Study: CT Abd/Pelvis W/WO Contrast Date of Exam: 09/13 09/05 Exam# [id number] Ordering Dr: Austin Ríos MD PROCEDURE: CT UROGRAM WITHOUT AND WITH CONTRAST REASON FOR EXAM: Asymptomatic microscopic hematuria. TECHNIQUE: CT urogram protocol. Contiguous axial scans of 3.[address] of the kidneys without contrast followed by CT of the abdomen and pelvis with intravenous contrast during parenchymal and excretory phases. Coronal and sagittal reconstructed images were performed. CONTRAST: Isovue-300. 89 mL. COMPARISON: Ultrasound abdomen dated 12/22/2020 FINDINGS: UROGRAPHIC FINDINGS: Kidneys: Normal renal sizes. No urolithiasis. No hydronephrosis. No cysts or solid renal masses. Symmetrical excretion of contrast. Ureters: No suspicious filling defects or strictures. Bilateral extrarenal pelves. Bladder: Normal bladder contour and wall thickness. OTHER FINDINGS: Lung bases: Clear Liver: Unremarkable. Gallbladder: Unremarkable. Spleen: Unremarkable. Pancreas: Unremarkable. Adrenals: Unremarkable. Reproductive organs: Enlarged lobulated body of the uterus with macrocalcifications. Bowel: Diverticulosis. Diverticuli are scattered throughout the colon. No evidence of diverticulitis. Appendix: Normal. Lymph nodes: No suspicious lymph node enlargement. Vasculature: Atherosclerotic calcific disease of the lower abdominal aorta and iliac arteries. Peritoneum / Retroperitoneum: No ascites. No free air. Bones: Multilevel spondylosis and degenerative disc disease. Lower thorax: Unremarkable. Soft tissues: Unremarkable. CT/CT Abd/Pelvis W/WO Contrast IMPRESSION: 1. No signs of obstructive uropathy or renal masses. 2. Calcified uterine fibroids. 3. Colon diverticulosis without diverticulitis. 4. Other nonacute findings detailed above Reading Location: [facility] CC: Dr. Jose Rhoades MD; Dr. Austin Ríos MD Technical Sales Support Specialist: Signed Normal [facility] CNOVon 09-28-2024 CNOV Office Visit (OBGYWM ) REYNA LOPEZ ([id number]) 1965 F Date Time Provider Department 09/28/24 1:45 PM OKSANA GLASGOW OBGYWM During your visit today, we recorded the following information about you: Blood pressure Weight 146/86 74.4 kg Oksana Glasgow APRN.TINNING MACHINE SET UP OPERATOR 09/28/2024 3:52 PM Signed Reyna London Raphael is a 58 year old female who presents for problem visit second opinion for bladder cancer. Hematuria. HPI: Patient presents today with wanting a second opinion. She was seen at the beginning of the month by the community health nurse practitioner for a possible UTI. Patient was placed on an antibiotic and then called 3 days later with the urine culture results showing no infection and was told she could stop the antibiotic, the CHRONOMETER ADJUSTER told her that she needs to follow-up with urology for possible bladder cancer based on hematuria. OB History Gravida0 Para0 Term0 Preterm0 AB0 Living0 SAB0 IAB0 Ectopic0 Multiple0 Live Births0 Automation Analyst History LMP: 11/20/2015, Postmenopausal Age at Menarche: Age at First : Age at Menopause: Automation Analyst History Comments: Sexual Activity: Yes; Male Contraception: [...] History Tobacco Use Smoking status: Every Day Current packs/day: 0.75 Average packs/day: 0.8 packs/day for 17.0 years (12.8 ttl pk-yrs) Types: Cigarettes Smokeless tobacco: Never Substance Use Topics Alcohol use: Yes Alcohol/week: 1.0 - 2.0 standard drink of alcohol Types: 1 - 2 Cans of Beer (12oz) per week Comment: weekly Drug use: No Current Outpatient Medications Medication Sig FLUoxetine (PROZAC) 20 mg capsule Take by mouth. metoprolol succinate ER (TOPROL XL) 100 mg amoxicillin (AMOXIL) 500 mg capsule benzonatate (TESSALON PERLES) 100 mg capsule Take 2 capsules by mouth three times daily as needed. (Patient not taking: Reported on 05/31/2024) albuterol HFA (PROAIR HFA) 90 mcg/actuation inhaler Inhale 2 Puffs as instructed every 6 hours as needed. cyclobenzaprine (FLEXERIL) 10 mg tablet Take 1 tablet by mouth three times daily as needed for muscle spasm. (Patient not taking: Reported on 11/17/2022) mecobalamin, vitamin B12, (B12 ACTIVE) 1,000 mcg chew Take by mouth. buPROPion SR (ZYBAN SR; WELLBUTRIN SR) 150 mg 12 hr tablet Take 150 mg by mouth twice daily. (Patient not taking: Reported on 05/31/2024) cloNIDine HCl (CATAPRES) 0.1 mg tablet TAKE [...] for this visit. Allergies As of Date: 09/28/2024 Allergen Noted Reaction BEES 08/24/2010 Anaphylaxis CHLORHEXIDINE 01/25/2017 Itching and Other: See Comments CODEINE 02/26/2008 Fully Assessed 05/31/2024 REVIEW OF SYSTEMS Bladder: No dysuria, gross hematuria, urinary frequency, urinary urgency, or incontinence. Expanded ROS: N/A Allergies and current medication updated:Yes SENSITIVE EXAM: Sensitive exam not performed. EXAM: BP 146/86 Wt 164 lb (74.4kg) LMP 11/20/2015 GENERAL: pleasant, female in no apparent distress HEENT: Normocephalic, atraumatic, mucus membranes moist, and no lesions CHEST: Normal inspiratory effort NEURO: alert and oriented x3,exam grossly non-focal EXTREMITIES: normal ASSESSMENT/PLAN: 1. Hematuria, unspecified type - ICD9: 599.70, ICD10: R31.9 - UA DIP, URINE (POC) Patient does have an appointment set up with urology at [facility] for a CT scan and a cystoscopy with Dr Ríos. Encouraged patient to keep appointments for further evaluation of the hematuria. Oksana Glasgow APRN.TINNING MACHINE SET UP OPERATOR Medical Decision Making: Problems: (more content not included)... Normal [facility] UA DIP, URINE (POC)on 2024 BILIRUBIN UA (POCT) Negative Negative [facility] CLARITY UA (POCT) Clear [facility] COLOR UA (POCT) Yellow [facility] GLUCOSE UA (POCT) Negative Negative mg/dL [facility] Hemoglobin Ql (U) Small Abnormal Negative [facility] Interpretation and review of laboratory results Abnormal [facility] KETONE UA (POCT) Negative Negative mg/dL [facility] LEUKOCYTES UA (POCT) Negative Negative [facility] NITRITE UA (POCT) Negative Negative [facility] PH UA (POCT) 5.5 4.5 - 8.0 [facility] Protein Ql (U) Negative Negative mg/dL [facility] SPECIFIC GRAVITY UA (POCT) >=1.030 1.005 - 1.030 [facility] UROBILINOGEN UA (POCT) 0.2 Kristy l E.U./dL [facility] Location:[facility], [address], [place], [place], [id number] [place] [address] POINT OF CARE [facility] Protein Electroph, Son 06-26 Albumin [Mass/Vol] 3.9 g/dL Normal 2.9-4.4 [facility] Comment on above: Order Comment: Order Date: 06/25/24Order Info: 0060-1 - PROEL Performed By: #### L 503.6550, L501.5200, L3100.3450, L500.4050 ####[facility] [address] [place], [address] Albumin/Globulin [Mass ratio] 1.3 {ratio} Normal 0.7-1.7 [facility] Comment on above: Order Comment: Order Date: 06/25/24Order Info: 0060-1 - PROEL Performed By: #### L 503.6550, L501.5200, L3100.3450, L500.4050 ####[facility] [address] [place], [address] ALPHA-1 GLOBUL 0.2 g/dL Normal 0.0-0.4 [facility] Comment on above: Order Comment: Order Date: 06/25/24Order Info: 0060-1 - PROEL Performed By: #### L 503.6550, L501.5200, L3100.3450, L500.4050 ####[facility] [address] [place], [address] ALPHA-2 GLOBUL 0.8 g/dL Normal 0.4-1.0 [facility] Comment on above: Order Comment: Order Date: 06/25/24Order Info: 0060-1 - PROEL Performed By: #### L 503.6550, L501.5200, L3100.3450, L500.4050 ####[facility] [address] [place], [address] BETA GLOBULIN 1.0 g/dL Normal 0.7-1.3 [facility] Comment on above: Order Comment: Order Date: 06/25/24Order Info: 0060-1 - PROEL Performed By: #### L 503.6550, L501.5200, L3100.3450, L500.4050 ####[facility] [address] [place], [address] GAMMA GLOBULIN 0.8 g/dL Normal 0.4-1.8 [facility] Comment on above: Order Comment: Order Date: 06/25/24Order Info: 0060-1 - PROEL Performed By: #### L 503.6550, L501.5200, L3100.3450, L500.4050 ####[facility] [address] [place], [address] Globulin (S) [Mass/Vol] 2.9 g/dL Normal 2.2-3.9 [facility] Comment on above: Order Comment: Order Date: 06/25/24Order Info: 0060-1 - PROEL Performed By: #### L 503.6550, L501.5200, L3100.3450, L500.4050 ####[facility] [address] [place], [address] INTERPRETATION Comment Normal . [facility] Comment on above: Order Comment: Order Date: 06/25/24Order Info: 0060-1 - PROEL Result Comment: Prot ein electrophoresis scan will follow via computer, mail, or sales support assistant delivery. Performed By: #### L 503.6550, L501.5200, L3100.3450, L500.4050 ####[facility] [address] [place], [address] M-SPIKE Not Observed Normal Not Observed [facility] Comment on above: Order Comment: Order Date: 06/25/24Order Info: 0060-1 - PROEL Performed By: #### L 503.6550, L501.5200, L3100.3450, L500.4050 ####[facility] [address] [place], [address] NOTE: Comment Normal . [facility] Comment on above: Order Comment: Order Date: 06/25/24Order Info: 0060-1 - PROEL Result Comment: The SPE pattern appears unremarkable. Evidence of monoclonal protein is not apparent. Performed at: [address] [id number] Roll Over Press Operator: Shan Mari PhD, Phone: [phone] Performed By: #### L 503.6550, L501.5200, L3100.3450, L500.4050 ####[facility] [address] [place], [address] Protein [Mass/Vol] 6.8 g/dL Normal 6.0-8.5 [facility] Comment on above: Order Comment: Order Date: 06/25/24Order Info: 0060-1 - PROEL Performed By: #### L 503.6550, L501.5200, L3100.3450, L500.4050 ####[facility] [address] [place], [address] Comprehensive Metabolic Prof ilon 06-25-2024 Albumin [Mass/Vol] 3.8 g/dL Normal 3.2-5.0 [facility] Comment on above: Order Comment: Order Date: 06/25/24 Order Info: 0786-1 - CMP Order Info: [id number] - MG Order Info: 2276-4 - MAR Performed By: #### L 503.6550, L501.5200, L3100.3450, L500.4050 #### [facility] [address] [place], [address] Albumin/Globulin [Mass ratio] 1.1 {ratio} Normal 0.9-2.4 [facility] Comment on above: Order Comment: Order Date: 06/25/24 Order Info: 0786-1 - CMP Order Info: [id number] - MG Order Info: 2276-4 - MAR Performed By: #### L 503.6550, L501.5200, L3100.3450, L500.4050 #### [facility] [address] [place], [address] ALK P 77 U/L Normal 45-117 [facility] Comment on above: Order Comment: Order Date: 06/25/24 Order Info: 0786-1 - CMP Order Info: [id number] - MG Order Info: 2275-11 - MAR Performed By: #### L 503.6550, L501.5200, L3100.3450, L500.4050 #### [facility] [address] [place], [address] ALT [Catalytic activity/Vol] 33 U/L Normal 13-56 [facility] Comment on above: Order Comment: Order Date: 06/25/24 Order Info: 0786-1 - CMP Order Info: [id number] - MG Order Info: 2275-11 - MAR Performed By: #### L 503.6550, L501.5200, L3100.3450, L500.4050 #### [facility] [address] [place], [address] AST [Catalytic activity/Vol] 24 U/L Normal 15-37 [facility] Comment on above: Order Comment: Order Date: 06/25/24 Order Info: 0786-1 - CMP Order Info: [id number] - MG Order Info: 2275-11 - MAR Performed By: #### L 503.6550, L501.5200, L3100.3450, L500.4050 #### [facility] [address] [place], [address] Bilirubin [Mass/Vol] 0.40 mg/dL Normal 0.20-1.00 [facility] Comment on above: Order Comment: Order Date: 06/25/24 Order Info: 0786-1 - CMP Order Info: [id number] - MG Order Info: 2275-11 - MAR Result Comment: For patients on eltrombopag therapy, use of Dimension [place] TBIL is not recommended. Performed By: #### L 503.6550, L501.5200, L3100.3450, L500.4050 #### [facility] [address] [place], [address] BUN/CRE 17.4 RATIO Normal 10-20 [facility] Comment on above: Order Comment: Order Date: 06/25/24 Order Info: 0786-1 - CMP Order Info: [id number] - MG Order Info: 2275-11 - MAR Performed By: #### L 503.6550, L501.5200, L3100.3450, L500.4050 #### [facility] [address] [place], [place], [address] CA,Total 9.1 mg/dL Normal 8.5-10.1 [facility] Comment on above: Order Comment: Order Date: 06/25/24 Order Info: 0786-1 - CMP Order Info: [id number] - MG Order Info: 2275-11 - MAR Performed By: #### L 503.6550, L501.5200, L3100.3450, L500.4050 #### [facility] [address] [place], [place], [address] Chloride [Moles/Vol] 106 mmol/L Normal 98-107 [facility] Comment on above: Order Comment: Order Date: 06/25/24 Order Info: 0786-1 - CMP Order Info: [id number] - MG Order Info: 2275-11 - MAR Performed By: #### L 503.6550, L501.5200, L3100.3450, L500.4050 #### [facility] [address] [place], [place], [address] CO2 [Moles/Vol] 27.0 mmol/L Normal 21.0-32.0 [facility] Comment on above: Order Comment: Order Date: 06/25/24 Order Info: 0786-1 - CMP Order Info: [id number] - MG Order Info: 4 - MAR Performed By: #### L 503.6550, L501.5200, L3100.3450, L500.4050 #### [facility] [address] [place], [place], [address] Creatinine [Mass/Vol] 0.92 mg/dL Normal 0.55-1.02 [facility] Comment on above: Order Comment: Order Date: 06/25/24 Order Info: 0786-1 - CMP Order Info: [id number] - MG Order Info: 2275-11 - MAR Result Comment: The validity of the calculated GFR GFRAA in patients over 70 years has not been determined. Clinical correlation is essential. Performed By: #### L 503.6550, L501.5200, L3100.3450, L500.4050 #### [facility] [address] [place], [address] EST GFR - AA 80 mL/min Normal >60 [facility] Comment on above: Order Comment: Order Date: 06/25/24 Order Info: 07- - CMP Order Info: [id number] - MG Order Info: 2275-11 - MAR Result Comment: Afri can [place] GFR Calc Performed By: #### L 503.6550, L501.5200, L3100.3450, L500.4050 #### [facility] [address] [place], [address] GAP 5 Normal 5-15 [facility] Comment on above: Order Comment: Order Date: 06/25/24 Order Info: 0786 - CMP Order Info: [id number] - MG Order Info: 2275-11 - MAR Performed By: #### L 503.6550, L501.5200, L3100.3450, L500.4050 #### [facility] [address] [place], [place], [address] GFR/1.73 sq M.predicted among non-blacks MDRD (S/P/Bld) [Vol rate/Area] 66 mL/min/{1.73_m2} Normal >60 [facility] Comment on above: Order Comment: Order Date: 06/25/24 Order Info: 0786-1 - CMP Order Info: [id number] - MG Order Info: 2275-11 - MAR Result Comment: Non- GFR Calc Performed By: #### L 503.6550, L501.5200, L3100.3450, L500.4050 #### [facility] [address] [place], [place], [address] Globulin (S) [Mass/Vol] 3.4 g/dL Normal 2.2-4.2 [facility] Comment on above: Order Comment: Order Date: 06/25/24 Order Info: 0786-1 - CMP Order Info: [id number] - MG Order Info: 2275-4 - MAR Performed By: #### L 503.6550, L501.5200, L3100.3450, L500.4050 #### [facility] [address] [place], [place], [address] Glucose [Mass/Vol] 104 mg/dL Normal 74-106 [facility] Comment on above: Order Comment: Order Date: 06/25/24 Order Info: 785-1 - CMP Order Info: [id number] - MG Order Info: 2275-4 - MAR Result Comment: Fast ing Glucose result from 100 to 125 mg/dL suggests IMPAIRED HOMEOSTASIS per A.D.A. criteria. Performed By: #### L 503.6550, L501.5200, L3100.3450, L500.4050 #### [facility] [address] [place], [place], [address] Potassium [Moles/Vol] 4.7 mmol/L Normal 3.5-5.1 [facility] Comment on above: Order Comment: Order Date: 06/25/24 Order Info: 0786-1 - CMP Order Info: [id number] - MG Order Info: 2275-4 - MAR Performed By: #### L 503.6550, L501.5200, L3100.3450, L500.4050 #### [facility] [address] [place], [address] Sodium [Moles/Vol] 138 mmol/L Normal 136-145 [facility] Comment on above: Order Comment: Order Date: 06/25/24 Order Info: 0786-1 - CMP Order Info: [id number] - MG Order Info: 2275-4 - MAR Performed By: #### L 503.6550, L501.5200, L3100.3450, L500.4050 #### [facility] [address] [place], [place], [address] T PROT 7.2 g/dL Normal 6.4-8.2 [facility] Comment on above: Order Comment: Order Date: 06/25/24 Order Info: 0786-1 - CMP Order Info: [id number] - MG Order Info: 2275-11 - MAR Performed By: #### L 503.6550, L501.5200, L3100.3450, L500.4050 #### [facility] [address] [place], [place], [address] Urea nitrogen [Mass/Vol] 16 mg/dL Normal 7-18 [facility] Comment on above: Order Comment: Order Date: 06/25/24 Order Info: 0786 - CMP Order Info: [id number] - MG Order Info: 2275-11 - MAR Performed By: #### L 503.6550, L501.5200, L3100.3450, L500.4050 #### [facility] [address] [place], [place], [address] Ferritinon 06-25-2024 Ferritin [Mass/Vol] 64 ng/mL Normal 8-252 [facility] Comment on above: Order Comment: Order Date: 06/25/24 Order Info: 0786-1 - CMP Order Info: [id number] - MG Order Info: 2275-11 - MAR Performed By: #### L 503.6550, L501.5200, L3100.3450, L500.4050 #### [facility] [address] [place], [place], [address] Magnesiumon 06-25-2024 Magnesium [Mass/Vol] 2.0 mg/dL Normal 1.6-2.6 [facility] Comment on above: Order Comment: Order Date: 06/25/24 Order Info: 0786-1 - CMP Order Info: [id number] - MG Order Info: 2275-11 - MAR Performed By: #### L 503.6550, L501.5200, L3100.3450, L500.4050 #### [facility] [address] [place], [address] Basic Metabolic Profile (BMP )on 05-31-2024 BUN/CRE 13.7 RATIO Normal 05-31 [facility] Comment on above: Order Comment: 'TROP ' Serial specimen #1, #2 or #3: 1 Performed By: #### L 500.2500, L501.4020, L300.8000, L100.0100 ####[facility] [address] [place], [address] CA,Total 9.2 mg/dL Normal 8.5-10.1 [facility] Comment on above: Order Comment: 'TROP ' Serial specimen #1, #2 or #3: 1 Performed By: #### L 500.2500, L501.4020, L300.8000, L100.0100 ####[facility] [address] [place], [address] Chloride [Moles/Vol] 106 mmol/L Normal 98-107 [facility] Comment on above: Order Comment: 'TROP ' Serial specimen #1, #2 or #3: 1 Performed By: #### L 500.2500, L501.4020, L300.8000, L100.0100 ####[facility] [address] [place], [address] CO2 [Moles/Vol] 26.0 mmol/L Normal 21.0-32.0 [facility] Comment on above: Order Comment: 'TROP ' Serial specimen #1, #2 or #3: 1 Performed By: #### L 500.2500, L501.4020, L300.8000, L100.0100 ####[facility] [address] [place], [address] Creatinine [Mass/Vol] 0.87 mg/dL Normal 0.55-1.02 [facility] Comment on above: Order Comment: 'TROP ' Serial specimen #1, #2 or #3: 1 Result Comment: The validity of the calculated GFR GFRAA in patients over 70 years has not been determined. Clinical correlation is essential. Performed By: #### L 500.2500, L501.4020, L300.8000, L100.0100 ####[facility] [address] [place], [address] ECRCL 66.87 ml/min Normal [facility] Comment on above: Order Comment: 'TROP ' Serial specimen #1, #2 or #3: 1 Performed By: #### L 500.2500, L501.4020, L300.8000, L100.0100 ####[facility] [address] [place], [address] EST GFR - AA 85 mL/min Normal >60 [facility] Comment on above: Order Comment: 'TROP ' Serial specimen #1, #2 or #3: 1 Result Comment: Afri can [place] GFR Calc Performed By: #### L 500.2500, L501.4020, L300.8000, L100.0100 ####[facility] [address] [place], [address] GAP 6 Normal 5-15 [facility] Comment on above: Order Comment: 'TROP ' Serial specimen #1, #2 or #3: 1 Performed By: #### L 500.2500, L501.4020, L300.8000, L100.0100 ####[facility] [address] [place], [address] GFR/1.73 sq M.predicted among non-blacks MDRD (S/P/Bld) [Vol rate/Area] 70 mL/min/{1.73_m2} Normal >60 [facility] Comment on above: Order Comment: 'TROP ' Serial specimen #1, #2 or #3: 1 Result Comment: Non- GFR Calc Performed By: #### L 500.2500, L501.4020, L300.8000, L100.0100 ####[facility] [address] [place], [address] Glucose [Mass/Vol] 100 mg/dL Normal 74-106 [facility] Comment on above: Order Comment: 'TROP ' Serial specimen #1, #2 or #3: 1 Result Comment: Fast ing Glucose result from 100 to 125 mg/dL suggests IMPAIRED HOMEOSTASIS per A.D.A. criteria. Performed By: #### L 500.2500, L501.4020, L300.8000, L100.0100 ####[facility] [address] [place], [address] Potassium [Moles/Vol] 4.3 mmol/L Normal 3.5-5.1 [facility] Comment on above: Order Comment: 'TROP ' Serial specimen #1, #2 or #3: 1 Performed By: #### L 500.2500, L501.4020, L300.8000, L100.0100 ####[facility] [address] [place], [address] Sodium [Moles/Vol] 138 mmol/L Normal 136-145 [facility] Comment on above: Order Comment: 'TROP ' Serial specimen #1, #2 or #3: 1 Performed By: #### L 500.2500, L501.4020, L300.8000, L100.0100 ####[facility] [address] [place], [address] Urea nitrogen [Mass/Vol] 12 mg/dL Normal 7-18 [facility] Comment on above: Order Comment: 'TROP ' Serial specimen #1, #2 or #3: 1 Performed By: #### L 500.2500, L501.4020, L300.8000, L100.0100 ####[facility] [address] [place], [address] CBC W/Diff, Automatedon 10-2 0-2024 Absolute Lymph 2.53 X10 3/uL Normal 0.83-4.51 [facility] Comment on above: Performed By: #### L 500.2500, L501.4020, L300.8000, L100.0100 ####[facility] [address] [place], [address] Absolute Neut 7.0 X10 3/uL Normal 2.0-7.7 [facility] Comment on above: Performed By: #### L 500.2500, L501.4020, L300.8000, L100.0100 ####[facility] [address] [place], [address] Basophils/100 WBC (Bld) 0.5 % Normal 0-1 [facility] Comment on above: Performed By: #### L 500.2500, L501.4020, L300.8000, L100.0100 ####[facility] [address] [place], [address] Eosinophils/100 WBC (Bld) 1.6 % Normal 0-5 [facility] Comment on above: Performed By: #### L 500.2500, L501.4020, L300.8000, L100.0100 ####[facility] [address] [place], [address] Erythrocyte distribution width (RBC) [Ratio] 14.0 % Normal 11.6-14.6 [facility] Comment on above: Performed By: #### L 500.2500, L501.4020, L300.8000, L100.0100 ####[facility] [address] [place], [address] Hematocrit (Bld) [Volume fraction] 41.6 % Normal 37-47 [facility] Comment on above: Performed By: #### L 500.2500, L501.4020, L300.8000, L100.0100 ####[facility] [address] [place], [address] Hemoglobin (Bld) [Mass/Vol] 14.0 g/dL Normal 12.0-15.0 [facility] Comment on above: Performed By: #### L 500.2500, L501.4020, L300.8000, L100.0100 ####[facility] [address] [place], [address] IG% 0.400 Normal 0.0-0.9 [facility] Comment on above: Result Comment: IG% - Immature Granulocytes (promyelocytes, myelocytes and metamyelocytes) > 1% indicates that a LEFT SHIFT is Present. Performed By: #### L 500.2500, L501.4020, L300.8000, L100.0100 ####[facility] [address] [place], [address] Lymphocytes/100 WBC (Bld) 22.8 % Normal 19-41 [facility] Comment on above: Performed By: #### L 500.2500, L501.4020, L300.8000, L100.0100 ####[facility] [address] [place], [address] MCH (RBC) [Entitic mass] 31.3 pg Normal 27.0-32.0 [facility] Comment on above: Performed By: #### L 500.2500, L501.4020, L300.8000, L100.0100 ####[facility] [address] [place], [address] MCHC (RBC) [Mass/Vol] 33.7 g/dL Normal 32-36 [facility] Comment on above: Performed By: #### L 500.2500, L501.4020, L300.8000, L100.0100 ####[facility] [address] [place], [address] MCV (RBC) [Entitic vol] 93.1 fL Normal 81-99 [facility] Comment on above: Performed By: #### L 500.2500, L501.4020, L300.8000, L100.0100 ####[facility] [address] [place], [address] Monocytes/100 WBC (Bld) 11.6 % High 0-10 [facility] Comment on above: Performed By: #### L 500.2500, L501.4020, L300.8000, L100.0100 ####[facility] [address] [place], [address] Neutrophils/100 WBC (Bld) 63.1 % Normal 47-70 [facility] Comment on above: Performed By: #### L 500.2500, L501.4020, L300.8000, L100.0100 ####[facility] [address] [place], [address] Nucleated RBC (Bld) [#/Vol] 0 10*3/uL Normal 0-5 [facility] Comment on above: Performed By: #### L 500.2500, L501.4020, L300.8000, L100.0100 ####[facility] [address] [place], [address] Platelet mean volume (Bld) [Entitic vol] 10.4 fL Normal 6.2-12.0 [facility] Comment on above: Performed By: #### L 500.2500, L501.4020, L300.8000, L100.0100 ####[facility] [address] [place], [address] Platelets (Bld) [#/Vol] 381 10*3/uL Normal 150-450 [facility] Comment on above: Performed By: #### L 500.2500, L501.4020, L300.8000, L100.0100 ####[facility] [address] [place], [address] RBC (Bld) [#/Vol] 4.47 10*6/uL Normal 4.2-5.4 [facility] Comment on above: Performed By: #### L 500.2500, L501.4020, L300.8000, L100.0100 ####[facility] [address] [place], [address] RDW SD 47.8 fl High 35.1-43.9 [facility] Comment on above: Performed By: #### L 500.2500, L501.4020, L300.8000, L100.0100 ####[facility] [address] [place], [address] WBC (Bld) [#/Vol] 11.1 10*3/uL High 4.4-11.0 [facility] Comment on above: Performed By: #### L 500.2500, L501.4020, L300.8000, L100.0100 ####[facility] [address] [place], [address] CNOVon 05-31-2024 CNOV Office Visit ([facility] ) REYNA LOPEZ ([id number]) 1965 F Date Time Provider Department 05/31/24 11:00 AM CLEOPATRA JACKSON [facility] During your visit today, we recorded the following information about you: Temperature Pulse Respiration Blood pressure 100 degrees 110/minute 20/minute 147/83 Weight 70.9 kg Cleopatra Jackson APRN.CNP 05/31/2024 11:35 AM Signed Subjective HPI HPI Reyna London Raphael is a 58 year old female who presents today for CC of cough, sob, fever. This started 1 week ago/severe today. Has tried otc medication for relief. Symptoms are worsened by nothing. Hx of copd. .Patient presents with: Cough: Chest congestion x1 week, fever x3 days PAST MEDICAL HISTORY Diagnosis Date Chronic fatigue syndrome Snoring Unspecified essential hypertension PAST SURGICAL HISTORY Procedure Laterality Date ARTHROSCOPY KNEE DIAGNOSTIC W/WO SYNOVIAL BX SPX 04/30/2010 Arthroscopy, knee, left knee ARTHRP KNE CONDYLEANDPLATU MEDIALANDLAT COMPARTMENTS Left 07/2015 COLONOSCOPY 1999 PAST SURGICAL HISTORY OF left knee SKIN BX, 1 LESION Right 01/09/2017 TONSILLECTOMY PRIMARY/SECONDARY AGE 10/> ALLERGIES Bees, Chlorhexidine, and Codeine MEDICATIONS FLUoxetine (PROZAC) 20 mg capsule Take by mouth. metoprolol succinate ER (TOPROL XL) 100 mg albuterol HFA (PROAIR HFA) 90 mcg/actuation inhaler Inhale 2 Puffs as instructed every 6 hours as needed. mecobalamin, vitamin B12, (B12 ACTIVE) 1,000 mcg chew Take by mouth. cloNIDine HCl (CATAPRES) 0.1 mg tablet TAKE [...] 0.3 mg/0.3 mL INTRAMUSC. PnIj as necessary amoxicillin (AMOXIL) 500 mg capsule benzonatate (TESSALON PERLES) 100 mg capsule Take 2 capsules by mouth three times daily as needed. (Patient not taking: Reported on 05/31/2024) cyclobenzaprine (FLEXERIL) 10 mg tablet Take 1 tablet by mouth three times daily as needed for muscle spasm. (Patient not taking: Reported on 11/17/2022) buPROPion SR (ZYBAN SR; WELLBUTRIN SR) 150 mg 12 hr tablet Take 150 mg by mouth twice daily. (Patient not taking: Reported on 05/31/2024) FAMILY HISTORY Problem Relation Age of Onset Diabetes Mother Hypertension Mother Alzheimer's Disease Mother Heart Father other (Dementia) Father 91 other (Cardiomyopathy) Sister other (Myeloma) Sister Social History Tobacco Use Smoking status: Every Day Current packs/day: 0.75 Average packs/day: 0.8 packs/day for 17.0 years (12.8 ttl pk-yrs) Types: Cigarettes Smokeless tobacco: Never Substance Use Topics Alcohol use: Yes Alcohol/week: 1.0 - 2.0 standard drink of alcohol Types: 1 - 2 Cans of Beer (12oz) per week Comment: weekly Drug use: No Review of Systems Constitutional: Positive for fever. HENT: Negative for congestion, ear pain, nosebleeds and sore throat. Respiratory: Positive for cough, shortness of breath and wheezing. Cardiovascular: Positive for chest pain. Musculoskeletal: Negative for neck pain. Objective Blood pressure 147/83, pulse 110, temperature 37.8 ?C (100 ?F), resp. rate 20, weight 70.9 kg (156 lb 4.9 oz), last menstrual period 11/20/2015, SpO2 96%. Physical Exam Constitutional: General: She is not in acute distress. Appearance: She is not toxic-appearing or diaphoretic. HENT: Head: Normocephalic and atraumatic. Cardiovascular: Rate and Rhythm: Normal rate and regular rhythm. Heart sounds: Normal heart sounds, S1 normal and S2 normal. Pulmonary: Effort: Tachypnea and accessory muscle usage present. Breath sounds: Wheezing present. No decreased breath sounds, rhonchi or rales. Neurological: Mental Status: She is alert and oriented to person, place, and time. Gait: Gait is intact. ASSESSMENT/PLAN: 1. SOB (shortness of breath) - ICD9: 786.05, ICD10: R06.02 No xray at time of exam Will refer to ER, to drive pov. 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 Normal [facility] Chest 1 Viewon 05-31-2024 Chest 1 View [facility] Imaging Services [address] [address] Chest 1 View MR#: [id number] Acct: [id number] Name: REYNA LOPEZ Rep #: [id number] : 1965 F 58 From: Angie Restrepo MD PCP: Dr. Jose Rhoades MD Status: PRE ER Study: Chest 1 View Date of Exam: 05/31/24 Exam# [id number] Ordering Dr: Lars Fitzpatrick. :[id number] INDICATION: COUGH EXAMINATION/TECHNIQUE: X-RAY - XR Chest 1 View COMPARISON: December 11, 2017 FINDINGS: LINES/DEVICES: None. LUNGS: No new consolidation, edema or effusion. There is a stable calcified nodule within the right midlung, suggestive of a granuloma. No pneumothorax. MEDIASTINUM AND CARDIOVASCULAR STRUCTURES: Cardiac silhouette not enlarged. Central airways and mediastinal contour are unremarkable. BONES AND SOFT TISSUES: Unremarkable. RAD/Chest 1 View IMPRESSION: No radiographic evidence of acute cardiopulmonary disease. Electronically Signed: Angie Restrepo MD at 12:14 EDT , CC: Dr. Jose Rhoades MD; ED PHYSICIAN PROVIDER Technical Sales Support Specialist: Signed Normal [facility] D-Dimer Quantitative (DVT/PE )on 05-31-2024 D-DIMER QUANT 0.33 FEU/ug/m Normal 0.27-0.49 [facility] Comment on above: Result Comment: NORM AL D-Dimer level (<0.50) indicates no DVT or PE. Performed By: #### L 500.2500, L501.4020, L300.8000, L100.0100 ####[facility] [address] [place], [address] Emergency Department Summary on 05-31-2024 Emergency Department Summary [facility] Medical Records Department [address] [place] [address] Emergency Department Summary 05/31/24 MR#: [id number] Acct: [id number] Name: REYNA LOPEZ Rep #: [id number] : 1965 58 From: Yamil Chisholm DO PCP: Dr. Jose Rhoades MD Status:DEP ER Location: ED HPI History of Present Illness Chief Complaint: Cough Narrative Narrative: Chief complaint and HPI: Cough. 58-year-old female with history of proximal menstrual atrial fibrillation, COPD presents for evaluation of cough and general malaise. Patient states for the past several days she has had headache, URI symptoms, cough, shortness of breath, fever, body aches. She has not tested herself for COVID. Patient states her symptoms have not improved which is why she presents today. She endorses decreased appetite. Review of systems: See HPI Medications: As listed on the chart Allergies: As listed on the chart PFSH: Per chart Vital signs: As listed on the chart. Reviewed. Physical exam: Gen: A O x3, NAD Head: Normocephalic, atraumatic Eyes: No sclera icterus, conjunctiva clear ENT: Moist mucous membranes Neck: Trachea midline, No JVD CV: Tachycardic, regular rhythm, no murmurs, no peripheral edema Resp: Lungs coarse bilaterally with positive wheezing GI: Abd soft, non-distended, non-tender, no r/r/g Musc: Full ROM, no deformity Skin: Warm, dry Neuro: Alert, oriented, grossly intact, sensation intact Psych: Cooperative, appropriate mood and affect [facility] Medical History Post-menopausal Migraine headache Gastric reflux COPD (chronic obstructive pulmonary disease) Shortness of breath on exertion Chronic cough Leg cramps History of echocardiogram History of Holter monitoring History of GI bleed Skin cancer, basal cell Wears glasses Anxiety Depression Alcohol use Arthritis High cholesterol Loss of consciousness Smoker Cardiology follow-up encounter Personal history of colonic polyps Pure hypercholesterolemia Essential hypertension Paroxysmal atrial fibrillation Hypotension New onset a-fib Pain and swelling of left knee Abnormal ECG Syncope Hypokalemia Nonspecific ST-T wave electrocardiographic changes Atypical depressive disorder Tobacco dependence Home Medications ???Medication ???Instructions ???Recorded ???Last Taken ???Type aspirin 325 mg tablet,delayed 325 mg PO DAILY 12/11/17 10/29/23 History release cholecalciferol (vitamin D3) 25 1,000 unit PO DAILY 07/30/18 Unknown History mcg (1,000 unit) capsule coenzyme Q10 100 mg capsule (Co 100 mg PO DAILY 07/30/18 Unknown History Q-10) lorazepam 1 mg tablet 1 mg PO DAILY PRN PRN Anxiety 07/30/18 Unknown History clonidine HCl 0.1 mg tablet 0.1 mg PO QHS 01/28/19 Unknown History epinephrine 0.3 mg/0.3 mL 0.3 mg IM Q10-15M PRN Allergy 01/28/19 Unknown History injection, auto-injector (EpiPen) Symptoms magnesium 200 mg tablet 200 mg PO QHS 09/23/19 Unknown History ascorbic acid (vitamin C) 1,000 mg 1,000 mg PO DAILY 08/21/23 Unknown History tablet,extended release (C Complex) cyanocobalamin (vitamin B-12) 1,000 mcg PO DAILY 08/21/23 Unknown History 1,000 mcg tablet (Vitamin B-12) fluoxetine 20 mg capsule 20 mg PO DAILY 08/21/23 Unknown History fluticasone fur. 100 mcg-umeclid 1 inh inhalation DAILY 08/21/23 11/04/23 History 62.5 mcg-vilant 25 mcg inhalat.powder (Trelegy Ellipta) metoprolol succinate 100 mg 100 mg PO DAILY 10/29/23 11/04/23 History capsule sprinkle, ext. release 24 hr albuterol sulfate 90 mcg/actuation 2 puff inhalation Q4H PRN PRN 05/31/24 Unknown Rx aerosol inhaler (Ventolin HFA) Wheezing ##1 prednisone 20 mg tablet 60 mg (3 x 20 mg) PO DAILY 5 days 05/31/24 Unknown Rx #15 TABLETS Allergy/AdvReac Type Severity Reaction Status Date / Time chlorhexidine Allergy Itching Verified 05/31/24 11:46 venom-honey bee (bee venom Allergy Anaphylaxis Verified 05/31/24 11:46 (honey bee)) Family History Mother CAD (coronary artery disease) Diabetes Sister Cardiomyopathy Cancer skin Father Cancer Heart disease Surgical History History of basal cell carcinoma excision History of esophagogastroduodenoscopy (EGD) Hx of colonoscopy H/O: knee surgery History of tonsillectomy Social History (Updated 02/04/24 @ 08:42 by Majo Mendez) Smoking Status: Current every day smoker tobacco type: cigarettes Tobacco: How many years used: 35 second hand exposure: No alcohol intake: never substance use type: does not use caffeine: Yes Type: coffee Number of servings: 4 EXAM Physical Exam Const Vital Signs: 05/31/24 11:44 05/31/24 12:25 (more content not included)... Normal [facility] L501.4020on 05-31-2024 TROPONIN-I HS < 3 Low 3.0-54.0 [facility] Comment on above: Order Comment: 'TROP ' Serial specimen #1, #2 or #3: 1 Result Comment: Samuel alex Note: New Test Units and Gender Specific Reference Ranges. For more information see Policy Stat Procedure [place] High Sensitivity Troponin (TNIH) and attachments. Performed By: #### L 500.2500, L501.4020, L300.8000, L100.0100 ####[facility] [address] [place], [address] M100.678on 05-31-2024 M100.678 Pending SARS-CoV-2 (COVID 19) Negative INFLUENZA A Negative INFLUENZA B Negative RSV PCR Negative Normal [facility] Comment on above: Performed By: #### M 100.678 ####[facility] [address] [place], [address] Basic Metabolic Profile (BMP )on 04-02-2024 BUN/CRE 17.5 RATIO Normal 05-31 [facility] Comment on above: Order Comment: Order Date: 04/02/24Order Info: 666-08 - BMP Performed By: #### L 500.2500 ####[facility] [address] [place], [address] CA,Total 9.3 mg/dL Normal 8.5-10.1 [facility] Comment on above: Order Comment: Order Date: 04/02/24Order Info: 666-08 - BMP Performed By: #### L 500.2500 ####[facility] [address] [place], [address] Chloride [Moles/Vol] 104 mmol/L Normal 98-107 [facility] Comment on above: Order Comment: Order Date: 04/02/24Order Info: 666-08 - BMP Performed By: #### L 500.2500 ####[facility] [address] [place], [address] CO2 [Moles/Vol] 28.0 mmol/L Normal 21.0-32.0 [facility] Comment on above: Order Comment: Order Date: 04/02/24Order Info: 666-08 - BMP Performed By: #### L 500.2500 ####[facility] [address] [place], [address] Creatinine [Mass/Vol] 0.92 mg/dL Normal 0.55-1.02 [facility] Comment on above: Order Comment: Order Date: 04/02/24Order Info: 666-08 - BMP Result Comment: The validity of the calculated GFR GFRAA in patients over 70 years has not been determined. Clinical correlation is essential. Performed By: #### L 500.2500 ####[facility] [address] [place], [address] EST GFR - AA 80 mL/min Normal >60 [facility] Comment on above: Order Comment: Order Date: 04/02/24Order Info: 666-08 - BMP Result Comment: Afri can [place] GFR Calc Performed By: #### L 500.2500 ####[facility] [address] [place], [address] GAP 6 Normal 5-15 [facility] Comment on above: Order Comment: Order Date: 04/02/24Order Info: 666-08 - BMP Performed By: #### L 500.2500 ####[facility] [address] [place], [place], [address] GFR/1.73 sq M.predicted among non-blacks MDRD (S/P/Bld) [Vol rate/Area] 66 mL/min/{1.73_m2} Normal >60 [facility] Comment on above: Order Comment: Order Date: 04/02/24Order Info: 666-08 - BMP Result Comment: Non- GFR Calc Performed By: #### L 500.2500 ####[facility] [address] [place], [place], [phone] Glucose [Mass/Vol] 105 mg/dL Normal 74-106 [facility] Comment on above: Order Comment: Order Date: 04/02/24Order Info: 666-08 - BMP Result Comment: Fast ing Glucose result from 100 to 125 mg/dL suggests IMPAIRED HOMEOSTASIS per A.D.A. criteria. Performed By: #### L 500.2500 ####[facility] [address] [place], [place], [phone] Potassium [Moles/Vol] 4.2 mmol/L Normal 3.5-5.1 [facility] Comment on above: Order Comment: Order Date: 04/02/24Order Info: 666-08 - BMP Performed By: #### L 500.2500 ####[facility] [address] [place], [address] Sodium [Moles/Vol] 138 mmol/L Normal 136-145 [facility] Comment on above: Order Comment: Order Date: 04/02/24Order Info: 666-08 - BMP Performed By: #### L 500.2500 ####[facility] [address] [place], [address] Urea nitrogen [Mass/Vol] 16 mg/dL Normal 7-18 [facility] Comment on above: Order Comment: Order Date: 04/02/24Order Info: 0667-1 - BMP Performed By: #### L 500.2500 ####[facility] [address] [place], [address] Echo Completeon 03-09-2024 Echo Complete [facility] [address] [place] [address] Echo Complete 03/09/24 1505 MR#: [id number] Acct: [id number] Name: REYNA LOPEZ Rep #: [id number] : 1965 58 From: Nate Live MD Attending Dr: LEANN JoseC Status: REG CLI Ordering Dr: Newton Reyna NP CHRONOMETER ADJUSTER-C Date: 03/09/24 Location: [facility] Sex: F C Admitted: Reason For Study: ATRIAL FIBRILLATION Procedure This was a 2D Doppler, Color Flow transthoracic echocardiogram. Exam performed in department. Left Ventricle Normal LV size. Left ventricular systolic function is normal. The left ventricular ejection fraction is 65 %. No regional wall motion abnormalities noted. Right Ventricle Normal RV size. Normal systolic function. Atria Normal left atrium. Normal right atrium. Mitral Valve Normal mitral valve. Tricuspid Valve Normal tricuspid valve. Mild tricuspid valve insufficiency. Pulmonary artery systolic pressure is 24 mmHg. Aortic Valve Trisinus/trileaflet aortic valve. Pulmonic Valve Normal pulmonic valve. Great Vessels Normal aortic root. The pulmonary artery is normal size. Normal inferior vena cava. Pericardium/Pleural No pericardial effusion. MMode/2D Measurements Calculations LVIDd: 4.4 cm IVSd: 1.2 cm LVOT diam: 2.1 cm LVIDs: 2.6 cm LVPWd: 1.1 cm LVOT area: 3.6 cm2 RVDd: 2.8 cm FS: 41.6 % Ao root diam: 2.8 cm LAV(MOD-bp): 42.8 ml LVAd ap4: 19.1 cm2 LAV(MOD-bp) Indexed: 23.4 ml/m2 LVLd ap4: 6.6 cm LAV(MOD-sp2): 51.1 ml EDV(MOD-sp4): 46.2 ml LAV(MOD-sp4): 32.4 ml EDV(sp4-el): 46.8 ml LVAs ap4: 10.4 cm2 LVLs ap4: 5.7 cm ESV(MOD-sp4): 15.8 ml ESV(sp4-el): 16.1 ml EF(MOD-sp4): 65.8 % EF(sp4-el): 65.5 % LVAd ap2: 18.4 cm2 SV(MOD-sp4): 30.4 ml SV(MOD-sp2): 26.3 ml LVLd ap2: 6.6 cm EDV(MOD-sp2): 42.7 ml EDV(sp2-el): 43.7 ml LVAs ap2: 10.2 cm2 LVLs ap2: 5.7 cm ESV(MOD-sp2): 16.4 ml ESV(sp2-el): 15.4 ml EF(MOD-sp2): 61.7 % SV(sp4-el): 30.7 ml LA dimension(2D): 4.0 cm LA A4 area: 13.6 cm2 RA A4 area: 9.6 cm2 TAPSE: 1.8 cm Time Measurements MV dec time: 0.20 sec Doppler Measurements Calculations MV E max tommy: 81.1 cm/sec Lat Peak E' Tommy: 9.4 cm/sec Med Peak E' Tommy: 10.7 cm/sec MV A max tommy: 84.8 cm/sec E/E' lat: 8.7 E/E' med: 7.6 MV E/A: 0.96 Ao V2 max: 150.1 cm/sec LV V1 max: 108.4 cm/sec MV dec slope: 397.3 cm/sec2 Ao max P.0 mmHg LV V1 max P.7 mmHg Ao V2 mean: 97.9 cm/sec LV V1 mean P.5 mmHg Ao mean P.5 mmHg LV V1 mean: 73.8 cm/sec Ao V2 VTI: 31.9 cm LV V1 VTI: 24.9 cm AV (velocity ratio): 0.78 REMIGIO(I,D): 2.8 cm2 REMIGIO(V,D): 2.6 cm2 SV(LVOT): 89.1 ml PA V2 max: 68.9 cm/sec TR max tommy: 227.4 cm/sec PA max PG (full): 0.20 mmHg TR max P.7 mmHg ECHO/Echo Complete Interpretation Summary Normal LV size. Left ventricular systolic function is normal. The left ventricular ejection fraction is 65 %. Pulmonary artery systolic pressure is 24 mmHg. Ordering Physician: Newton Reyna Referring Physician: Jose Rhoades MD Performed By: Lavern Carter RDCS 03/09/24 1634 Date Nate Live MD CC: BJORN Reyna; Dr. Jose Rhoades MD Date Dictated: 03/09/24 1505 Date Transcribed: 03/09/24 163 Technical Sales Support Specialist: Signed Normal [facility] Cardiology Visit Reporton Cardiology Visit Report [facility] [address] [place] [address] OFFICE VISIT Date of Service: 02/04/24 MR#: [id number] Acct: [id number] Name: REYNA LOPEZ Rep #: [id number] : 1965 Provider: BJORN courtney Age/Sex: 58/F Location: [facility] Status: Signed [facility] History of Present Illness Details: REYNA LOPEZ is a 58 year old white female who presents to the office today for a cardiovascular outpatient follow-up with a history of paroxysmal atrial fibrillation, syncope, hypokalemia, hypertension, and hyperlipidemia. She denies chest, arm, jaw, or neck discomfort. She states palpitations. She states occasional bilateral lower extremity edema. She denies claudication. She denies shortness of breath with activity, shortness of breath at rest, orthopnea, or PND. She denies chronic cough. She denies significant, sudden weight gain. She denies lightheadedness, dizziness, near-syncope, or syncope. She denies blood in urine, blood in stool, or epistaxis. He denies fever with chills. She denies myalgia. She states fatigue and difficulty sleeping. She states this is due to her 's sleep patterns. Her exercise level has remained stable. 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: No Is patient in pain?: No Allergies chlorhexidine Allergy (Verified 02/04/24 08:39) Itching venom-honey bee (bee venom (honey bee)) Allergy (Verified 02/04/24 08:39) Anaphylaxis Medications ???Medication ???Instructions ???Recorded ???Confirmed ???Type aspirin 325 mg tablet,delayed 325 mg PO DAILY 12/11/17 02/04/24 History release cholecalciferol (vitamin D3) 25 1,000 unit PO DAILY 07/30/18 02/04/24 History mcg (1,000 unit) capsule coenzyme Q10 100 mg capsule (Co 100 mg PO DAILY 07/30/18 02/04/24 History Q-10) lorazepam 1 mg tablet 1 mg PO DAILY PRN PRN Anxiety 07/30/18 02/04/24 History clonidine HCl 0.1 mg tablet 0.1 mg PO QHS 01/28/19 02/04/24 History epinephrine 0.3 mg/0.3 mL 0.3 mg IM Q10-15M PRN Allergy 01/28/19 02/04/24 History injection, auto-injector (EpiPen) Symptoms magnesium 200 mg tablet 200 mg PO QHS 09/23/19 02/04/24 History ascorbic acid (vitamin C) 1,000 mg 1,000 mg PO DAILY 08/21/23 02/04/24 History tablet,extended release (C Complex) cyanocobalamin (vitamin B-12) 1,000 mcg PO DAILY 08/21/23 02/04/24 History 1,000 mcg tablet (Vitamin B-12) fluoxetine 20 mg capsule 20 mg PO DAILY 08/21/23 02/04/24 History fluticasone fur. 100 mcg-umeclid 1 inh inhalation DAILY 08/21/23 02/04/24 History 62.5 mcg-vilant 25 mcg inhalat.powder (Trelegy Ellipta) metoprolol succinate 100 mg 100 mg PO DAILY 10/29/23 02/04/24 History capsule sprinkle, ext. release 24 hr Ejection fraction %: 65 Have you fallen in the past year?: No PFSH Medical History Post-menopausal Migraine headache Gastric reflux COPD (chronic obstructive pulmonary disease) Shortness of breath on exertion Chronic cough Leg cramps History of echocardiogram History of Holter monitoring History of GI bleed Skin cancer, basal cell Wears glasses Anxiety Depression Alcohol use Arthritis High cholesterol Loss of consciousness Smoker Cardiology follow-up encounter Personal history of colonic polyps Pure hypercholesterolemia Essential hypertension Paroxysmal atrial fibrillation Hypotension New onset a-fib Pain and swelling of left knee Abnormal ECG Syncope Hypokalemia Nonspecific ST-T wave electrocardiographic changes Atypical depressive disorder Tobacco dependence Surgical History History of basal cell carcinoma excision History of esophagogastroduodenoscopy (EGD) Hx of colonoscopy H/O: knee surgery History of tonsillectomy Family History Mother CAD (coronary artery disease) Diabetes Sister Cardiomyopathy Cancer skin Father Cancer Heart disease Social History (Updated 02/04/24 @ 08:42 by Majo Mendez) Smoking Status: Current every day smoker tobacco type: cigarettes Tobacco: How many years used: 35 second hand exposure: No alcohol intake: never substance use type: does not use caffeine: Yes Type: coffee Number of servings: 4 ROS Const Const: Positive for fatigue and difficulty sleeping; Negative for weakness, headache(s), frequent falls or excessive sweating Eyes Eyes: Negative for loss of peripheral vision, transient loss of vision, blurry v (more content not included)... [facility] Visit Reporton 01-01 Surgery Visit Report [facility] [address] [place] [address] OFFICE VISIT Date of Service: 01/01/24 MR#: [id number] Acct: [id number] Name: REYNA LOPEZ Rep #: [id number] : 1965 Provider: LAIRIO zapata Age/Sex: 58/F Location: [facility] Status: Signed Intake Vital Signs 11/04/23 06:18 Height 5 ft 7 in Intake Visit Reasons: WOUND CHECK Chief Complaint: wound check Allergies chlorhexidine Allergy (Verified 12/12/23 10:27) Itching venom-honey bee (bee venom (honey bee)) Allergy (Verified 12/12/23 10:27) Anaphylaxis Subjective Details: Patient is a 57 y/o F I am following s/p wide excision left posterior calf basal cell skin cancer 4 x 3 cm excision with split-thickness skin grafting. Donor site left lateral thigh by Dr. Guerrero on 11/04/23. Patient notes tenderness throughout the entire left lower extremity. Patient notes she is walking around well. She is being very careful. Pathology demonstrated: Skin lesion of calf, excision; Basal cell carcinoma, superficial spreading with focal mucosal ulceration, completely excised. Cicatrix and associated with fat necrosis. Focal hyperkeratosis. Patient returns for a follow-up visit. Patient denies any concerns or issues at this time. She has returned to work. She notes the skin graft continues to fill in. She denies any pain or discomfort at the graft or donor site. Objective Details: Left lower extremity- Entire skin graft area is completely healed. Area continues to fill in. Donor site, left upper thigh- completely healed Coding Level of Care Code Global Post Op Diagnoses Skin cancer, basal cell C44.91 [facility] Medical History Abnormal ECG Alcohol use Anxiety Arthritis Atypical depressive disorder Cardiology follow-up encounter Chronic cough COPD (chronic obstructive pulmonary disease) Depression Essential hypertension Gastric reflux High cholesterol History of echocardiogram History of GI bleed History of Holter monitoring Hypokalemia Hypotension Leg cramps Loss of consciousness Migraine headache New onset a-fib Nonspecific ST-T wave electrocardiographic changes Pain and swelling of left knee Paroxysmal atrial fibrillation Personal history of colonic polyps Post-menopausal Pure hypercholesterolemia Shortness of breath on exertion Skin cancer, basal cell Smoker Syncope Tobacco dependence Wears glasses Surgical History H/O: knee surgery History of basal cell carcinoma excision History of esophagogastroduodenoscopy (EGD) History of tonsillectomy Hx of colonoscopy Family History Mother CAD (coronary artery disease) Diabetes Sister Cardiomyopathy Cancer skin Father Cancer Heart disease Social History Smoking Status: Current every day smoker tobacco type: cigarettes Tobacco: How many years used: 35 second hand exposure: No alcohol intake: never caffeine: Yes Type: coffee Number of servings: 4 Assessment and Plan (No Qualifiers) Assessment and Plan (1) Skin cancer, basal cell: Status: Acute Plan: Follow-up as needed 01/02/24911 Date Jania Ramos Signature: Date (if applicable) CC: Normal [facility] Surgery Visit Reporton 12-11 Surgery Visit Report [facility] [address] [place] [address]. [address] [place] [address] OFFICE VISIT Date of Service: 12/12/23 MR#: [id number] Acct: [id number] Name: RENYA LOPEZ Rep #: [id number] : 1965 Provider: ALIRIO zapata Age/Sex: 58/F Location: [facility] Status: Signed Intake Vital Signs 11/04/23 06:18 12/12/23 10:28 Height 5 ft 7 in Temp 96.8 F L Temp Source Temporal Intake Visit Reasons: 1 W FU Chief Complaint: wound check Is patient in pain?: No Allergies chlorhexidine Allergy (Verified 12/12/23 10:27) Itching venom-honey bee [bee venom (honey bee)] Allergy (Verified 12/12/23 10:27) Anaphylaxis Medications aspirin 325 mg tablet,delayed release 325 mg PO DAILY 12/11/17 [History Confirmed 12/12/23] cholecalciferol (vitamin D3) 25 mcg (1,000 unit) capsule 1,000 unit PO DAILY 07/30/18 [History Confirmed 12/12/23] coenzyme Q10 100 mg capsule (Co Q-10) 100 mg PO DAILY 07/30/18 [History Confirmed 12/12/23] lorazepam 1 mg tablet 1 mg PO DAILY PRN PRN Anxiety 07/30/18 [History Confirmed 12/12/23] clonidine HCl 0.1 mg tablet 0.1 mg PO QHS 01/28/19 [History Confirmed 12/12/23] epinephrine 0.3 mg/0.3 mL injection, auto-injector (EpiPen) 0.3 mg IM Q10-15M PRN Allergy Symptoms 01/28/19 [History Confirmed 12/12/23] valacyclovir 500 mg tablet (Valtrex) 500 mg PO BID PRN Cold Sores 01/28/19 [History Confirmed 12/12/23] magnesium 200 mg tablet 200 mg PO QHS 09/23/19 [History Confirmed 12/12/23] albuterol sulfate 90 mcg/actuation aerosol inhaler 2 puff inhalation Q4H PRN shortness of breath or wheezing 08/21/23 [History Confirmed 12/12/23] ammonium lactate 12 % topical cream 1 applic topical BID PRN lesions 08/21/23 [History Confirmed 12/12/23] ascorbic acid (vitamin C) 1,000 mg tablet,extended release (C Complex) 1,000 mg PO DAILY 08/21/23 [History Confirmed 12/12/23] cyanocobalamin (vitamin B-12) 1,000 mcg tablet (Vitamin B-12) 1,000 mcg PO DAILY 08/21/23 [History Confirmed 12/12/23] fluoxetine 20 mg capsule 20 mg PO DAILY 08/21/23 [History Confirmed 12/12/23] fluticasone fur. 100 mcg-umeclid 62.5 mcg-vilant 25 mcg inhalat.powder (Trelegy Ellipta) 1 inh inhalation DAILY 08/21/23 [History Confirmed 12/12/23] pantoprazole 40 mg tablet,delayed release 40 mg PO DAILY 08/21/23 [History Confirmed 12/12/23] metoprolol succinate 100 mg capsule sprinkle, ext. release 24 hr 100 mg PO DAILY 10/29/23 [History Confirmed 12/12/23] silver sulfadiazine 1 % topical cream (Silvadene) 1 applic topical BID #20 grams 11/19/23 [Rx Confirmed 12/12/23] Subjective Details: Patient is a 57 y/o F I am following s/p wide excision left posterior calf basal cell skin cancer 4 x 3 cm excision with split-thickness skin grafting. Donor site left lateral thigh by Dr. Guerrero on 11/04/23. Patient notes tenderness throughout the entire left lower extremity. Patient notes she is walking around well. She is being very careful. Pathology demonstrated: Skin lesion of calf, excision; Basal cell carcinoma, superficial spreading with focal mucosal ulceration, completely excised. Cicatrix and associated with fat necrosis. Focal hyperkeratosis. Patient contacted our office noting that she has been having increased pain in her left upper calf and behind the knee. She noted yesterday she was having pain in her left foot. Patient has since returned to work and has been on her feet more. She notes that she was also concerned that the skin graft was black in one area. She was just very concerned about these two issues and wanted reassurance. She notes she has been wearing the compression stockings. She notes her donor site is healing well. Objective Details: Left lower extremity- slightly more swollen than the right lower extremity. Non tender to palpation. No warmth or erythema noted. Skin graft with deep purple superficial discoloration circumferentially. No necrotic tissue noted. No drainage noted. Entire skin graft area is completely healed. Donor site, left upper thigh- completely healed Coding Level of Care Code Global Post Op Diagnoses Pain in left lower leg M79.662 Skin cancer, basal cell C44.91 [facility] Medical History Abnormal ECG Alcohol use Anxiety Arthritis Atypical depressive disorder Cardiology follow-up encounter Chronic cough COPD (chronic obstructive pulmonary disease) Depression Essential hypertension Gastric reflux High cholesterol History of echocardiogram History of GI bleed History of Holter monitoring Hypokalemia Hypotension Leg cramps Loss of consciousness Migraine headache New onset a-fib Nonspecific ST-T wave electrocardiographic changes Pain and swelling of left knee Paroxysmal atrial fibrillation Personal history of colonic polyps Post-menopausal Pur (more content not included)... Normal [facility] Venous Duplex US, Unilateral on 12-12-2023 Venous Duplex US, Unilateral [facility] [address] [place] [address] Venous Duplex US, Unilateral 12/12/23 1122 MR#: [id number] Acct: [id number] Name: REYNA LOPEZ Rep #: [id number] : 1965 58 From: Richard Guerrero MD Attending Dr: Jania Wilson PA-C Status: REG CLI Ordering Dr: Jania Wilson PA-C Date: 4 Location: [facility] Sex: F C Admitted: Reason For Study: LLE Pain RIGHT LEFT CFV is compressible, spontaneous, phasic, GSV is normal. competent and demonstrates normal CFV is compressible, spontaneous, phasic, augmentation. competent, and demonstrates normal Procedure augmentation. This is a venous duplex using B-mode, color FV is compressible, spontaneous, phasic, flow and spectral Doppler. competent and demonstrates normal Exam performed in department. augmentation. The exam was diagnostic. POP V is compressible, spontaneous, phasic, A preliminary report was called and/or faxed competent and demonstrates normal to Jania Wilson / DANN. augmentation. T/P Trunk is compressible. PTV is compressible. LT PerV is compressible. VL/Venous Duplex US, Unilateral Interpretation Summary There is no evidence of left lower extremity deep vein thrombosis. Left great saphenous vein appears patent and compressible segmentally. Normal flow patterns right common femoral vein Ordering Physician: Jania Wilson Referring Physician: Jania Wilson Performed By: Lencho Krishna RVT 12/12/23 1508 Date Richard Guerrero MD CC: ALIRIO Wilson; Dr. Jose Rhoades MD Date Dictated: 12/12/23 1122 Date Transcribed: 12/12/23 1508 Technical Sales Support Specialist: Signed Normal [facility] Surgery Visit Reporton 12-03 Surgery Visit Report [facility] [place] [address] OFFICE VISIT Date of Service: 12/04/23 MR#: [id number] Acct: [id number] Name: REYNA LOPEZ Rep #: [id number] : 1965 Provider: ALIRIO zapata Age/Sex: 58/F Location: [facility] Status: Signed Intake Vital Signs 11/04/23 06:18 Height 5 ft 7 in Intake Visit Reasons: WOUND CHECK Chief Complaint: wound check Is patient in pain?: No Allergies chlorhexidine Allergy (Verified 12/04/23 13:01) Itching venom-honey bee [bee venom (honey bee)] Allergy (Verified 12/04/23 13:01) Anaphylaxis Medications aspirin 325 mg tablet,delayed release 325 mg PO DAILY 12/11/17 [History Confirmed 12/04/23] cholecalciferol (vitamin D3) 25 mcg (1,000 unit) capsule 1,000 unit PO DAILY 07/30/18 [History Confirmed 12/04/23] coenzyme Q10 100 mg capsule (Co Q-10) 100 mg PO DAILY 07/30/18 [History Confirmed 12/04/23] lorazepam 1 mg tablet 1 mg PO DAILY PRN PRN Anxiety 07/30/18 [History Confirmed 12/04/23] clonidine HCl 0.1 mg tablet 0.1 mg PO QHS 01/28/19 [History Confirmed 12/04/23] epinephrine 0.3 mg/0.3 mL injection, auto-injector (EpiPen) 0.3 mg IM Q10-15M PRN Allergy Symptoms 01/28/19 [History Confirmed 12/04/23] valacyclovir 500 mg tablet (Valtrex) 500 mg PO BID PRN Cold Sores 01/28/19 [History Confirmed 12/04/23] magnesium 200 mg tablet 200 mg PO QHS 09/23/19 [History Confirmed 12/04/23] albuterol sulfate 90 mcg/actuation aerosol inhaler 2 puff inhalation Q4H PRN shortness of breath or wheezing 08/21/23 [History Confirmed 12/04/23] ammonium lactate 12 % topical cream 1 applic topical BID PRN lesions 08/21/23 [History Confirmed 12/04/23] ascorbic acid (vitamin C) 1,000 mg tablet,extended release (C Complex) 1,000 mg PO DAILY 08/21/23 [History Confirmed 12/04/23] cyanocobalamin (vitamin B-12) 1,000 mcg tablet (Vitamin B-12) 1,000 mcg PO DAILY 08/21/23 [History Confirmed 12/04/23] fluoxetine 20 mg capsule 20 mg PO DAILY 08/21/23 [History Confirmed 12/04/23] fluticasone fur. 100 mcg-umeclid 62.5 mcg-vilant 25 mcg inhalat.powder (Trelegy Ellipta) 1 inh inhalation DAILY 08/21/23 [History Confirmed 12/04/23] pantoprazole 40 mg tablet,delayed release 40 mg PO DAILY 08/21/23 [History Confirmed 12/04/23] metoprolol succinate 100 mg capsule sprinkle, ext. release 24 hr 100 mg PO DAILY 10/29/23 [History Confirmed 12/04/23] silver sulfadiazine 1 % topical cream (Silvadene) 1 applic topical BID #20 grams 11/19/23 [Rx Confirmed 12/04/23] Subjective Details: Patient is a 57 y/o F I am following s/p wide excision left posterior calf basal cell skin cancer 4 x 3 cm excision with split-thickness skin grafting. Donor site left lateral thigh by Dr. Guerrero on 11/04/23. Patient notes tenderness throughout the entire left lower extremity. Patient notes she is walking around well. She is being very careful. Pathology demonstrated: Skin lesion of calf, excision; Basal cell carcinoma, superficial spreading with focal mucosal ulceration, completely excised. Cicatrix and associated with fat necrosis. Focal hyperkeratosis. Patient returns for a follow-up visit. She notes having trouble with keeping the Tegaderm in place. She denies any pain/discomfort. Objective Details: Left posterior calf- dressing were all removed. Adaptic was gently removed with modest amount of saline. Approximately 95-100%% has taken at this time. There was noted to be a minimal amount of scabbing in the middle of the skin graft. Silvadene was applied in the middle of the skin graft. Single piece of Telfa was applied over the skin graft followed by single 4 x 4 gauze dressing, one 2 monica wrap was applied over top of the calf region. Left anterior thigh- Tegaderm was removed. Donor site appears to be healing nicely. There is a small area of fragile tissue on the donor site which was covered with an op-site. Coding Level of Care Code Global Post Op Diagnoses Skin cancer, basal cell C44.91 [facility] Medical History Abnormal ECG Alcohol use Anxiety Arthritis Atypical depressive disorder Cardiology follow-up encounter Chronic cough COPD (chronic obstructive pulmonary disease) Depression Essential hypertension Gastric reflux High cholesterol History of echocardiogram History of GI bleed History of Holter monitoring Hypokalemia Hypotension Leg cramps Loss of consciousness Migraine headache New onset a-fib Nonspecific ST-T wave electrocardiographic changes Pain and swelling of left knee Paroxysmal atrial fibrillation Personal history of colonic polyps Post-menopausal Pure hypercholesterolemia Shortness of breath on exertion Skin cancer, basal cell Smoker Syncope Tobacco dependence Wears glasses Surgical History (Reviewed (more content not included)... Normal [facility] Surgery Visit Reporton 11-18 Surgery Visit Report [facility] [address] [facility] [place] [address] OFFICE VISIT Date of Service: 11/19/23 MR#: [id number] Acct: [id number] Name: REYNA LOPEZ Rep #: [id number] : 1965 Provider: ALIRIO zapata Age/Sex: 57/F Location: [facility] Status: Signed Intake Vital Signs 11/04/23 06:18 Height 5 ft 7 in Intake Visit Reasons: WOUND CHECK Chief Complaint: F/U Excision skin cancer with skin graft left leg 11/04/23 Typewriter Operator Automatic Required: No Is patient in pain?: No Allergies chlorhexidine Allergy (Verified 11/19/23 13:04) Itching venom-honey bee [bee venom (honey bee)] Allergy (Verified 11/19/23 13:04) Anaphylaxis Medications aspirin 325 mg tablet,delayed release 325 mg PO DAILY 12/11/17 [History Confirmed 11/19/23] cholecalciferol (vitamin D3) 25 mcg (1,000 unit) capsule 1,000 unit PO DAILY 07/30/18 [History Confirmed 11/19/23] coenzyme Q10 100 mg capsule (Co Q-10) 100 mg PO DAILY 07/30/18 [History Confirmed 11/19/23] lorazepam 1 mg tablet 1 mg PO DAILY PRN PRN Anxiety 07/30/18 [History Confirmed 11/19/23] clonidine HCl 0.1 mg tablet 0.1 mg PO QHS 01/28/19 [History Confirmed 11/19/23] epinephrine 0.3 mg/0.3 mL injection, auto-injector (EpiPen) 0.3 mg IM Q10-15M PRN Allergy Symptoms 01/28/19 [History Confirmed 11/19/23] valacyclovir 500 mg tablet (Valtrex) 500 mg PO BID PRN Cold Sores 01/28/19 [History Confirmed 11/19/23] magnesium 200 mg tablet 200 mg PO QHS 09/23/19 [History Confirmed 11/19/23] albuterol sulfate 90 mcg/actuation aerosol inhaler 2 puff inhalation Q4H PRN shortness of breath or wheezing 08/21/23 [History Confirmed 11/19/23] ammonium lactate 12 % topical cream 1 applic topical BID PRN lesions 08/21/23 [History Confirmed 11/19/23] ascorbic acid (vitamin C) 1,000 mg tablet,extended release (C Complex) 1,000 mg PO DAILY 08/21/23 [History Confirmed 11/19/23] cyanocobalamin (vitamin B-12) 1,000 mcg tablet (Vitamin B-12) 1,000 mcg PO DAILY 08/21/23 [History Confirmed 11/19/23] fluoxetine 20 mg capsule 20 mg PO DAILY 08/21/23 [History Confirmed 11/19/23] fluticasone fur. 100 mcg-umeclid 62.5 mcg-vilant 25 mcg inhalat.powder (Trelegy Ellipta) 1 inh inhalation DAILY 08/21/23 [History Confirmed 11/19/23] pantoprazole 40 mg tablet,delayed release 40 mg PO DAILY 08/21/23 [History Confirmed 11/19/23] metoprolol succinate 100 mg capsule sprinkle, ext. release 24 hr 100 mg PO DAILY 10/29/23 [History Confirmed 11/19/23] hydrocodone-acetaminophen 5-325mg 5mg-325mg 1 tab PO Q6H PRN pain 2 days #6 tabs 11/04/23 [Rx Confirmed 11/19/23] silver sulfadiazine 1 % topical cream (Silvadene) 1 applic topical BID #20 grams 11/19/23 [Rx Confirmed 11/19/23] Subjective Details: Patient is a 57 y/o F I am following s/p wide excision left posterior calf basal cell skin cancer 4 x 3 cm excision with split-thickness skin grafting. Donor site left lateral thigh by Dr. Guerrero on 11/04/23. Patient notes tenderness throughout the entire left lower extremity. Patient notes she is walking around well. She is being very careful. Pathology demonstrated: Skin lesion of calf, excision; Basal cell carcinoma, superficial spreading with focal mucosal ulceration, completely excised. Cicatrix and associated with fat necrosis. Focal hyperkeratosis. Patient returns for a follow-up visit. She notes having trouble with keeping the wraps in place. She denies any pain/discomfort. Objective Details: Left posterior calf- dressing were all removed. Adaptic was gently removed with modest amount of saline. Approximately 80-90% has taken at this time. There was noted to be a minimal amount of dried blood/scabbing circumferentially around the skin graft. This may have been the source of the pulling sensation. Again the skin graft appears to be intact. Silveadene was applied circumferentially around the skin graft. Single piece of telfa was applied over the skin graft followed by 2 stacked 4 x 4 gauze dressing, one 4 monica wrap was applied over top of the calf region. An monica wrap was applied to the upper thigh to cover the donor site. Following the dressing reapplication, patient denied the wrap being too tight. Left anterior thigh- donor site appears to be drying up and is healing nicely. Coding Level of Care Code Global Post Op Diagnoses Skin cancer, basal cell C44.91 [facility] Medical History Abnormal ECG Alcohol use Anxiety Arthritis Atypical depressive disorder Cardiology follow-up encounter Chronic cough COPD (chronic obstructive pulmonary disease) Depression Essential hypertension Gastric reflux High cholesterol History of echocardiogram History of GI bleed History of Holter monitoring Hypokalemia Hypotension Leg cramps Loss of consciousness Migraine headache New on (more content not included)... Normal [facility] Surgery Visit Reporton 11-12 Surgery Visit Report [facility] [address] [facility] [place] [address] OFFICE VISIT Date of Service: 11/13/23 MR#: [id number] Acct: [id number] Name: REYNA LOPEZ Rep #: [id number] : 1965 Provider: ALIRIO zapata Age/Sex: 57/F Location: [facility] Status: Signed Intake Vital Signs 11/04/23 06:18 Height 5 ft 7 in Intake Visit Reasons: Check leg incision RC 11/03 Chief Complaint: F/U Excision skin cancer with skin graft left leg 11/04/23 Allergies chlorhexidine Allergy (Verified 11/13/23 14:45) Itching venom-honey bee [bee venom (honey bee)] Allergy (Verified 11/13/23 14:45) Anaphylaxis Medications aspirin 325 mg tablet,delayed release 325 mg PO DAILY 12/11/17 [History Confirmed 11/13/23] cholecalciferol (vitamin D3) 25 mcg (1,000 unit) capsule 1,000 unit PO DAILY 07/30/18 [History Confirmed 11/13/23] coenzyme Q10 100 mg capsule (Co Q-10) 100 mg PO DAILY 07/30/18 [History Confirmed 11/13/23] lorazepam 1 mg tablet 1 mg PO DAILY PRN PRN Anxiety 07/30/18 [History Confirmed 11/13/23] clonidine HCl 0.1 mg tablet 0.1 mg PO QHS 01/28/19 [History Confirmed 11/13/23] epinephrine 0.3 mg/0.3 mL injection, auto-injector (EpiPen) 0.3 mg IM Q10-15M PRN Allergy Symptoms 01/28/19 [History Confirmed 11/13/23] valacyclovir 500 mg tablet (Valtrex) 500 mg PO BID PRN Cold Sores 01/28/19 [History Confirmed 11/13/23] magnesium 200 mg tablet 200 mg PO QHS 09/23/19 [History Confirmed 11/13/23] albuterol sulfate 90 mcg/actuation aerosol inhaler 2 puff inhalation Q4H PRN shortness of breath or wheezing 08/21/23 [History Confirmed 11/13/23] ammonium lactate 12 % topical cream 1 applic topical BID PRN lesions 08/21/23 [History Confirmed 11/13/23] ascorbic acid (vitamin C) 1,000 mg tablet,extended release (C Complex) 1,000 mg PO DAILY 08/21/23 [History Confirmed 11/13/23] cyanocobalamin (vitamin B-12) 1,000 mcg tablet (Vitamin B-12) 1,000 mcg PO DAILY 08/21/23 [History Confirmed 11/13/23] fluoxetine 20 mg capsule 20 mg PO DAILY 08/21/23 [History Confirmed 11/13/23] fluticasone fur. 100 mcg-umeclid 62.5 mcg-vilant 25 mcg inhalat.powder (Trelegy Ellipta) 1 inh inhalation DAILY 08/21/23 [History Confirmed 11/13/23] pantoprazole 40 mg tablet,delayed release 40 mg PO DAILY 08/21/23 [History Confirmed 11/13/23] metoprolol succinate 100 mg capsule sprinkle, ext. release 24 hr 100 mg PO DAILY 10/29/23 [History Confirmed 11/13/23] hydrocodone-acetaminophen 5-325mg 5mg-325mg 1 tab PO Q6H PRN pain 2 days #6 tabs 11/04/23 [Rx Confirmed 11/13/23] Subjective Details: Patient is a 57 y/o F I am following s/p wide excision left posterior calf basal cell skin cancer 4 x 3 cm excision with split-thickness skin grafting. Donor site left lateral thigh by Dr. Guerrero on 11/04/23. Patient notes tenderness throughout the entire left lower extremity. Patient notes she is walking around well. She is being very careful. Pathology demonstrated: Skin lesion of calf, excision; Basal cell carcinoma, superficial spreading with focal mucosal ulceration, completely excised. Cicatrix and associated with fat necrosis. Focal hyperkeratosis. Patient presents as a same day appointment. She noted bending over to picker packer her dog when she felt a pulling sensation, a little bit of fluid, and warmth. Her leg is all wrapped with monica wraps and she is unable to visualize it. She was concerned she may have done something to the skin graft and wanted to be seen. Objective Details: Left posterior calf- dressing were all removed.. Adaptic was gently removed with modest amount of saline. Approximately 90-100% has taken at this time. There was noted to be a minimal amount of dried blood at the right lateral aspect of the skin graft. This may have been the source of the pulling sensation. Again the skin graft appears to be intact. Single piece of adaptic was applied over the skin graft followed by a thick stack of 4 x 4 gauze dressing, Webril up the entire left lower extremity. Three, 4 monica wraps were applied over top of the entire Webril up the entire left lower extremity. Following the dressing reapplication, patient denied the wrap being too tight. Left anterior thigh- donor site appears to be drying up and is healing nicely. Coding Level of Care Code Global Post Op Diagnoses Skin cancer, basal cell C44.91 [facility] Medical History Abnormal ECG Alcohol use Anxiety Arthritis Atypical depressive disorder Cardiology follow-up encounter Chronic cough COPD (chronic obstructive pulmonary disease) Depression Essential hypertension Gastric reflux High cholesterol History of echocardiogram History of GI bleed History of Holter monitoring Hypokalemia Hypotension Leg cramps Loss of consciousness Migraine headache New onset a-fi (more content not included)... Normal [facility] Surgery Visit Reporton 11-10 Surgery Visit Report [facility] [address] [place] [address] OFFICE VISIT Date of Service: 11/11/23 MR#: [id number] Acct: [id number] Name: REYNA LOPEZ Rep #: [id number] : 1965 Provider: ALIRIO zapata Age/Sex: 57/F Location: [facility] [place] Status: Signed Intake Vital Signs 11/04/23 06:18 Height 5 ft 7 in Intake Visit Reasons: Basal cell skin cancer EXCISION DOS 11/03 Chief Complaint: F/U Excision skin cancer with skin graft left leg 11/04/23 Typewriter Operator Automatic Required: No Accompanied by: Is patient in pain?: Yes Allergies chlorhexidine Allergy (Verified 11/11/23 14:09) Itching venom-honey bee [bee venom (honey bee)] Allergy (Verified 11/11/23 14:09) Anaphylaxis Medications aspirin 325 mg tablet,delayed release 325 mg PO DAILY 12/11/17 [History Confirmed 11/11/23] cholecalciferol (vitamin D3) 25 mcg (1,000 unit) capsule 1,000 unit PO DAILY 07/30/18 [History Confirmed 11/11/23] coenzyme Q10 100 mg capsule (Co Q-10) 100 mg PO DAILY 07/30/18 [History Confirmed 11/11/23] lorazepam 1 mg tablet 1 mg PO DAILY PRN PRN Anxiety 07/30/18 [History Confirmed 11/11/23] clonidine HCl 0.1 mg tablet 0.1 mg PO QHS 01/28/19 [History Confirmed 11/11/23] epinephrine 0.3 mg/0.3 mL injection, auto-injector (EpiPen) 0.3 mg IM Q10-15M PRN Allergy Symptoms 01/28/19 [History Confirmed 11/11/23] valacyclovir 500 mg tablet (Valtrex) 500 mg PO BID PRN Cold Sores 01/28/19 [History Confirmed 11/11/23] magnesium 200 mg tablet 200 mg PO QHS 09/23/19 [History Confirmed 11/11/23] albuterol sulfate 90 mcg/actuation aerosol inhaler 2 puff inhalation Q4H PRN shortness of breath or wheezing 08/21/23 [History Confirmed 11/11/23] ammonium lactate 12 % topical cream 1 applic topical BID PRN lesions 08/21/23 [History Confirmed 11/11/23] ascorbic acid (vitamin C) 1,000 mg tablet,extended release (C Complex) 1,000 mg PO DAILY 08/21/23 [History Confirmed 11/11/23] cyanocobalamin (vitamin B-12) 1,000 mcg tablet (Vitamin B-12) 1,000 mcg PO DAILY 08/21/23 [History Confirmed 11/11/23] fluoxetine 20 mg capsule 20 mg PO DAILY 08/21/23 [History Confirmed 11/11/23] fluticasone fur. 100 mcg-umeclid 62.5 mcg-vilant 25 mcg inhalat.powder (Trelegy Ellipta) 1 inh inhalation DAILY 08/21/23 [History Confirmed 11/11/23] pantoprazole 40 mg tablet,delayed release 40 mg PO DAILY 08/21/23 [History Confirmed 11/11/23] metoprolol succinate 100 mg capsule sprinkle, ext. release 24 hr 100 mg PO DAILY 10/29/23 [History Confirmed 11/11/23] hydrocodone-acetaminophen 5-325mg 5mg-325mg 1 tab PO Q6H PRN pain 2 days #6 tabs 11/04/23 [Rx Confirmed 11/11/23] Subjective Details: Patient is a 57 y/o F I am following s/p wide excision left posterior calf basal cell skin cancer 4 x 3 cm excision with split-thickness skin grafting. Donor site left lateral thigh by Dr. Guerrero on 11/04/23. Patient notes tenderness throughout the entire left lower extremity. Patient notes she is walking around well. She is being very careful. Pathology demonstrated: Skin lesion of calf, excision; Basal cell carcinoma, superficial spreading with focal mucosal ulceration, completely excised. Cicatrix and associated with fat necrosis. Focal hyperkeratosis. Objective Details: Left posterior calf- dressing were all removed including silk suture and cotton ball. Adaptic was gently removed with modest amount of saline. There was noted to be a minimal amount of ecchymosis surrounding the skin graft. Approximately 90-100% has taken at this time. Single piece of adaptic was applied over the skin graft followed by a thick stack of 4 x 4 gauze dressing over top of the skin grafted area, Webril up the entire left lower extremity. Two, 6 monica wraps were applied over top of the entire Webril up the entire left lower extremity. Following the dressing reapplication, patient denied the wrap being too tight. Left anterior thigh- Alcohol swab was used to clean the tegaderm. Aspiration took place and 3 cc dark blood was removed. Op-site was applied. ABD was applied followed by the continuation of the monica wrap up to the high thigh. Coding Level of Care Code Global Post Op Diagnoses Skin cancer, basal cell C44.91 [facility] Medical History (Updated 11/11/23 @ 14:09 by Linda Johnston) Abnormal ECG Alcohol use Anxiety Arthritis Atypical depressive disorder Cardiology follow-up encounter Chronic cough COPD (chronic obstructive pulmonary disease) Depression Essential hypertension Gastric reflux High cholesterol History of echocardiogram History of GI bleed History of Holter monitoring Hypokalemia Hypotension Leg cramps Loss of consciousness Migraine headache New onset a-fib Nonspecific ST-T wave electrocardiographic changes Pain and swelling of left knee Paroxysmal atrial fibrillation Personal hi (more content not included)... Normal [facility] Discharge Instructionon 10-11 Discharge Instruction [facility] Medical Records Department [address] [place] [address] Instructions for Home/Discharge Instructions 11/04/23 0637 MR#: [id number] Acct: [id number] Name: REYNA LOPEZ Rep #: [id number] : 1965 57 From: Richard Guerrero MD PCP: Dr. Jose Rhoades MD Status:[place] [facility] [place]charge Instructions Diet Discharge Diet: Light diet - advance as tolerated Activity Discharge Activity: May Not Shower Weight Bearing Status: Weight bearing as tolerated Dressing / Incision Call your doctor if you observe: Fever of 101 or Higher Additional Dressing/Incision Instructions:: Please try to keep the Monica wrap dressings as much intact as possible. No excessive pressure on the left leg as possible. You may carefully elevate your left leg on pillows but try to avoid any type of shear force to the graft site. The donor site may have some strikethrough or bleeding. If it is minimal just reinforce the current dressing. For concerns please contact the office. Follow Up Care Please Follow Up With: Richard Guerrero MD When: Please call [phone] for an appointment on Test Results: Test results from this visit will be discussed in further detail at your follow-up appointment, if applicable. Discharge Plan Admission Attending Provider: Richard Guerrero Primary Care Provider: Jose Rhoades Discharge Orders/Prescriptions Prescriptions: No Action cholecalciferol (vitamin D3) 1,000 unit capsule 1,000 unit capsule 1,000 unit PO DAILY coenzyme Q10 [Co Q-10] 100 mg capsule 100 mg PO DAILY valacyclovir [Valtrex] 500 mg tablet 500 mg PO BID PRN (Reason: Cold Sores) epinephrine [EpiPen] 0.3 mg/0.3 mL auto-injector 0.3 mg IM Q10-15M PRN (Reason: Allergy Symptoms) clonidine HCl 0.1 mg tablet 0.1 mg PO QHS magnesium 200 mg tablet 200 mg PO QHS metoprolol succinate 100 mg capsule,sprinkle,ER 24hr 100 mg PO DAILY lorazepam 1 mg tablet 1 mg PO DAILY PRN PRN (Reason: Anxiety) aspirin 325 MG tablet,delayed release (DR/EC) 325 mg PO DAILY fluoxetine 20 mg capsule 20 mg PO DAILY Patient Comments: TAKE 1 CAPSULE BY MOUTH EVERY DAY pantoprazole 40 mg tablet,delayed release (DR/EC) 40 mg PO DAILY Patient Comments: TAKE 1 TABLET BY MOUTH EVERY DAY C Complex 1,000 mg tablet extended release 1,000 mg PO DAILY cyanocobalamin (vitamin B-12) [Vitamin B-12] 1,000 mcg tablet 1,000 mcg PO DAILY ammonium lactate 12 % cream 1 applic topical BID PRN (Reason: lesions) Trelegy Ellipta 100-62.5-25 mcg blister with device 1 inh inhalation DAILY albuterol sulfate 90 mcg/actuation HFA aerosol inhaler 2 puff INHALATION Q4H PRN (Reason: shortness of breath or wheezing) Patient Comments: Inhale 2 Puffs as instructed every 6 hours as needed. Referrals / Follow Up: Jose Rhoades MD [Primary Care Provider] - Disposition Disposition (needs filled in before D/C Order can be placed): Home, Self Care 11/04/23 1033 Richard Guerrero MD CC: Dr. Jose Rhoades MD Signed Normal [facility] Operative Reporton 4 Operative Report [facility] Medical Records Department [address] [place] [address] Operative Report 11/04/23 0838 MR#: [id number] Acct: [id number] Name: REYNA LOPEZ Rep #: [id number] : 1965 57 From: Richard Guerrero MD PCP: Dr. Jose Rhoades MD Status:[facility] Location: [place] [address] Report of Operation Date of Procedure: 11/04/23 Pre-Operative Diagnosis: Basal cell skin cancer left posterior calf Post-Operative Diagnosis: Same Surgery/Procedure Performed:: Wide excision left posterior calf basal cell skin cancer 4 x 3 cm excision with split-thickness skin grafting donor site left lateral thigh Description of Surgical Findings:: Timeout informed consent was obtained. 57-year-old female was taken to the operating placed on the table and she was placed prone careful pelvic and shoulder padding was performed. She underwent monitored anesthesia care. Ancef 2 g given intravenously. The left lower extremity was sterilely prepped and draped. 0.5% lidocaine was used as a local anesthetic. 30 cc was used. Then I used 20 cc of 0.5% lidocaine mixed 50-50 with 0.25% Marcaine. Using a dermatome I harvested split-thickness skin from the left lateral thigh. That skin was meshed 1-1/2-1. Epinephrine gauze was placed on the donor site. I then did a wide excision of the basal cell skin cancer left posterior calf with a 4 x 3 cm ellipse. The wound was made hemostatic with electrocautery. A short suture was placed inferiorly on the specimen and long suture laterally. Specimen was placed in formalin. Then placed the skin graft in place and used maribel to secure it. Adaptic was placed followed by moistened cotton balls followed by 4 x 4's ABD soft roll and Monica wrap. The donor site was treated with extra- large OpSite dressings followed by ABDs and soft roll and Monica wrap. Sponge and instrument and needle counts were reported to surgically correct. Blood loss was minimal. She tolerated procedure well without apparent complication. She was taken to the recovery room in satisfied condition. Specimens basal cell skin cancer. Drains none. Blood loss minimal. Richard Guerrero M.D., F.A.C.S. Surgeon: Richard Guerrero Type of Anesthesia: Local MAC Anesthesiologist: Arpit Cali 11/04/23 0841 Cosigner Signature (if applicable): CC: Dr. Jose Rhoades MD; Dr. Richard Guerrero MD Signed Normal [facility] Surgery Specimen Level Wendy 11-04-2023 Surgery Specimen Level IV Patient Age/Sex Location Account Attending Physician REYNA LOPEZ 57/F [facility] [id number] Dr. Richard Guerrero MD Specimen: [id number] Received: 11/04/23 Status: TIEN Loco Num: [id number] Spec Type: Lesion Subm Dr: Dr. Richard Guerrero MD HEADER OPERATION: Excision left calf lesion with skin graft left thigh donor PRE-OP DIAGNOSIS: Nonresolving skin lesion left posterior calf, proven basal cell TISSUE SUBMITTED: Basal cell skin cancer left posterior calf, long suture lateral, short suture distal/inferior -------- MICROSCOPIC DIAGNOSIS Skin lesion of calf, excision; Basal cell carcinoma, superficial spreading with focal mucosal ulceration, completely excised. Cicatrix and associated with fat necrosis. Focal hyperkeratosis. / 11/05/2023 COMMENT Case has been reviewed in consultation with Dr. Colby who concurs with the above diagnosis. IDC: MICROSCOPIC DESCRIPTION Slides are reviewed. GROSS DESCRIPTION Received in fixative is one container labeled with the patient's name and designated Basal cell skin cancer left posterior calf. The specimen consists of a piece of long mckeon-white skin measuring 3.0 x 3.5cm and up to 0.6cm in thickness. The specimen is inked as follows: Proximal margin- blue, Distal inferior margin-green, Medial margin-red, and lateral- orange, Deep margin- black. This specimen is serially sectioned and submitted entirely in six cassettes from medial to lateral margin. / 11/04/2023 TC:0 CPT: 97859 -------- Patient Age/Sex Location Account Attending Physician -------- REYNA LOPEZ 57/F [facility] [place] [id number] Dr. Richard Guerrero MD -------- Signed (signature on file) Dr. Reynold Bishop DO 11/05/23 1257 -------- Normal [facility] Comment on above: Performed By: #### P SUIV ####[facility] [address] [place], [place], [id number] Surgery Visit Reporton 10-28 Surgery Visit Report [facility] [address] [place] [address] OFFICE VISIT Date of Service: 10/29/23 MR#: [id number] Acct: [id number] Name: REYNA LOPEZ Rep #: [id number] : 1965 Provider: Dr. Richard London Ceradha kay MD Age/Sex: 57/F Location: [facility] Status: Signed Intake Vital Signs 08/21/23 05:22 10/29/23 14:00 Height 5 ft 7 in Weight: 160 lb BP 139/82 H Blood Pressure Location Lt brachial Position Sitting Respiration 17 Pulse 74 Pulse Source Monitor Temp 96 F L Temp Source Temporal Pulse Oximetry (%) 98 Oxygen Delivery Method room air Intake Visit Reasons: EXCISION OF SKIN CANCER ON LEG Chief Complaint: excision of skin cancer Is patient in pain?: No Allergies chlorhexidine Allergy (Verified 10/29/23 14:01) Itching venom-honey bee [bee venom (honey bee)] Allergy (Verified 10/29/23 14:01) Anaphylaxis codeine Adverse Reaction (Severe, Verified 10/29/23 14:01) Unknown Medications aspirin 325 mg tablet,delayed release 325 mg PO DAILY 12/11/17 [History Confirmed 10/29/23] cholecalciferol (vitamin D3) 25 mcg (1,000 unit) capsule 1,000 unit PO DAILY 07/30/18 [History Confirmed 10/29/23] coenzyme Q10 100 mg capsule (Co Q-10) 100 mg PO DAILY 07/30/18 [History Confirmed 10/29/23] lorazepam 1 mg tablet 1 mg PO DAILY PRN PRN Anxiety 07/30/18 [History Confirmed 10/29/23] clonidine HCl 0.1 mg tablet 0.1 mg PO QHS 01/28/19 [History Confirmed 10/29/23] epinephrine 0.3 mg/0.3 mL injection, auto-injector (EpiPen) 0.3 mg IM Q10-15M PRN Allergy Symptoms 01/28/19 [History Confirmed 10/29/23] valacyclovir 500 mg tablet (Valtrex) 500 mg PO BID PRN Cold Sores 01/28/19 [History Confirmed 10/29/23] magnesium 200 mg tablet 200 mg PO TID 09/23/19 [History Confirmed 10/29/23] albuterol sulfate 90 mcg/actuation aerosol inhaler 2 puff inhalation Q4H PRN shortness of breath or wheezing 08/21/23 [History Confirmed 10/29/23] ammonium lactate 12 % topical cream 1 applic topical BID PRN lesions 08/21/23 [History Confirmed 10/29/23] ascorbic acid (vitamin C) 1,000 mg tablet,extended release (C Complex) 1,000 mg PO DAILY 08/21/23 [History Confirmed 10/29/23] baclofen 10 mg tablet 15 mg PO Q8H PRN muscle spasm 08/21/23 [History Confirmed 10/29/23] cyanocobalamin (vitamin B-12) 1,000 mcg tablet (Vitamin B-12) 1,000 mcg PO DAILY 08/21/23 [History Confirmed 10/29/23] fluoxetine 20 mg capsule 20 mg PO DAILY 08/21/23 [History Confirmed 10/29/23] fluticasone fur. 100 mcg-umeclid 62.5 mcg-vilant 25 mcg inhalat.powder (Trelegy Ellipta) 1 inh inhalation DAILY 08/21/23 [History Confirmed 10/29/23] pantoprazole 40 mg tablet,delayed release 40 mg PO DAILY 08/21/23 [History Confirmed 10/29/23] metoprolol succinate 100 mg capsule sprinkle, ext. release 24 hr 100 mg PO DAILY 10/29/23 [History Confirmed 10/29/23] PFSH Medical History Abnormal ECG Alcohol use Anxiety Arthritis Atypical depressive disorder Cardiology follow-up encounter Depression Essential hypertension Heartburn High cholesterol Hypertension Hypokalemia Hypotension Loss of consciousness New onset a-fib Nonspecific ST-T wave electrocardiographic changes Pain and swelling of left knee Pure hypercholesterolemia Smoker Syncope Tobacco dependence Wears glasses Surgical History H/O: knee surgery History of tonsillectomy Family History (Updated 10/29/23 @ 13:57 by Jeanna Crews) Mother CAD (coronary artery disease) Diabetes Sister Cardiomyopathy Cancer skin Father Cancer Heart disease Social History Smoking Status: Current every day smoker tobacco type: cigarettes Tobacco: How many years used: 35 second hand exposure: No alcohol intake: never caffeine: Yes Type: coffee Number of servings: 4 HPI HPI HPI: 57-year-old female was referred by Dr. Jose Rhoades for surgical consultation regarding a biopsy- proven basal cell carcinoma of the left lower leg. A written copy my surgical consult and plans of treatment will return to him. The patient states that she thought this area has been present for years and thought it was simply the residual of a insect bite. The recent biopsy somewhat surprised her. She states that her general health is stable. She has had a right total knee replacement. She is on a low-dose aspirin. She is a chronic tobacco user. ROS General General: Yes fatigue; No weight change, appetite, colon cancer, breast cancer or weakness HEENT HEENT: No difficulty swallowing, eye injury, eye surgery, swollen glands or hoarseness Endo Endocrine: No thyroid disease, diabetes mellitus, thyroid cancer, Hair loss, heat intolerance or cold (more content not included)... Normal [facility] Absolute lymphocyte countOrd ered By: Jsoe Rhoades on 08-19-2023 Lymphocytes Auto (Unsp spec) [#/Vol] 4.35 10*3/uL 0.83-4.51 [facility] Basophil percentageOrdered B y: Jose Rhoades on 08-19-2023 Basophil percentage 0 SEEN /hpf 0-5 [facility] Basophils/100 WBC (Bld) 0.3 % 0-1 [facility] Bilirubin [Mass/Vol] 0.30 mg/dL 0.20-1.00 [facility] Comment on above: For patients on eltr ombopag therapy, use of Dimension [place] TBIL is not recommended. Chloride [Moles/Vol] 107 mmol/L 98-107 [facility] Eosinophils/100 WBC (Bld) 2.0 % 0-5 [facility] Glucose [Mass/Vol] 90 mg/dL 74-106 [facility] Neutrophils (Bld) [#/Vol] 7.2 10*3/uL 2.0-7.7 [facility] Neutrophils/100 WBC (Bld) 55.5 % 47-70 [facility] Potassium [Moles/Vol] 4.1 mmol/L 3.5-5.1 [facility] Protein [Mass/Vol] 7.3 g/dL 6.4-8.2 [facility] Sodium [Moles/Vol] 139 mmol/L 136-145 [facility] WBC (Bld) [#/Vol] 12.9 10*3/uL 4.4-11.0 [facility] Bilirubin Test strip Ql (U)O rdered By: Jose Jf on 08-19-2023 Bilirubin Ql (U) Negative Negative [facility] Blood erythrocytes count (nu mber/volume)Ordered By: Jose Rhoades on 08-19-2023 RBC (Bld) [#/Vol] 4.42 10*6/uL 4.2-5.4 [facility] Blood hemoglobin measurement (mass/volume)Ordered By: Jose Rhoades on 08-19-2023 Hemoglobin (Bld) [Mass/Vol] 13.3 g/dL 12.0-15.0 [facility] Blood lymphocytes/100 leukoc ytesOrdered By: Jose Rhoades on 08-19-2023 Lymphocytes/100 WBC (Bld) 33.7 % 19-41 [facility] Blood monocytes/100 leukocyt esOrdered By: Jose Rhoades on 08-19-2023 Monocytes/100 WBC (Bld) 8.0 % 0-10 [facility] Blood platelet mean volumeOr dered By: Jose Rhoades on 08-19-2023 Platelet mean volume (Bld) [Entitic vol] 10.7 fL 6.2-12.0 [facility] Determination of erythrocyte mean corpuscular volume (MCV)Ordered By: Jose Rhoades on 08-19-2023 MCV (RBC) [Entitic vol] 94.8 fL 81-99 [facility] Erythrocyte sedimentation ra teOrdered By: Jose Rhoades on 08-19-2023 ESR (Bld) [Velocity] 22 mm/h 0-30 [facility] Hematocrit Auto (Bld) [Volum e fraction]Ordered By: Jose Rhoades on 08-19-2023 Hematocrit (Bld) [Volume fraction] 41.9 % 37-47 [facility] Ketones Test strip Ql (U)Ord ered By: Jose Rhoades on 08-19-2023 Ketones Ql (U) Negative Negative [facility] Laboratory - Chemistry and C hemistry - challengeOrdered By: Jose Rhoades on 08-19-2023 ALP [Catalytic activity/Vol] 79 U/L 45-117 [facility] ALT [Catalytic activity/Vol] 19 U/L 13-56 [facility] CO2 [Moles/Vol] 26.0 mmol/L 21.0-32.0 [facility] Globulin (S) [Mass/Vol] 3.4 g/dL 2.2-4.2 [facility] Lipase [Catalytic activity/Vol] 34 U/L 13-75 [facility] Comment on above: Please note:LIPASE r evised reference range effective 22. New Lipase methodology. Expected to produce lower values than the previous assay method. NEW Reference Range: 13 - 75 U/L Urea nitrogen/Creatinine [Mass ratio] 15.2 mg/mg 10-20 [facility] Laboratory - Hematology and Cell countsOrdered By: Jose Rhoades on 08-19-2023 Erythrocyte distribution width (RBC) [Entitic vol] 49.9 fL 35.1-43.9 [facility] Erythrocyte distribution width (RBC) [Ratio] 14.4 % 11.6-14.6 [facility] Immature granulocytes/100 WBC (Bld) 0.500 % 0.0-0.9 [facility] Comment on above: IG% - Immature Granu locytes (promyelocytes, myelocytes and metamyelocytes) > 1% indicates that a LEFT SHIFT is Present. MCH (RBC) [Entitic mass] 30.1 pg 27.0-32.0 [facility] Nucleated RBC/100 WBC (Bld) [Ratio] 0 % 0-5 [facility] MCHC Auto (RBC) [Mass/Vol]Or dered By: Jose Rhoades on 08-19-2023 MCHC (RBC) [Mass/Vol] 31.7 g/dL 32-36 [facility] Mucus LM Ql (Urine sed)Order ed By: Jose Rhoades on 08-19-2023 Mucus Ql (Urine sed) 0 SEEN /hpf [facility] Nitrite Test strip Ql (U)Ord ered By: Jose Rhoades on 08-19-2023 Nitrite Ql (U) Negative Negative [facility] No Panel InformationOrdered By: Jose Rhoades on 08-19-2023 Estimated GFR (MDRD) Amer 64 mL/min >60 [facility] Comment on above: GFR Calc Estimated GFR (MDRD) Non-Af Amer 53 mL/min >60 [facility] Comment on above: Non- GFR Calc Urine Microalbumin/Creatinin e Ratio 14.0 mg/g CRE <30 [facility] Platelets bldOrdered By: Indu Rhoades on 01-08-2024 Platelets (Bld) [#/Vol] 461 10*3/uL 150-450 [facility] Protein Test strip Ql (U)Ord ered By: Jose Rhoades on 08-19-2023 Protein Ql (U) Negative Negative [facility] Serum or plasma albumin nydia urement (mass/volume)Ordered By: Jose Rhoades on 08-19-2023 Albumin [Mass/Vol] 3.9 g/dL 3.2-5.0 [facility] Serum or plasma albumin/glob ulin mass ratioOrdered By: Jose Rhoades on 08-19-2023 Albumin/Globulin [Mass ratio] 1.1 {ratio} 0.9-2.4 [facility] Serum or plasma calcium nydia urement (mass/volume)Ordered By: Jose Rhoades on 08-19-2023 Calcium [Mass/Vol] 9.2 mg/dL 8.5-10.1 [facility] Serum or plasma creatinine m easurement (mass/volume)Ordered By: Jose Rhoaeds on 08-19-2023 Creatinine [Mass/Vol] 1.12 mg/dL 0.55-1.02 [facility] Comment on above: The validity of the calculated GFR & GFRAA in patients over 70 years has not been determined. Clinical correlation is essential. Serum or plasma urea nitroge n measurement (mass/volume)Ordered By: Jose Rhoades on 08-19-2023 Urea nitrogen [Mass/Vol] 17 mg/dL 7-18 [facility] Squamous epithelial cells de tection in urine sediment by light microscopyOrdered By: Jose Rhoades on 08-19-2023 Epithelial cells.squamous LM Ql (Urine sed) 0-5 SEEN /hpf 5-10 [facility] Thin prep Papanicolaou smear with manual screeningOrdered By: Jose Rhoades on 08-19-2023 Thin prep Papanicolaou smear with manual screening 12 U/L 15-37 [facility] Thin prep Papanicolaou smear with manual screening 6 5-15 [facility] Thin prep Papanicolaou smear with manual screening 9.0 mg/L NO RANGE EST. [facility] Urine blood detectionOrdered By: Jose Rhoades on 08-19-2023 RBC Ql (U) 150 /ul Negative [facility] RBC Ql (U) 0 SEEN /hpf 0-5 [facility] Urine clarityOrdered By: Indu Rhoades on 08-19-2023 Clarity (U) Clear Clear [facility] Urine color determinationOrd ered By: Jose Rhoades on 08-19-2023 Color (U) Yellow Yellow [facility] Urine creatinine measurement (mass/volume)Ordered By: Jose Rhoades on 08-19-2023 Creatinine (U) [Mass/Vol] 64.40 mg/dL NO RANGE EST. [facility] Urine glucose detectionOrder ed By: Jose Rhoades on 08-19-2023 Glucose Ql (U) Normal mg/dl Normal [facility] Urine leukocyte esterase det ection by dipstickOrdered By: Jose Rhoades on 08-19-2023 Leukocyte esterase Test strip Ql (U) Negative Negative [facility] Urine pHOrdered By: Jose mckenna on 08-19-2023 pH (U) 6.0 [pH] 5.0 - 8.0 [facility] Urine sediment bacteria coun t by microscopy (number/high power field)Ordered By: Jose Rhoades on 08-19-2023 Bacteria LM.HPF (Urine sed) [#/Area] 0 /[HPF] None Seen [facility] Urine specific gravity measu rementOrdered By: Jose Rhoades on 08-19-2023 Specific gravity (U) [Rel density] 1.015 1.002-1.03 0 [facility] Urobilinogen Auto test strip Ql (U)Ordered By: Jose Rhoades on 08-19-2023 Urobilinogen Ql (U) Normal mg/dl Normal [facility] XR Chest PA and Lateralon IMPRESSION: 1. Nodularities noted in the RIGHT mid and upper lung field. This is likely calcified and there may be calcified nodes in the RIGHT hilar region If there are any previous films available for comparison they would be helpful. 2. Otherwise unremarkable Technical Sales Support Specialist: PSCB Transcribe Date/Time: Nov 24 2022 12:21P Dictated by : GHASSAN PIERRE DO This examination was interpreted and the report reviewed and electronically signed by: GHASSAN PIERRE DO on Nov 24 2022 12:22PM EST DIVISION OF RADIOLOGY * * *Final Report* * * DATE OF EXAM: Nov 24 2022 11:57AM WOX [id number] - XR CHEST 2V FRONTAL/LAT / PROCEDURE REASON: Acute cough * * * * Physician Interpretation * * * * EXAMINATION: CHEST RADIOGRAPH (2 VIEW FRONTAL & LATERAL) CLINICAL HISTORY: Acute cough MQ: XC2_6 EXAM DATE/TIME: 11/24/2022 11:57 AM COMPARISON: No relevant prior studies available. RESULT: Lines, tubes, and devices: None. Lungs and pleura: * 5 mm nodular density RIGHT mid to upper lung field and 2 mm nodular density above this level. These are likely calcified. However cannot tell with certainty. Cardiomediastinal silhouette: Normal cardiomediastinal silhouette. Bones and soft tissues: Unremarkable. DIVISION OF RADIOLOGY Provider, [facility] - 11/24/2022 * * *Final Report* * * DATE OF EXAM: Nov 24 2022 11:57AM WOX [id number] - XR CHEST 2V FRONTAL/LAT / PROCEDURE REASON: Acute cough * * * * Physician Interpretation * * * * EXAMINATION: CHEST RADIOGRAPH (2 VIEW FRONTAL & LATERAL) CLINICAL HISTORY: Acute cough MQ: XC2_6 EXAM DATE/TIME: 11/24/2022 11:57 AM COMPARISON: No relevant prior studies available. RESULT: Lines, tubes, and devices: None. Lungs and pleura: * 5 mm nodular density RIGHT mid to upper lung field and 2 mm nodular density above this level. These are likely calcified. However cannot tell with certainty. Cardiomediastinal silhouette: Normal cardiomediastinal silhouette. Bones and soft tissues: Unremarkable. IMPRESSION IMPRESSION: 1. Nodularities noted in the RIGHT mid and upper lung field. This is likely calcified and there may be calcified nodes in the RIGHT hilar region If there are any previous films available for comparison they would be helpful. 2. Otherwise unremarkable Technical Sales Support Specialist: PSCB Transcribe Date/Time: Nov 24 2022 12:21P Dictated by : GHASSAN PIERRE DO This examination was interpreted and the report reviewed and electronically signed by: GHASSAN PIERRE DO on Nov 24 2022 12:22PM EST [facility] Radiology Study observation (narrative) [facility] XR Chest PA and LateralOrder ed By: [facility]cf Provider on 11-24-2022 [facility] Basophil percentageon 2021 Bilirubin [Mass/Vol] 0.30 mg/dL 0.20-1.00 [facility] Work Phone: Comment on above: For patients on eltr ombopag therapy, use of Dimension [place] TBIL is not recommended. Chloride [Moles/Vol] 107 mmol/L 98-107 [facility] Work Phone: Glucose [Mass/Vol] 98 mg/dL 74-106 [facility] Work Phone: [phone] Potassium [Moles/Vol] 4.7 mmol/L 3.5-5.1 [facility] Work Phone: Protein [Mass/Vol] 7.4 g/dL 6.4-8.2 [facility] Work Phone: Sodium [Moles/Vol] 137 mmol/L 136-145 [facility] Work Phone: Laboratory - Chemistry and C hemistry - challengeon 06-07-2022 ALP [Catalytic activity/Vol] 80 U/L 45-117 [facility] Work Phone: ALT [Catalytic activity/Vol] 28 U/L 13-56 [facility] Work Phone: CO2 [Moles/Vol] 24.0 mmol/L 21.0-32.0 [facility] Work Phone: Globulin (S) [Mass/Vol] 3.2 g/dL 2.2-4.2 [facility] Work Phone: Urea nitrogen/Creatinine [Mass ratio] 20.0 mg/mg 10-20 [facility] Work Phone: No Panel Informationon 06-07 Estimated GFR (MDRD) Amer 83 mL/min >60 [facility] Work Phone: Comment on above: GFR Calc Estimated GFR (MDRD) Non-Af Amer 68 mL/min >60 [facility] Work Phone: Comment on above: Non- GFR Calc Serum or plasma albumin nydia urement (mass/volume)on 06-07-2022 Albumin [Mass/Vol] 4.2 g/dL 3.2-5.0 [facility] Work Phone: Serum or plasma albumin/glob ulin mass ratioon 06-07-2022 Albumin/Globulin [Mass ratio] 1.3 {ratio} 0.9-2.4 [facility] Work Phone: Serum or plasma calcium nydia urement (mass/volume)on 06-07-2022 Calcium [Mass/Vol] 9.8 mg/dL 8.5-10.1 [facility] Work Phone: Serum or plasma creatinine m easurement (mass/volume)on 06-07-2022 Creatinine [Mass/Vol] 0.90 mg/dL 0.55-1.02 [facility] Work Phone: Comment on above: The validity of the calculated GFR & GFRAA in patients over 70 years has not been determined. Clinical correlation is essential. Serum or plasma urea nitroge n measurement (mass/volume)on 06-07-2022 Urea nitrogen [Mass/Vol] 18 mg/dL 7-18 [facility] Work Phone: Thin prep Papanicolaou smear with manual screeningon 06-07-2022 Thin prep Papanicolaou smear with manual screening 15 U/L 15-37 [facility] Work Phone: Thin prep Papanicolaou smear with manual screening 6 5-15 [facility] Work Phone: Whole blood hemoglobin A1c/t otal hemoglobin ratio (mass fraction)on 06-07-2022 HbA1c (Bld) [Mass fraction] 6.0 % 3.8-5.6 [facility] Work Phone: Comment on above: Normal < 5.7 % Predi abetic 5.7 - 6.4 % Diabetic >or= 6.5 % Please note range changes. PELVIC US WHIon 06-04-2022 [facility] UA DIP, URINE (POC)on 2021 BILIRUBIN UA (POCT) Negative Negative [facility] CLARITY UA (POCT) Clear [facility] COLOR UA (POCT) Yellow [facility] GLUCOSE UA (POCT) Negative Negative mg/dL [facility] HEMOGLOBIN/BLOOD UA (POCT) Small Abnormal Negative [facility] KETONE UA (POCT) Negative Negative mg/dL [facility] LEUKOCYTES UA (POCT) Negative Negative [facility] NITRITE UA (POCT) Negative Negative [facility] PH UA (POCT) 6.5 4.5 - 8.0 [facility] Protein Ql (U) Negative Negative mg/dL [facility] SPECIFIC GRAVITY UA (POCT) 1.015 1.005 - 1.030 [facility] UROBILINOGEN UA (POCT) 0.2 E.U./dL Kristy l E.U./dL [facility] Basophil percentageon 2021 Bilirubin [Mass/Vol] 0.20 mg/dL 0.20-1.00 [facility] Work Phone: Comment on above: For patients on eltr ombopag therapy, use of Dimension [place] TBIL is not recommended. Chloride [Moles/Vol] 110 mmol/L 98-107 [facility] Work Phone: Cholesterol [Mass/Vol] 212 mg/dL <200 [facility] Work Phone: Comment on above: <200 mg/dL Desirable 200-240 mg/dL Borderline >240 mg/dL High Risk Glucose [Mass/Vol] 106 mg/dL 74-106 [facility] Work Phone: Comment on above: Fasting Glucose resu lt from 100 to 125 mg/dL suggests IMPAIRED HOMEOSTASIS per A.D.A. criteria. Potassium [Moles/Vol] 4.6 mmol/L 3.5-5.1 [facility] Work Phone: Protein [Mass/Vol] 7.5 g/dL 6.4-8.2 [facility] Work Phone: Sodium [Moles/Vol] 140 mmol/L 136-145 [facility] Work Phone: Triglyceride [Mass/Vol] 122 mg/dL <199 [facility] Work Phone: Comment on above: The drugs N-Acetylcy steine and Metamizole may falsely depress this assay.Serum Triglycerides Reference Interval Normal <150 mg/dL Borderline high 150 - 199 mg/dL High 200 - 499 mg/dL Very High > or = 500 mg/dL Laboratory - Chemistry and C hemistry - challengeon 03-30-2022 ALP [Catalytic activity/Vol] 69 U/L 45-117 [facility] Work Phone: ALT [Catalytic activity/Vol] 30 U/L 13-56 [facility] Work Phone: CO2 [Moles/Vol] 24.0 mmol/L 21.0-32.0 [facility] Work Phone: Globulin (S) [Mass/Vol] 3.6 g/dL 2.2-4.2 [facility] Work Phone: Urea nitrogen/Creatinine [Mass ratio] 23.6 mg/mg 10-20 [facility] Work Phone: No Panel Informationon 03-30 Estimated GFR (MDRD) Amer 75 mL/min >60 [facility] Work Phone: Comment on above: GFR Calc Estimated GFR (MDRD) Non-Af Amer 62 mL/min >60 [facility] Work Phone: Comment on above: Non- GFR Calc Serum or plasma albumin nydia urement (mass/volume)on 03-30-2022 Albumin [Mass/Vol] 3.9 g/dL 3.2-5.0 [facility] Work Phone: Serum or plasma albumin/glob ulin mass ratioon 03-30-2022 Albumin/Globulin [Mass ratio] 1.1 {ratio} 0.9-2.4 [facility] Work Phone: Serum or plasma calcium nydia urement (mass/volume)on 03-30-2022 Calcium [Mass/Vol] 9.1 mg/dL 8.5-10.1 [facility] Work Phone: Serum or plasma cholesterol in HDL measurement (mass/volume)on 08-19-2022 Cholesterol in HDL [Mass/Vol] 51 mg/dL >40 [facility] Work Phone: Comment on above: The drugs N-Acetylcy steine and Metamizole may falsely depress this assay. Reference Range HDL <40 mg/dL Low HDL Cholesterol HDL >or= 60 mg/dL High HDL Cholesterol Serum or plasma cholesterol in VLDL measurement (mass/volume)on 03-30-2022 Cholesterol in VLDL [Mass/Vol] 24 mg/dL 5-40 [facility] Work Phone: Serum or plasma creatinine m easurement (mass/volume)on 03-30-2022 Creatinine [Mass/Vol] 0.98 mg/dL 0.55-1.02 [facility] Work Phone: Comment on above: The validity of the calculated GFR & GFRAA in patients over 70 years has not been determined. Clinical correlation is essential. Serum or plasma low density lipoprotein (LDL) cholesterol measurement (mass/volume)on 03-30-2022 Cholesterol in LDL [Mass/Vol] 137 mg/dL 0-130 [facility] Work Phone: Serum or plasma urea nitroge n measurement (mass/volume)on 03-30-2022 Urea nitrogen [Mass/Vol] 23 mg/dL 7-18 [facility] Work Phone: Thin prep Papanicolaou smear with manual screeningon 03-30-2022 Thin prep Papanicolaou smear with manual screening 17 U/L 15-37 [facility] Work Phone: Thin prep Papanicolaou smear with manual screening 6 5-15 [facility] Work Phone: Vital Signs Date Time Vital Sign Value Performing Clinician Tata arriaga 09-28-2024 13:14-0500 Body weight 74.39 kg Oksana Hinckley ANTHROPOLOGIST PHYSICAL.TINNING MACHINE SET UP OPERATOR Work Phone: [facility] 09-28-2024 13:14-0500 Diastolic blood pressure 86 mm[Hg] Oksana Hinckley ANTHROPOLOGIST PHYSICAL.TINNING MACHINE SET UP OPERATOR Work Phone: [facility] 09-28-2024 13:14-0500 Systolic blood pressure 146 mm[Hg] Oksana Hinckley ANTHROPOLOGIST PHYSICAL.TINNING MACHINE SET UP OPERATOR Work Phone: [facility] 05-31-2024 11:05-0400 Body temperature 100 [degF] Cleopatra Jackson ANTHROPOLOGIST PHYSICAL.TINNING MACHINE SET UP OPERATOR Work Phone: [facility] 05-31-2024 11:05-0400 Body weight 70.9 kg Cleopatra Jackson ANTHROPOLOGIST PHYSICAL.TINNING MACHINE SET UP OPERATOR Work Phone: [facility] 05-31-2024 11:05-0400 Diastolic blood pressure 83 mm[Hg] Cleopatra Jackson ANTHROPOLOGIST PHYSICAL.TINNING MACHINE SET UP OPERATOR Work Phone: [facility] 05-31-2024 11:05-0400 Heart rate 110 /min Cleopatra Jackson ANTHROPOLOGIST PHYSICAL.TINNING MACHINE SET UP OPERATOR Work Phone: [facility] 05-31-2024 11:05-0400 Respiratory rate 20 /min Cleopatra Jackson ANTHROPOLOGIST PHYSICAL.TINNING MACHINE SET UP OPERATOR Work Phone: [facility] 05-31-2024 11:05-0400 SaO2% (BldA) [Mass fraction] 96 % Cleopatra Jackson ANTHROPOLOGIST PHYSICAL.TINNING MACHINE SET UP OPERATOR Work Phone: [facility] 05-31-2024 11:05-0400 Systolic blood pressure 147 mm[Hg] Cleopatra Jackson ANTHROPOLOGIST PHYSICAL.TINNING MACHINE SET UP OPERATOR Work Phone: [facility] 12-12-2023 10:28-0400 Body temperature 96.8 [degF] Dr. Jose Rhoades Work Phone: [facility] 11-04-2023 09:23-0400 Body temperature 97.5 [degF] Dr. Jose Rhoades Work Phone: [facility] 11-04-2023 09:23-0400 Diastolic blood pressure 78 mm[Hg] Dr. Jose Rhoades Work Phone: [facility] 11-04-2023 09:23-0400 Heart rate 75 /min Dr. Jose Rhoades Work Phone: [facility] 11-04-2023 09:23-0400 Respiratory rate 16 /min Dr. Jose Rhoades Work Phone: [facility] 11-04-2023 09:23-0400 SaO2% (BldA) [Mass fraction] 95 % Dr. Jose Rhoades Work Phone: [facility] 11-04-2023 09:23-0400 Systolic blood pressure 111 mm[Hg] Dr. Jose Rhoades Work Phone: [facility] 11-04-2023 06:18-0400 Body height 170.[address] Jose Rhoades Work Phone: [facility] 11-04-2023 06:18-0400 Body mass index (BMI) [Ratio] 25.2 kg/m2 Dr. Jose Rhoades Work Phone: [phone] [place] [address] 11-04-2023 06:18-0400 Body weight [address] Jose Rhoades Work Phone: [phone] [place] [address] 10-29-2023 14:00-0400 Body temperature 96 [degF] Dr. Jose Rhoades Work Phone: [facility] 10-29-2023 14:00-0400 Body weight 72.[address] Jose Rhoades Work Phone: [facility] 10-29-2023 14:00-0400 Diastolic blood pressure 82 mm[Hg] Dr. Jose Rhoades Work Phone: [facility] 10-29-2023 14:00-0400 Heart rate 74 /min Dr. Jose Rhoades Work Phone: [facility] 10-29-2023 14:00-0400 Respiratory rate 17 /min Dr. Jose Rhoades Work Phone: [facility] 10-29-2023 14:00-0400 SaO2% (BldA) [Mass fraction] 98 % Dr. Jose Rhoades Work Phone: [facility] 10-29-2023 14:00-0400 Systolic blood pressure 139 mm[Hg] Dr. Jose Rhoades Work Phone: [facility] 08-21-2023 06:11-0500 Diastolic blood pressure 95 mm[Hg] [facility] 08-21-2023 06:11-0500 Heart rate 76 /min [facility] 08-21-2023 06:11-0500 Respiratory rate 16 /min [facility] 08-21-2023 06:11-0500 SaO2% (BldA) [Mass fraction] 95 % [facility] 08-21-2023 06:11-0500 Systolic blood pressure 146 mm[Hg] [facility] 08-21-2023 05:22-0500 Body height 170.18 cm [facility] 08-21-2023 05:22-0500 Body mass index (BMI) [Ratio] 24.6 kg/m2 [facility] 08-21-2023 05:22-0500 Body temperature 98.7 [degF] [facility] 08-21-2023 05:22-0500 Body weight 71.3 kg [facility] 11-17-2022 13:47-0400 Body temperature 98.8 [degF] Charo Athy PA-C Work Phone: [facility] 11-17-2022 13:47-0400 Body weight 72.85 kg Charo Athy PA-C Work Phone: [facility] 11-17-2022 13:47-0400 Diastolic blood pressure 90 mm[Hg] Charo Athy PA-C Work Phone: [facility] 11-17-2022 13:47-0400 Heart rate 90 /min Charo Athy PA-C Work Phone: [facility] 11-17-2022 13:47-0400 Respiratory rate 18 /min Charo Athy PA-C Work Phone: [facility] 11-17-2022 13:47-0400 SaO2% (BldA) [Mass fraction] 97 % Charo Athy PA-C Work Phone: [facility] 11-17-2022 13:47-0400 Systolic blood pressure 136 mm[Hg] Charo Athy PA-C Work Phone: [facility] 03-16-2022 08:46-0400 Body temperature 97.5 [degF] Dr. Jose Rhoades Work Phone: [facility] Work Phone: 03-16-2022 08:46-0400 Diastolic blood pressure 89 mm[Hg] Dr. Jose Rhoades Work Phone: [facility] Work Phone: 03-16-2022 08:46-0400 Heart rate 74 /min Dr. Jose Rhoades Work Phone: [facility] Work Phone: 03-16-2022 08:46-0400 Respiratory rate 18 /min Dr. Jose Rhoades Work Phone: [facility] Work Phone: 03-16-2022 08:46-0400 SaO2% (BldA) [Mass fraction] 100 % Dr. Jose Rhoades Work Phone: [facility] Work Phone: 03-16-2022 08:46-0400 Systolic blood pressure 120 mm[Hg] Dr. Jose Rhoades Work Phone: [facility] Work Phone: 03-16-2022 07:00-0400 Body height 170.[address] Jose Rhoades Work Phone: [facility] Work Phone: 03-16-2022 07:00-0400 Body mass index (BMI) [Ratio] 24.9 kg/m2 Dr. Jose Rhoades Work Phone: [facility] Work Phone: 03-16-2022 07:00-0400 Body weight 72.[address] Jose Rhoades Work Phone: [facility] Work Phone: 01-29-2022 14:30-0400 Body height 170.[address] Jose Rhoades Work Phone: [facility] Work Phone: 01-29-2022 14:30-0400 Body mass index (BMI) [Ratio] 26.2 kg/m2 Dr. Jose Rhoades Work Phone: [facility] Work Phone: 01-29-2022 14:30-0400 Body weight 75.[address] Jose Rhoades Work Phone: [facility] Work Phone: Encounters Encounter Date Encounter Type Care Provider Facility Start: 10-02-2024 End: 10-02-2024 ambulatory Erickian Ríos Facility:[facility] Start: 09-28-2024 End: 09-28-2024 ambulatory OKSANA ZAY Facility:[facility] Start: 09-28-2024 End: 09-28-2024 Patient encounter procedure Oksana Glasgow ANTHROPOLOGIST PHYSICAL.TINNING MACHINE SET UP OPERATOR Work Phone: OB/Gynecology Comment on above: Hematuria, unspecifi ed type (Primary Dx) Start: 06-25-2024 End: 06-25-2024 [facility] Jose Rhoades Facility:[facility] Start: 05-31-2024 End: 05-31-2024 Emergency department patient visit Yamil Chisholm Facility:[facility] Start: 05-31-2024 End: 05-31-2024 ambulatory JOSE Christopher [place] Facility:[facility] Start: 05-31-2024 End: 05-31-2024 Patient encounter procedure Cleopatra Jackson ANTHROPOLOGIST PHYSICAL.TINNING MACHINE SET UP OPERATOR Work Phone: [facility] Comment on above: SOB (shortness of br eath) (Primary Dx) Start: 04-02-2024 End: 04-02-2024 billie Rhoades Facility:[facility] Start: 03-09-2024 ambulatory Jose Rhoades Facility:[facility] Start: 03-09-2024 End: 03-09-2024 ambulatory Jose Rhoades Facility:[facility] Start: 02-04-2024 End: 02-04-2024 ambulatory Jose Rhoades Facility:[facility] Start: 01-01-2024 End: 01-01-2024 ambulatory Jose Rhoades Facility:[facility] Start: 12-12-2023 Non-patient / Non-visit Dr. Jeremias Rhoades Work Phone: [facility] Start: 12-12-2023 End: 12-12-[address] Jose Rhoades Work Phone: [facility] Work Phone: Start: 12-12-2023 End: 12-12-[address] Jose Rhoades Work Phone: [facility] Work Phone: Start: 12-12-2023 End: 12-12-2023 ambulatory Jose Rhoades Facility:[facility] Start: 12-04-2023 End: 12-04-[address] Jose Rhoades Work Phone: [facility] Work Phone: Start: 12-04-2023 End: 12-04-2023 ambulatory Jose Rhoades Facility:[facility] Start: 11-19-2023 End: 11-19-[address] Jose Rhoades Work Phone: [facility] Work Phone: Start: 11-19-2023 End: 11-19-2023 ambulatory Jose Rhoades Facility:[facility] Start: 11-13-2023 End: 11-13-[address] Jose Rhoades Work Phone: [facility] Work Phone: Start: 11-13-2023 End: 11-13-2023 ambulatory Jose Rhoades Facility:[facility] Start: 11-11-2023 End: 11-11-[address] Jose Rhoades Work Phone: [facility] Work Phone: Start: 11-11-2023 End: 11-11-2023 ambulatory Jose Rhoades Facility:[facility] Start: 11-04-2023 Non-patient / Non-visit Dr. Jeremias Rhoades Work Phone: [facility] Start: 11-04-2023 End: 11-04-2023 Admission to same day surgery center Dr. Jose Rhoades Work Phone: [facility] Start: 11-04-2023 End: 11-04-[address] Jose Rhoades Work Phone: [facility] Work Phone: Start: 10-29-2023 End: 10-29-[address] Jose Rhoades Work Phone: [facility] Work Phone: Start: 10-29-2023 End: 10-29-2023 ambulatory Jose Rhoades Facility:[facility] Start: 10-03-2023 End: 10-03-[address] [facility] Work [facility]: Start: 08-21-2023 End: 08-21-2023 Emergency department patient visit [facility] Work Phone: Start: 08-19-2023 End: 08-19-2023 ambulatory [facility] Work Phone: Start: 08-19-2023 End: 08-19-2023 Patient encounter procedure [facility] Start: 07-01-2023 End: 07-01-2023 ambulatory [facility] Work Phone: Start: 07-01-2023 End: 07-01-2023 Patient encounter procedure [facility]Out[facility] Work Phone: Start: 11-24-2022 End: 11-24-2022 Subsequent hospital visit by physician [facility] Work Phone: Radiology Comment on above: Acute cough [R05.1] Start: 11-17-2022 End: 11-17-2022 Patient encounter procedure Charo Funez PA-C Work Phone: [facility] Comment on above: Sinobronchitis (Prim jon Dx) Start: 06-21-2022 End: 06-21-2022 ambulatory [facility] Work Phone: Start: 06-21-2022 End: 06-21-2022 Discharged Recurring [facility] Start: 06-07-[address] Jose Rhoades Work Phone: [facility] Start: 06-07-2022 End: 06-07-[address] Jose Rhoades Work Phone: [facility] Work Phone: Start: 06-07-2022 End: 06-07-[address] Jose Rhoades Work Phone: [facility] Start: 06-05-2022 Telephone encounter [facility] james ANTHROPOLOGIST PHYSICAL.TINNING MACHINE SET UP OPERATOR Work Phone: OB/Gynecology Comment on above: Results Start: 06-04-2022 End: 06-04-2022 Patient encounter procedure Varsha Buchanan MD Work Phone: OB/Gynecology Comment on above: Pelvic pain in femal e (Primary Dx) Start: 06-04-2022 End: 06-04-2022 ambulatory Ob Ultrasound Work Phone: OB/Gynecology Start: 06-04-2022 End: 06-04-2022 Patient encounter procedure Brazing Machine Operator Helper [facility] Work Phone: [facility] Start: 06-04-2022 Telephone encounter Oksana Whitehead james ANTHROPOLOGIST PHYSICAL.TINNING MACHINE SET UP OPERATOR Work Phone: OB/Gynecology Comment on above: Results Start: 06-01-2022 End: 06-01-2022 Patient encounter procedure Oksana Glasgow ANTHROPOLOGIST PHYSICAL.TINNING MACHINE SET UP OPERATOR Work Phone: OB/Gynecology Comment on above: Pelvic pain in femal e (Primary Dx); Screening for malignant neoplasm of cervix; Encounter for screening for human papillomavirus (HPV) Start: 03-30-2022 End: 03-30-[address] Jose Rhoades Work Phone: [facility] Work Phone: Start: 03-30-2022 End: 03-30-[address] Jose Rhoades Work Phone: [facility] Start: 03-16-2022 Non-patient / Non-visit Dr. Jeremias Rhoades Work Phone: [facility] Start: 03-16-2022 End: 03-16-2022 Admission to same day surgery center Dr. Jose Rhoades Work Phone: [facility]-Endoscopy Start: 02-27-2022 End: 02-27-[address] Jose Rhoades Work Phone: [facility] Start: 01-29-2022 End: 01-29-[address] Jose Rhoades Work Phone: [facility] Start: 01-22-2022 End: 01-22-[address] Jose Rhoades Work Phone: [facility]-Outpatient Breast Imaging Procedures Date Procedure Procedure Detail Performing Clinician Start: 09-28-2024 Urnls dip stick/tabl et rgnt auto w/o microscopy Oksana Zay ANTHROPOLOGIST PHYSICAL.TINNING MACHINE SET UP OPERATOR Work Phone: Start: 11-04-2023 Split thickness brooks t of skin to skin Dr. Jose Rhoades Work Phone: Start: 07-01-2023 Screening mammography Start: 11-24-2022 Radiologic exam ches t 2 views Remy Reeder ANTHROPOLOGIST PHYSICAL.TINNING MACHINE SET UP OPERATOR Work Phone: Start: 06-04-2022 Us pelvic nonobstetr ic real-time image complete Oksana Hinckley ANTHROPOLOGIST PHYSICAL.TINNING MACHINE SET UP OPERATOR Work Phone: Start: 06-01-2022 Urnls dip stick/tabl et rgnt auto w/o microscopy Oksana Zay ANTHROPOLOGIST PHYSICAL.TINNING MACHINE SET UP OPERATOR Work Phone: Start: 03-16-[address] Jose lazo Work Phone: Start: 02-27-[address] Jose robert Work Phone: Start: 01-22-2022 Screening mammography Lita Rhoades Work Phone: Start: 02-01-2017 Colonoscopy [facility] ANTHROPOLOGIST PHYSICAL.TINNING MACHINE SET UP OPERATOR Work Phone: Start: 12-17-2012 Mammography [facility] ANTHROPOLOGIST PHYSICAL.TINNING MACHINE SET UP OPERATOR Work Phone: Plan of Treatment Date Care Activity Detail Author Start: 11-30-2038 RSV Vaccine (1 - 1-d ose 75+ series) RSV Vaccine (1 - 1-dose 75+ series) [facility] Start: 10-01-2033 Urine microalbumin profile DTaP,Tdap,Td Vaccine (3 - Td or Tdap) [facility] Start: 12-28-2027 Urine microalbumin profile DTaP,Tdap,Td Vaccine (2 - Td or Tdap) [facility] Start: 06-01-2027 HPV TESTING HPV TESTING [facility] Start: 06-01-2027 PAP TESTING PAP TESTING [facility] Start: 06-01-2027 Screening for malign ant neoplasm of cervix Cervical Cancer Screening [facility] Start: 04-12-2024 Covid-19 Vaccine ( season) Covid-19 Vaccine ( season) [facility] Start: 04-12-2024 Influenza vaccination Influenza Vacc ine (#1) [facility] Start: 11-04-2023 Anes integ extremiti es ant trunk & perineum nos ANESTH SKIN EXT/PER/ATRUNK [facility] Start: 11-04-2023 Excision mal lesion trunk/arm/leg 3.1-4.0 cm EXC TR-EXT MAL+ARMANDO 3.1-4 CM [facility] Start: 11-04-2023 Split agrft t/a/l 1s t 100 cm/&/1% bdy inft/chld SKIN SPLT GRFT TRNK/ARM/LEG [facility] Start: 11-04-2023 Patient discharge [facility] Start: 08-21-2023 [facility] Start: 04-12-2023 Influenza vaccination INFLUENZA (Sea son Ended) [facility] Start: 01-12-2023 Pneumococcal vaccination Pneumococcal Vaccine (2 of 2 - PCV) [facility] Start: 08-12-2022 [facility] Start: 06-01-2022 End: 06-01-2023 PELVIC US WHI PELVIC US WHI Anc Imaging Routine Pelvic pain in female Expected: 06/01/2022, Expires: 06/01/2023 [facility] Work Phone: Comment on above: Expected: 06/01/2022 , Expires: 06/01/2023 Start: 04-12-2022 Influenza vaccination INFLUENZA (#1) [facility] Start: 03-16-2022 Colonoscopy flx dx w/collj spec when pfrmd DIAGNOSTIC COLONOSCOPY [facility] Work Phone: Start: 03-16-2022 Patient discharge [facility] Work Phone: Start: 02-01-2022 Colonoscopy COLONOSCOPY [facility] Start: 02-01-2022 COLORECTAL CANCER SCREENING COLORECTAL CANCER SCREENING [facility] Start: 02-01-2022 Screening for malign ant neoplasm of colon [facility] Start: 08-12-2021 DE[facility]ION [facility]MENT [facility] Start: 02-09-2021 COVID-19 VACCINE (3 - Booster for Moderna series) COVID-19 VACCINE (3 - Booster for Moderna series) [facility] Start: 12-09-2020 DIABETES SCREEN [facility] Start: 12-09-2020 Diabetes Screening Diabetes Screenin g [facility] Start: 12-17-2017 PAP TESTING PAP TESTING [facility] Start: 08-24-2015 HPV TESTING HPV TESTING [facility] Start: 12-17-2013 Mammography MAMMOGRAM [facility] Start: 12-17-2013 Screening for malign ant neoplasm of breast Mammogram Screening [facility] Start: 11-30-2013 SHINGRIX VACCINE (1 of 2) SHINGRIX VACCINE (1 of 2) [facility] Start: 11-30-2008 COLOGUARD (FIT-DNA) COLOGUARD (FIT-D NA) [facility] Start: 11-30-[address] COLONOGRAPHY [facility] Start: 11-30-2008 DIABETES SCREEN DIABETES SCREEN [facility] Start: 11-30-2008 FECAL OCCULT BLOOD FECAL OCCULT BLOO D [facility] Start: 11-30-2008 Lipid panel Lipid Screening [facility] Start: 11-30-2008 LIPID SCREEN LIPID SCREEN [facility] Start: 11-30-2008 Screening for malign ant neoplasm of colon [facility] Start: 11-30-2008 SIGMOIDOSCOPY SIGMOIDOSCOPY [facility] Start: 11-30-1982 Urine microalbumin profile DTAP,TDAP,TD (1 - Tdap) [facility] Start: 11-30-1981 Anxiety Screening Anxiety Screening [facility] Start: 11-30-1981 Depression Screening Depression Scre ening [facility] Start: 11-30-1981 HEPATITIS C SCREENING HEPATITIS C [facility] Start: 11-30-1981 Hepatitis C screening Hepatitis C [facility] Start: 11-30-1981 HIV SCREENING HIV SCREENING [facility] Start: 11-30-1981 HIV screening HIV Screening [facility] Start: 11-30-1969 PNEUMOCOCCAL (1 - PCV) PNEUMOCOCCAL (1 - PCV) [facility] Start: 1965 HEPATITIS B (1 of 3 - 3-dose series) HEPATITIS B (1 of 3 - 3-dose series) [facility] BACTERIAL VAGINOSIS AMPLIFICATION BACTERIAL VAGINOSIS AMPLIFICATION Lab Routine Pelvic pain in female 06/01/2022 3:14 PM EDT [facility] Work Phone: EMANI / TRICHOMONA S AMPLIFICATION EMANI / TRICHOMONAS AMPLIFICATION Microbiology Routine Pelvic pain in female 06/01/2022 3:14 PM EDT [facility] Work Phone: PAP FLUID CERVICAL SCREENING PAP FLUID CERVICAL SCREENING Lab Routine Screening for malignant neoplasm of cervix Encounter for screening for human papillomavirus (HPV) 06/01/2022 3:14 PM EDT [facility] Work Phone: Patient Education ED Bryan Johnson [facility] Work Phone: Patient referral [facility] Work Phone: [facility] Immunizations Immunization Date Immunization Notes Care Provider Irineo jamison 06-23-2020 influenza virus vaccine, unspecified formulation Xr Mehul Work Phone: [facility] 12-27-2017 tetanus toxoid, redu fabián diphtheria toxoid, and acellular pertussis vaccine, adsorbed Dr. Jose Rhoades Work Phone: [facility] Payers Date Payer Category Payer Self-pay [id number] 2023 Private Health Insurance [id number] 2019 Private Health Insurance [id number] 2014 Unknown [id number] Private Health Insurance [id number] Unknown [facility] PACKAGE PLAN [id number] Unknown [id number] Unknown [id number] Unknown [id number] Unknown [id number] Unknown [id number] Unknown [id number] Unknown [id number] Unknown [id number] Unknown [id number] Unknown [id number] Unknown [id number] Unknown [id number] Unknown [id number] Unknown [id number] Unknown [id number] Unknown [id number] Unknown [id number] Unknown [id number] Social History Date Type Detail Facility Start: 01-29-2022 End: 10-31-2023 Tobacco smoking status NEIS Unknown if ever smoked [facility] Start: 12-28-2017 None [facility] Start: 12-28-2017 Spouse/ Signif icant Other [facility] Start: 12-30-2017 Non-smoker [facility] Start: 1965 Sex Assigned At Female [facility] Start: 12-16-2020 End: 05-31-2024 Tobacco smoking status NHIS Smokes tobacco daily [facility] Work Phone: History of tobacco use Cigarette Smoker [facility] Work Phone: Start: 12-16-2020 End: 09-28-2024 Cigarettes smoked current (pack per day) - Reported 0.8 [facility] Start: 12-16-2020 End: 05-31-2024 Tobacco use and exposure Smokeless tobacco non-user [facility] Work Phone: Start: 09-03-2021 End: 05-31-2024 Alcohol intake Current drinker of alcohol (finding) [facility] Start: 02-01-2017 Alcohol Comment weekly [facility] Start: 1965 Sex Assigned At Not on file [facility] Start: 05-22-2022 End: 06-01-2022 Exposure to SARS-CoV-2 (event) Not sure [facility] Start: 11-24-2022 End: 09-28-2024 Tobacco use panel [facility] National Score (1-100), lower number is lower risk 91 [facility] NEGATED: Highlighted row [facility] Medical Equipment Procedure Code Equipment Code Equipment Origin al Text Equipment Identifier Dates TRIATHLON X3 TIB IAL INSERT-CS FDA Start: 11-23-2017 TRIATHLON X3 TIB IAL INSERT-CS FDA Start: 11-23-2017 TRIATHLON X3 TIB IAL INSERT-CS FDA Start: 11-23-2017 TRIATHLON X3 TIB IAL INSERT-CS FDA Start: 11-23-2017 TRIATHLON X3 TIB IAL INSERT-CS FDA Start: 11-23-2017 TRIATHLON X3 TIB IAL INSERT-CS FDA Start: 11-23-2017 TRIATHLON X3 TIB IAL INSERT-CS FDA Start: 11-23-2017 TRIATHLON X3 TIB IAL INSERT-CS FDA Start: 11-23-2017 TRIATHLON X3 TIB IAL INSERT-CS FDA Start: 11-23-2017 TRIATHLON X3 TIB IAL INSERT-CS FDA Start: 11-23-2017 Goals Date Patient Goal Desired Activity /State Mental Status Date Assessment Result Facility 11-04-2023 Cognitive function Voice/Name [facility] Work Phone: 08-21-2023 Cognitive function Level Of Cons ciousness Awake;Alert;Appropriate;Follow s Commands [facility] Work Phone: 03-16-2022 Cognitive function Voice/Name [facility] Work Phone: Clinical Notes 06-01-2022 to 09-28-2024 Oksana Glasgow APRN.TINNING MACHINE SET UP OPERATOR - 09/28/2024 1:08 PM Cleopatra Britt APRN.CNP - 05/31/2024 11:20 AM EDT Note Date & Type Note Facility 09-28-2024 Note HNO ID: [id number] Author: OKSANA GLASGOW APRN.CNP Service: ? Author Type: Nurse Practitioner Type: Progress Notes Filed: 09/28/2024 15:52 Note Text: Reyna Lopez is a 58 year old female who presents for problem visit second opinion for bladder cancer. Hematuria. HPI: Patient presents today with wanting a second opinion. She was seen at the beginning of the month by the community health nurse practitioner for a possible UTI. Patient was placed on an antibiotic and then called 3 days later with the urine culture results showing no infection and was told she could stop the antibiotic, the CHRONOMETER ADJUSTER told her that she needs to follow-up with urology for possible bladder cancer based on hematuria. OB History Gravida0 Para0 Term0 Preterm0 AB0 Living0 SAB0 IAB0 Ectopic0 Multiple0 Live Births0 Automation Analyst History LMP: 11/20/2015, Postmenopausal Age at Menarche: Age at First : Age at Menopause: Automation Analyst History Comments: Sexual Activity: Yes; Male Contraception: [...] History Tobacco Use Smoking status: Every Day Current packs/day: 0.75 Average packs/day: 0.8 packs/day for 17.0 years (12.8 ttl pk-yrs) Types: Cigarettes Smokeless tobacco: Never Substance Use Topics Alcohol use: Yes Alcohol/week: 1.0 - 2.0 standard drink of alcohol Types: 1 - 2 Cans of Beer (12oz) per week Comment: weekly Drug use: No Current Outpatient Medications Medication Sig FLUoxetine (PROZAC) 20 mg capsule Take by mouth. metoprolol succinate ER (TOPROL XL) 100 mg amoxicillin (AMOXIL) 500 mg capsule benzonatate (TESSALON PERLES) 100 mg capsule Take 2 capsules by mouth three times daily as needed. (Patient not taking: Reported on 05/31/2024) albuterol HFA (PROAIR HFA) 90 mcg/actuation inhaler Inhale 2 Puffs as instructed every 6 hours as needed. cyclobenzaprine (FLEXERIL) 10 mg tablet Take 1 tablet by mouth three times daily as needed for muscle spasm. (Patient not taking: Reported on 11/17/2022) mecobalamin, vitamin B12, (B12 ACTIVE) 1,000 mcg chew Take by mouth. buPROPion SR (ZYBAN SR; WELLBUTRIN SR) 150 mg 12 hr tablet Take 150 mg by mouth twice daily. (Patient not taking: Reported on 05/31/2024) cloNIDine HCl (CATAPRES) 0.1 mg tablet TAKE [...] for this visit. Allergies As of Date: 09/28/2024 Allergen Noted Reaction BEES 08/24/2010 Anaphylaxis CHLORHEXIDINE 01/25/2017 Itching and Other: See Comments CODEINE 02/26/2008 Fully Assessed 05/31/2024 REVIEW OF SYSTEMS Bladder: No dysuria, gross hematuria, urinary frequency, urinary urgency, or incontinence. Expanded ROS: N/A Allergies and current medication updated:Yes SENSITIVE EXAM: Sensitive exam not performed. EXAM: BP 146/86 Wt 164 lb (74.4kg) LMP 11/20/2015 GENERAL: pleasant, female in no apparent distress HEENT: Normocephalic, atraumatic, mucus membranes moist, and no lesions CHEST: Normal inspiratory effort NEURO: alert and oriented x3,exam grossly non-focal EXTREMITIES: normal ASSESSMENT/PLAN: 1. Hematuria, unspecified type - ICD9: 599.70, ICD10: R31.9 - UA DIP, URINE (POC) Patient does have an appointment set up with urology at [facility] for a CT scan and a cystoscopy with Dr Ríos. Encouraged patient to keep appointments for further evaluation of the hematuria. Oksana Glasgow APRN.TINNING MACHINE SET UP OPERATOR Medical Decision Making: Problems: Low: Acute, uncomplicated illness or injury Risk: Low: Low risk from testing/treatment Medical Decision Making Level: 3 - Low [facility] 09-28-2024 History of Present illness Narrative Reyna Lopez is a 58 year old female who presents for problem visit second opinion for bladder cancer. Hematuria. HPI: Patient presents today with wanting a second opinion. She was seen at the beginning of the month by the community health nurse practitioner for a possible UTI. Patient was placed on an antibiotic and then called 3 days later with the urine culture results showing no infection and was told she could stop the antibiotic, the CHRONOMETER ADJUSTER told her that she needs to follow-up with urology for possible bladder cancer based on hematuria. OB History Gravida0 Para0 Term0 Preterm0 AB0 Living0 SAB0 IAB0 Ectopic0 Multiple0 Live Births0 Automation Analyst History LMP: 11/20/2015, Postmenopausal Age at Menarche: Age at First : Age at Menopause: Automation Analyst History Comments: Sexual Activity: Yes; Male Contraception: [...] History Tobacco Use Smoking status: Every Day Current packs/day: 0.75 Average packs/day: 0.8 packs/day for 17.0 years (12.8 ttl pk-yrs) Types: Cigarettes Smokeless tobacco: Never Substance Use Topics Alcohol use: Yes Alcohol/week: 1.0 - 2.0 standard drink of alcohol Types: 1 - 2 Cans of Beer (12oz) per week Comment: weekly Drug use: No Current Outpatient Medications Medication Sig FLUoxetine (PROZAC) 20 mg capsule Take by mouth. metoprolol succinate ER (TOPROL XL) 100 mg amoxicillin (AMOXIL) 500 mg capsule benzonatate (TESSALON PERLES) 100 mg capsule Take 2 capsules by mouth three times daily as needed. (Patient not taking: Reported on 05/31/2024) albuterol HFA (PROAIR HFA) 90 mcg/actuation inhaler Inhale 2 Puffs as instructed every 6 hours as needed. cyclobenzaprine (FLEXERIL) 10 mg tablet Take 1 tablet by mouth three times daily as needed for muscle spasm. (Patient not taking: Reported on 11/17/2022) mecobalamin, vitamin B12, (B12 ACTIVE) 1,000 mcg chew Take by mouth. buPROPion SR (ZYBAN SR; WELLBUTRIN SR) 150 mg 12 hr tablet Take 150 mg by mouth twice daily. (Patient not taking: Reported on 05/31/2024) cloNIDine HCl (CATAPRES) 0.1 mg tablet TAKE [...] for this visit. Allergies As of Date: 09/28/2024 Allergen Noted Reaction BEES 08/24/2010 Anaphylaxis CHLORHEXIDINE 01/25/2017 Itching and Other: See Comments CODEINE 02/26/2008 Fully Assessed 05/31/2024 REVIEW OF SYSTEMS Bladder: No dysuria, gross hematuria, urinary frequency, urinary urgency, or incontinence. Expanded ROS: N/A Allergies and current medication updated:Yes SENSITIVE EXAM: Sensitive exam not performed. EXAM: BP 146/86 Wt 164 lb (74.4kg) LMP 11/20/2015 GENERAL: pleasant, female in no apparent distress HEENT: Normocephalic, atraumatic, mucus membranes moist, and no lesions CHEST: Normal inspiratory effort NEURO: alert and oriented x3,exam grossly non-focal EXTREMITIES: normal ASSESSMENT/PLAN: 1. Hematuria, unspecified type - ICD9: 599.70, ICD10: R31.9 - UA DIP, URINE (POC) Patient does have an appointment set up with urology at [facility] for a CT scan and a cystoscopy with Dr Ríos. Encouraged patient to keep appointments for further evaluation of the hematuria. Oksana Glasgow APRN.CNP Medical Decision Making: Problems: Low: Acute, uncomplicated illness or injury Risk: Low: Low risk from testing/treatment Medical Decision Making Level: 3 - Low documented in this encounter [facility] 05-31-2024 Note HNO ID: [id number] Author: CLEOPATRA JACKSON APRN.OBED Service: ? Author Type: Nurse Practitioner Type: Progress Notes Filed: 05/31/2024 11:35 Note Text: Subjective HPI HPI Reyna Lopez is a 58 year old female who presents today for CC of cough, sob, fever. This started 1 week ago/severe today. Has tried otc medication for relief. Symptoms are worsened by nothing. Hx of copd. .Patient presents with: Cough: Chest congestion x1 week, fever x3 days PAST MEDICAL HISTORY Diagnosis Date Chronic fatigue syndrome Snoring Unspecified essential hypertension PAST SURGICAL HISTORY Procedure Laterality Date ARTHROSCOPY KNEE DIAGNOSTIC W/WO SYNOVIAL BX SPX 04/30/2010 Arthroscopy, knee, left knee ARTHRP KNE CONDYLEANDPLATU MEDIALANDLAT COMPARTMENTS Left 07/2015 COLONOSCOPY 1999 PAST SURGICAL HISTORY OF left knee SKIN BX, 1 LESION Right 01/09/2017 TONSILLECTOMY PRIMARY/SECONDARY AGE 10/> ALLERGIES Bees, Chlorhexidine, and Codeine MEDICATIONS FLUoxetine (PROZAC) 20 mg capsule Take by mouth. metoprolol succinate ER (TOPROL XL) 100 mg albuterol HFA (PROAIR HFA) 90 mcg/actuation inhaler Inhale 2 Puffs as instructed every 6 hours as needed. mecobalamin, vitamin B12, (B12 ACTIVE) 1,000 mcg chew Take by mouth. cloNIDine HCl (CATAPRES) 0.1 mg tablet TAKE [...] 0.3 mg/0.3 mL INTRAMUSC. PnIj as necessary amoxicillin (AMOXIL) 500 mg capsule benzonatate (TESSALON PERLES) 100 mg capsule Take 2 capsules by mouth three times daily as needed. (Patient not taking: Reported on 05/31/2024) cyclobenzaprine (FLEXERIL) 10 mg tablet Take 1 tablet by mouth three times daily as needed for muscle spasm. (Patient not taking: Reported on 11/17/2022) buPROPion SR (ZYBAN SR; WELLBUTRIN SR) 150 mg 12 hr tablet Take 150 mg by mouth twice daily. (Patient not taking: Reported on 05/31/2024) FAMILY HISTORY Problem Relation Age of Onset Diabetes Mother Hypertension Mother Alzheimer's Disease Mother Heart Father other (Dementia) Father 91 other (Cardiomyopathy) Sister other (Myeloma) Sister Social History Tobacco Use Smoking status: Every Day Current packs/day: 0.75 Average packs/day: 0.8 packs/day for 17.0 years (12.8 ttl pk-yrs) Types: Cigarettes Smokeless tobacco: Never Substance Use Topics Alcohol use: Yes Alcohol/week: 1.0 - 2.0 standard drink of alcohol Types: 1 - 2 Cans of Beer (12oz) per week Comment: weekly Drug use: No Review of Systems Constitutional: Positive for fever. HENT: Negative for congestion, ear pain, nosebleeds and sore throat. Respiratory: Positive for cough, shortness of breath and wheezing. Cardiovascular: Positive for chest pain. Musculoskeletal: Negative for neck pain. Objective Blood pressure 147/83, pulse 110, temperature 37.8 ?C (100 ?F), resp. rate 20, weight 70.9 kg (156 lb 4.9 oz), last menstrual period 11/20/2015, SpO2 96%. Physical Exam Constitutional: General: She is not in acute distress. Appearance: She is not toxic-appearing or diaphoretic. HENT: Head: Normocephalic and atraumatic. Cardiovascular: Rate and Rhythm: Normal rate and regular rhythm. Heart sounds: Normal heart sounds, S1 normal and S2 normal. Pulmonary: Effort: Tachypnea and accessory muscle usage present. Breath sounds: Wheezing present. No decreased breath sounds, rhonchi or rales. Neurological: Mental Status: She is alert and oriented to person, place, and time. Gait: Gait is intact. ASSESSMENT/PLAN: 1. SOB (shortness of breath) - ICD9: 786.05, ICD10: R06.02 No xray at time of exam Will refer to ER, to drive pov. Unclear what hospital will go to at this time Cleopatra Jackson APRN.TINNING MACHINE SET UP OPERATOR [facility] 05-31-2024 History of Present illness Narrative Subjective HPI HPI Reyna Lopez is a 58 year old female who presents today for CC of cough, sob, fever. This started 1 week ago/severe today. Has tried otc medication for relief. Symptoms are worsened by nothing. Hx of copd. .Patient presents with: Cough: Chest congestion x1 week, fever x3 days PAST MEDICAL HISTORY Diagnosis Date Chronic fatigue syndrome Snoring Unspecified essential hypertension PAST SURGICAL HISTORY Procedure Laterality Date ARTHROSCOPY KNEE DIAGNOSTIC W/WO SYNOVIAL BX SPX 04/30/2010 Arthroscopy, knee, left knee ARTHRP KNE CONDYLE&PLATU MEDIAL&LAT COMPARTMENTS Left 07/2015 COLONOSCOPY 1999 PAST SURGICAL HISTORY OF left knee SKIN BX, 1 LESION Right 01/09/2017 TONSILLECTOMY PRIMARY/SECONDARY AGE 10/> ALLERGIES Bees, Chlorhexidine, and Codeine MEDICATIONS FLUoxetine (PROZAC) 20 mg capsule Take by mouth. metoprolol succinate ER (TOPROL XL) 100 mg albuterol HFA (PROAIR HFA) 90 mcg/actuation inhaler Inhale 2 Puffs as instructed every 6 hours as needed. mecobalamin, vitamin B12, (B12 ACTIVE) 1,000 mcg chew Take by mouth. cloNIDine HCl (CATAPRES) 0.1 mg tablet TAKE [...] 0.3 mg/0.3 mL INTRAMUSC. PnIj as necessary amoxicillin (AMOXIL) 500 mg capsule benzonatate (TESSALON PERLES) 100 mg capsule Take 2 capsules by mouth three times daily as needed. (Patient not taking: Reported on 05/31/2024) cyclobenzaprine (FLEXERIL) 10 mg tablet Take 1 tablet by mouth three times daily as needed for muscle spasm. (Patient not taking: Reported on 11/17/2022) buPROPion SR (ZYBAN SR; WELLBUTRIN SR) 150 mg 12 hr tablet Take 150 mg by mouth twice daily. (Patient not taking: Reported on 05/31/2024) FAMILY HISTORY Problem Relation Age of Onset Diabetes Mother Hypertension Mother Alzheimer's Disease Mother Heart Father other (Dementia) Father 91 other (Cardiomyopathy) Sister other (Myeloma) Sister Social History Tobacco Use Smoking status: Every Day Current packs/day: 0.75 Average packs/day: 0.8 packs/day for 17.0 years (12.8 ttl pk-yrs) Types: Cigarettes Smokeless tobacco: Never Substance Use Topics Alcohol use: Yes Alcohol/week: 1.0 - 2.0 standard drink of alcohol Types: 1 - 2 Cans of Beer (12oz) per week Comment: weekly Drug use: No Review of Systems Constitutional: Positive for fever. HENT: Negative for congestion, ear pain, nosebleeds and sore throat. Respiratory: Positive for cough, shortness of breath and wheezing. Cardiovascular: Positive for chest pain. Musculoskeletal: Negative for neck pain. Objective Blood pressure 147/83, pulse 110, temperature 37.8 C (100 F), resp. rate 20, weight 70.9 kg (156 lb 4.9 oz), last menstrual period 11/20/2015, SpO2 96%. Physical Exam Constitutional: General: She is not in acute distress. Appearance: She is not toxic-appearing or diaphoretic. HENT: Head: Normocephalic and atraumatic. Cardiovascular: Rate and Rhythm: Normal rate and regular rhythm. Heart sounds: Normal heart sounds, S1 normal and S2 normal. Pulmonary: Effort: Tachypnea and accessory muscle usage present. Breath sounds: Wheezing present. No decreased breath sounds, rhonchi or rales. Neurological: Mental Status: She is alert and oriented to person, place, and time. Gait: Gait is intact. ASSESSMENT/PLAN: 1. SOB (shortness of breath) - ICD9: 786.05, ICD10: R06.02 No xray at time of exam Will refer to ER, to drive pov. Unclear what hospital will go to at this time Cleopatra Jackson APRN.TINNING MACHINE SET UP OPERATOR documented in this encounter [facility] 11-04-2023 Procedure note [facility] 11-04-2023 History and physi saemus note Note Date/Time November 04, 2023 6:37am [facility] Medical Records Department [address] [place] [address] History & Physical Exam 11/04/23 0637 MR#: [id number] Acct: [id number] Name: REYNA LOPEZ Rep #:[id number] : 1965 57 From: Richard Guerrero MD PCP: Dr. Jose Rhoades MD Status:[facility] Location: [place] [address] History and Physical Date of Admission: 11/04/23 Visit Reasons: EXCISION OF SKIN CANCER ON LEG Chief Complaint: excision of skin cancer Is patient in pain?: No Allergies chlorhexidine Allergy (Verified 10/29/23 14:01) Itchingvenom-honey bee [bee venom (honey bee)] Allergy (Verified 10/29/23 14:01) Anaphylaxiscodeine Adverse Reaction (Severe, Verified 10/29/23 14:01) Unknown Medications aspirin 325 mg tablet,delayed release 325 mg PO DAILY 12/11/17 [History Confirmed 10/29/23] cholecalciferol (vitamin D3) 25 mcg (1,000 unit) capsule 1,000 unit PO DAILY 07/30/18 [History Confirmed 10/29/23] coenzyme Q10 100 mg capsule (Co Q-10) 100 mg PO DAILY 07/30/18 [History Confirmed 10/29/23] lorazepam 1 mg tablet 1 mg PO DAILY PRN PRN Anxiety 07/30/18 [History Confirmed 10/29/23] clonidine HCl 0.1 mg tablet 0.1 mg PO QHS 01/28/19 [History Confirmed 10/29/23] epinephrine 0.3 mg/0.3 mL injection, auto-injector (EpiPen) 0.3 mg IM Q10-15M PRN Allergy Symptoms 01/28/19 [History Confirmed 10/29/23] valacyclovir 500 mg tablet (Valtrex) 500 mg PO BID PRN Cold Sores 01/28/19 [History Confirmed 10/29/23] magnesium 200 mg tablet 200 mg PO TID 09/23/19 [History Confirmed 10/29/23] albuterol sulfate 90 mcg/actuation aerosol inhaler 2 puff inhalation Q4H PRN shortness of breath or wheezing 08/21/23 [History Confirmed 10/29/23] ammonium lactate 12 % topical cream 1 applic topical BID PRN lesions 08/21/23 [History Confirmed 10/29/23] ascorbic acid (vitamin C) 1,000 mg tablet,extended release (C Complex) 1,000 mg PO DAILY 08/21/23 [History Confirmed 10/29/23] baclofen 10 mg tablet 15 mg PO Q8H PRN muscle spasm 08/21/23 [History Confirmed 10/29/23] cyanocobalamin (vitamin B-12) 1,000 mcg tablet (Vitamin B-12) 1,000 mcg PO DAILY08/21/23 [History Confirmed 10/29/23] fluoxetine 20 mg capsule 20 mg PO DAILY 08/21/23 [History Confirmed 10/29/23] fluticasone fur. 100 mcg-umeclid 62.5 mcg-vilant 25 mcg inhalat.powder (Trelegy Ellipta) 1 inh inhalation DAILY 08/21/23 [History Confirmed 10/29/23] pantoprazole 40 mg tablet,delayed release 40 mg PO DAILY 08/21/23 [History Confirmed 10/29/23] metoprolol succinate 100 mg capsule sprinkle, ext. release 24 hr 100 mg PO DAILY10/29/23 [History Confirmed 10/29/23] PFSH Medical History Abnormal ECG Alcohol use Anxiety Arthritis Atypical depressive disorder Cardiology follow-up encounter Depression Essential hypertension Heartburn High cholesterol Hypertension Hypokalemia Hypotension Loss of consciousness New onset a-fib Nonspecific ST-T wave electrocardiographic changes Pain and swelling of left knee Pure hypercholesterolemia Smoker Syncope Tobacco dependence Wears glasses Surgical History H/O: knee surgery History of tonsillectomy Family History (Updated 10/29/23 @ 13:57 by Jeanna Crews) Mother CAD (coronary artery disease) DiabetesSister Cardiomyopathy Cancer skinFather Cancer Heart disease Social History Smoking Status: Current every day smoker tobacco type: cigarettes Tobacco: How many years used: 35 second hand exposure: No alcohol intake: never caffeine: Yes Type: coffee Number of servings: 4 HPI HPI HPI: 57-year-old female was referred by Dr. Jose Rhoades for surgical consultation regarding a biopsy-proven basal cell carcinoma of the left lower leg. A writtencopy my surgical consult and plans of treatment will return to him. The patientstates that she thought this area has been present for years and thought it was simply the residual of a insect bite. The recent biopsy somewhat surprised her. She states that her general health is stable. She has had a right total knee replacement. She is on a low-dose aspirin. She is a chronic tobacco user. ROS General General: Yes fatigue; No weight change, appetite, colon cancer, breast cancer or weakness HEENT HEENT: No difficulty swallowing, eye injury, eye surgery, swollen glands or hoarseness Endo Endocrine: No thyroid disease, diabetes mellitus, thyroid cancer, Hair loss, heat intolerance or cold intolerance Skin Skin: Yes changing moles; No rash Musc Musculoskeletal: Yes arthritis; No back problems, rheumatoid arthritis, gout or joint pain Cardio Cardiovascular: Yes high blood pressure; No murmur, pacemaker, heart disease, atrial fibrillation, heart attack, heart stent, palpitations, shortness of breat with exertion or chest pain Psych Psychiatric: Yes depression and anxiety; No hearing voices Resp Respiratory: No shortness of breath, No sleep apnea, No cough, Yes COPD, No asthma, No emphysema and No wheezing Gastro Gastrointestinal: No abdominal pain, No nausea or vomiting, No diarrhea, No constipation, No blood in stool, No acid reflux, No hemorrhoids, No ulcers, No gallbladder problem and No black,tarry stools Thomas Hematologic: No blood thinners, No blood disorders, No bleeding, No anemia and No blood clots Neuro Neurologic: No system reviewed and no additional complaints, except as documented, No as per HPI, No abnormal gait, No abnormal hearing, No abnormal movements, No abnormal speech, No behavioral changes, No burning sensations, No confusion, No convulsions, No disequilibrium, No dizziness, No localized weakness, No frequent falls, No headache(s), No lack of coordination, No loss ofvision, No memory loss, No numbness, No other visual disturbances, No radicular pain, No restless legs, No sensory deficit, No syncope, No tingling, No tremor(s), No weakness and No other Exam Const General: cooperative, comfortable and no acute distress Nutritional Appearance: average body habitus HENOR Head: normal to inspection Eyes General: appearance normal, both eyes and all related structures Neck Neck: normal visual inspection Resp Effort & Inspection: normal respiratory effort Auscultation: clear to auscultation bilaterally Cardio Rate: regular rate Rhythm: regular rhythm GI Inspection: normal to inspection Neuro General: patient alert, patient awake and patient oriented x3 Extrem Other: Left posterior calf evidence of previous punch biopsy with small eschar but thenthere is a diffuse erythematous punctate area with satellite lesions that measures at least 2.6 x 2 cm in diameter. Psych Appearance: grossly normal Office Procedures Procedure Time Out Time Out Informed consent given: Yes Consent signed: Yes Time out checklist: patient, procedure, site marked/identified, positioning of patient, supplies available, allergies confirmed and team agrees on procedure Time out staff in room: Yes Time out verified: Yes Time out date: 10/29/23 Time out time: 14:07 Assessment and Plan Assessment and Plan (1) Skin cancer, basal cell: Status: Acute Plan: 57-year-old female with by report a very prolonged history of a nonresolving skin lesion left posterior calf which is biopsy-proven basal cell. It is a morediffuse area with slight satellite lesions. I do not perceive any means of being able to obtain a primary closure. I propose for her monitored anesthesia care and local anesthetic with a wide elliptical excision of the area. I would anticipate her donor site lateral distal left thigh so that we can position her in a prone position to address both the donor site and the primary excision area. She is aware of technique and benefit and risks complication alternatives. Anticipate a Adaptic and sutured cottonball closure followed by extensive dressings. She has had an opportunity to ask and have questions answered. She is aware that she will require time off of work to maximize the chances of graft take. She is additionally aware that there will be some cosmetic changes at both the donor site and the graft site. She has had an opportunity ask and have questions answered. We will schedule procedure at her discretion. Copy: Dr. Jose Guerrero M.D., F.A.C.S. I have examined the patient and the H&P has been reviewed. There are no clinicalchanges since date of exam. Richard Guerrero M.D., F.A.C.S. 11/04/23 0637 <Electronically signed by Richard Guerrero MD> Cosigner Signature (if applicable): CC: Dr. Jose Rhoades MD; Dr. Richard Guerrero MD~ Signed [facility] Work Phone: [phone]) 310-690703-25-2024 [facility] Medical Records Department [address] [place] [id number] History Physical Exam 11/04/23 0637 MR#: [id number] Acct: [id number] Name: REYNA LOPEZ Rep #: [id number] : 1965 57 From: Richard Guerrero MD PCP: Dr. Jose Rhoades MD Status:[facility] Location: [place] [address] History and Physical Date of Admission: 11/04/23 Visit Reasons: EXCISION OF SKIN CANCER ON LEG Chief Complaint: excision of skin cancer Is patient in pain?: No Allergies chlorhexidine Allergy (Verified 10/29/23 14:01) Itchingvenom-honey bee [bee venom (honey bee)] Allergy (Verified 10/29/23 14:01) Anaphylaxiscodeine Adverse Reaction (Severe, Verified 10/29/23 14:01) Unknown Medications aspirin 325 mg tablet,delayed release 325 mg PO DAILY 12/11/17 [History Confirmed 10/29/23] cholecalciferol (vitamin D3) 25 mcg (1,000 unit) capsule 1,000 unit PO DAILY 07/30/18 [History Confirmed 10/29/23] coenzyme Q10 100 mg capsule (Co Q-10) 100 mg PO DAILY 07/30/18 [History Confirmed 10/29/23] lorazepam 1 mg tablet 1 mg PO DAILY PRN PRN Anxiety 07/30/18 [History Confirmed 10/29/23] clonidine HCl 0.1 mg tablet 0.1 mg PO QHS 01/28/19 [History Confirmed 10/29/23] epinephrine 0.3 mg/0.3 mL injection, auto-injector (EpiPen) 0.3 mg IM Q10-15M PRN Allergy Symptoms 01/28/19 [History Confirmed 10/29/23] valacyclovir 500 mg tablet (Valtrex) 500 mg PO BID PRN Cold Sores 01/28/19 [History Confirmed 10/29/23] magnesium 200 mg tablet 200 mg PO TID 09/23/19 [History Confirmed 10/29/23] albuterol sulfate 90 mcg/actuation aerosol inhaler 2 puff inhalation Q4H PRN shortness of breath or wheezing 08/21/23 [History Confirmed 10/29/23] ammonium lactate 12 % topical cream 1 applic topical BID PRN lesions 08/21/23 [History Confirmed 10/29/23] ascorbic acid (vitamin C) 1,000 mg tablet,extended release (C Complex) 1,000 mg PO DAILY 08/21/23 [History Confirmed 10/29/23] baclofen 10 mg tablet 15 mg PO Q8H PRN muscle spasm 08/21/23 [History Confirmed 10/29/23] cyanocobalamin (vitamin B-12) 1,000 mcg tablet (Vitamin B-12) 1,000 mcg PO DAILY 08/21/23 [History Confirmed 10/29/23] fluoxetine 20 mg capsule 20 mg PO DAILY 08/21/23 [History Confirmed 10/29/23] fluticasone fur. 100 mcg-umeclid 62.5 mcg-vilant 25 mcg inhalat.powder (Trelegy Ellipta) 1 inh inhalation DAILY 08/21/23 [History Confirmed 10/29/23] pantoprazole 40 mg tablet,delayed release 40 mg PO DAILY 08/21/23 [History Confirmed 10/29/23] metoprolol succinate 100 mg capsule sprinkle, ext. release 24 hr 100 mg PO DAILY 10/29/23 [History Confirmed 10/29/23] PFSH Medical History Abnormal ECG Alcohol use Anxiety Arthritis Atypical depressive disorder Cardiology follow-up encounter Depression Essential hypertension Heartburn High cholesterol Hypertension Hypokalemia Hypotension Loss of consciousness New onset a-fib Nonspecific ST-T wave electrocardiographic changes Pain and swelling of left knee Pure hypercholesterolemia Smoker Syncope Tobacco dependence Wears glasses Surgical History H/O: knee surgery History of tonsillectomy Family History (Updated 10/29/23 @ 13:57 by Jeanna Crews) Mother CAD (coronary artery disease) DiabetesSister Cardiomyopathy Cancer skinFather Cancer Heart disease Social History Smoking Status: Current every day smoker tobacco type: cigarettes Tobacco: How many years used: 35 second hand exposure: No alcohol intake: never caffeine: Yes Type: coffee Number of servings: 4 HPI HPI HPI: 57-year-old female was referred by Dr. Jose Rhoades for surgical consultation regarding a biopsy- proven basal cell carcinoma of the left lower leg. A written copy my surgical consult and plans of treatment will return to him. The patient states that she thought this area has been present for years and thought it was simply the residual of a insect bite. The recent biopsy somewhat surprised her. She states that her general health is stable. She has had a right total knee replacement. She is on a low-dose aspirin. She is a chronic tobacco user. ROS General General: Yes fatigue; No weight change, appetite, colon cancer, breast cancer or weakness HEENT HEENT: No difficulty swallowing, eye injury, eye surgery, swollen glands or hoarseness Endo Endocrine: No thyroid disease, diabetes mellitus, thyroid cancer, Hair loss, heat intolerance or cold intolerance Skin Skin: Yes changing moles; No rash Musc Musculoskeletal: Yes arthritis; No back problems, rheumatoid arthritis, gout or joint pain Cardio Cardiovascular: Yes high blood pressure; No murmur, pacemaker, heart disease, atrial fibrillation, heart attack, heart stent, palpitations, shortness of breat with ex (more content not included)...[facility]04-15-2023 History of Present illness Narrative* Melquiades Kwok RT(R) - 11/24/2022 11:50 AM EDT Radiology Service Progress Note PATIENT NAME: Reyna Lopez DATE OF SERVICE: November 24, 2022 TIME: 11:53 AM PATIENT IDENTITY VERIFICATION COMPLETED USING TWO (2) IDENTIFIERS: Name and Date of confirmedby patient verbally. FALL SCREENING: Has the patient [...] RT Rachel(R) November 24, 2022 11:53 AM [facility] History of Present illness Narrative* Charo Funez PA-C - 11/17/2022 2:03 PM EDT This note was created using [employer]. Subjective Reyna Lopez is a 56 year old female. HPI Patient presents with chest congestion and cough over the past 10 days. She feels wheezy. The first2 days she did have a fever. She took 2 home COVID test which were negative. She has tried pwgltcymxjto-gwn-tzruyyj medications without relief. She is a smoker. [...] Wt 72.8 kg (160 lb 9.6 oz) LMP11/20/2015 SpO2 97% BMI 26.32 kg/m Physical Exam [...] worsen. Charo Funez PA-C [facility] Miscellaneous Notes* Telephone Encounter - Carmina Juarez RN - 06/05/2022 12:29 PM EDT Patient notified of results, verbalizes understanding of instructions. Carmina Juarez RN * Telephone Encounter - Carmina Juarez RN - 06/05/2022 9:26 AM EDT Left message to call office. Carmina Juarez RN * Telephone Encounter - Oksana Glasgow APRN.CNP - 06/05/2022 7:51 AM EDT Please let the pt know that her US show 3 small fibroids, these are not the cause of her pain. Her ovaries were not visualized probable due shrinking from menopause. I would recommend that she followup with her PCP for further evaluation. Oksana Glasgow APRN.CNP [facility] Miscellaneous Notes* Telephone Encounter - Nati Pa RN - 06/04/2022 11:25 AM EDT Patient notified. Nati Pa RN The following approved medication requests have been transmitted electronically. Requested Prescriptions Signed Prescriptions Disp Refills metroNIDAZOLE (FLAGYL) 500 mg tablet 14 tablet 0 Sig: Take 1 tablet by mouth twice daily for 7 days. Authorizing Provider: OKSANA GLASGOW Pharmacy Information Pharmacy Address [phone] [place] [address] * Telephone Encounter - Nati Pa RN - 06/04/2022 10:02 AM EDT Left message for patient to call office. Nati Pa RN * Telephone Encounter - Oksana Glasgow APRN.CNP - 06/04/2022 8:54 AM EDT BV positive. To treat with Flagyl 500mg PO BID for 7 days. 1) No alcohol during treatment and for 24 hours after last dose. 2) No intercourse during treatment. 3) Probiotic by mouth once daily for 30 days or as needed. Oksana Glasgow APRN.CNP documented [facility] History of Present illness Narrative* Oksana Glasgow APRN.CNP - 06/01/2022 2:32 PM EDT Reyna Lopez is a 56 year old female who presents for problem visit pelvic pain/pressure for 1-2week(s). HPI: Patient complains of pelvic pain/pressure that started about 1 to 2 weeks ago and has become worse. Patient denies any bladder issues, abdominal issues, fever or chills. Not sexually active due to pain with intercourse. OB History T0 L0 SAB0 IAB0 Ectopic0 Multiple0 Live Births0 Automation Analyst History LMP: 11/20/2015, Postmenopausal Age at Menarche: Age at First : Age at Menopause: Automation Analyst History Comments: Sexual Activity: Yes; Male Contraception: Vasectomy PAST MEDICAL HISTORY Diagnosis Date Chronic fatigue syndrome Snoring Unspecified essential hypertension PAST SURGICAL HISTORY Procedure Laterality Date ARTHROSCOPY KNEE DIAGNOSTIC W/WO SYNOVIAL BX SPX 04/30/2010 Arthroscopy, knee, left knee ARTHRP KNE CONDYLE&PLATU MEDIAL&LAT COMPARTMENTS Left 07/2015 COLONOSCOPY 2000 PAST SURGICAL HISTORY OF left knee SKIN [...] external genitalia normal, normal Bartholin's glands, urethra, [place]'s glands, no vulvar lesions, no cervical lesions, [...] Level: 4 - Moderate documented in this encounterEustis ClinicDischar summary Author Ted Cortes [facility] August 21, 2023 5:55am Note Date/Time August 21, 2023 5 :55am [facility] Medical Records Department [address] [place] [address] Emergency Department Summary 08/21/23 MR#: [id number] Acct: [id number] Name: REYNA LOPEZ Rep #:[id number] : 1965 57 From: Ted Cortes MD PCP: Dr. Jose Rhoades MD Status:PRE ER Location: ED HPI History of Present Illness Chief Complaint: Hypertension Informant: patient Narrative Narrative: Patient woke up this morning and felt some fluttering palpitations in her chest that are gone now, she felt a little lightheaded. She has had a couple of priorepisodes of atrial fibrillation, and so she was concerned. She was trying to check her pulse but was having trouble finding it so she used her blood pressuremachine, and her blood pressure was 140s/100s. These numbers are what made her concerned come in. She feels better now. No recent illness. No chest pain, dyspnea, near syncope but feeling a little lightheaded when the palpitations were present. She has seen cardiology for the atrial fibrillation in the past, and deemed low enough risk to just take aspirin and avoid anticoagulants at thistime. [facility] Medical History Abnormal ECG Alcohol use Anxiety Arthritis Atypical depressive disorder Cardiology follow-up encounter Depression Essential hypertension Heartburn High cholesterol Hypertension Hypokalemia Hypotension Loss of consciousness New onset a-fib Nonspecific ST-T wave electrocardiographic changes Pain and swelling of left knee Pure hypercholesterolemia Smoker Syncope Tobacco dependence Wears glasses Home Medications aspirin 325 mg tablet,delayed release 325 mg PO DAILY 12/11/17 [History Last Taken Unknown] cholecalciferol (vitamin D3) 25 mcg (1,000 unit) capsule 1,000 unit PO DAILY 07/30/18 [History Last Taken Unknown] coenzyme Q10 100 mg capsule (Co Q-10) 100 mg PO DAILY 07/30/18 [History Last Taken Unknown] lorazepam 1 mg tablet 1 mg PO DAILY PRN PRN Anxiety 07/30/18 [History Last Taken Unknown] clonidine HCl 0.1 mg tablet 0.1 mg PO QHS 01/28/19 [History Last Taken Unknown] epinephrine 0.3 mg/0.3 mL injection, auto-injector (EpiPen) 0.3 mg IM Q10-15M PRN Allergy Symptoms 01/28/19 [History Last Taken Unknown] valacyclovir 500 mg tablet (Valtrex) 500 mg PO BID PRN Cold Sores 01/28/19 [History Last Taken Unknown] magnesium 200 mg tablet 200 mg PO TID 09/23/19 [History Last Taken Unknown] albuterol sulfate 90 mcg/actuation aerosol inhaler 2 puff inhalation Q4H PRN shortness of breath or wheezing 08/21/23 [History Last Taken Unknown] ammonium lactate 12 % topical cream 1 applic topical BID PRN lesions 08/21/23 [History Last Taken Unknown] ascorbic acid (vitamin C) 1,000 mg tablet,extended release (C Complex) 1,000 mg PO DAILY 08/21/23 [History Last Taken Unknown] baclofen 10 mg tablet 15 mg PO Q8H PRN muscle spasm 08/21/23 [History Last Taken Unknown] cyanocobalamin (vitamin B-12) 1,000 mcg tablet (Vitamin B-12) 1,000 mcg PO DAILY08/21/23 [History Last Taken Unknown] fluoxetine 20 mg capsule 20 mg PO DAILY 08/21/23 [History Last Taken Unknown] fluticasone fur. 100 mcg-umeclid 62.5 mcg-vilant 25 mcg inhalat.powder (Trelegy Ellipta) 1 inh inhalation DAILY 08/21/23 [History Last Taken Unknown] nebivolol 5 mg tablet (Bystolic) 10 mg PO QDAY 08/21/23 [History Last Taken Unknown] pantoprazole 40 mg tablet,delayed release 40 mg PO DAILY 08/21/23 [History Last Taken Unknown] Allergy/AdvReac Type Severity Reaction Status Date / Time chlorhexidine Allergy Itching Verified 08/21/23 05:21 venom-honey bee Allergy Anaphylaxis Verified 08/21/23 05:21 [bee venom (honey bee)] codeine AdvReac Severe Unknown Verified 08/21/23 05:21 Family History Mother CAD (coronary artery disease) Sister Cardiomyopathy Surgical History H/O: knee surgery History of tonsillectomy Social History Smoking Status: Current every day smoker tobacco type: cigarettes Tobacco: How many years used: 35 second hand exposure: No alcohol intake: never caffeine: Yes Type: coffee Number of servings: 4 ROS ROS ED Constitutional Constitutional ED: Denies chills or fever(s) Eyes Eyes: Denies change in vision or diplopia ENT ENT ED: Denies rhinorrhea or sore throat Cardiovascular Cardiovascular: Reports lightheadedness and palpitations; Denies chest pain Respiratory/Chest Respiratory/Chest: Denies cough or dyspnea Gastrointestinal Gastrointestinal: Denies abdominal pain, diarrhea, nausea or vomiting Genitourinary Genitourinary ED: Denies dysuria or hematuria Musculoskeletal Musculoskeletal: Denies back pain or neck pain Integumentary Denies abscess or rash Neurologic Neurologic: Denies headache(s), paresthesias or weakness Psychiatric Psychiatric: Denies anxiety or suicidal thoughts EXAM Physical Exam Const Vital Signs: 08/21/23 05:22 08/21/23 05:29 08/21/23 05:31 Temperature 98.7 F Temperature Source Oral Pulse Rate 94 Respiratory Rate 16 Respiratory Effort Normal Respiratory Pattern Normal Blood Pressure 142/115 H 160/89 H Blood Pressure Mean 124 112 Pulse Ox 97 Oxygen Delivery Method Room Air Positive well nourished and well developed General Appearance ED: well developed and NAD HEENT Reports moist mucous membranes normocephalic and atraumatic Eyes PERRL and EOMs intact bilaterally Neck full ROM and supple Resp normal respiratory effort and clear to auscultation bilaterally Cardio regular rate, regular rhythm and no murmurs GI non-tender and non-distended Auscultation: normoactive bowel sounds Palpation: soft Back/Spine no CVA tenderness General Back: other FROM Extremity normal to inspection General Extremety ED: Negative for edema, pulses abnormal or tenderness General Extremity: Negative for edema or pulses abnormal Neuro oriented x3, CN's II-XII intact bilaterally and no sensory deficits noted Sensorium / Orientation: awake and alert Motor Exam: strength 5/5 throughout Skin no rashes or lesions noted and no wounds MDM MDM MDM Narrative Medical decision making narrative: Patient's blood pressure was measured here several times over half an hour or so. 142/115, 160/84, 153/102. No symptoms with any of this at this time. Patient has had no changes in her medications lately, she has not missed any, itcurrently is almost 6 AM she has not yet taken her a.m. Bystolic. On the monitor she is in sinus rhythm. Furthermore she was having some left flank painlast week, it comes and goes and is not a major issue right now, she saw her doctor for it and had some labs done this was 2 days ago, and I reviewed those labs. Her renal function looks fine, she had a mild leukocytosis, microscopic hematuria, normal liver enzymes and a normal lipase. Given all of this I do notthink we need to check her renal function emergently again now, I do not need anEKG since I can see that her rhythm is clearly in sinus, and I reassured her we do not need to emergently treat these blood pressure numbers. It certainly is possible that she had an episode of A-fib earlier, she is no longer in it, and she could just be a little hypertensive because of the adrenaline from all of this. I recommend taking her a.m. usual blood pressure medication dosing, and rechecking her blood pressure later in the day, she wants know she can go to work and I am okay with that. She takes clonidine 0.1 mg every night, she was advised that if she needs to she can take additional doses of this up to 3 timesdaily if needed if her blood pressure is 150/170 or higher systolic. She is comfortable with that plan. She is already planning on following up with her doctor. Rhythm Strip Rhythm Strip: Sinus Rhythm Rate: 92 Ectopy: None Discharge Plan Triage Chief Complaint: Hypertension ED Provider: Ted Cortes Dx/Rx/DC Orders Clinical Impression: Palpitations, Accelerated hypertension Instructions: ED Hypertension, Established Prescriptions: No Action cholecalciferol (vitamin D3) 1,000 unit capsule 1,000 unit capsule 1,000 unit PO DAILY coenzyme Q10 [Co Q-10] 100 mg capsule 100 mg PO DAILY valacyclovir [Valtrex] 500 mg tablet 500 mg PO BID PRN (Reason: Cold Sores) epinephrine [EpiPen] 0.3 mg/0.3 mL auto-injector 0.3 mg IM Q10-15M PRN (Reason: Allergy Symptoms) clonidine HCl 0.1 mg tablet 0.1 mg PO QHS magnesium 200 mg tablet 200 mg PO TID lorazepam 1 mg tablet 1 mg PO DAILY PRN PRN (Reason: Anxiety) aspirin 325 MG tablet,delayed release (DR/EC) 325 mg PO DAILY fluoxetine 20 mg capsule 20 mg PO DAILY Patient Comments: TAKE 1 CAPSULE BY MOUTH EVERY DAY baclofen 10 mg tablet 15 mg PO Q8H PRN (Reason: muscle spasm) Patient Comments: take ONE-HALF to 1 tablet every EIGHT hours as needed for pain] pantoprazole 40 mg tablet,delayed release (DR/EC) 40 mg PO DAILY Patient Comments: TAKE 1 TABLET BY MOUTH EVERY DAY C Complex 1,000 mg tablet extended release 1,000 mg PO DAILY cyanocobalamin (vitamin B-12) [Vitamin B-12] 1,000 mcg tablet 1,000 mcg PO DAILY ammonium lactate 12 % cream 1 applic topical BID PRN (Reason: lesions) Hudson Ellipta 100-62.5-25 mcg blister with device 1 inh inhalation DAILY albuterol sulfate 90 mcg/actuation HFA aerosol inhaler 2 puff INHALATION Q4H PRN (Reason: shortness of breath or wheezing) Patient Comments: Inhale 2 Puffs as instructed every 6 hours as needed. nebivolol [Bystolic] 5 mg tablet 10 mg PO QDAY Primary Care Provider: Jose Rhoades Referrals: Jose Rhoades MD [Primary Care Provider] - Keep Nilda appointment (for follow up) Activity Restrictions/Additional Instructions: Take your usual a.m. blood pressure medication as soon as you are able, and recheck your blood pressure later this morning or early afternoon. If you are at or above 150 for the top number, it is reasonable to take one of your clonidine 0.1 mg tablets in addition to the nightly dose you will take. Disposition Disposition: Home, Self Care What to do if you have Problems For any increased pain, shortness of breath, bleeding, nausea or vomiting, chestpain, or any unexpected problems, contact your Primary Care Provider. Call [facility] ([phone]) or report to the closest Emergency Room. Call 911 if necessary. 08/21/23 0555 <Electronically signed by Ted Cortes MD> Cosigner Signature (if applicable): CC: Dr. Jose Rhoades MD ~ Signed [facility] Work Phone: Evaluation note* Diagnosis Onset Date Resolution Status Personal history of colonic polyps acute [facility] Work Phone: Evaluation note* Diagnosis Pelvic pain in female- Primary Unspecified symptom associated with female genital organs Screening for malignant neoplasm of cervix Screening for malignant neoplasm of the cervix Encounter for screening for human papillomavirus (HPV) Special screening examination for human papillomavirus (HPV) [facility] [place] [facility] Diagnosis Pelvic pain in female- Primary Unspecified symptom associated with female genital organs [facility] [place] noteNo assessment information [facility]WMidd[facility] Work Phone: Evaluation note* Diagnosis Pelvic pain in female Unspecified symptom associated with female genital organs documented in this encounter [facility] note* Diagnosis Sinobronchitis- Primary Unspecified sinusitis (chronic) documented in this encounter [facility] note* Diagnosis Onset Date Resolution Status Skin cancer, basal cell acut e [facility] Work Phone: Evaluation note* Diagnosis Onset Date Resolution Status Skin cancer, basal cell acut e Skin cancer, basal cell acut e Skin cancer, basal cell acut e Skin cancer, basal cell acut e Skin cancer, basal cell acut e Pain in left lower leg acute Skin cancer, basal cell acut e [facility] Work Phone: Evaluation note* Diagnosis Acute cough documented in this encounter [facility] note* Diagnosis SOB (shortness of breath)- Primary Shortness of breath documented in this encounter [facility] note* Diagnosis Hematuria, unspecified type- [facility] Additional Instructions Take your usual a.m. blood pressure medication as soon as you are able, and recheck your blood pressure later this morning or early afternoon. If you are at or above 150 for the top number, it is reasonable to take one of your clonidine 0.1 mg tablets in addition to the nightly dose you will take.[facility] Work Phone: Reason for referral (narrative)* Diagnostic Procedure Only (Routine) - Authorized Specialty Diagnoses / Procedures Referred By Angelo pop Referred To Contact [facility][NOTE 3] Diagnoses Pelvic pain in female Procedures PELVIC US I US PELVIC NONOBSTETRIC REAL-TIME IMAGE COMPLETE Oksana Glasgow APRN.CNP [address] [place] [address] [facility] [address] [place] [address] Referral ID Status Reason Start Date Expiration Date Visits Requested Visits Authorized [id number] Authorized Auto-Generat ed Referral 2 06/01/2023 1 1 [facility] for visit Narrative* Diagnostic Procedure Only (Routine) - Closed Specialty Diagnoses / Procedures Referred By Contkely t Referred To Contact [facility][NOTE 3] Diagnoses Pelvic pain in female Procedures PELVIC US WHI US PELVIC NONOBSTETRIC REAL-TIME IMAGE COMPLETE Oksana Glasgow APRN.TINNING MACHINE SET UP OPERATOR [address] [place] [address] [facility] [address] [place] [address] Referral ID Status Reason Start Date Expiration Date V isits Requested Visits Authorized [id number] Closed Auto-Generate d Referral 06/01/2022 06/01/2023 1 1 [facility] Chief Complaint and Reason for Visit Chief Complaint SCREENING COLONOSCOPY NICOTINE DEP Reason for Visit Personal history of colonic polyps Chief Complaint SCREENING COLONOSCOPY NICOTINE DEP 2 DRS/ 2 EORDERS Reason for Visit Personal history of colonic polyps Chief Complaint NICOTINE DEP 2 DRS/ 2 EORDERS 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 Chief Complaint 2 DRS/ 2 EORDERS 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 Chief Complaint SCREEN Chief Complaint SCREEN hypertension Chief Complaint hypertension EXCISION OF SKIN CANCER ON LEG Reason for Visit Skin cancer, basal c ell Chief Complaint EXCISION OF SKIN CAN CER ON LEG Basal cell skin cancer EXCISION DOS 11/03 Check leg incision RC 11/03 WOUND CHECK WOUND CHECK 1 W FU left leg pain Reason for Visit Skin cancer, basal c ell Skin cancer, basal cell Skin cancer, basal cell Skin cancer, basal cell Skin cancer, basal cell Pain in left lower leg Skin cancer, basal cell Family History No Family History Records Found Relationship Condition Age at Onset Recorded Date/T betty mother Coronary artery disease Unknown sister Cardiomyopathy Unknown Relationship Condition Age at Onset Recorded Date/T betty mother Coronary artery disease Unknown Diabetes mellitus Unknown sister Cardiomyopathy Unknown Malignant neoplasm Unknown father Malignant neoplasm Unknown Cardiac disease Unknown Advance Directives No Advanced Directives Records Found Advance Directive Response Recorded Date/ Time Advance Directives Yes July 5:50pm Living Will No March 16, 2019 8:41am Power of Fill Technician No March 16 8:41am Advance Directive Response Recorded Date/ Time Advance Directives Yes July 5:50pm Living Will No March 13, 2022 12:14pm Power of Fill Technician No March 13 12:14pm Advance Directive Response Recorded Date/ Time Advance Directives Yes July 4:50pm Living Will No March 13, 2022 11:14am Power of Fill Technician No March 13 11:14am Advance Directive Response Recorded Date/ Time Advance Directives Yes July 4:50pm Living Will No August 21 5:29am Power of Fill Technician No August 21, 2023 5:29am Advance Directive Response Recorded Date/ Time Advance Directives Yes July 5:50pm Living Will No October 31, 2023 3:23pm Power of Fill Technician No October 30 3:23pm Summary Purpose Additional Source Comments Goals (unrecognized section and content) Goals may be documented in a n alternate sectionGoals may be documented in an alternate sectionGoals may be documented in an alternate sectionGoals may be documented in an alternate sectionGoals may be documented in an alternate section Source Comments (unrecognize d section and content) In the event this informatio n is protected by the Federal Confidentiality of Alcohol and Drug Abuse Patient Records regulations: The Federal rules restrict any use of the information to criminally investigate or prosecute any alcohol or drug abuse patient.[facility] the event this information is protected by the Federal Confidentiality of Alcohol and Drug Abuse Patient Records regulations: The Federal rules restrict any use of the information to criminally investigate or prosecute any alcohol or drug abuse patient.[facility] the event this information is protected by the Federal Confidentiality of Alcohol and Drug Abuse Patient Records regulations: The Federal rules restrict any use of the information to criminally investigate or prosecute any alcohol or drug abuse patient.[facility] the event this information is protected by the Federal Confidentiality of Alcohol and Drug Abuse Patient Records regulations: The Federal rules restrict any use of the information to criminally investigate or prosecute any alcohol or drug abuse patient.[facility] the event this information is protected by the Federal Confidentiality of Alcohol and Drug Abuse Patient Records regulations: The Federal rules restrict any use of the information to criminally investigate or prosecute any alcohol or drug abuse patient.[facility] the event this information is protected by the Federal Confidentiality of Alcohol and Drug Abuse Patient Records regulations: The Federal rules restrict any use of the information to criminally investigate or prosecute any alcohol or drug abuse patient.[facility] the event this information is protected by the Federal Confidentiality of Alcohol and Drug Abuse Patient Records regulations: The Federal rules restrict any use of the information to criminally investigate or prosecute any alcohol or drug abuse patient.[facility] the event this information is protected by the Federal Confidentiality of Alcohol and Drug Abuse Patient Records regulations: The Federal rules restrict any use of the information to criminally investigate or prosecute any alcohol or drug abuse patient.[facility] the event this information is protected by the Federal Confidentiality of Alcohol and Drug Abuse Patient Records regulations: The Federal rules restrict any use of the information to criminally investigate or prosecute any alcohol or drug abuse patient.[facility] Reason for Visit (unrecogniz ed section and content) Reason Comments Pelvic Pain Reason Comments Results Reason Comments Pelvic Pain Reason Comments Chest Congestion Pt reported chest co ngestion, bilateral ear decreased hearing, x1 wk. 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 Jose Rhoades MD Family Provider Active Dr. Jose Rhoades MD Primary Care Provider Active Team Status: Inactive Member Role Status Dates Dr. Jose Rhoades MD Primary Care Provide r, Attending Provider, Referring Provider Active Team Status: Active Member Role Status Dates Dr. Jose Rhoades MD Primary Care Provider, Attending P min Active Team Status: Inactive Member Role Status Dates Dr. Jose Rhoades MD Primary Care Provider Active Dr. Ted Cortes MD Emergency Provider Active Team Status: Inactive Member Role Status Dates Dr. Jose Rhoades MD Primary Care Provider, Attending P rorandader Active Team Status: Inactive Member Role Status Dates Dr. Jose Rhoades MD Primary Care Provider, Referring P rovider Active Dr. Richard Guerrero MD Attending Provider Active Team Status: Active Member Role Status Dates Dr. Jose Rhoades MD Primary Care Provider Active Dr. Richard Guerrero MD Attending Provid er, Referring Provider, Other Provider Active Team Status: Inactive Member Role Status Dates Dr. Jose Rhoades MD Primary Care Provider Active Dr. Ted Cortes MD Attending Provider, Emergency Provider Active Team Status: Inactive Member Role Status Dates Dr. Jose Rhoades MD Primary Care Provider Active Dr. Richard Guerrero MD Attending Provider, Referring Provider Active Team Status: Inactive Member Role Status Dates Dr. Jose Rhoades MD Primary Care Provider, Referring P min Active Jania GRIJALVA PA-C Attending Provider Active Team Status: Inactive Member Role Status Dates Dr. Jose Rhoades MD Primary Care Provider Active Jania GRIJALVA PA-C Attending Provider Active Dr. Richard Guerrero MD Referring Provider Active Team Status: Active Member Role Status Dates Dr. Jose Rhoades MD Primary Care Provider Active Dr. Richard Guerrero MD Attending Provider Active Jania GRIJALVA PA-C Referring Provider Active Team Status: Inactive Member Role Status Dates Dr. 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 [employer] [facility]. provides no warranty or guarantee of the accuracy or completeness of information in this document.
[2025-03-28] MEDS: Ketorolac 30 MG/ML Syringe IM (10:13)
--- NOTE | 2025-03-28 10:30 | EDS_ITS ---
HPI History of Present Illness Chief Complaint: Lower Extremity Injury Narrative Narrative: Patient is a 59-year-old female presenting to the emergency department for a right ankle injury. Patient states that she rolled her ankle last night walking out onto her deck. She states this did cause her to fall but she denies any other injuries. Denies hitting her head or any loss of consciousness. Denies any neck or back pain. Denies any oral anticoagulation use. [facility] Medical History Post-menopausal Migraine headache Gastric reflux COPD (chronic obstructive pulmonary disease) Shortness of breath on exertion Chronic cough Leg cramps History of echocardiogram History of Holter monitoring History of GI bleed Skin cancer, basal cell Wears glasses Anxiety Depression Alcohol use Arthritis High cholesterol Loss of consciousness Smoker Cardiology follow-up encounter Personal history of colonic polyps Pure hypercholesterolemia Essential hypertension Paroxysmal atrial fibrillation Hypotension New onset a-fib Pain and swelling of left knee Abnormal ECG Syncope Hypokalemia Nonspecific ST-T wave electrocardiographic changes Atypical depressive disorder Tobacco dependence Home Medications ?Medication ?Instructions ?Recorded ?Last Taken ?Type aspirin 325 mg tablet,delayed 325 mg PO DAILY 12/11/17 10/29/23 History release cholecalciferol (vitamin D3) 25 1,000 unit PO DAILY Unknown History mcg (1,000 unit) capsule coenzyme Q10 100 mg capsule (Co 100 mg PO DAILY Unknown History Q-10) lorazepam 1 mg tablet 1 mg PO DAILY PRN PRN Anxiet y 07/30/18 Unknown History clonidine HCl 0.1 mg tablet 0.1 mg PO QHS 01/28/19 Unk nown History epinephrine 0.3 mg/0.3 mL 0.3 mg IM Q10-15M PRN Allerg y 01/28/19 Unknown History injection, auto-injector (EpiPen) Symptoms magnesium 200 mg tablet 200 mg PO QHS 09/23/19 Unkno wn History ascorbic acid (vitamin C) 1,000 mg 1,000 mg PO DAILY 0 08/21/23 Unknown History tablet,extended release (C Complex) cyanocobalamin (vitamin B-12) 1,000 mcg PO DAILY 08/21 Unknown History 1,000 mcg tablet (Vitamin B-12) fluoxetine 20 mg capsule 20 mg PO DAILY 08/21/23 Unkn own History fluticasone fur. 100 mcg-umeclid 1 inh inhalation MARK Y 08/21/23 11/04/23 History 62.5 mcg-vilant 25 mcg inhalat.powder (Trelegy Ellipta) albuterol sulfate 90 mcg/actuation 2 puff inhalation Q 4H PRN PRN 05/31/24 Unknown Rx aerosol inhaler (Ventolin HFA) Wheezing ##1 prednisone 20 mg tablet 60 mg (3 x 20 mg) PO DAILY 5 days 05/31/24 Unknown Rx #15 TABLETS metoprolol succinate 100 mg 100 mg PO DAILY 03/28/25 U nknown History tablet,extended release 24 hr Allergy/AdvReac Type Severity Reaction Status Date / Time chlorhexidine Allergy Itching Verified 05/31/24 11:46 venom-honey bee (bee venom Allergy Anaphylaxis Verified 05/31/24 11:46 (honey bee)) Family History Mother CAD (coronary artery disease) Diabetes Sister Cardiomyopathy Cancer skin Father Cancer Heart disease Surgical History History of basal cell carcinoma excision History of esophagogastroduodenoscopy (EGD) Hx of colonoscopy H/O: knee surgery History of tonsillectomy Social History Smoking Status: Current every day smoker tobacco type: cigarettes Tobacco: How many years used: 35 second hand exposure: No alcohol intake: never substance use type: does not use caffeine: Yes Type: coffee Number of servings: 4 ROS ROS ED ROS Narrative See HPI EXAM Physical Exam Narrative Exam Narrative: Vital signs: Reviewed General: Alert and oriented. No acute distress HEENT: Head is normocephalic and atraumatic, sinuses nontender, pupils equal round and reactive. Nares are patent. Oropharynx and throat exams normal. Neck: Supple without lymphadenopathy nontender Cardiovascular: Regular rate and rhythm, no murmurs. No rubs or gallops. N ormal S1 and S2 Respiratory: Clear to auscultation bilaterally. No wheezes, rales, rhonchi Abdominal: Soft and nontender. Normal bowel sounds. No guarding or rebound. Nonsurgical abdomen Extremities: Tenderness to palpation of the right lateral malleolus. No tenderness to palpation of the medial malleolus, midfoot, 1st or 5th metatarsals. No ecchymosis noted. No tenderness to palpation of the mid or proximal tib-fib or knee. DP and PT pulses intact. Sensation and motor intact. Patient able to plantar and dorsiflex. no tenderness. Skin: No rash or redness. Neurological: Cranial nerves II through XII are grossly intact. Normal strength and sensation. Normal cerebellar function The rest of the physical exam is unremarkable Const Vital Signs: 03/28/25 09:26 03/28/25 10:47 Temperature 97.2 F L 98.8 F Temperature Source Temporal Pulse Rate 74 61 Respiratory Rate 18 18 Blood Pressure 149/82 H 140/85 H Blood Pressure Mean 104 103 Pulse Ox 96 98 Oxygen Delivery Method Room Air MDM MDM MDM Narrative Medical decision making narrative: Patient is a 59-year-old female presenting to the emergency department for right ankle injury. Patient was seen and examined. Vitals are stable. Patient resting in bed comfortably no acute distress. Differential included ankle sprain, fracture, dislocation Neurovascularly intact. No obvious deformities. Patient given Toradol IM for pain control. X-ray shows no acute bony abnormalities. Patient was placed in an David wrap for comfort. Given RICE instructions for home. Offered crutches but patient states that she has a cane at home and does not need them. Patient discharged from the Emergency Department. I do not feel that the patient's evaluation reveals any acute reason for admission at this time. I instructed them to either follow-up with their primary care physician or promptly return to the Emergency Department for reevaluation should symptoms worsen or new symptoms develop. I explained what symptoms would indicate the need to return to the emergency department. Shared decision making was used. The patient voiced understanding of the treatment plan and is agreeable with it. Clinical impression: Ankle sprain Radiography Diagnostic Testing: Clinical Impression(s) from Imaging Studies Ankle X-Ray 03/28/25 09:44 IMPRESSION: No acute bony abnormalities. Reading Location: [facility] Discharge Plan Triage Chief Complaint: Lower Extremity Injury ED Provider: Dotty Stokes Dx/Rx/DC Orders Clinical Impression: Right ankle sprain Instructions: Treating Ankle Sprains, ED Ankle Sprain (Adult) Prescriptions: No Action cholecalciferol (vitamin D3) 1,000 unit capsule 1,000 unit PO DAILY coenzyme Q10 [Co Q-10] 100 mg capsule 100 mg PO DAILY epinephrine [EpiPen] 0.3 mg/0.3 mL auto-injector 0.3 mg IM Q10-15M PRN (Reason: Allergy Symptoms) clonidine HCl 0.1 mg tablet 0.1 mg PO QHS magnesium 200 mg tablet 200 mg PO QHS lorazepam 1 mg tablet 1 mg PO DAILY PRN PRN (Reason: Anxiety) aspirin 325 MG tablet,delayed release (DR/EC) 325 mg PO DAILY fluoxetine 20 mg capsule 20 mg PO DAILY Patient Comments: TAKE 1 CAPSULE BY MOUTH EVERY DAY C Complex 1,000 mg tablet extended release 1,000 mg PO DAILY cyanocobalamin (vitamin B-12) [Vitamin B-12] 1,000 mcg tablet 1,000 mcg PO DAILY Trelegy Ellipta 100-62.5-25 mcg blister with device 1 inh inhalation DAILY albuterol sulfate [Ventolin HFA] 90 mcg/actuation HFA aerosol inhaler 2 puff inhalation Q4H PRN PRN (Reason: Wheezing) Qty: 1 0RF prednisone 20 mg tablet 60 mg PO DAILY 5 Days Qty: 15 0RF metoprolol succinate 100 mg tablet extended release 24 hr 100 mg PO DAILY Primary Care Provider: Christiano Rhoades Referrals: Christiano Rhoades MD [Primary Care Provider] - 3-5 Days Activity Restrictions/Additional Instructions: Take Motrin and Tylenol at home for pain control. Please elevate your ankle and ice it to help with pain. During the day when you are walking around keep the David wrap on to help with pain as well. Your evaluation in the Emergency Department did not reveal any acute reason for admission. However, I want to emphasize that you may be early in the course of a disease process or illness even if it is not present. For this reason you should follow-up within 24 hours for reevaluation with either your primary care physician or if necessary back here in the Emergency Department. You should return to the Emergency Department immediately if your symptoms worsen or new symptoms develop. Print Language: Kinyarwanda Disposition Disposition: Home, Self Care Discharge Date/Time: 03/28/25 10:48
[2025-03-28 10:47] VITALS: BP 140/85; PULSE 61; RESP 18; TEMP 37.1; O2SAT 98
== END 2025-03-28 10:48 | disposition home or self-care (01) ==
PROVIDERS: Emergency Provider Student in an Organized Health Care Education/Training Program; PCP Family Medicine; Visit Provider Student in an Organized Health Care Education/Training Program
DX: S93.401A Sprain of unspecified ligament of right ankle, initial encounter (principal); X50.1XXA Overexertion from prolonged static or awkward postures, initial encounter; Y93.01 Activity, walking, marching and hiking; Y92.008 Other place in unspecified non-institutional (private) residence as the place of occurrence of the external cause; I10 Essential (primary) hypertension; F17.210 Nicotine dependence, cigarettes, uncomplicated; Z79.899 Other long term (current) drug therapy
CPT/HCPCS: 73610; 96372; 99282

== ENCOUNTER → 2025-04-14 | Outpatient (CLI) | payer OTHER, SELFPAY ==
--- NOTE | 2025-04-14 16:03 | RAD_ITS ---
PROCEDURE: L/S SPINE W BEND MIN 6 VW 04/14/2025 REASON FOR EXAM: R LEG PAIN TECHNIQUE: Procedure Code: [id number] Modality: DX Procedure: L/S SPINE W BEND MIN 6 VW COMPARISON: None FINDINGS: There is minimal levoconvex curvature of the lumbar spine. There is degenerative disc space narrowing at L4-L5 and minimal retrolisthesis of L4 on L5. Hip and sacroiliac joints are intact. There is a large amount of colonic stool present. RAD/L/S Spine w Bend Min 6 Vw IMPRESSION: Degenerative changes and mild alignment abnormality without acute bony abnormal ity. Reading Location: [facility]
--- NOTE | 2025-04-14 16:03 | RAD_ITS ---
PROCEDURE: FEMUR MIN 2 VIEWS 04/14/2025 REASON FOR EXAM: RIGHT TECHNIQUE: Procedure Code: RADFEM Modality: DX Procedure: FEMUR MIN 2 VIEWS Laterality: COMPARISON: None FINDINGS: There is no acute fracture or dislocation involving the right hip or knee joints. There is no evidence of femur fracture. Soft tissues are unremarkable. RAD/Femur Min 2 Views IMPRESSION: No acute bony abnormality. Reading Location: [facility]
[2025-04-14 18:05] LABS: Hematocrit 41.2 % (37-47); Hemoglobin 13.6 g/dL (12.0-15.0); Immature Granulocytes Count 0.060 X10^3/uL (0.0-0.0); Mean Corp Hgb Conc 33.0 g/dL (32-36); Mean Corpuscular Volume 94.5 fL (81-99); Mean Platelet Vol. 10.7 fl (6.2-12.0); NRBC Flagged by Analyzer 0 % (0-5); Platelet Count 439 K/mm3 (150-450); RBC Distribution Width CV 13.8 % (11.6-14.6); RBC Distribution Width SD 48.2 fl (35.1-43.9); Red Blood Count 4.36 M/mm3 (4.2-5.4); White Blood Count 10.2 K/mm3 (4.4-11.0)
[2025-04-14 18:22] LABS: PTHIN 48 pg/mL (11-61)
[2025-04-14 18:44] LABS: AST(SGOT) 18 U/L (<=31); Alanine Aminotransfer ALT/SGPT 18 U/L (<=34); Albumin, Serum 4.4 g/dL (3.4-4.8); Alkaline Phosphatase 86 U/L (35-104); Anion Gap 11 (5-15); BUN 15 mg/dL (4-19); BUN/Creat Ratio 15.4 RATIO (10-20); Calcium,Total 9.5 mg/dL (7.6-11.0); Carbon Dioxide 22.8 mmol/L (21.0-32.0); Chloride 104 mmol/L (98-108); Globulin 2.7 g/dL (2.2-4.2); Glucose 90 mg/dL (70-99); Potassium 4.6 mmol/L (3.3-5.1)
[2025-04-16 15:08] LABS: ANTINUCLEAR ANTIBODIES DIRECT Negative (Negative)
[2025-04-16 17:08] LABS: PROEL- A/G Ratio 1.5 (0.7-1.7); PROEL- Albumin 4.0 g/dL (2.9-4.4); PROEL- Alpha-1 Globulin 0.2 g/dL (0.0-0.4); PROEL- Alpha-2 Globulin 0.8 g/dL (0.4-1.0); PROEL- Beta Globulin 1.0 g/dL (0.7-1.3); PROEL- Gamma Globulin 0.8 g/dL (0.4-1.8); PROEL- Globulin, Total 2.7 g/dL (2.2-3.9); PROEL- TOTAL PROTEIN 6.7 g/dL (6.0-8.5); PROEL-M-Spike Not Observed g/dL (Not Observed)
== END | disposition home or self-care (01) ==
PROVIDERS: PCP Family Medicine; Referring Provider Family Medicine; Visit Provider Family Medicine
DX: M54.10 Radiculopathy, site unspecified (principal); M79.661 Pain in right lower leg
CPT/HCPCS: 36415; 72114; 73552; 80053; 83970; 84165; 85025; 85652; 86038

== ENCOUNTER → 2025-08-10 | Outpatient (CLI) | payer OTHER, SELFPAY ==
--- NOTE | 2025-08-10 13:31 | CT_ITS ---
PROCEDURE: LOW DOSE CT LUNG SCREENING 08/10/2025 REASON FOR EXAM: Lung screening. TECHNIQUE: Procedure Code: [id number] Modality: CT Procedure: LOW DOSE CT LUNG SCREENING Coronal and Sagittal reconstruction series were provided. One or more dose reduction techniques were used (e.g., Automated exposure control, adjustment of the mA and/or kV according to patient size, use of iterative reconstruction technique). REFERENCE LINK: Combat Stroke Lung-RADS RADIATION DOSE SUMMARY: DLP: 82.20 mGycm COMPARISON: CT lung screen 02/27/2022 FINDINGS: PULMONARY NODULES: (Only nodules >3mm are reported) Nodules described below are on series 2 unless otherwise specified. Pulmonary Nodules: Multiple calcified granulomas in the right upper lobe. No new pulmonary nodules. Hardware:None. Lymph Nodes:Calcified mediastinal lymph nodes. No lymphadenopathy. Heart and Vasculature:The heart is normal in size. Trace pericardial effusion.The main pulmonary artery and thoracic aorta normal in caliber. Atherosclerotic calcification along the aortic arch. Coronary Artery Calcifications: Present. Lungs and Airways: No focal lung consolidation. Mild emphysematous changes. Mild dependent atelectasis. The central airways are patent. Pleura:No pneumothorax or pleural effusion Upper Abdomen:Unremarkable. Bones:No aggressive osseous lesion. Degenerative changes of the thoracic spine. CT/Low Dose CT Lung Screening IMPRESSION: No new suspicious pulmonary nodules. Coronary artery calcification (CAC) is present. Lung-RADS Category: 2 BENIGN (BASED ON IMAGING FEATURES OR INDOLENT BEHAVIOR). RECOMMEND 12-MONTH SCREENING LDCT. Other Significant Findings: None. Reading Location: [facility]
== END | disposition home or self-care (01) ==
LOC: CT 13:27
PROVIDERS: PCP Family Medicine; Referring Provider Family Medicine; Visit Provider Family Medicine
DX: F17.200 Nicotine dependence, unspecified, uncomplicated (principal)
CPT/HCPCS: 71271